=== PATIENT | male | born 1945 | race Caucasian/White ===

== ENCOUNTER → 2016-11-10 | Outpatient (CLI) | payer OTHER ==
[~2016-11-10] MED LIST: AMIT100TA PO; AMIT150T PO; AMIT50TA4 PO; ASPI81CH PO; CIPR500T89 PO; DONETAB6 PO; FLAG500T PO; HYDR12.55 PO; LORA10TA2 PO; MULTCAP PO; OMEP40CA2 PO; RANI300T PO; URSO1TAB6 PO; VITA200038 PO; VITACAP31 PO; VITMTA PO; [UNRECOGNIZED DRUG - CODE] PO
[2016-11-10 12:45] LABS: BASO % 0.7 % (0.0-1.0); EOS # 0.1 K/mm3 (0.0-0.50); EOS % 4.3 % (0.0-3.0); LARGE UNSTAINED CELL # 0.2 K/mm3 (0.0-0.4); LARGE UNSTAINED CELL % 4.5 % (0.0-4.0); LYMPH # 0.7 K/mm3 (1.5-4.5); LYMPH % 19.5 % (24.0-44.0); MEAN CORPUSCULAR HEMOGLOBIN 31.9 pg (27.0-33.0); MEAN CORPUSCULAR HGB CONC 34.7 g/dl (32.0-36.5); MEAN CORPUSCULAR VOLUME 91.8 fl (80.0-96.0); MONO # 0.3 K/mm3 (0.0-0.8); MONO % 9.3 % (0.0-5.0); NEUTROPHILS # 2.1 K/mm3 (1.8-7.7); NEUTROPHILS % 61.8 % (36.0-66.0); RED CELL DISTRIBUTION WIDTH 16.2 % (11.5-14.5); WHITE BLOOD COUNT 3.3 K/mm3 (4.0-10.0)
[2016-11-10 12:50] LABS: INR 1.1
[2016-11-10 12:59] LABS: PLATELET COUNT, AUTOMATED 69 k/mm3 (150-450)
[2016-11-10 14:11] LABS: ALBUMIN 3.3 GM/DL (3.2-5.2); ALBUMIN/GLOBULIN RATIO 0.83 (1.00-1.93); CALCIUM LEVEL 8.8 MG/DL (8.8-10.2); CREATININE FOR GFR 1.36 MG/DL (0.70-1.30); GLOMERULAR FILTRATION RATE 54.7 (>42); POTASSIUM SERUM 4.4 MEQ/L (3.5-5.1); TOTAL PROTEIN 7.3 GM/DL (6.4-8.2)
== END ==
LOC: M LAB 12:08
PROVIDERS: ATTEND Internal Medicine Gastroenterology
DX: C24.0 Malignant neoplasm of extrahepatic bile duct (principal); Z79.899 Other long term (current) drug therapy

== ENCOUNTER → 2016-11-12 | Outpatient (CLI) | payer OTHER ==
--- NOTE | 2016-11-12 08:53 | REP ---
Completed abdominal sonography and portal venous Doppler assessment: History: Evaluate liver circulation. Portal hypertension. Comparison study is a CT examination from July 21, 2016. Findings: The gallbladder is surgically absent. Scan quality is inhibited significantly by bowel gas and limited imaging windows particularly in the right upper quadrant. The liver is not well seen but appears inhomogeneous. There are calcifications and/or surgical clips in the right lobe. Pancreas is obscured by abdominal gas. Spleen is quite enlarged measuring 18.7 x 8.0 x 16.7 cm. It is homogeneous sonographically. There are 2.7 and 1.9 cm cysts in the right kidney. Right renal dimensions are 11.7 x 5.4 x 5.3 cm. Left kidney measures 11.1 x 3.4 x 4.4 cm. Renal cortical echogenicity pattern is normal. No renal mass lesion is seen. The abdominal aorta is not seen. Doppler flow assessment: No flow could be seen in the main portal vein. The main portal vein could not be resolved and measured. Question thrombosis, perhaps chronic. Abdominal bowel gas precludes visualization of midline vascular structures. Hepatic veins have dampened phasicity but are patent. This is consistent with cirrhosis. Splenic venous flow could not be traced. Impression: Extremely limited exam quality. Marked splenomegaly. Question portal venous occlusion. Blunted phasicity in the hepatic veins consistent with cirrhosis. No ascites is seen. Signed by Jersey Quiñones MD 11/12/2016 01:41 P
== END ==
LOC: M RAD 06:59
PROVIDERS: ATTEND Internal Medicine Gastroenterology
DX: K76.6 Portal hypertension (principal)

== ENCOUNTER → 2016-12-24 | Outpatient (CLI) | payer OTHER ==
[2016-12-24 11:55] LABS: MEAN CORPUSCULAR HEMOGLOBIN 30.3 pg (27.0-33.0); MEAN CORPUSCULAR HGB CONC 33.5 g/dl (32.0-36.5); MEAN CORPUSCULAR VOLUME 90.2 fl (80.0-96.0); RED CELL DISTRIBUTION WIDTH 15.2 % (11.5-14.5); WHITE BLOOD COUNT 3.7 K/mm3 (4.0-10.0)
[2016-12-24 12:32] LABS: ALBUMIN 3.3 GM/DL (3.2-5.2); ALBUMIN/GLOBULIN RATIO 0.87 (1.00-1.93); BILIRUBIN,TOTAL 0.7 MG/DL (0.2-1.0); CALCIUM LEVEL 8.6 MG/DL (8.8-10.2); CREATININE FOR GFR 1.53 MG/DL (0.70-1.30); GLOMERULAR FILTRATION RATE 47.7 (>42); POTASSIUM SERUM 4.2 MEQ/L (3.5-5.1); TOTAL PROTEIN 7.1 GM/DL (6.4-8.2)
== END ==
LOC: M LAB 10:59
PROVIDERS: ATTEND Family Medicine
DX: K72.90 Hepatic failure, unspecified without coma (principal)

== ENCOUNTER → 2016-12-29 | Outpatient (REF) | payer OTHER ==
[2017-01-04 10:17] LABS: AMITRIPTYLINE 404 ng/mL (Not Estab.); NORTRIPTYLINE 56 ng/mL (Not Estab.)
== END ==
LOC: M SFHCADAM 14:03
PROVIDERS: ATTEND Physician Assistant
DX: Z51.81 Encounter for therapeutic drug level monitoring (principal); Z79.899 Other long term (current) drug therapy
CPT/HCPCS: G0463; G0480

== ENCOUNTER 2017-01-23 13:11 | Inpatient (IN) | payer OTHER ==
[~2017-01-23] VITALS: Ht 182.9 cm; Wt 100.2 kg
[2017-01-23] VITALS (11 sets, daily range): BP systolic 136–182; BP diastolic 68–92
[2017-01-23] MEDS ORDERED: NS 1,000 ML IV ONE ×2 (13:30→14:30)
[2017-01-23] MEDS ORDERED: LACT10SO29 PO (13:43)
[2017-01-23] MEDS ORDERED: PANTOPRAZOLE 40MG INJ (PROTONIX) (C9113) IV ONE (13:45)
[2017-01-23 13:46] LABS: BASO % 0.2 % (0.0-1.0); EOS # 0.1 K/mm3 (0.0-0.50); EOS % 0.9 % (0.0-3.0); LARGE UNSTAINED CELL # 0.1 K/mm3 (0.0-0.4); LARGE UNSTAINED CELL % 1.4 % (0.0-4.0); LYMPH # 1.5 K/mm3 (1.5-4.5); LYMPH % 14.7 % (24.0-44.0); MEAN CORPUSCULAR HEMOGLOBIN 30.2 pg (27.0-33.0); MEAN CORPUSCULAR HGB CONC 31.8 g/dl (32.0-36.5); MEAN CORPUSCULAR VOLUME 94.8 fl (80.0-96.0); MONO # 0.4 K/mm3 (0.0-0.8); MONO % 4.5 % (0.0-5.0); NEUTROPHILS # 7.1 K/mm3 (1.8-7.7); NEUTROPHILS % 78.2 % (36.0-66.0); PLATELET COUNT, AUTOMATED 190 k/mm3 (150-450); RED CELL DISTRIBUTION WIDTH 15.9 % (11.5-14.5); WHITE BLOOD COUNT 9.1 K/mm3 (4.0-10.0)
[2017-01-23] MEDS ORDERED: OCTREOTIDE ACETATE 50 MCG/ML VIAL (J2354) IV STA (13:46)
[2017-01-23 13:56] LABS: INR 1.36
[2017-01-23 14:00] LABS: ALBUMIN 2.8 GM/DL (3.2-5.2); ALBUMIN/GLOBULIN RATIO 0.85 (1.00-1.93); BILIRUBIN,DIRECT 0.4 MG/DL (0.0-0.2); BILIRUBIN,TOTAL 1.2 MG/DL (0.2-1.0); CALCIUM LEVEL 8.4 MG/DL (8.8-10.2); CREATININE FOR GFR 1.61 MG/DL (0.70-1.30); POTASSIUM SERUM 4.6 MEQ/L (3.5-5.1); TOTAL PROTEIN 6.1 GM/DL (6.4-8.2)
[2017-01-23] MEDS: OCTREOTIDE ACETATE 1,200 MCG in NS 238.8 ML IV SCH ×3 (14:01→23:02)
[2017-01-23] MEDS ORDERED: ONDANSETRON 4MG/2ML VIAL (J2405) IV PRN ×3 (14:45→22:45)
--- NOTE | 2017-01-23 14:50 | HPE ---
DATE OF ADMISSION: 01/23/2017 John's history and physical was generated in [facility] and a copy of this has been placed on his chart in the emergency room.
[2017-01-23] MEDS: NS 1,000 ML IV SCH ×2 (15:08→18:25)
[2017-01-23] MEDS ORDERED: AMIT50TA PO (15:21)
[2017-01-23] MEDS ORDERED: OMEP40CA2 PO (15:24)
--- NOTE | 2017-01-23 15:26 | CR ---
DATE OF CONSULTATION: 01/23/2017 STATUS OF PATIENT: Inpatient. REQUESTING PHYSICIAN: Dr. Cuba. REASON FOR CONSULTATION: Acute upper gastrointestinal (GI) bleeding. HISTORY OF PRESENT ILLNESS: For full consultation, please review my office generated note that will be faxed and scanned to the hospital chart. Briefly, this is a patient well known to me. He is status post extensive surgical management of cholangiocarcinoma with extensive hepatic resection, hepaticojejunostomy back in [address] [place] [address] Morales. He has had recent complications of a biliary stent erosion into his duodenum causing bleeding. He had the stent replaced or repositioned in [place] with Dr. Pilo Nielsen. Also noted to have chronic portal vein thrombosis for which anticoagulation was considered, however not yet started. The patient is suspected to have, but not definitely known to have cirrhosis. He does have a baseline encephalopathy, which may be due to cirrhosis or perhaps shunting of portal flow related to his very extensive biliary surgery. This patient presents to the emergency room via ambulance today with vomiting blood and syncope or near syncope in the bathroom. He also had several black stools. On the ride in in the ambulance, he had two additional episodes of hematemesis/black reddish hematemesis. The patient presents now to the emergency room and is being stabilized with intravenous (IV) fluids, packed red blood cells (RBCs). He started on the octreotide drip and on Protonix. I am called to proceed with urgent esophagogastroduodenoscopy (EGD) once the patient is stabilized. IMPRESSION: 1. Acute hematemesis and melenic stools. 2. Hemodynamic instability with Hypotension Tachycardia. - Chronic portal vein thrombosis. - History of cholangiocarcinoma,dx 2012, status post Chemotherapy and extensive bilateral liver resection in 2013. RECOMMENDATIONS: Hemodynamic stabilization followed by urgent endoscopy PRBC, Octreotide 50/50, Protonix, IVF MTDD
[2017-01-23] MEDS ORDERED: fentaNYL 100 MCG/2 ML INJECTION (J3010) As Ordered ONE ×2 (15:46→20:37)
[2017-01-23] MEDS ORDERED: SUCCINYLCHOLINE 100 MG/5 ML SYRINGE (J0330) As Ordered ONE ×2 (15:48→21:41)
[2017-01-23] MEDS ORDERED: PROPOFOL 200 MG/20 ML VIAL As Ordered ONE ×2 (15:48→20:39)
[2017-01-23] MEDS ORDERED: LIDOCAINE 2% INJ 100 MG/5 ML SDV (FOR ANES.) As Ordered ONE ×2 (15:48→20:39)
[2017-01-23] MEDS ORDERED: ONDANSETRON 4MG/2ML VIAL (J2405) As Ordered ONE (15:49)
[2017-01-23] MEDS ORDERED: CALCIUM CHLORIDE 10% 1 GM/10 ML SYR As Ordered ONE ×2 (16:11→21:41)
[2017-01-23] MEDS ORDERED: PHENYLephrine HCL 500 MCG/5 ML (100MCG/ML) SYRINGE (J2370) As Ordered ONE ×3 (17:00→21:41)
[2017-01-23] MEDS ORDERED: ePHEDrine SULFATE 25 MG/5 ML(5MG/ML) SYRINGE As Ordered ONE (17:00)
--- NOTE | 2017-01-23 17:16 | ROOR ---
Patient Name: John Huang Procedure Date: 01/23/2017 2:14 PM Date of : 1945 Age: 71 Room: Main OR Gender: Male Note Status: Finalized Procedure: Upper GI endoscopy Indications: Hematemesis, Melena Providers: Smith RODRIGUEZ MD Referring MD: Gary Cuba MD, 2. Inpatient 2. Inpatient Requesting Provider: 2. Inpatient 2. Inpatient Medicines: Monitored Anesthesia Care Complications: No immediate complications. Procedure: Pre-Anesthesia Assessment: - The heart rate, respiratory rate, oxygen saturations, blood pressure, adequacy of pulmonary ventilation, and response to care were monitored throughout the procedure. The Endoscope was introduced through the mouth, and advanced to the third part of duodenum. The upper GI endoscopy was technically difficult and complex due to excessive bleeding, presence of food and poor endoscopic visualization. Successful completion of the procedure was aided by lavage. The patient tolerated the procedure well. Findings: Non-bleeding grade II varices were found in the lower third of the esophagus,. No stigmata of recent bleeding were evident and no red joelle signs were present. Hematin (altered blood/shslmb-afeebl-xqzi material) was found in the entire examined stomach. Clotted blood was found in the entire examined stomach. Food (residue) was found in the entire examined stomach. A previously placed metal stent was seen in the ampulla and at the anastomosis. A single mucosal nodule was found in the second portion of the duodenum. Impression: - Esophagus: Non-bleeding grade II esophageal varices- No definite stigmata of recent bleeding seen. - Stomach: Not well visualized. Food/black clot/coffee grounds in stomach prevent good exam despite extensive lavage. - Duodenum: Metal biliary stent in the duodenum. Granuloma on opposite wall of stent-I do not see any stigmata of recent bleeding here. (- Overall: Source for bleeding is not determined--I see no fresh blood or fresh clots--i.e. no active bleeding.) Recommendation: - Repeat upper endoscopy tomorrow (or sooner) because the preparation was poor. - IV protonix, IV Octreotide 50 micrograms per hour. - NGT is in place-- to suction and monitor for bleeding. Pt may have po ice chips with NGT. - Cont. IVF and Transfuse as needed--tentatively will repeat EGD tomorrow (after clots clear for better visualisation). Smith Rodriguez MD Smith RODRIGUEZ MD 01/23/2017 5:16:17 PM This report has been signed electronically. Number of Addenda: 0 Note Initiated On: 01/23/2017 2:14 PM Estimated Blood Loss: Estimated blood loss: none.
[2017-01-23 17:31] LABS: MEAN CORPUSCULAR HEMOGLOBIN 29.8 pg (27.0-33.0); MEAN CORPUSCULAR HGB CONC 33.1 g/dl (32.0-36.5); MEAN CORPUSCULAR VOLUME 90.1 fl (80.0-96.0); RED CELL DISTRIBUTION WIDTH 16.2 % (11.5-14.5); WHITE BLOOD COUNT 7.5 K/mm3 (4.0-10.0)
[2017-01-23] MEDS ORDERED: fentaNYL 100 MCG/2 ML INJECTION (J3010) IV PRN ×2 (17:45→22:45)
[2017-01-23] MEDS ORDERED: LR 1,000 ML IV SCH (17:45)
[2017-01-23 20:47] LABS: MEAN CORPUSCULAR HEMOGLOBIN 30.2 pg (27.0-33.0); MEAN CORPUSCULAR VOLUME 91.7 fl (80.0-96.0); RED CELL DISTRIBUTION WIDTH 16.7 % (11.5-14.5); WHITE BLOOD COUNT 5.9 K/mm3 (4.0-10.0)
--- NOTE | 2017-01-23 22:30 | ROOR ---
Patient Name: John Huang Procedure Date: 01/23/2017 9:09 PM Date of : 1945 Age: 71 Room: Main OR Gender: Male Note Status: Finalized Procedure: Upper GI endoscopy Indications: Acute post hemorrhagic anemia, Hematemesis Providers: Smith RODRIGUEZ MD Referring MD: 2. Inpatient 2. Inpatient, Gary Cuba MD Requesting Provider: 2. Inpatient 2. Inpatient Medicines: General Anesthesia Complications: No immediate complications. Procedure: Pre-Anesthesia Assessment: - The heart rate, respiratory rate, oxygen saturations, blood pressure, adequacy of pulmonary ventilation, and response to care were monitored throughout the procedure. The Endoscope was introduced through the mouth, and advanced to the second part of duodenum. The upper GI endoscopy was technically difficult and complex due to poor patient prep. Successful completion of the procedure was aided by lavage. The patient tolerated the procedure well. Findings: Grade II varices were found in the lower third of the esophagus. Clotted blood was found in the entire examined stomach. Food (residue) was found in the entire examined stomach. Nodular mucosa was found in the second portion of the duodenum. A previously placed metal stent was seen in the area of the papilla. Impression: - Grade II esophageal varices. - no active bleeding/ no stigmata of recent bleeding - Old black and maroon clotted blood in the entire stomach preventing good visualisation. - A few small petichiae and prominent gastric folds-possible gastric varices/portal gastropathy - no active bleeding. - Metal biliary stent in the duodenum. Nodular mucosa on opposite wall.-no active bleeding. - (overall this second look did not provide any better visualisation. I do not see any definite bleeding lesion, no active bleeding at this time. Blood appears to be old/black/dark maroon) Recommendation: - Continue present medications. - Return patient to ICU for ongoing care. - I will increase his octreotide to 100 mcg/hr due to the probability of gastric varices. - Will again plan on repeat EGD #3 tomorrow after gastric contents have hopefully passed for better visual. Smith Rodriguez MD Smith RODRIGUEZ MD 01/23/2017 10:29:29 PM This report has been signed electronically. Number of Addenda: 0 Note Initiated On: 01/23/2017 9:09 PM Estimated Blood Loss: Estimated blood loss: none.
[2017-01-23] MEDS ORDERED: NS 1,000 ML IV SCH (22:45)
[2017-01-23] MEDS ORDERED: OCTREOTIDE ACETATE 50 MCG/ML VIAL (J2354) IV ONE (22:45)
[2017-01-24] VITALS (22 sets, daily range): BP systolic 131–170; BP diastolic 62–104
[2017-01-24 02:39] LABS: MEAN CORPUSCULAR VOLUME 87.9 fl (80.0-96.0); RED CELL DISTRIBUTION WIDTH 16.8 % (11.5-14.5); WHITE BLOOD COUNT 10.2 K/mm3 (4.0-10.0)
[2017-01-24] MEDS: NS 1,000 ML IV SCH ×4 (04:13→15:45)
[2017-01-24] MEDS: OCTREOTIDE ACETATE 1,200 MCG in NS 238.8 ML IV SCH ×2 (04:29→14:52)
[2017-01-24] MEDS: PANTOPRAZOLE 40MG INJ (PROTONIX) (C9113) IV SCH (08:01)
[2017-01-24] MEDS: cefTRIAXone SOD 2 GM in D5W MINI-BAG PLUS 50 ML IV SCH (08:01)
[2017-01-24] MEDS: ACETAMINOPHEN 650 MG SUPP PR PRN ×2 (08:37→14:52)
--- NOTE | 2017-01-24 08:58 | REP ---
Clinical: Abnormal breath sounds on auscultation. Comparison: 07/19/2016. Findings: Examination is limited by portable technique, underpenetration, and poor inspiratory effort. Nasogastric tube courses below left hemidiaphragm. Right Sltibw-E-Szuy with tip in the SVC. Mediastinum and cardiac silhouette are stable. Left perihilar and left lower lobe atelectasis cannot be excluded. No obvious effusion or pneumothorax. Impression: Cannot exclude left lower lobe infiltrate/atelectasis. Signed by Rahul Sandoval MD 01/24/2017 08:50 A
--- NOTE | 2017-01-24 09:28 | ECGEPIP ---
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
[2017-01-24 09:32] LABS: ALBUMIN 2.7 GM/DL (3.2-5.2); ALBUMIN/GLOBULIN RATIO 0.87 (1.00-1.93); BILIRUBIN,TOTAL 3.6 MG/DL (0.2-1.0); CALCIUM LEVEL 8.1 MG/DL (8.8-10.2); CREATININE FOR GFR 1.31 MG/DL (0.70-1.30); GLOMERULAR FILTRATION RATE 57.1 (>42); POTASSIUM SERUM 4.6 MEQ/L (3.5-5.1); TOTAL PROTEIN 5.8 GM/DL (6.4-8.2)
[2017-01-24 10:10] LABS: MEAN CORPUSCULAR HEMOGLOBIN 29.5 pg (27.0-33.0); MEAN CORPUSCULAR HGB CONC 33.6 g/dl (32.0-36.5); MEAN CORPUSCULAR VOLUME 87.7 fl (80.0-96.0); RED CELL DISTRIBUTION WIDTH 16.7 % (11.5-14.5); WHITE BLOOD COUNT 9.3 K/mm3 (4.0-10.0)
--- NOTE | 2017-01-24 10:11 | REP ---
Clinical: Evaluate for paracentesis. Findings: Overview evaluation of the abdomen and pelvis demonstrates only minimal ascites in the right lower quadrant which is not amenable for paracentesis. Impression: minimal ascites below the threshold for paracentesis. Signed by Rahul Sandoval MD 01/24/2017 10:02 A
--- NOTE | 2017-01-24 14:56 | IPNPDOC ---
Subjective Date Seen The patient was seen on 01/24/17. Subjective Chief Complaint/HPI The patient is a 71-year-old male admitted with a reason for visit of Acute Gastrointestinal Hemorrhage. Events since last encounter Patient is acutely confused and is unable to answer questions. I reviewed operative notes - patient received EGD x2 yesterday which were unable to pinpoint source of bleeding, partly due to copious bloody emesis. Per patient' s nurse, he is to receive another EGD today. Patient's nurse states he had 1 bloody bowel movement just now. General: Reports: ROS Unobtainable Objective Physical Examination General Exam: Positive: Mild Distress, Negative: Alert, Cooperative Eye Exam: Positive: PERRLA Neck Exam: Positive: Supple Chest Exam: Positive: Rhonchi (coarse breath sounds throughout), Negative: Clear to auscultation, Normal air movement Heart Exam: Positive: Normal S1, Normal S2, Rate Normal, Regular Rhythm Abdomen Exam: Positive: BS Hyperactive, Soft (unable to determine tenderness) Extremity Exam: Negative: Edema Skin Exam: Positive: Nl turgor and temperature, Negative: Rash Assessment /Plan Problems (1) Acute blood loss anemia Status: Acute Problem Text: Due to acute GI bleed. He has received 4U pRBCs so far; will continue to check CBC Q6H and transfuse blood as needed. (2) Gastric varices Status: Acute Problem Text: Patient is to receive additional EGD today, possibly with gastric banding procedure. Continue octreotide and PPI. (3) Rectal bleeding Status: Acute Problem Text: Likely due to significant upper GI bleed. (4) Hepatic encephalopathy Status: Acute Problem Text: Patient has history of cirrhosis - ammonia elevated last night and down slightly today. Unable to give lactulose or rifampin due to NGT for ongoing GI bleed. Continue IV hydration. (5) Fever Status: Acute Problem Text: Patient has had ongoing fever overnight with Tmax of 102.1. Concern for transfusion-related fever vs. acute infection. - WBCs mildly elevated at 2 am but returned to normal at 8 am today. - Blood cultures and urine culture pending - Ceftriaxone started this morning for concern for SBP; abdominal U/S shows only minimal ascites, so this is less likely - CXR cannot rule-out LLL pneumonia vs. atelectasis; patient at risk for aspiration due to hematemesis prior to admission. Will add Zosyn. - Continue acetaminophen TX as needed for fever (6) Portal vein thrombosis Status: Acute Problem Text: Patient was prescribed Eliquis as an outpatient for this but had not started taking it prior to admission; continue to hold off on anticoagulation due to GI bleed. (7) History of cholangiocarcinoma Status: Acute Problem Text: History of stent placement in 2013 with liver resection and chemotherapy. Plan/VTE VTE Prophylaxis Ordered?: No VTE Exclusion Pharmacological: Active Bleeding Plan/Urinary Catheter Reason for insertion/continuin: Critical Pt monitoring VS, I&O, 24H, Fishbone Vital Signs/I&O Vital Signs Date Time Temp Pulse Resp B/P Pulse Ox O2 Delivery O2 Flow Rate FiO2 01/24/17 11:00 89 23 136/66 97 Nasal Cannula 2.0 01/24/17 10:29 101.1 I&O- Last 24 Hours up to 6 AM 01/24/17 06:00 Intake Total 5376 ml Output Total 1650 ml Balance 3726 ml Laboratory Data 24H LABS Laboratory Tests 2 01/23/17 18:41: Lactic Acid Followup at 4 Hours 2.1*H 01/23/17 20:11: Ammonia 338H 01/24/17 08:45: Ammonia 223H, Blood Urea Nitrogen 38H, Creatinine 1.31H, Sodium Level 148H, Potassium Level 4.6, Chloride Level 115H, Carbon Dioxide Level 22, Calcium Level 8.1L, Aspartate Amino Transf (AST/SGOT) 47H, Alanine Aminotransferase (ALT /SGPT) 49, Alkaline Phosphatase 411H, Total Bilirubin 3.6#H, Total Protein 5.8L , Albumin 2.7L, Albumin/Globulin Ratio 0.87L, Anion Gap 11, Glomerular Filtration Rate 57.1 CBC/BMP Laboratory Tests 01/23/17 17:14 Red Blood Count 3.61 L, Mean Corpuscular Volume 90.1, Mean Corpuscular Hemoglobin 29.8, Mean Corpuscular Hemoglobin Concent 33.1, Red Cell Distribution Width 16.2 H 01/23/17 20:11 Red Blood Count 3.40 L, Mean Corpuscular Volume 91.7, Mean Corpuscular Hemoglobin 30.2, Mean Corpuscular Hemoglobin Concent 33.0, Red Cell Distribution Width 16.7 H 01/24/17 02:19 Red Blood Count 3.28 L, Mean Corpuscular Volume 87.9, Mean Corpuscular Hemoglobin 29.0, Mean Corpuscular Hemoglobin Concent 33.0, Red Cell Distribution Width 16.8 H 01/24/17 08:45 Red Blood Count 3.68 L, Mean Corpuscular Volume 87.7, Mean Corpuscular Hemoglobin 29.5, Mean Corpuscular Hemoglobin Concent 33.6, Red Cell Distribution Width 16.7 H, Calcium Level 8.1 L, Aspartate Amino Transf (AST/SGOT ) 47 H, Alanine Aminotransferase (ALT/SGPT) 49, Alkaline Phosphatase 411 H, Total Bilirubin 3.6 #H, Total Protein 5.8 L, Albumin 2.7 L Microbiology Microbiology 01/24/17 Blood Culture, Received Pending 01/24/17 Urine Culture, Received Pending MANDEEP SANDOVAL MD Jan 24, 2017 14:46
[2017-01-24 15:38] LABS: MEAN CORPUSCULAR HEMOGLOBIN 30.6 pg (27.0-33.0); MEAN CORPUSCULAR HGB CONC 34.9 g/dl (32.0-36.5); MEAN CORPUSCULAR VOLUME 87.7 fl (80.0-96.0); RED CELL DISTRIBUTION WIDTH 16.8 % (11.5-14.5); WHITE BLOOD COUNT 11.1 K/mm3 (4.0-10.0)
[2017-01-24] MEDS: PIPERACILLIN/TAZOBACTAM SOD 3.375 GM in D5W MINI-BAG PLUS 50 ML IV SCH (16:07)
[2017-01-24] MEDS ORDERED: VASOPRESSIN INJ 20 UNITS/ML VIAL ONE (17:17)
[2017-01-24] MEDS ORDERED: VASOPRESSIN INJ 20 UNITS/ML VIAL As Ordered ONE (17:17)
--- NOTE | 2017-01-24 17:54 | ROOR ---
Patient Name: John Huang Procedure Date: 01/24/2017 3:18 PM Date of : 1945 Age: 71 Room: Main OR Gender: Male Note Status: Finalized Procedure: Upper GI endoscopy Indications: Acute post hemorrhagic anemia, Coffee-ground emesis, Hematemesis Providers: Smith RODRIGUEZ MD Referring MD: 2. Inpatient 2. Inpatient Requesting Provider: 2. Inpatient 2. Inpatient Medicines: General Anesthesia Complications: No immediate complications. Procedure: Pre-Anesthesia Assessment: - The heart rate, respiratory rate, oxygen saturations, blood pressure, adequacy of pulmonary ventilation, and response to care were monitored throughout the procedure. The Endoscope was introduced through the mouth, and advanced to the second part of duodenum. The upper GI endoscopy was accomplished without difficulty. The patient tolerated the procedure well. Findings: Non-bleeding grade II varices were found in the lower third of the esophagus,. No stigmata of recent bleeding were evident and no red joelle signs were present. The varices appeared larger than they were at prior exam. Varices with no bleeding were found in the cardia and in the gastric body. There were no stigmata of recent bleeding. Moderate portal hypertensive gastropathy was found in the gastric body and on the greater curvature of the stomach. A previously placed metal biliary stent was seen in the area of the papilla. A single erosion was found in the second portion of the duodenum. Hematin (altered blood/qlxqqa-dwwxrh-bhte material) was found in the gastric body. Impression: - Non-bleeding grade II esophageal varices. - Gastric varices, without bleeding. - Portal hypertensive gastropathy with scattered petichial/mucosal hemorrhages- these are fresh, but not actively bleeding today. - Metal biliary stent in the duodenum. Duodenal nodularity/erosion opposite duodenal wall.. - Black/Hematin (altered blood/qeqenk-clbdtf-tnnr material) in the gastric body. - no fresh blood - I suspect source of bleeding was related to petichial hemorrhages/portal hypertensive gastropathy. - The extensive esophageal and gastric varices are new since last years scope. There does not appear to be any bleeding here at this time. Recommendation: - I suspect progression of chronic portal vein thrombosis/new acute portal vein thrombosis, possible recurrence of tumor in portal system as cause for sudden increased portal pressure. I do not think he would tolerate MRI in his current state. I will check a repeat CT for confirmation. - Observe patient's clinical course. - Continue present medications. Smith Rodriguez MD Smith RODRIGUEZ MD 01/24/2017 5:54:05 PM This report has been signed electronically. Number of Addenda: 0 Note Initiated On: 01/24/2017 3:18 PM Estimated Blood Loss: Estimated blood loss: none.
[2017-01-24] MEDS ORDERED: LR 1,000 ML IV SCH (18:00)
[2017-01-24] MEDS ORDERED: fentaNYL 100 MCG/2 ML INJECTION (J3010) As Ordered ONE (18:19)
[2017-01-24 21:19] LABS: MEAN CORPUSCULAR HEMOGLOBIN 29.6 pg (27.0-33.0); MEAN CORPUSCULAR HGB CONC 33.7 g/dl (32.0-36.5); MEAN CORPUSCULAR VOLUME 87.8 fl (80.0-96.0); RED CELL DISTRIBUTION WIDTH 16.9 % (11.5-14.5); WHITE BLOOD COUNT 11.3 K/mm3 (4.0-10.0)
[2017-01-25] VITALS (9 sets, daily range): BP systolic 103–179; BP diastolic 54–99
[2017-01-25] MEDS: PIPERACILLIN/TAZOBACTAM SOD 3.375 GM in D5W MINI-BAG PLUS 50 ML IV SCH ×2 (00:14→08:39)
[2017-01-25] MEDS: NS 1,000 ML IV SCH (00:14)
[2017-01-25] MEDS: ACETAMINOPHEN 650 MG SUPP PR PRN (00:14)
[2017-01-25 02:42] LABS: MEAN CORPUSCULAR VOLUME 88.4 fl (80.0-96.0); RED CELL DISTRIBUTION WIDTH 16.9 % (11.5-14.5); WHITE BLOOD COUNT 9.9 K/mm3 (4.0-10.0)
[2017-01-25] MEDS: OCTREOTIDE ACETATE 1,200 MCG in NS 238.8 ML IV SCH ×2 (02:47→13:59)
[2017-01-25 03:07] LABS: ALBUMIN 2.6 GM/DL (3.2-5.2); ALBUMIN/GLOBULIN RATIO 0.96 (1.00-1.93); BILIRUBIN,TOTAL 2.8 MG/DL (0.2-1.0); CALCIUM LEVEL 7.5 MG/DL (8.8-10.2); CREATININE FOR GFR 1.36 MG/DL (0.70-1.30); GLOMERULAR FILTRATION RATE 54.7 (>42); POTASSIUM SERUM 3.7 MEQ/L (3.5-5.1); TOTAL PROTEIN 5.3 GM/DL (6.4-8.2)
[2017-01-25] MEDS ORDERED: NS 0.45% 1,000 ML IV SCH (07:45)
--- NOTE | 2017-01-25 08:04 | IPNPDOC ---
Subjective Date Seen The patient was seen on 01/25/17. Subjective Chief Complaint/HPI The patient is a 71-year-old male admitted with a reason for visit of Acute Gastrointestinal Hemorrhage. Events since last encounter Pt nonresponsive. General: Reports: ROS Unobtainable Objective Physical Examination General Exam: Positive: Mild Distress, Negative: Alert, Cooperative Eye Exam: Positive: PERRLA Neck Exam: Positive: Supple Chest Exam: Positive: Rhonchi (coarse breath sounds throughout), Negative: Clear to auscultation, Normal air movement Heart Exam: Positive: Normal S1, Normal S2, Rate Normal, Regular Rhythm Abdomen Exam: Positive: BS Hyperactive, Soft (unable to determine tenderness) Extremity Exam: Negative: Edema Skin Exam: Positive: Nl turgor and temperature, Negative: Rash Assessment /Plan Problems (1) Acute blood loss anemia Status: Acute Problem Text: Due to acute GI bleed. He has received 4U pRBCs so far; will continue to check CBC Q6H and transfuse blood as needed. (2) Gastric varices Status: Acute Problem Text: 01/25 - Dr Rodriguez following. EGD 01/24: - Non-bleeding grade II esophageal varices. - Gastric varices, without bleeding. - Portal hypertensive gastropathy with scattered petichial/mucosal hemorrhages- these are fresh, but not actively bleeding today. - Metal biliary stent in the duodenum. Duodenal nodularity/erosion opposite duodenal wall.. - Black/Hematin (altered blood/togoxk-iazccz-kyrc material) in the gastric body. - no fresh blood - I suspect source of bleeding was related to petichial hemorrhages/portal hypertensive gastropathy. - The extensive esophageal and gastric varices are new since last years scope. There does not appear to be any bleeding here at this time. - I suspect progression of chronic portal vein thrombosis/new acute portal vein thrombosis, possible recurrence of tumor in portal system as cause for sudden increased portal pressure. I do not think he would tolerate MRI in his current state. I will check a repeat CT for confirmation. - Observe patient's clinical course. - Continue present medications. Plan is Dr Rodriguez is working on possible transfer to [facility]. 01/24 - Patient is to receive additional EGD today, possibly with gastric banding procedure. Continue octreotide and PPI. (3) Rectal bleeding Status: Acute Problem Text: Likely due to significant upper GI bleed. (4) Hepatic encephalopathy Status: Acute Problem Text: 01/25 - Ammonia level trending down to 116 today. 01/24 - Patient has history of cirrhosis - ammonia elevated last night and down slightly today. Unable to give lactulose or rifampin due to NGT for ongoing GI bleed. Continue IV hydration. (5) Fever Status: Acute Problem Text: 01/25 - Currently afebrile. Tmax 101 during the night. On Zosyn and Ceftriaxone. Blood and urine cx. WBC 9.9. Patient has had ongoing fever overnight with Tmax of 102.1. Concern for transfusion-related fever vs. acute infection. - WBCs mildly elevated at 2 am but returned to normal at 8 am today. - Blood cultures and urine culture pending - Ceftriaxone started this morning for concern for SBP; abdominal U/S shows only minimal ascites, so this is less likely - CXR cannot rule-out LLL pneumonia vs. atelectasis; patient at risk for aspiration due to hematemesis prior to admission. Will add Zosyn. - Continue acetaminophen WI as needed for fever (6) Portal vein thrombosis Status: Acute Problem Text: Patient was prescribed Eliquis as an outpatient for this but had not started taking it prior to admission; continue to hold off on anticoagulation due to GI bleed. (7) History of cholangiocarcinoma Status: Acute Problem Text: History of stent placement in 2012 with liver resection and chemotherapy. Plan/VTE VTE Prophylaxis Ordered?: No VTE Exclusion Pharmacological: Active Bleeding Plan/Urinary Catheter Reason for insertion/continuin: Critical Pt monitoring VS, I&O, [facility]H, [facility] Vital Signs/I&O Vital Signs Date Time Temp Pulse Resp B/P Pulse Ox O2 Delivery O2 Flow Rate FiO2 01/25/17 05:00 84 22 155/72 96 Nasal Cannula 3.0 01/25/17 04:00 99.0 I&O- Last 24 Hours up to 6 AM 01/25/17 06:00 Intake Total 1565 ml Output Total 2580 ml Balance -1015 ml Laboratory Data 24H LABS Laboratory Tests 2 01/24/17 08:45: Blood Urea Nitrogen 38H, Creatinine 1.31H, Sodium Level 148H, Potassium Level 4.6, Chloride Level 115H, Carbon Dioxide Level 22, Calcium Level 8.1L, Aspartate Amino Transf (AST/SGOT) 47H, Alanine Aminotransferase (ALT/SGPT) 49, Alkaline Phosphatase 411H, Total Bilirubin 3.6#H, Total Protein 5.8L, Albumin 2.7L, Albumin/Globulin Ratio 0.87L, Ammonia 223H, Anion Gap 11, Glomerular Filtration Rate 57.1 01/25/17 02:27: Blood Urea Nitrogen 35H, Creatinine 1.36H, Sodium Level 151H, Potassium Level 3.7, Chloride Level 116H, Carbon Dioxide Level 24, Calcium Level 7.5L, Aspartate Amino Transf (AST/SGOT) 45H, Alanine Aminotransferase (ALT/SGPT) 44, Alkaline Phosphatase 331H, Total Bilirubin 2.8H, Total Protein 5.3L, Albumin 2.6L, Albumin/Globulin Ratio 0.96L, Ammonia 116H, Anion Gap 11, Glomerular Filtration Rate 54.7 CBC/BMP Laboratory Tests 01/24/17 08:45 Calcium Level 8.1 L, Aspartate Amino Transf (AST/SGOT) 47 H, Alanine Aminotransferase (ALT/SGPT) 49, Alkaline Phosphatase 411 H, Total Bilirubin 3.6 #H, Total Protein 5.8 L, Albumin 2.7 L, Red Blood Count 3.68 L, Mean Corpuscular Volume 87.7, Mean Corpuscular Hemoglobin 29.5, Mean Corpuscular Hemoglobin Concent 33.6, Red Cell Distribution Width 16.7 H 01/24/17 15:07 Red Blood Count 3.63 L, Mean Corpuscular Volume 87.7, Mean Corpuscular Hemoglobin 30.6, Mean Corpuscular Hemoglobin Concent 34.9, Red Cell Distribution Width 16.8 H 01/24/17 20:43 Red Blood Count 3.57 L, Mean Corpuscular Volume 87.8, Mean Corpuscular Hemoglobin 29.6, Mean Corpuscular Hemoglobin Concent 33.7, Red Cell Distribution Width 16.9 H 01/25/17 02:27 Calcium Level 7.5 L, Aspartate Amino Transf (AST/SGOT) 45 H, Alanine Aminotransferase (ALT/SGPT) 44, Alkaline Phosphatase 331 H, Total Bilirubin 2.8 H, Total Protein 5.3 L, Albumin 2.6 L, Red Blood Count 3.38 L, Mean Corpuscular Volume 88.4, Mean Corpuscular Hemoglobin 30.0, Mean Corpuscular Hemoglobin Concent 34.0, Red Cell Distribution Width 16.9 H Microbiology Microbiology 01/24/17 Blood Culture, Received Pending 01/24/17 Urine Culture, Received Pending Mo Foley Jan 25, 2017 08:03
[2017-01-25 08:35] LABS: MEAN CORPUSCULAR HEMOGLOBIN 30.5 pg (27.0-33.0); MEAN CORPUSCULAR HGB CONC 34.5 g/dl (32.0-36.5); MEAN CORPUSCULAR VOLUME 88.4 fl (80.0-96.0); RED CELL DISTRIBUTION WIDTH 16.9 % (11.5-14.5); WHITE BLOOD COUNT 13.3 K/mm3 (4.0-10.0)
[2017-01-25] MEDS: cefTRIAXone SOD 2 GM in D5W MINI-BAG PLUS 50 ML IV SCH (08:39)
[2017-01-25] MEDS: PANTOPRAZOLE 40MG INJ (PROTONIX) (C9113) IV SCH (09:03)
[2017-01-25] MEDS ORDERED: GASTROGRAFIN SOLUTION 30ML PO ONE (10:15)
[2017-01-25] MEDS ORDERED: GASTROGRAFIN SOLUTION 30ML (Q9963) PO ONE (10:45)
[2017-01-25] MEDS ORDERED: ISOVUE-370 76% 100ML VIAL (Q9967) As Ordered ONE (11:26)
[2017-01-25] MEDS ORDERED: MAG SULF 1GM/100ML (MAG RUN) 1 GM in APPROPRIATE DILUENT 1 EA IV ONE (11:45)
--- NOTE | 2017-01-25 11:59 | DSES ---
DATE OF ADMISSION: 01/24/2017 DATE OF TRANSFER/DISCHARGE: 01/25/2017 ADMITTING DIAGNOSES: 1. Acute upper GI bleeding. 2. Chronic portal vein thrombosis. 3. Acute portal vein thrombosis.-probable 4. Esophageal varices and gastric varices.- new since 2015 5. History of extensive resection for cholangiocarcinoma in 2012 presumed disease free at this time. HOSPITAL SUMMARY: Mr. Huang is a patient known to me with resection of a cholangiocarcinoma back in 2013 after chemoradiation was provided. The patient has been doing relatively well until recently when he was discovered to have chronic portal vein thrombosis. He was not anticoagulated for this. He presents to the hospital on 01/24 with acute upper GI bleed in the form of vomiting coffee grounds and bloody material. Upper endoscopy was performed revealing new esophageal and new gastric varices as well as portal gastropathy. The patient has been hemodynamically stabilized with high dose octreotide. At this time, it is felt that thrombectomy may be a consideration. However, this is not available at our institution. The patient is quite confused and somewhat combative at times but is otherwise hemodynamically stable. He received a total of 4 units of packed RBCs with a now stable hemoglobin. PHYSICAL EXAMINATION: Vitals: Temperature 100.4/101, pulse is 91, respiratory rate 20, blood pressure 151/71, pulse ox 97% on 3 liters nasal cannula. General: He is confused but answers questions. He is not cooperative at times. Head, eyes, ears, nose and throat: Grossly without abnormality. Neck is negative for lymphadenopathy. Chest is coarse breath sounds. No wheezing or crackles. Heart is regular rate and rhythm, S1, S2. No murmurs or gallops. Abdomen is protuberant but soft, nontender. Bowel sounds are present. Extremities: Negative for edema. Neurological: He is combative at times but answers questions. He does appear confused. Moves all extremities equally and bilaterally. CURRENT MEDICATIONS: - octreotide IV drip at 100 mcg an hour - Rocephin 2 grams IV every 24 - Zosyn 3.375 mg IV every 8 IMPRESSION: 1. Probable acute on chronic portal vein thrombosis in a non-cirrhotic patient with extensive hepatic surgery for cholangiocarcinoma in 2012. 2. Acute upper GI bleed. I suspect most likely related to portal gastropathy. 3. New-onset esophageal and gastric varices compared to previous endoscopies. RECOMMENDATIONS: 1. I have discussed this with Dr. Morales and Dr. Knight at [facility] who agree to admit this patient to their service for further management of probable acute portal vein thrombosis in this patient that is not a candidate for TIPS due to encephalopathy. BRITD
--- NOTE | 2017-01-25 12:39 | REP ---
Clinical: History of cholangiocarcinoma with portal vein thrombosis. Comparison: 07/21/2016. Technique: Axial contrast enhanced images from the lung bases to the pubic symphysis using oral and 100 ml Isovue 370 intravenous contrast material with coronal and sagittal re-formations. Findings: There is a small amount of ascites extending from the upper abdomen along the bilateral pericolic gutters into the pelvis. Postsurgical changes to the liver appreciated along with presumed biliary stent extending from the region of the sarina hepatis to the duodenum. No discrete liver lesion is identified. The splenic vein, superior mesenteric vein and confluence to form what appears to be an attenuated portal vein demonstrate satisfactory enhancement with continued enhancement of the left portal vein but no obvious right portal vein within the liver. These findings are similar to examination dated 07/21/2016 and suggest chronic right portal vein thrombosis. Mild splenomegaly is suggested without focal lesion. Pancreas, bilateral adrenal glands and kidneys are relatively normal/stable. A 2.3 cm right renal cyst is unchanged. Evaluation of the enteric system demonstrates significant mural thickening and submucosal edema involving the colon and predominantly the ascending colon which may reflect colitis or secondary changes related to malignancy and poor vascularization. The ventral hernia is again identified containing nonobstructed loops of bowel similar to prior examination. Fluid-filled small bowel is also identified and again may be related to underlying enteritis. Pelvis demonstrates a Hensley catheter in collapsed bladder with small amount of gas likely related to catheterization. Abdominal aorta demonstrates atherosclerotic changes without aneurysm or dissection. No free air. Scattered adenopathy within the retroperitoneum and mesentery measuring up to approximately 13 mm are nonspecific. Skeletal structures demonstrate degenerative changes without focal osseous abnormality. Lung bases demonstrate small pleural effusions with bibasilar atelectasis as well as cardiomegaly and evidence to suggest mild pulmonary vascular congestion. Impression: 1. Detailed findings as described above likely related to underlying malignancy including small amount of ascites and changes of the small and large bowel which may reflect a secondary enterocolitis. 2. Small pleural effusions with basilar atelectasis and suggestions for pulmonary vascular congestion. Signed by Rahul Sandoval MD 01/25/2017 12:38 P
[2017-01-25 13:56] LABS: MEAN CORPUSCULAR HEMOGLOBIN 30.2 pg (27.0-33.0); MEAN CORPUSCULAR HGB CONC 33.7 g/dl (32.0-36.5); MEAN CORPUSCULAR VOLUME 89.4 fl (80.0-96.0); RED CELL DISTRIBUTION WIDTH 16.8 % (11.5-14.5); WHITE BLOOD COUNT 15.4 K/mm3 (4.0-10.0)
== END 2017-01-25 14:02 | disposition short-term general hospital (02) | DRG 391 ==
LOC: EDBD 13:11 → M ED 14:28 → M ED INP 14:36 → M ICU 17:48
PROVIDERS: ADMIT Family Medicine; ATTEND Internal Medicine Gastroenterology
PROC: 0DJ08ZZ Inspection of Upper Intestinal Tract, Via Natural or Artificial Opening Endoscopic (ICD-10-PCS; 2017-01-23)
PROC: 30253N1 (ICD-10-PCS; 2017-01-23)
PROC: 0DJ08ZZ Inspection of Upper Intestinal Tract, Via Natural or Artificial Opening Endoscopic (ICD-10-PCS; principal; 2017-01-23 14:10)
PROC: 0DJ08ZZ Inspection of Upper Intestinal Tract, Via Natural or Artificial Opening Endoscopic (ICD-10-PCS; 2017-01-24)
DX: K31.89 Other diseases of stomach and duodenum (principal); I81 Portal vein thrombosis; D61.818 Other pancytopenia; K76.6 Portal hypertension; D62 Acute posthemorrhagic anemia; I85.10 Secondary esophageal varices without bleeding; K92.0 Hematemesis; K72.90 Hepatic failure, unspecified without coma; G20 Parkinson's disease; F03.90 Unspecified dementia, unspecified severity, without behavioral disturbance, psychotic disturbance, mood disturbance, and anxiety; I86.4 Gastric varices; D53.9 Nutritional anemia, unspecified; N18.9 Chronic kidney disease, unspecified; F32.9 Major depressive disorder, single episode, unspecified; I12.9 Hypertensive chronic kidney disease with stage 1 through stage 4 chronic kidney disease, or unspecified chronic kidney disease; R50.9 Fever, unspecified; E78.5 Hyperlipidemia, unspecified; R73.03 Prediabetes; M47.816 Spondylosis without myelopathy or radiculopathy, lumbar region; Z91.14 Patient's other noncompliance with medication regimen; Z79.01 Long term (current) use of anticoagulants; Z79.899 Other long term (current) drug therapy; Z85.09 Personal history of malignant neoplasm of other digestive organs; Z92.21 Personal history of antineoplastic chemotherapy; Z98.0 Intestinal bypass and anastomosis status

== ENCOUNTER → 2017-02-24 | Outpatient (REF) | payer OTHER ==
[~2017-02-24] MED LIST changes: +AMIT50TA PO; +LACT10SO29 PO
[2017-02-24 20:46] LABS: INR 1.14
[2017-02-24 20:51] LABS: MEAN CORPUSCULAR HEMOGLOBIN 31.9 pg (27.0-33.0); MEAN CORPUSCULAR HGB CONC 33.3 g/dl (32.0-36.5); MEAN CORPUSCULAR VOLUME 95.8 fl (80.0-96.0); WHITE BLOOD COUNT 4.9 K/mm3 (4.0-10.0)
[2017-02-24 20:54] LABS: ALBUMIN 2.9 GM/DL (3.2-5.2); ALBUMIN/GLOBULIN RATIO 0.69 (1.00-1.93); BILIRUBIN,TOTAL 0.7 MG/DL (0.2-1.0); CALCIUM LEVEL 8.8 MG/DL (8.8-10.2); CREATININE FOR GFR 1.4 MG/DL (0.70-1.30); GLOMERULAR FILTRATION RATE 52.9 (>42); POTASSIUM SERUM 4.9 MEQ/L (3.5-5.1); TOTAL PROTEIN 7.1 GM/DL (6.4-8.2)
== END ==
LOC: M SFHCADAM 14:27
PROVIDERS: ATTEND Family Medicine
DX: I81 Portal vein thrombosis (principal); I10 Essential (primary) hypertension; K74.60 Unspecified cirrhosis of liver

== ENCOUNTER 2017-03-08 20:43 | Inpatient (IN) | payer OTHER ==
[~2017-03-08] VITALS: Ht 182.9 cm; Wt 91.6 kg
[2017-03-08] MEDS ORDERED: SUCR1TA PO (21:03)
[2017-03-08] MEDS ORDERED: FURO20TA2 PO (21:03)
[2017-03-08] MEDS ORDERED: KLOR20PO12 GT (21:03)
[2017-03-08] MEDS ORDERED: NADO20TA PO (21:03)
[2017-03-08] MEDS ORDERED: FINA5TAB2 PO (21:03)
[2017-03-08] MEDS ORDERED: FLOM5CAP PO (21:03)
[2017-03-08] MEDS ORDERED: BACL10TA PO (21:03)
[2017-03-08] MEDS ORDERED: NS 1,000 ML IV ONE (21:15)
--- NOTE | 2017-03-08 21:50 | REPUSA ---
CT of the head Clinical history: altered mental status. Protocol: Multiple axial CT images obtained with 5 mm slice thickness were obtained through the head without administration of contrast. Findings: The ventricles and sulci are symmetric but prominent in size bilaterally. There are periven tricular areas of low attenuation throughout the deep white matter. There is no evidence of acute hem orrhage or infarct. There is no midline shift, mass effect, or extra-axial fluid collection. The osse ous structures are unremarkable. The visualized paranasal sinuses and mastoid air cells are clear. Impression: No acute hemorrhage or infarct. 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
[2017-03-08 21:54] LABS: BASO % 0.3 % (0.0-1.0); EOS # 0.1 K/mm3 (0.0-0.50); LARGE UNSTAINED CELL # 0.2 K/mm3 (0.0-0.4); LARGE UNSTAINED CELL % 2.4 % (0.0-4.0); LYMPH # 0.7 K/mm3 (1.5-4.5); LYMPH % 11.6 % (24.0-44.0); MEAN CORPUSCULAR HEMOGLOBIN 30.6 pg (27.0-33.0); MEAN CORPUSCULAR HGB CONC 31.9 g/dl (32.0-36.5); MEAN CORPUSCULAR VOLUME 95.7 fl (80.0-96.0); MONO # 0.5 K/mm3 (0.0-0.8); MONO % 7.4 % (0.0-5.0); NEUTROPHILS # 4.7 K/mm3 (1.8-7.7); NEUTROPHILS % 76.2 % (36.0-66.0); PLATELET COUNT, AUTOMATED 104 k/mm3 (150-450); RED CELL DISTRIBUTION WIDTH 16.6 % (11.5-14.5); WHITE BLOOD COUNT 6.2 K/mm3 (4.0-10.0)
[2017-03-08 22:22] LABS: ALBUMIN 2.9 GM/DL (3.2-5.2); ALBUMIN/GLOBULIN RATIO 0.66 (1.00-1.93); ALKALINE PHOSPHATASE 513 U/L (45-117); ALT/SGPT 57 U/L (12-78); ANION GAP 8 MEQ/L (8-16); AST/SGOT 65 U/L (15-37); BILIRUBIN,DIRECT 0.4 MG/DL (0.0-0.2); BILIRUBIN,TOTAL 1.1 MG/DL (0.2-1.0); BLOOD UREA NITROGEN 24 MG/DL (7-18); CALCIUM LEVEL 8.3 MG/DL (8.8-10.2); CARBON DIOXIDE LEVEL 27 MEQ/L (21-32); CHLORIDE LEVEL 104 MEQ/L (98-107); GLOMERULAR FILTRATION RATE 45.3 (>42); GLUCOSE, FASTING 126 MG/DL (83-110); SODIUM LEVEL 139 MEQ/L (136-145); TOTAL PROTEIN 7.3 GM/DL (6.4-8.2)
[2017-03-08] MEDS ORDERED: METR0.00 TOP (22:58)
[2017-03-08] MEDS ORDERED: PANT40TA2 PO (22:58)
[2017-03-08] MEDS ORDERED: POTA20TA4 PO (22:58)
[2017-03-09] MEDS ORDERED: ACETAMINOPHEN TAB 650MG DOSE (2X325MG) PO PRN (00:15)
[2017-03-09] MEDS ORDERED: ONDANSETRON 4MG/2ML VIAL (J2405) IV PRN (00:15)
[2017-03-09] MEDS ORDERED: BISACODYL 5 MG TAB PO PRN (00:15)
[2017-03-09 00:40] VITALS: BP 139/79
[2017-03-09 00:54] LABS: METHADONE URINE NEGATIVE (NEGATIVE)
[2017-03-09] MEDS: LACTULOSE 20 GM/30 ML SYRUP UD PO SCH ×3 (01:00→20:08)
[2017-03-09] MEDS: AMITRIPTYLINE 50 MG TAB PO SCH ×2 (01:00→20:09)
[2017-03-09] MEDS: POTASSIUM CHLORIDE 10 MEQ SR TABLET PO SCH ×3 (01:01→20:09)
[2017-03-09] MEDS: SUCRALFATE 1 GM TAB PO SCH ×5 (01:01→20:09)
[2017-03-09] MEDS: PANTOPRAZOLE 40MG TAB (PROTONIX) PO SCH ×3 (01:01→20:09)
--- NOTE | 2017-03-09 02:08 | REP ---
Clinical: Altered mental status. Comparison: 01/24/2017, 07/19/2016. Technique: PA and lateral. Findings: Double-lumen central catheter with tip in the SVC. Cardiac silhouette is normal. Lung hollins demonstrate diffuse chronic interstitial changes primarily involving the bilateral lung bases. No obvious focal consolidation, effusion, or pneumothorax. Skeletal structures demonstrate age-related changes. Impression: Chronic-appearing changes. No obvious acute cardiopulmonary process. Signed by Rahul Sandoval MD 03/09/2017 01:58 A
[2017-03-09] MEDS: cefTRIAXone SOD 1 GM in D5W MINI-BAG PLUS 50 ML IV SCH ×2 (03:34→16:40)
[2017-03-09 06:00] VITALS: BP 115/60
--- NOTE | 2017-03-09 06:23 | HPE ---
DATE OF ADMISSION: 03/08/2017 PRIMARY CARE PHYSICIAN: Dr. Cuba UROLOGIST: Dr. Solorzano in [place]. STAVE JOINTER: Dr. Rodriguez ONCOLOGIST: Dr. Hamilton in [place]. CHIEF COMPLAINT: One episode of hallucination and altered mental status. CODE STATUS: FULL CODE HISTORY OF PRESENT ILLNESS: Mr. Huang is a 71-year-old male with multiple past medical history who presented to emergency room (ER) due experiencing one episode of altered mental status and hallucination, which developed last night. Patient had portal vein thrombosis acute on chronic, was started on anticoagulation in December 2016, but had massive upper gastrointestinal (GI) bleeding before filling the prescription. Patient was transferred to [facility] for IR; however, thrombectomy was unsuccessful. Patient had the acute urinary retention and was discharged with the Hensley after the gross hematuria. Patient' s Hensley was removed on Tuesday of last week and patient was started on baclofen 10 mg twice a day as well as finasteride, and also they have increased the tamsulosin to 0.4 mg by mouth daily. Patient's expressed that they did not start the baclofen until Tuesday. However, after patient started it on Tuesday, patient felt more weak. According to the , they usually go to bed around 10-11 p.m, however for the past three days he went to be earlier. Also, patient 's noticed that his appetite has decreased. Patient denies fever, chills, night sweats. Patient also denies trauma to the head. According to the patient's , last night patient went to bed early and when the went upstairs to check on him, he was calling his his mother. Also, patient had another episode of mistaking bedroom with the bathroom last night. Patient's brought him to ER due to Dr. Cuba recommendation that if the patient become hallucinating it is possibility secondary to increased of ammonia level and he needs to come to hospital. HOME MEDICATION: - amitriptyline 150 mg by mouth nightly - amitriptyline 100 mg by mouth daily - baclofen 10 mg by mouth twice a day - vitamin D3 2000 units by mouth daily - donepezil 10 mg by mouth nightly - finasteride 5 mg by mouth daily - furosemide 20 mg by mouth daily - lactulose 15 mL by mouth three times a day - metronidazole one dose topical daily, apply to nose - multivitamin one tablet by mouth daily - nadolol 20 mg by mouth daily - pantoprazole sodium 40 mg by mouth twice a day - potassium chloride 20 mEq twice a day - Carafate 1 gram by mouth by mouth before food, nightly - Flomax 0.4 mg by mouth daily ALLERGIES: 1. IBUPROFEN causes hallucination. 2. STATIN causes pain. 3. HALDOL - tardive dyskinesia. 4. SINEMET - repeated fall/loose of tongue. PAST MEDICAL HISTORY: 1. Hyperlipidemia 2. Prediabetes. 3. Depression. 4. Remote history of hypertension (). 5. Cholangiocarcinoma diagnosed on January of 2013. Chemotherapy with cisplatin by [facility]. 6. Tardive dyskinesia possibly from Haldol in 2013. 7. 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 8. Lumbar spondylosis, MRI of spine 2014. 9. Erectile dysfunction (ED). 10. Gastrointestinal (GI) blood loss anemia. 11. Massive upper GI bleed December 2016, transferred to [facility]. 12. Cirrhosis. 13. Portal vein hypertension on ultrasound October 2016. 14. Varices portal gastropathy on EGD December 2016, on nadolol January 2017. 15. Anticoagulation initiated December 2016 for portal vein thrombosis. 16. Elevated ammonia level, started on lactulose. 17. Portal vein thrombosis acute on chronic, was started anticoagulation December 2016, but massive upper GI bleed before filling. 18. Acute urinary retention, discontinued Hensley after gross hematuria. PAST SURGICAL HISTORY: 1. Colonoscopy, normal with diverticulosis in July 2013, also 2014. 2. Right total hip replacement. 3. Obstructive jaundice secondary to cholangiocarcinoma, status post stent and percutaneous gallbladder drain, intraoperative hypotension and bradycardia, status post chemotherapy September 2015. 4. Radical bile duct excision with hepatojejunostomy. 5. EGD January 2017. FAMILY HISTORY: Father due to congestive heart failure. Mother , of lung cancer. Patient had one sister, she of cancer. Patient had another sister who is healthy. Patient's son who is healthy. SOCIAL HISTORY: Patient lives with his . 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 Patient has not traveled outside the [place]. Patient denies history of illicit drug use. Patient denies history of smoking or tobacco use. Patient has a history of alcohol usage. REVIEW OF SYSTEMS: GENERAL: Patient denies fever, chills, night sweats or weight changes. HEENT: Patient denies headache, lightheadedness or dizziness. Patient denies problem with chewing foods or drinking water. However, patient's appetite has decreased. NECK: Patient has also loss range of motion his neck. HEART: Patient denies palpitation, racing or skipping heartbeat, or chest pain. LUNG: Patient denies shortness of breath or coughing. ABDOMEN: Patient denies abdominal pain. However, patient has been experiencing nausea. Patient denies vomiting, hematochezia, hemoptysis, emesis or melena. Patient is on lactulose and the patient sometimes has multiple bowel movements per day. NEUROLOGIC: Patient denies history of transient ischemic attack (TIA), CVA, or seizure type activities. PHYSICAL EXAMINATION: VITAL SIGNS: Temperature 96.5, pulse 70, respiratory rate 18, blood pressure 120/59, pulse oximetry 100% on room air. GENERAL APPEARANCE: Patient was lying in bed, no acute distress. Patient was awake, alert and oriented to time, place and person. HEENT: Normocephalic, atraumatic. Pupils are equal and reactive to light. Oral mucosa is moist. Patient has tardive dyskinesia. HEART: Regular rate and rhythm. Normal S1, S2. LUNG: Clear breath sound bilaterally. Good air movement. ABDOMEN: Soft, nontender. Positive bowel sounds in all quadrants. Patient has incisional hernia in the left upper quadrant, which has been presented after the abdominal surgery. NEUROLOGICAL: Cranial nerves II-XII were intact. No focal deficiencies. EXTREMITY: Patient has normal range of motion both upper and lower extremities. Patient has mild pitting edema in both lower extremities. +2 pulses in both lower extremities. LABORATORY DATA: White blood cells 6.3, red blood cells 3.60, hemoglobin 11, hematocrit 34.4, MCV 95.7, MCH 30.6, MCHC 31.9, RDW 16.6, platelet count 104, neutrophil percentage 76.2, lymphocyte percentage 11.6, monocyte percentage 7.4, eosinophil percentage 2, basophil percentage 0.3, leukocyte percentage 2.4. Sodium 139, potassium 4, chloride 104, carbon dioxide 27, anion gap 8, BUN 24, creatinine 1.6, glomerular filtration rate 45.3, fasting glucose 126, lactic acid 2.5, calcium 8.3, total bilirubin 12.1, direct bilirubin 0.4, AST 65, ALT 57, alkaline phosphatase 513, ammonia 33, total creatinine kinase 57, CK-MB 1.4, CK-MB relative index 2.45, troponin I less than 0.02, total protein 7.3, albumin 2.9, TSH 3.870. IMAGING TECHNIQUES: CT of the head without contrast, which shows no acute hemorrhagic or infarct. Findings are consistent with age-related atrophy and chronic small vessel ischemic disease. Chest x-ray is negative. ASSESSMENT AND PLAN: 1. Altered mental status. This is possibly secondary to new medication (baclofen) versus hepatic encephalopathy vs infection (UTI). His ammonia level was mildly evaluated however it is close to normal rang. At this time, we have stopped baclofen. patient has elevated lactic acid which could be secondary to infection (UTI) however his qSOFA score does not indicated high risk for sepsis. Urine culture is pending. I have started him on ceftriaxone and will perform neuro check every 4 hours. 2. Acute on chronic renal failure. Patient's creatinine has increased from his baseline. This is possibly secondary to dehydration. Patient received 1 liter of normal saline at the ER. Patient at home is on Lasix. However, I have hold this medication. We will continue monitoring patient's renal function. 3. Elevated ammonia level. Today, patient's ammonia level is close to the normal range. We will continue patient on current dosage of lactulose (15 mL by mouth three times a day). 4. Gastroesophageal reflux disease (GERD). Patient is on Protonix 40 mg by mouth twice a day and Carafate. 5. Depression. Patient is on amitriptyline 150 mg by mouth nightly and 100 mg by mouth daily. 6. Portal vein thrombosis acute on chronic. Patient was started on anticoagulation in December 2016. However, patient had massive upper GI bleeding before starting the medication. At this time patient is stable. 7. Cholangiocarcinoma. this is a chronic issue. Patient is stable. 8. Lumbar spondylosis. MRI of the spine, which was done in 2014, indicated lumbar spondylosis. However, at this time, patient is stable. No opiate medications or pain medication that can cause hallucinations/alter mental status. 9. Acute urinary retention. Patient's Hensley has discontinued last Tuesday. At this time, we will continue patient on Flomax 0.4 mg by mouth daily. Also, patient is on finasteride 5 mg by mouth daily. 10. Deep venous thrombosis (DVT) prophylaxis. Due to the previous history of GI bleeding, at this time will place patient on thromboembolism deterrents (TEDs) and sequentials. 11. GI varices. We will continue patient on nadolol 20 mg by mouth daily. My preceptor for this patient encounter was Libia Morales MD. The preceptor was physically present in the building during the encounter and was fully available. As needed, all aspects of the patient interview, examination, medical decision making process, and medical care plan development were reviewed and approved by the preceptor. The preceptor is aware and concurs with the plan as stated in the body of this note and will attest to such by his/her co-signature. LISA
[2017-03-09 06:27] LABS: MEAN CORPUSCULAR HEMOGLOBIN 30.6 pg (27.0-33.0); MEAN CORPUSCULAR HGB CONC 32.5 g/dl (32.0-36.5); MEAN CORPUSCULAR VOLUME 94.3 fl (80.0-96.0); RED CELL DISTRIBUTION WIDTH 16.9 % (11.5-14.5)
[2017-03-09 06:44] LABS: ALBUMIN 2.6 GM/DL (3.2-5.2); ALBUMIN/GLOBULIN RATIO 0.6 (1.00-1.93); BILIRUBIN,TOTAL 0.7 MG/DL (0.2-1.0); CALCIUM LEVEL 8.3 MG/DL (8.8-10.2); CREATININE FOR GFR 1.36 MG/DL (0.70-1.30); GLOMERULAR FILTRATION RATE 54.7 (>42); POTASSIUM SERUM 4.1 MEQ/L (3.5-5.1); TOTAL PROTEIN 6.9 GM/DL (6.4-8.2)
[2017-03-09] MEDS: NADOLOL 20MG TABLET PO SCH (08:24)
[2017-03-09] MEDS: VITAMIN D 1,000 INTERNATIONAL UNITS TABLET PO SCH (08:24)
[2017-03-09] MEDS: FINASTERIDE 5 MG TAB PO SCH (08:25)
[2017-03-09] MEDS: MULTIVITAMINS/MINERALS THERAP 1 TAB PO SCH (08:25)
[2017-03-09] MEDS: TAMSULOSIN 0.4 MG CAP PO SCH (08:25)
[2017-03-09] MEDS ORDERED: AMITRIPTYLINE 50 MG TAB PO SCH (09:00)
[2017-03-09] MEDS ORDERED: FUROSEMIDE 20 MG TAB PO SCH (09:00)
--- NOTE | 2017-03-09 11:08 | IPNPDOC ---
Subjective Date Seen The patient was seen on 03/09/17. Subjective Chief Complaint/HPI The patient is a 71-year-old male admitted with a reason for visit of Encephalopathy. Events since last encounter Pt denies any new issues. Nursing reports still josé miguel AMS. Pt denies CP, SOB, Abd pain. Constitutional: Denies: Chills, Fever Pulmonary: Denies: Dyspnea Cardiovascular: Denies: Chest Pain Gastrointestinal: Denies: Abdominal Pain Neurological: Reports: Other Symptoms (altered mental status) Objective Physical Examination General Exam: Positive: Alert, No Acute Distress Neck Exam: Positive: Supple, Negative: JVD Chest Exam: Positive: Clear to auscultation Heart Exam: Positive: Rate Normal, Regular Rhythm Abdomen Exam: Positive: Normal bowel sounds, Soft, Other (abdominal dewey- incisional hernia), Negative: Tenderness Extremity Exam: Negative: Edema Neuro Exam: Positive: Sensation Intact, Other (Manager Database equal B/L), Negative: Normal Speech (dysarthric speech) Assessment /Plan Problems (1) Encephalopathy Status: Acute Problem Specific Plan: Monitor Clinically, Repeat Labs Problem Text: 03/09 - Etiology possibly secondary to amitriptyline or baclofen vs hepatic encephalopathy vs infection. Started on Ceftriaxone. Urine cx pending. Baclofen was d/c'ed at admission. Will decrease amitriptyline. On Lactulose - will adjust to 30 mg BID. (2) Acute on chronic renal failure Problem Specific Plan: Monitor Clinically, Repeat Labs Problem Text: 03/09 - Creat 1.36 (1.60 yesterday). Had received IVF. (3) Increased ammonia level Problem Specific Plan: Monitor Clinically, Repeat Labs Problem Text: 03/09 - On Lactulose - will adjust to 30 mg BID. (4) GERD (gastroesophageal reflux disease) Status: Chronic Problem Specific Plan: Monitor Clinically Problem Text: On Protonix 40 mg BID. (5) Depression Status: Chronic Problem Specific Plan: Monitor Clinically Problem Text: Will decrease amitriptyline due to the altered mental status. (6) Cholangiocarcinoma Problem Specific Plan: Monitor Clinically Problem Text: Pt follows with oncology. (7) Portal vein thrombosis Problem Specific Plan: Monitor Clinically, Repeat Labs Problem Text: Pt reportedly had GI bleeding and was unable to take anticoagulation. Apparently thrombectomy for portal vein thrombosis at [facility] was unsuccessful. (8) Urinary retention Problem Specific Plan: Monitor Clinically Problem Text: Pt had a pacheco until last week for acute urinary retention. On Proscar and Flomax. Plan/VTE VTE Prophylaxis Ordered?: Yes (SCDs and TEDs ordered) VS, I&O, 24H, Fishbone Vital Signs/I&O Vital Signs Date Time Temp Pulse Resp B/P (MAP) Pulse Ox O2 Delivery O2 Flow Rate FiO2 03/09/17 08:24 68 115/60 03/09/17 06:00 99.2 18 98 Room Air I&O- Last 24 Hours up to 6 AM 03/09/17 06:00 Intake Total 1290 ml Output Total 600 ml Balance 690 ml Laboratory Data 24H LABS Laboratory Tests 2 03/08/17 21:26: White Blood Count 6.2, Red Blood Count 3.60L, Hemoglobin 11.0L, Hematocrit 34.4L , Mean Corpuscular Volume 95.7, Mean Corpuscular Hemoglobin 30.6, Mean Corpuscular Hemoglobin Concent 31.9L, Red Cell Distribution Width 16.6H, Platelet Count 104L, Neutrophils (%) (Auto) 76.2H, Lymphocytes (%) (Auto) 11.6L , Monocytes (%) (Auto) 7.4H, Eosinophils (%) (Auto) 2.0, Basophils (%) (Auto) 0.3, Neutrophils # (Auto) 4.7, Lymphocytes # (Auto) 0.7L, Monocytes # (Auto) 0.5 , Eosinophils # (Auto) 0.1, Basophils # (Auto) 0.0, Large Unclassified Cells % 2.4, Large Unclassified Cells # 0.2, Anion Gap 8, Glomerular Filtration Rate 45.3, Lactic Acid Level 2.5*H, Calcium Level 8.3L, Aspartate Amino Transf (AST/ SGOT) 65H, Alanine Aminotransferase (ALT/SGPT) 57, Alkaline Phosphatase 513H, Total Bilirubin 1.1H, Direct Bilirubin 0.4H, Ammonia 33H, Total Creatine Kinase 57, Creatine Kinase MB 1.4, Creatine Kinase MB Relative Index 2.45, Troponin I < 0.02, Total Protein 7.3, Albumin 2.9L, Albumin/Globulin Ratio 0.66L, Thyroid Stimulating Hormone (TSH) 3.870H, Salicylates Level < 1.7L, Acetaminophen Level < 2.0L, Ethyl Alcohol Level < 0.003 03/09/17 00:11: Urine Appearance CLEAR, Urine Color YELLOW, Urine pH 6.0, Urine Specific [place] 1.005, Urine Protein NEGATIVE, Urine Glucose (UA) NEGATIVE, Urine Ketones NEGATIVE, Urine Urobilinogen 0.2, Urine Bilirubin NEGATIVE, Urine Leukocyte Esterase 1+H, Urine Blood NEGATIVE, Urine Nitrite POSITIVE, Urine WBC (Auto) 7H, Urine RBC (Auto) 6H, Urine Hyaline Casts (Auto) 0, Urine Bacteria ( Auto) 1+H, Urine Squamous Epithelial Cells 0, Urine Sperm (Auto) , Urine Amphetamines Screen NEGATIVE, Urine Benzodiazepines Screen NEGATIVE, Urine Opiates Screen NEGATIVE, Urine Methadone Screen NEGATIVE, Urine Barbiturates Screen NEGATIVE, Urine Phencyclidine Screen NEGATIVE, Urine Cocaine Metabolite Screen NEGATIVE, Urine Cannabinoids Screen NEGATIVE 03/09/17 02:02: Lactic Acid Level 1.4 03/09/17 06:12: Anion Gap 6L, Glomerular Filtration Rate 54.7, Calcium Level 8.3L, Aspartate Amino Transf (AST/SGOT) 55H, Alanine Aminotransferase (ALT/SGPT) 49, Alkaline Phosphatase 424H, Total Bilirubin 0.7, Total Protein 6.9, Albumin 2.6L, Albumin/ Globulin Ratio 0.60L, Blood Urea Nitrogen 21H, Creatinine 1.36H, Sodium Level 140, Potassium Level 4.1, Chloride Level 107, Carbon Dioxide Level 27 CBC/BMP Laboratory Tests 03/08/17 21:26 Red Blood Count 3.60 L, Mean Corpuscular Volume 95.7, Mean Corpuscular Hemoglobin 30.6, Mean Corpuscular Hemoglobin Concent 31.9 L, Red Cell Distribution Width 16.6 H, Neutrophils (%) (Auto) 76.2 H, Lymphocytes (%) (Auto ) 11.6 L, Monocytes (%) (Auto) 7.4 H, Eosinophils (%) (Auto) 2.0, Basophils (%) (Auto) 0.3, Neutrophils # (Auto) 4.7, Lymphocytes # (Auto) 0.7 L, Monocytes # ( Auto) 0.5, Eosinophils # (Auto) 0.1, Basophils # (Auto) 0.0 03/09/17 06:12 Red Blood Count 3.21 L, Mean Corpuscular Volume 94.3, Mean Corpuscular Hemoglobin 30.6, Mean Corpuscular Hemoglobin Concent 32.5, Red Cell Distribution Width 16.9 H, Calcium Level 8.3 L, Aspartate Amino Transf (AST/SGOT ) 55 H, Alanine Aminotransferase (ALT/SGPT) 49, Alkaline Phosphatase 424 H, Total Bilirubin 0.7, Total Protein 6.9, Albumin 2.6 L Microbiology Microbiology 03/09/17 Urine Culture, Received Pending Mo Foley March 09, 2017 11:08
[2017-03-09 14:00] VITALS: BP 121/60
--- NOTE | 2017-03-09 20:11 | ECGEPIP ---
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
[2017-03-09 21:57] VITALS: BP 120/60
[2017-03-10] MEDS: cefTRIAXone SOD 1 GM in D5W MINI-BAG PLUS 50 ML IV SCH ×2 (04:15→15:54)
[2017-03-10 05:35] VITALS: BP 125/61
[2017-03-10] MEDS: SUCRALFATE 1 GM TAB PO SCH ×4 (06:38→20:30)
[2017-03-10 07:00] LABS: MEAN CORPUSCULAR HEMOGLOBIN 30.3 pg (27.0-33.0); MEAN CORPUSCULAR HGB CONC 32.7 g/dl (32.0-36.5); MEAN CORPUSCULAR VOLUME 92.7 fl (80.0-96.0); WHITE BLOOD COUNT 3.6 K/mm3 (4.0-10.0)
[2017-03-10 07:16] LABS: ALBUMIN 2.6 GM/DL (3.2-5.2); ALBUMIN/GLOBULIN RATIO 0.59 (1.00-1.93); BILIRUBIN,TOTAL 0.7 MG/DL (0.2-1.0); CALCIUM LEVEL 8.1 MG/DL (8.8-10.2); CREATININE FOR GFR 1.3 MG/DL (0.70-1.30); GLOMERULAR FILTRATION RATE 57.6 (>42); POTASSIUM SERUM 3.9 MEQ/L (3.5-5.1)
[2017-03-10] MEDS: LACTULOSE 20 GM/30 ML SYRUP UD PO SCH ×2 (08:49→20:29)
[2017-03-10] MEDS: PANTOPRAZOLE 40MG TAB (PROTONIX) PO SCH ×2 (08:51→20:30)
[2017-03-10] MEDS: MULTIVITAMINS/MINERALS THERAP 1 TAB PO SCH (08:51)
[2017-03-10] MEDS: FINASTERIDE 5 MG TAB PO SCH (08:52)
[2017-03-10] MEDS: POTASSIUM CHLORIDE 10 MEQ SR TABLET PO SCH ×2 (08:52→20:29)
[2017-03-10] MEDS: VITAMIN D 1,000 INTERNATIONAL UNITS TABLET PO SCH (08:52)
[2017-03-10] MEDS: TAMSULOSIN 0.4 MG CAP PO SCH (08:52)
[2017-03-10] MEDS: NADOLOL 20MG TABLET PO SCH (08:52)
--- NOTE | 2017-03-10 09:17 | IPNPDOC ---
Subjective Date Seen The patient was seen on 03/10/17. Subjective Chief Complaint/HPI The patient is a 71-year-old male admitted with a reason for visit of Encephalopathy. Events since last encounter Pt denies any new issues. Denies CP, SOB, Abd pain. Constitutional: Denies: Chills, Fever Pulmonary: Denies: Dyspnea Cardiovascular: Denies: Chest Pain Gastrointestinal: Denies: Nausea, Vomiting, Abdominal Pain Objective Physical Examination General Exam: Positive: Alert, No Acute Distress Neck Exam: Positive: Supple, Negative: JVD Chest Exam: Positive: Clear to auscultation Heart Exam: Positive: Rate Normal, Regular Rhythm Abdomen Exam: Positive: Normal bowel sounds, Soft, Other (abdominal dewey- incisional hernia), Negative: Tenderness Extremity Exam: Negative: Edema Neuro Exam: Positive: Sensation Intact, Other (Sock And Stocking Ironer equal B/L), Negative: Normal Speech (dysarthric speech) Assessment /Plan Problems (1) Encephalopathy Status: Acute Problem Specific Plan: Monitor Clinically, Repeat Labs Problem Text: 03/10 - Etiology possibly secondary to amitriptyline or baclofen vs hepatic encephalopathy vs infection. On Ceftriaxone. Urine cx pending. Baclofen was d/c'ed at admission. Pt's amitriptyline was decreased and amitriptyline. Lactulose was adjusted to 30 mg BID. 03/09 - Etiology possibly secondary to amitriptyline or baclofen vs hepatic encephalopathy vs infection. Started on Ceftriaxone. Urine cx pending. Baclofen was d/c'ed at admission. Will decrease amitriptyline. On Lactulose - will adjust to 30 mg BID. (2) Acute on chronic renal failure Problem Specific Plan: Monitor Clinically, Repeat Labs Problem Text: 03/10 - Creat 1.30 03/09 - Creat 1.36 (1.60 yesterday). Had received IVF. (3) Increased ammonia level Problem Specific Plan: Monitor Clinically, Repeat Labs Problem Text: 03/10 - Lactulose 30 mg BID. 03/09 - On Lactulose - will adjust to 30 mg BID. (4) GERD (gastroesophageal reflux disease) Status: Chronic Problem Specific Plan: Monitor Clinically Problem Text: On Protonix 40 mg BID. (5) Depression Status: Chronic Problem Specific Plan: Monitor Clinically Problem Text: 03/10 - Amitriptyline was d/c'ed due to AMS. Level pending. 03/09 - Will decrease amitriptyline due to the altered mental status. (6) Cholangiocarcinoma Problem Specific Plan: Monitor Clinically Problem Text: Pt follows with oncology. (7) Portal vein thrombosis Problem Specific Plan: Monitor Clinically, Repeat Labs Problem Text: Pt reportedly had GI bleeding and was unable to take anticoagulation. Apparently thrombectomy for portal vein thrombosis at [facility] was unsuccessful. (8) Urinary retention Problem Specific Plan: Monitor Clinically Problem Text: Pt had a pacheco until last week for acute urinary retention. On Proscar and Flomax. Plan/VTE VTE Prophylaxis Ordered?: Yes (SCDs and TEDs ordered) VS, I&O, 24H, Fishbone Vital Signs/I&O Vital Signs Date Time Temp Pulse Resp B/P (MAP) Pulse Ox O2 Delivery O2 Flow Rate FiO2 03/10/17 08:52 71 125/61 03/10/17 05:35 98.8 18 97 Room Air I&O- Last 24 Hours up to 6 AM 03/10/17 06:00 Intake Total 2020 ml Output Total 1050 ml Balance 970 ml Laboratory Data 24H LABS Laboratory Tests 2 03/09/17 10:40: 03/10/17 06:20: Anion Gap 7L, Glomerular Filtration Rate 57.6, Blood Urea Nitrogen 19H, Creatinine 1.30, Sodium Level 140, Potassium Level 3.9, Chloride Level 107, Carbon Dioxide Level 26, Calcium Level 8.1L, Aspartate Amino Transf (AST/SGOT) 43H, Alanine Aminotransferase (ALT/SGPT) 43, Alkaline Phosphatase 427H, Total Bilirubin 0.7, Total Protein 7.0, Albumin 2.6L, Magnesium Level 2.0, Albumin/ Globulin Ratio 0.59L CBC/BMP Laboratory Tests 03/10/17 06:20 Red Blood Count 3.10 L, Mean Corpuscular Volume 92.7, Mean Corpuscular Hemoglobin 30.3, Mean Corpuscular Hemoglobin Concent 32.7, Red Cell Distribution Width 17.0 H, Calcium Level 8.1 L, Aspartate Amino Transf (AST/SGOT ) 43 H, Alanine Aminotransferase (ALT/SGPT) 43, Alkaline Phosphatase 427 H, Total Bilirubin 0.7, Total Protein 7.0, Albumin 2.6 L Microbiology Microbiology 03/09/17 Urine Culture, Received Pending Attending Note Attending Note Patient hopefully will be clearer tomorrow after the amitriptyline dose reduction. Mo Foley March 10, 2017 09:17 Ray Lund MD March 10, 2017 15:54
[2017-03-10 14:00] VITALS: BP 122/64
[2017-03-10] MEDS: AMITRIPTYLINE 50 MG TAB PO SCH (20:30)
[2017-03-10 22:00] VITALS: BP 114/71
[2017-03-11] MEDS: cefTRIAXone SOD 1 GM in D5W MINI-BAG PLUS 50 ML IV SCH ×2 (03:22→15:57)
[2017-03-11 06:00] VITALS: BP 113/62
[2017-03-11 06:33] LABS: MEAN CORPUSCULAR HGB CONC 33.5 g/dl (32.0-36.5); MEAN CORPUSCULAR VOLUME 92.5 fl (80.0-96.0); RED CELL DISTRIBUTION WIDTH 16.8 % (11.5-14.5)
[2017-03-11] MEDS: SUCRALFATE 1 GM TAB PO SCH ×4 (06:43→20:13)
[2017-03-11 06:50] LABS: ALBUMIN 2.4 GM/DL (3.2-5.2); ALBUMIN/GLOBULIN RATIO 0.59 (1.00-1.93); ALKALINE PHOSPHATASE 421 U/L (45-117); ALT/SGPT 38 U/L (12-78); ANION GAP 7 MEQ/L (8-16); AST/SGOT 41 U/L (15-37); BILIRUBIN,TOTAL 0.4 MG/DL (0.2-1.0); BLOOD UREA NITROGEN 21 MG/DL (7-18); CALCIUM LEVEL 7.9 MG/DL (8.8-10.2); CARBON DIOXIDE LEVEL 26 MEQ/L (21-32); CHLORIDE LEVEL 105 MEQ/L (98-107); CREATININE FOR GFR 1.21 MG/DL (0.70-1.30); GLOMERULAR FILTRATION RATE > 60.0 (>42); GLUCOSE, FASTING 90 MG/DL (83-110); SODIUM LEVEL 138 MEQ/L (136-145); TOTAL PROTEIN 6.5 GM/DL (6.4-8.2)
[2017-03-11] MEDS: POTASSIUM CHLORIDE 10 MEQ SR TABLET PO SCH ×2 (08:41→20:13)
[2017-03-11] MEDS: VITAMIN D 1,000 INTERNATIONAL UNITS TABLET PO SCH (08:41)
[2017-03-11] MEDS: LACTULOSE 20 GM/30 ML SYRUP UD PO SCH ×2 (08:41→20:13)
[2017-03-11 08:42] VITALS: BP 113/62
[2017-03-11] MEDS: TAMSULOSIN 0.4 MG CAP PO SCH (08:42)
[2017-03-11] MEDS: NADOLOL 20MG TABLET PO SCH (08:42)
[2017-03-11] MEDS: MULTIVITAMINS/MINERALS THERAP 1 TAB PO SCH (08:42)
[2017-03-11] MEDS: PANTOPRAZOLE 40MG TAB (PROTONIX) PO SCH ×2 (08:42→20:13)
[2017-03-11] MEDS: FINASTERIDE 5 MG TAB PO SCH (08:42)
--- NOTE | 2017-03-11 10:28 | IPNPDOC ---
Subjective Date Seen The patient was seen on 03/11/17. Subjective Chief Complaint/HPI The patient is a 71-year-old male admitted with a reason for visit of Encephalopathy. Events since last encounter Noted confusion this am. Noting drowsiness and poor arousal. Has not eaten breakfast, refusing PT. No stools noted since admission Constitutional: Denies: Chills, Fever, Night Sweats ENT: Denies: Head Aches, Ear Pain, Dysphagia Skin: Denies: Rash, Lesions, Breakdown Pulmonary: Denies: Dyspnea, Cough Gastrointestinal: Reports: Constipation, Denies: Nausea, Vomiting, Abdominal Pain, Diarrhea Genitourinary: Denies: Dysuria, Frequency, Incontinence, Retention Musculoskeletal: Denies: Neck Pain, Back Pain, Joint Pain, Muscle Pain, Spasms Objective Physical Examination General Exam: Positive: Alert, No Acute Distress Neck Exam: Positive: Supple, Negative: JVD Chest Exam: Positive: Clear to auscultation Heart Exam: Positive: Rate Normal, Regular Rhythm Abdomen Exam: Positive: Normal bowel sounds, Soft, Other (abdominal dewey- incisional hernia), Negative: Tenderness Extremity Exam: Negative: Edema Neuro Exam: Positive: Normal Speech (dysarthric speech), Sensation Intact, Other (Staffing Administrator equal B/L, drowsy, lethargic) Assessment /Plan Problems (1) Encephalopathy Status: Acute Problem Specific Plan: Monitor Clinically, Repeat Labs Problem Text: 03/11/2017: increase Lactulose until able to have 2-3 stools per day despite normal ammonia level. 03/10 - Etiology possibly secondary to amitriptyline or baclofen vs hepatic encephalopathy vs infection. On Ceftriaxone. Urine cx pending. Baclofen was d/c'ed at admission. Pt's amitriptyline was decreased and amitriptyline. Lactulose was adjusted to 30 mg BID. 03/09 - Etiology possibly secondary to amitriptyline or baclofen vs hepatic encephalopathy vs infection. Started on Ceftriaxone. Urine cx pending. Baclofen was d/c'ed at admission. Will decrease amitriptyline. On Lactulose - will adjust to 30 mg BID. (2) Acute on chronic renal failure Problem Specific Plan: Monitor Clinically, Repeat Labs Problem Text: 03/11/2017: Cr. 1.2 trending down 03/10 - Creat 1.30 03/09 - Creat 1.36 (1.60 yesterday). Had received IVF. (3) Increased ammonia level Problem Specific Plan: Monitor Clinically, Repeat Labs Problem Text: 12/12/2016: monitor stools and mentation to determine encephalopathy. Ammonia level is not definitive. 03/10 - Lactulose 30 mg BID. 03/09 - On Lactulose - will adjust to 30 mg BID. (4) GERD (gastroesophageal reflux disease) Status: Chronic Problem Specific Plan: Monitor Clinically Problem Text: On Protonix 40 mg BID. (5) Depression Status: Chronic Problem Specific Plan: Monitor Clinically Problem Text: 03/10 - Amitriptyline was d/c'ed due to AMS. Level pending. 03/09 - Will decrease amitriptyline due to the altered mental status. (6) Cholangiocarcinoma Problem Specific Plan: Monitor Clinically Problem Text: Pt follows with oncology. (7) Portal vein thrombosis Problem Specific Plan: Monitor Clinically, Repeat Labs Problem Text: Pt reportedly had GI bleeding and was unable to take anticoagulation. Apparently thrombectomy for portal vein thrombosis at [facility] was unsuccessful. (8) Urinary retention Problem Specific Plan: Monitor Clinically Problem Text: Pt had a pacheco until last week for acute urinary retention. On Proscar and Flomax. Plan/VTE VTE Prophylaxis Ordered?: Yes (SCDs and TEDs ordered) VS, I&O, 24H, Fishbone Vital Signs/I&O Vital Signs Date Time Temp Pulse Resp B/P (MAP) Pulse Ox O2 Delivery O2 Flow Rate FiO2 03/11/17 08:42 75 113/62 03/11/17 06:00 98.0 18 97 Room Air I&O- Last 24 Hours up to 6 AM 03/11/17 05:59 Intake Total 2500 ml Output Total 725 ml Balance 1775 ml Laboratory Data 24H LABS Laboratory Tests 2 03/11/17 06:12: Anion Gap 7L, Glomerular Filtration Rate > 60.0, Blood Urea Nitrogen 21H, Creatinine 1.21, Sodium Level 138, Potassium Level 4.0, Chloride Level 105, Carbon Dioxide Level 26, Calcium Level 7.9L, Aspartate Amino Transf (AST/SGOT) 41H, Alanine Aminotransferase (ALT/SGPT) 38, Alkaline Phosphatase 421H, Total Bilirubin 0.4, Total Protein 6.5, Albumin 2.4L, Magnesium Level 2.0, Albumin/ Globulin Ratio 0.59L CBC/BMP Laboratory Tests 03/11/17 06:12 Red Blood Count 2.96 L, Mean Corpuscular Volume 92.5, Mean Corpuscular Hemoglobin 31.0, Mean Corpuscular Hemoglobin Concent 33.5, Red Cell Distribution Width 16.8 H, Calcium Level 7.9 L, Aspartate Amino Transf (AST/SGOT ) 41 H, Alanine Aminotransferase (ALT/SGPT) 38, Alkaline Phosphatase 421 H, Total Bilirubin 0.4, Total Protein 6.5, Albumin 2.4 L Microbiology Microbiology 03/09/17 Urine Culture - Final, Complete Enterobacter Cloacae Complex Robina Stack [employer]LLER [employer] ASSEMBLER March 11, 2017 10:28
[2017-03-11] MEDS ORDERED: LACTULOSE 20 GM/30 ML SYRUP UD PO ONE (12:00)
[2017-03-11 14:00] VITALS: BP 111/54
[2017-03-11] MEDS: AMITRIPTYLINE 50 MG TAB PO SCH (20:14)
[2017-03-11 20:40] VITALS: BP 114/63
[2017-03-11] MEDS ORDERED: CEFT250T8 PO (20:41)
[2017-03-11] MEDS ORDERED: LACT20EL PO (20:41)
[2017-03-15 00:06] LABS: AMITRIPTYLINE 532 ng/mL (Not Estab.); NORTRIPTYLINE 84 ng/mL (Not Estab.)
--- NOTE | 2017-03-21 18:30 | DSES ---
DATE OF ADMISSION: 03/11/2017 DATE OF DISCHARGE: 03/11/2017 REASON FOR ADMISSION: The patient was admitted after presenting to emergency department with complaint of hallucinations and altered mental status. The patient has a complex medical history that includes recent upper gastrointestinal (GI) bleed, urinary retention, history of depression, chronic liver disease, cholangiocarcinoma 2013 treated with chemotherapy cisplatin, tardive dyskinesia associated with use of haloperidol, parkinsonian syndrome versus Lewy body dementia and liver cirrhosis. ALLERGIES: Reportedly allergic to HALOPERIDOL, STATIN class drugs due to myalgias, SINEMET and IBUPROFEN. PAST SURGERIES: Includes colonoscopy, obstructive jaundice secondary cholangiocarcinoma stented and treated with chemotherapy and subsequent radical bile duct excision with hepatojejunostomy. The patient was admitted due to changes in his performance and active hallucinations. CT findings did not show new tumor or a stroke. Ammonia level was slightly elevated and lactulose was continued. After admission, considering his amitriptyline dose, consideration was held that his hallucination and mental status anomalies could be a product of his anticholinergic side effects experienced from amitriptyline at a dose of 250 mg. Amitriptyline dose was decreased to 150 mg daily. His mental status did seem to improve gradually so that by the day of discharge he was more alert, conversant. He successfully managed to have a bowel movement. His laboratory data had improved with resolution of lacticacidemia. Hemoglobin was 9.2 which seemed essentially stable, he was 11 on admission, dropped to 9.8 on the following day. Hemoccult was negative. Creatinine improved to 1.21 at the time of discharge with a BUN of 21, normal potassium at 4.0. Toxicology did show an elevated nortriptyline and amitriptyline total at 616, reference range for therapeutic level being 80-200. Urine did grow Enterobacter cloacae which had a significant quantity greater than 10 to the 5th organisms/mL, sensitive to everything except cefazolin. He was sent home on cefuroxime and modification of his lactulose dose to 30 mL twice a day from his previous 15 three times a day. Other medications were continued to include vitamin D at 2000 units daily, donepezil 10 mg at bedtime, finasteride 5 mg daily, furosemide 20 mg daily, topical metronidazole cream, multivitamin daily, nadolol 20 mg daily, pantoprazole 40 twice a day, potassium chloride 20 mEq twice a day, sucralfate 1 gram at bedtime, tamsulosin 0.4 mg daily. Baclofen was discontinued and amitriptyline dose decreased to a total of 150 mg at bedtime. Although the Enterobacter was resistant to cefazolin it was sensitive to ceftazidime, cefepime, therefore it was believed that the cefuroxime would likely be active against the organism. Instructed to engage in no operation of motor vehicles. Medication dosage as noted. Followup with his primary care doctor within a week. 2 grams sodium diet. No alcohol. DISCHARGE DIAGNOSES: Delirium believed to be associated with anticholinergic side effect of tricyclic antidepressant, likely toxic antidepressant amitriptyline levels, chronic liver disease, history of cholangiocarcinoma, cirrhosis and depression.
== END 2017-03-11 21:19 | disposition home or self-care (01) | DRG 91 ==
LOC: M ED 22:20 → M ED INP 22:49 → M MSPAV 03-09 00:37 → OBSVTOIN 03-11 11:40
PROVIDERS: ADMIT Hospitalist; ATTEND Family Medicine
DX: G92 Toxic encephalopathy (principal); I81 Portal vein thrombosis; K76.6 Portal hypertension; E87.2 Acidosis; N17.9 Acute kidney failure, unspecified; C22.1 Intrahepatic bile duct carcinoma; I85.10 Secondary esophageal varices without bleeding; E72.20 Disorder of urea cycle metabolism, unspecified; E78.5 Hyperlipidemia, unspecified; R73.03 Prediabetes; F32.9 Major depressive disorder, single episode, unspecified; F02.80 Dementia in other diseases classified elsewhere, unspecified severity, without behavioral disturbance, psychotic disturbance, mood disturbance, and anxiety; M43.16 Spondylolisthesis, lumbar region; G24.01 Drug induced subacute dyskinesia; G31.83 Neurocognitive disorder with Lewy bodies; T42.8X5A Adverse effect of antiparkinsonism drugs and other central muscle-tone depressants, initial encounter; N52.9 Male erectile dysfunction, unspecified; R33.9 Retention of urine, unspecified; T43.015A Adverse effect of tricyclic antidepressants, initial encounter; Z96.641 Presence of right artificial hip joint; K74.60 Unspecified cirrhosis of liver; K21.9 Gastro-esophageal reflux disease without esophagitis; N18.9 Chronic kidney disease, unspecified; K31.89 Other diseases of stomach and duodenum; Z88.6 Allergy status to analgesic agent; Z88.8 Allergy status to other drugs, medicaments and biological substances; Z79.899 Other long term (current) drug therapy

== ENCOUNTER → 2017-03-17 | Outpatient (REF) | payer OTHER ==
[~2017-03-17] MED LIST changes: +BACL10TA PO; +CEFT250T8 PO; +FINA5TAB2 PO; +FLOM5CAP PO; +FURO20TA2 PO; +KLOR20PO12 GT; +LACT20EL PO; +METR0.00 TOP; +NADO20TA PO; +PANT40TA2 PO; +POTA20TA4 PO; +SUCR1TA PO
[2017-03-17 19:38] LABS: MEAN CORPUSCULAR HEMOGLOBIN 29.8 pg (27.0-33.0); MEAN CORPUSCULAR HGB CONC 31.7 g/dl (32.0-36.5); MEAN CORPUSCULAR VOLUME 93.8 fl (80.0-96.0); RED CELL DISTRIBUTION WIDTH 16.5 % (11.5-14.5)
[2017-03-17 19:42] LABS: ALBUMIN 2.8 GM/DL (3.2-5.2); ALBUMIN/GLOBULIN RATIO 0.7 (1.00-1.93); BILIRUBIN,TOTAL 0.5 MG/DL (0.2-1.0); CALCIUM LEVEL 8.7 MG/DL (8.8-10.2); CREATININE FOR GFR 1.32 MG/DL (0.70-1.30); GLOMERULAR FILTRATION RATE 56.6 (>42); TOTAL PROTEIN 6.8 GM/DL (6.4-8.2)
== END ==
LOC: M SFHCADAM 15:20
PROVIDERS: ATTEND Family Medicine
DX: N18.9 Chronic kidney disease, unspecified (principal); D50.0 Iron deficiency anemia secondary to blood loss (chronic); K72.90 Hepatic failure, unspecified without coma

== ENCOUNTER → 2017-04-04 | Outpatient (CLI) | payer OTHER ==
[~2017-04-04] VITALS: Ht 182.9 cm; Wt 96.2 kg
[~2017-04-04] MED LIST changes: +LIDOCAINE 2% INJ 100 MG/5 ML SDV (FOR ANES.) As Ordered ONE; +NS 1,000 ML IV ONE; +PROPOFOL 500 MG/50 ML VIAL As Ordered ONE
--- NOTE | 2017-04-04 08:01 | ROOR ---
Patient Name: John Huang Procedure Date: 04/04/2017 7:36 AM Date of : 1945 Age: 71 Room: [facility] Gender: Male Note Status: Finalized Procedure: Upper GI endoscopy Indications: Esophageal varices, For therapy of esophageal varices Providers: Smith RODRIGUEZ MD Referring MD: Gary Cuba MD Requesting Provider: Medicines: Monitored Anesthesia Care Complications: No immediate complications. Procedure: Pre-Anesthesia Assessment: - The heart rate, respiratory rate, oxygen saturations, blood pressure, adequacy of pulmonary ventilation, and response to care were monitored throughout the procedure. The Endoscope was introduced through the mouth, and advanced to the second part of duodenum. The upper GI endoscopy was accomplished without difficulty. The patient tolerated the procedure well. Findings: Grade II varices were found in the lower third of the esophagus. Six bands were successfully placed with complete eradication, resulting in deflation of varices. There was no bleeding during, and at the end, of the procedure. Varices with no bleeding were found in the cardia. They were small in largest diameter. Nodular mucosa was found in the area of the papilla. Biopsies were taken with a cold forceps for histology. A previously placed metal stent was seen in the area of the papilla. Impression: - Grade II esophageal varices. Completely eradicated. Banded. - Small gastric varices, without bleeding. - Mild portal gastropathy. - Metal stent in the duodenum with surrounding nodular mucosa and nodular mucosa opposing duodenal wall. Biopsied. Recommendation: - Repeat upper endoscopy in 1 month for retreatment. - Await pathology results. - Full liquid diet for 1 day, then advance as tolerated to soft diet. - Use Viscous Lidocaine at 2% 5 mL PO q 4 hrs for 1 day. - (the script was sent to your pharmacy on file) Smith Rodriguez MD Smith RODRIGUEZ MD 04/04/2017 8:01:44 AM This report has been signed electronically. Number of Addenda: 0 Note Initiated On: 04/04/2017 7:36 AM Estimated Blood Loss: Estimated blood loss: none.
[2017-04-04 10:00] VITALS: BP 139/80
== END | disposition home or self-care (01) ==
LOC: M OPP 06:57
PROVIDERS: ATTEND Internal Medicine Gastroenterology
DX: I85.10 Secondary esophageal varices without bleeding (principal); I86.4 Gastric varices; K31.9 Disease of stomach and duodenum, unspecified; I10 Essential (primary) hypertension; F33.9 Major depressive disorder, recurrent, unspecified; R06.83 Snoring; Z85.09 Personal history of malignant neoplasm of other digestive organs; Z96.89 Presence of other specified functional implants; Z86.718 Personal history of other venous thrombosis and embolism; Z79.899 Other long term (current) drug therapy; Z88.8 Allergy status to other drugs, medicaments and biological substances; Z88.1 Allergy status to other antibiotic agents

== ENCOUNTER → 2017-04-05 | Outpatient (REF) | payer OTHER ==
[~2017-04-05] MED LIST changes: -LIDOCAINE 2% INJ 100 MG/5 ML SDV (FOR ANES.) As Ordered ONE; -NS 1,000 ML IV ONE; -PROPOFOL 500 MG/50 ML VIAL As Ordered ONE
[2017-04-05 20:02] LABS: INR 1.15
[2017-04-05 20:05] LABS: ALBUMIN/GLOBULIN RATIO 0.73 (1.00-1.93); BILIRUBIN,TOTAL 0.9 MG/DL (0.2-1.0); CALCIUM LEVEL 9.3 MG/DL (8.8-10.2); CREATININE FOR GFR 1.4 MG/DL (0.70-1.30); GLOMERULAR FILTRATION RATE 52.9 (>42); POTASSIUM SERUM 4.4 MEQ/L (3.5-5.1); TOTAL PROTEIN 7.1 GM/DL (6.4-8.2)
[2017-04-05 20:08] LABS: MEAN CORPUSCULAR HEMOGLOBIN 30.2 pg (27.0-33.0); MEAN CORPUSCULAR HGB CONC 32.9 g/dl (32.0-36.5); MEAN CORPUSCULAR VOLUME 91.9 fl (80.0-96.0); RED CELL DISTRIBUTION WIDTH 16.8 % (11.5-14.5)
== END ==
LOC: M SFHCADAM 16:31
PROVIDERS: ATTEND Family Medicine
DX: K74.60 Unspecified cirrhosis of liver (principal); D50.0 Iron deficiency anemia secondary to blood loss (chronic)
CPT/HCPCS: 80053; 85027; 85610; G0463

== ENCOUNTER 2017-05-08 13:01 | Observation (INO) | payer OTHER ==
[~2017-05-08] VITALS: Ht 182.9 cm; Wt 93.7 kg
[~2017-05-08 13:01] MED LIST changes: -BACL10TA PO; +BACL1TAB8 PO; +LACT10SO3 PO; -LACT20EL PO
[2017-05-08] MEDS ORDERED: RANI300C PO (13:22)
[2017-05-08] MEDS ORDERED: OMEP40CA2 PO (13:22)
--- NOTE | 2017-05-08 14:17 | REP ---
Clinical: Altered mental status. Comparison: 03/08/2017. 01/30/2016. Findings: Age-related atrophy and microvascular ischemic changes are appreciated. The ventricles and sulci are symmetric. Aldridge-white differentiation is maintained. There is no evidence for acute intracranial hemorrhage, mass/mass effect, pathology or infarction. No extra-axial fluid collection. Calvarium is intact. Paranasal sinuses and mastoid air cells are clear. Impression: Age related atrophy and microvascular ischemic changes. No acute intracranial hemorrhage, infarction, or mass/mass effect. Signed by Rahul Sandoval MD 05/08/2017 02:09 P
[2017-05-08 14:23] LABS: BASO % 0.1 % (0.0-1.0); EOS # 0.1 K/mm3 (0.0-0.50); LARGE UNSTAINED CELL # 0.1 K/mm3 (0.0-0.4); LARGE UNSTAINED CELL % 0.8 % (0.0-4.0); LYMPH # 0.3 K/mm3 (1.5-4.5); LYMPH % 2.9 % (24.0-44.0); MEAN CORPUSCULAR HEMOGLOBIN 30.7 pg (27.0-33.0); MEAN CORPUSCULAR VOLUME 90.2 fl (80.0-96.0); MONO # 0.6 K/mm3 (0.0-0.8); NEUTROPHILS % 87.2 % (36.0-66.0); RED CELL DISTRIBUTION WIDTH 16.9 % (11.5-14.5); WHITE BLOOD COUNT 6.8 K/mm3 (4.0-10.0)
[2017-05-08 14:46] LABS: ALBUMIN 2.9 GM/DL (3.2-5.2); ALBUMIN/GLOBULIN RATIO 0.62 (1.00-1.93); ALKALINE PHOSPHATASE 641 U/L (45-117); ALT/SGPT 62 U/L (12-78); ANION GAP 8 MEQ/L (8-16); AST/SGOT 87 U/L (15-37); BILIRUBIN,DIRECT 0.8 MG/DL (0.0-0.2); BILIRUBIN,TOTAL 1.9 MG/DL (0.2-1.0); BLOOD UREA NITROGEN 20 MG/DL (7-18); CARBON DIOXIDE LEVEL 26 MEQ/L (21-32); CHLORIDE LEVEL 106 MEQ/L (98-107); CREATININE FOR GFR 1.73 MG/DL (0.70-1.30); GLOMERULAR FILTRATION RATE 41.3 (>42); GLUCOSE, FASTING 110 MG/DL (83-110); POTASSIUM SERUM 4.1 MEQ/L (3.5-5.1); SODIUM LEVEL 140 MEQ/L (136-145); TOTAL PROTEIN 7.6 GM/DL (6.4-8.2)
[2017-05-08 14:47] LABS: PLATELET COUNT, AUTOMATED 81 k/mm3 (150-450)
[2017-05-08] MEDS ORDERED: AMIT50TA PO (15:44)
[2017-05-08] MEDS ORDERED: LACTULOSE 20 GM/30 ML SYRUP UD PO ONE (15:45)
[2017-05-08] MEDS ORDERED: NS 500 ML IV ONE ×3 (15:45→20:30)
--- NOTE | 2017-05-08 16:29 | REP ---
Clinical: Shortness of breath . Comparison: 03/08/2017 . Findings: The mediastinum and cardiac silhouette are stable and within normal limits for portable technique. The lung hollins are clear without acute consolidation, effusion, or pneumothorax. Skeletal structures are intact. Impression: No acute cardiopulmonary process appreciated. Signed by Rahul Sandoval MD 05/08/2017 04:20 P
[2017-05-08 17:53] VITALS: BP 105/53
--- NOTE | 2017-05-08 18:08 | ECGEPIP ---
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
[2017-05-08] MEDS: SUCRALFATE 1 GM TAB PO SCH ×2 (18:53→20:43)
[2017-05-08 19:53] VITALS: BP 99/58
[2017-05-08] MEDS: cefTRIAXone SOD 1 GM in D5W MINI-BAG PLUS 50 ML IV SCH (20:41)
[2017-05-08] MEDS: LACTULOSE 20 GM/30 ML SYRUP UD PO SCH (20:41)
[2017-05-08] MEDS: AMITRIPTYLINE 50 MG TAB PO SCH (20:42)
[2017-05-08] MEDS: DONEPEZIL 5 MG TAB PO SCH (20:43)
[2017-05-08] MEDS: POTASSIUM CHLORIDE 10 MEQ SR TABLET PO SCH (20:43)
[2017-05-08] MEDS: FAMOTIDINE 20 MG TAB PO SCH (20:43)
[2017-05-08] MEDS: PANTOPRAZOLE 40MG TAB (PROTONIX) PO SCH (20:43)
--- NOTE | 2017-05-08 23:55 | HPE ---
DATE OF ADMISSION: 05/08/2017 CHIEF COMPLAINT: Change in mental status. HISTORY: The patient and were attending a of someone they know and while sitting in the pew his noticed that he seemed to be inattentive, dusky, cyanotic to bluish and this was followed by a gross shaking episode. There was no loss of bowel or bladder control. There was no subsequent diaphoresis or diaphoresis. Afterwards, he seemed to be less attentive, mildly confused, but at this time is fully oriented. He arrived in the emergency room (ER) for evaluation. First vital signs noted at 1302. Blood pressures have been reasonably normal with a low pressure of 98/55 noted and most recent 112/55, oxygen saturation 100% on room air and pulse is 78. He has a 99.8 temperature on admission. Denies fevers, chills, cough, dysuria, abdominal pain. The patient is status post banding of multiple esophageal varices carried out by Dr. Rodriguez on 04/04 for treatment of portal hypertension. 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 He had cholecystectomy for the tumor and radical bile duct excision and hepatojejunostomy with a Natacha-en-Y loop of jejunum on two different procedures February of 2014. Past medical history is negative for seizure disorder. He has a history of tardive dyskinesia presumably from antipsychotic drug Haldol. He has a history of depression, currently on a fairly large dose of amitriptyline 150 mg daily and he takes donepezil 10 mg daily. FAMILY HISTORY: Remarkable for father dying of congestive heart failure (CHF) and history of stroke as well. Mother had lung cancer. SOCIAL HISTORY: Patient has never been a smoker. He is , retired, I have no information about his former occupation. REVIEW OF SYSTEMS: He has had no recent headaches or change in vision. He has had no cough. No dyspnea. No chest pain. believes he had one episode of black stool some days ago after the portal hypertension variceal banding procedure. He is occasionally incontinent of stool and urine. No recent falls. EXAMINATION: Vital signs: As previously noted. He is alert, pleasant, dyskinetic motion movements of his face and neck are noted, grimacing, one might say consistent with tardive dyskinesia. He can protrude his tongue the midline and right and left on command. Facies otherwise symmetrical. Speech is clear, easily understood. No neck mass. No thyroid enlargement or nodules. Lungs: Equal expansion. No rhonchi. No wheezes, no rales are noted. Heart: Regular rhythm. I do not hear a murmur. There are no carotid bruits noted. Pulses full and equal. Abdomen: Protuberant. No guarding or tenderness. There is a central periumbilical hernia, nontender. He has no tenderness in the left upper quadrant. No tenderness in the right upper quadrant. No rebound or pelvic shake tenderness. Extremities: Show no edema. No significant deformity. Neurologic examination: He moves all extremities well on command. No evidence of reflex abnormalities. He is alert and cooperative and wants to go home. His chief complaint is he is thirsty. LABORATORY DATA: Hemoglobin 11, white count 6800, platelet count 81,000. BUN 20, creatinine 1.73 which is somewhat higher than his previous baselines. Bilirubin of 1.9, direct 0.8. Alkaline phosphatase 641. Alkaline phosphatase is a little higher than his usual range which is in the mid 400s. The bilirubin as mentioned also is higher than usual. He was 0.9 at his most recent visit, but has been as high as 3.6. Lactic acid was slightly elevated at 3.2. Of course he does have hepatic dysfunction which can be an independent source of lactic acidosis. Ammonia level was 56 and previous in February was 33 and December 223 and 338. TSH was checked today and this was normal at 3.310, albumin 2.9, somewhat low, but similar to previous two measurements. Protime was not measured today, but in March was slightly elevated at 14.8. Bedside glucose was 121. IMAGING STUDIES: Brain CT was done, which showed no intracranial hemorrhage, no mass effect. Chest x-ray was done, which shows no infiltrate, normal heart size with portable technique. EKG shows incomplete bundle branch block that appears to be an incomplete right bundle pattern, unchanged from previous record. IMPRESSION: Mr. Huang has experienced an episode of altered awareness associated with apparent cyanosis as observed by his spouse followed by a period of shaking, which could be consistent with a period of hypotension, vasodepressor syncope or any even seizure activity. It is also possibly that he have an acute bleed from one of his variceal lesions and experienced transient hypotension on this basis. At this point, there is no active evidence for bleeding. PLAN: The patient be admitted and monitored. We will check his hemoglobin overnight. He is being hydrated cautiously because his creatinine is a little higher than baseline by the emergency room (ER) staff. His mental status at this point seems to be nearly normal. He is aware of his surroundings and that he is in a hospital and is interacting appropriately at this time. We will not be able to discount seizure disorder with an overnight observation so an option of electroencephalogram (EEG) after discharge will remain a consideration. His ammonia level is a little high, but not higher than it has been historically indicating reasonable compliance with his lactulose. Will continue this agent along with his usual medications for the most part. At this point, acute sepsis does not appear to be operative with this individual despite the elevated lactic acid and again the chronic liver dysfunction may be contributory to the lactic acidosis. At this point, the patient will be admitted to monitored bed so that rhythm disturbance can be detected if present.
[2017-05-08 23:59] VITALS: BP 99/58
[2017-05-09] MEDS ORDERED: SLF 3 ML SYR IV PRN (01:45)
[2017-05-09 04:51] VITALS: BP 108/55
[2017-05-09] MEDS: SLF 3 ML SYR IV SCH ×3 (05:15→20:12)
[2017-05-09 07:54] VITALS: BP 116/67
[2017-05-09] MEDS: SUCRALFATE 1 GM TAB PO SCH ×4 (08:16→20:11)
[2017-05-09] MEDS: PANTOPRAZOLE 40MG TAB (PROTONIX) PO SCH ×2 (08:16→20:11)
[2017-05-09] MEDS: VITAMIN D 1,000 INTERNATIONAL UNITS TABLET PO SCH (08:16)
[2017-05-09] MEDS: LACTULOSE 20 GM/30 ML SYRUP UD PO SCH ×2 (08:16→20:11)
[2017-05-09] MEDS: FINASTERIDE 5 MG TAB PO SCH (08:17)
[2017-05-09] MEDS: TAMSULOSIN 0.4 MG CAP PO SCH (08:17)
[2017-05-09] MEDS: POTASSIUM CHLORIDE 10 MEQ SR TABLET PO SCH ×2 (08:17→20:11)
[2017-05-09] MEDS: NADOLOL 20MG TABLET PO SCH (08:17)
[2017-05-09 08:42] LABS: MEAN CORPUSCULAR HEMOGLOBIN 30.9 pg (27.0-33.0); MEAN CORPUSCULAR HGB CONC 34.1 g/dl (32.0-36.5); MEAN CORPUSCULAR VOLUME 90.8 fl (80.0-96.0); RED CELL DISTRIBUTION WIDTH 16.6 % (11.5-14.5); WHITE BLOOD COUNT 5.4 K/mm3 (4.0-10.0)
--- NOTE | 2017-05-09 09:05 | IPNPDOC ---
Subjective Date Seen The patient was seen on 05/09/17. Subjective Chief Complaint/HPI The patient is a 72-year-old male admitted with a reason for visit of Altered Mental State,Depression,Encephalopathy. Events since last encounter Pt this morning is feeling his usual self. He has no new concerns. Slept well last night and has eaten well this morning. General: Denies: Fatigue Constitutional: Reports: Fever (overnight), Denies: Chills ENT: Denies: Head Aches Pulmonary: Denies: Dyspnea, Cough Cardiovascular: Denies: Chest Pain, Palpitations Gastrointestinal: Denies: Nausea, Vomiting, Diarrhea Neurological: Denies: Weakness Psych: Reports: Mood Normal Objective Physical Examination General Exam: Positive: Alert, No Acute Distress ENT Exam: Positive: Mucous membr. moist/pink Neck Exam: Positive: Supple Chest Exam: Positive: Clear to auscultation, Normal air movement Heart Exam: Positive: Rate Normal, Normal S1, Normal S2 Abdomen Exam: Positive: Normal bowel sounds, Soft, Negative: Tenderness Extremity Exam: Negative: Edema Psych Exam: Positive: Mental status NL, Mood NL Assessment /Plan Problems (1) Altered mental state Status: Acute Response to Treatment: Improving Discussed With: Patient Problem Specific Plan: Monitor Clinically, Repeat Labs Problem Text: Pt brought to ER with acute, rapidly resolving episode with a change in MS, in the ER his symptoms had resolved. He is feeling back to baseline at this time. CT brain done in ER with acute changes, will obtain EEG , telemetry also currently benign. He has developed a fever since admission and had a slightly abn UA, and therefore has been started on Rocephin. Urine culture/ Blood culture are pending. If his MS remains improved, and he is fever free anticipate d/c home tomorrow. (2) Acute kidney failure Status: Acute Response to Treatment: Stable Problem Specific Plan: Monitor Clinically, Repeat Labs Problem Text: his baseline SCr appears to be about 1.3-1.5, 1.7 on admission, f /u labs are pending this morning. Patient reports that he is eating and drinking well. (3) Fever Status: Acute Problem Text: as above. (4) Non-alcoholic cirrhosis Status: Chronic Response to Treatment: Stable Problem Specific Plan: Monitor Clinically Problem Text: Recent banding for Varices with Dr Rodriguez. Baseline Hgb appears to be 9-10, monitor. He has been continued on his HD meds, his ammonia on admission was 56, cont lactulose. (5) Depression Status: Chronic Response to Treatment: Stable Problem Specific Plan: Monitor Clinically Plan/VTE VTE Prophylaxis Ordered?: Yes Plan Family Medicine Attending Note: I saw and examined Mr. Huang this morning; he denied any complaints this morning. I agree with Ramo Gamez's note above. Hgb trended down from admission, but appears to be consistent with his baseline and is likely dilutional as he received 3 L of fluid last night due to hypotension. Cr is improved and is closer to baseline today. Continue rocephin for UTI and monitor for fevers. (KES) VS, I&O, 24H, Fishbone Vital Signs/I&O Vital Signs Date Time Temp Pulse Resp B/P (MAP) Pulse Ox O2 Delivery O2 Flow Rate FiO2 05/09/17 08:17 55 116/67 05/09/17 07:54 99.1 19 99 Room Air I&O- Last 24 Hours up to 6 AM 05/09/17 06:00 Intake Total 3410 ml Output Total 825 ml Balance 2585 ml Laboratory Data 24H LABS Laboratory Tests 2 05/08/17 14:14: White Blood Count 6.8, Red Blood Count 3.58L, Hemoglobin 11.0L, Hematocrit 32.3L , Mean Corpuscular Volume 90.2, Mean Corpuscular Hemoglobin 30.7, Mean Corpuscular Hemoglobin Concent 34.0, Red Cell Distribution Width 16.9H, Platelet Count 81L, Neutrophils (%) (Auto) 87.2H, Lymphocytes (%) (Auto) 2.9L, Monocytes (%) (Auto) 8.0H, Eosinophils (%) (Auto) 1.0, Basophils (%) (Auto) 0.1 , Neutrophils # (Auto) 6.0, Lymphocytes # (Auto) 0.3L, Monocytes # (Auto) 0.6, Eosinophils # (Auto) 0.1, Basophils # (Auto) 0.0, Large Unclassified Cells % 0.8 , Large Unclassified Cells # 0.1, Anion Gap 8, Glomerular Filtration Rate 41.3L , Lactic Acid Level 3.2*H, Calcium Level 9.0, Aspartate Amino Transf (AST/SGOT) 87H, Alanine Aminotransferase (ALT/SGPT) 62, Alkaline Phosphatase 641H, Total Bilirubin 1.9H, Direct Bilirubin 0.8H, Ammonia 56H, Total Creatine Kinase 66, Creatine Kinase MB 1.4, Creatine Kinase MB Relative Index 2.12, Troponin I < 0.02, Total Protein 7.6, Albumin 2.9L, Albumin/Globulin Ratio 0.62L, Thyroid Stimulating Hormone (TSH) 3.310 05/08/17 14:21: Bedside Glucose (Misc Panel) 121H 05/08/17 18:32: Lactic Acid Followup at 4 Hours 2.4*H 05/08/17 19:32: Urine Appearance HAZY, Urine Color YELLOW, Urine pH 5.0, Urine Specific [place] 1.012, Urine Protein NEGATIVE, Urine Glucose (UA) NEGATIVE, Urine Ketones NEGATIVE, Urine Urobilinogen 2.0H, Urine Bilirubin NEGATIVE, Urine Leukocyte Esterase NEGATIVE, Urine Blood 1+H, Urine Nitrite NEGATIVE, Urine WBC (Auto) 11H , Urine RBC (Auto) 1, Urine Hyaline Casts (Auto) 1, Urine Bacteria (Auto) 3+H, Urine Squamous Epithelial Cells 0, Urine Mucus (Auto) SMALL, Urine Sperm (Auto) 05/09/17 00:34: Total Creatine Kinase 64, Creatine Kinase MB 1.1, Creatine Kinase MB Relative Index 1.71, Troponin I < 0.02 05/09/17 08:32: CBC/BMP Laboratory Tests 05/08/17 14:14 Red Blood Count 3.58 L, Mean Corpuscular Volume 90.2, Mean Corpuscular Hemoglobin 30.7, Mean Corpuscular Hemoglobin Concent 34.0, Red Cell Distribution Width 16.9 H, Neutrophils (%) (Auto) 87.2 H, Lymphocytes (%) (Auto ) 2.9 L, Monocytes (%) (Auto) 8.0 H, Eosinophils (%) (Auto) 1.0, Basophils (%) ( Auto) 0.1, Neutrophils # (Auto) 6.0, Lymphocytes # (Auto) 0.3 L, Monocytes # ( Auto) 0.6, Eosinophils # (Auto) 0.1, Basophils # (Auto) 0.0 Microbiology Microbiology 05/08/17 Blood Culture, Received Pending 05/08/17 Blood Culture, Received Pending 05/08/17 Urine Culture, Received Pending RAMO GAMEZ PA-C May 09, 2017 09:05 MANDEEP SANDOVAL MD May 09, 2017 10:54
[2017-05-09 09:17] LABS: ALBUMIN 2.7 GM/DL (3.2-5.2); ALKALINE PHOSPHATASE 544 U/L (45-117); ALT/SGPT 70 U/L (12-78); AST/SGOT 86 U/L (15-37); BILIRUBIN,TOTAL 1.9 MG/DL (0.2-1.0); CALCIUM LEVEL 8.3 MG/DL (8.8-10.2); CARBON DIOXIDE LEVEL 24 MEQ/L (21-32); CHLORIDE LEVEL 107 MEQ/L (98-107); CREATININE FOR GFR 1.45 MG/DL (0.70-1.30); GLUCOSE, FASTING 147 MG/DL (83-110); POTASSIUM SERUM 4.1 MEQ/L (3.5-5.1)
[2017-05-09 09:51] LABS: BLOOD UREA NITROGEN 20 MG/DL (7-18)
[2017-05-09 12:00] VITALS: BP 118/67
[2017-05-09 15:42] LABS: MEAN CORPUSCULAR HEMOGLOBIN 30.9 pg (27.0-33.0); MEAN CORPUSCULAR HGB CONC 33.5 g/dl (32.0-36.5); MEAN CORPUSCULAR VOLUME 92.3 fl (80.0-96.0); RED CELL DISTRIBUTION WIDTH 17.1 % (11.5-14.5); WHITE BLOOD COUNT 4.9 K/mm3 (4.0-10.0)
[2017-05-09 16:00] VITALS: BP 118/59
[2017-05-09 20:00] VITALS: BP 108/57
[2017-05-09] MEDS: DONEPEZIL 5 MG TAB PO SCH (20:11)
[2017-05-09] MEDS: AMITRIPTYLINE 50 MG TAB PO SCH (20:11)
[2017-05-09] MEDS: FAMOTIDINE 20 MG TAB PO SCH (20:11)
[2017-05-09] MEDS: cefTRIAXone SOD 1 GM in D5W MINI-BAG PLUS 50 ML IV SCH (20:12)
[2017-05-09 21:17] LABS: ANION GAP 9 MEQ/L (8-16); SODIUM LEVEL 140 MEQ/L (136-145)
[2017-05-09 21:18] LABS: ALBUMIN/GLOBULIN RATIO 0.66 (1.00-1.93); TOTAL PROTEIN 6.8 GM/DL (6.4-8.2)
[2017-05-10] VITALS: BP 124/67
[2017-05-10 04:00] VITALS: BP 142/75
[2017-05-10 05:51] LABS: ANION GAP 7 MEQ/L (8-16); BLOOD UREA NITROGEN 21 MG/DL (7-18); CALCIUM LEVEL 8.4 MG/DL (8.8-10.2); CARBON DIOXIDE LEVEL 25 MEQ/L (21-32); CHLORIDE LEVEL 108 MEQ/L (98-107); CREATININE FOR GFR 1.24 MG/DL (0.70-1.30); GLOMERULAR FILTRATION RATE > 60.0 (>42); GLUCOSE, FASTING 89 MG/DL (83-110); POTASSIUM SERUM 4.1 MEQ/L (3.5-5.1); SODIUM LEVEL 140 MEQ/L (136-145)
[2017-05-10] MEDS: SLF 3 ML SYR IV SCH (05:52)
[2017-05-10 06:08] LABS: MEAN CORPUSCULAR HEMOGLOBIN 30.4 pg (27.0-33.0); MEAN CORPUSCULAR HGB CONC 33.2 g/dl (32.0-36.5); MEAN CORPUSCULAR VOLUME 91.8 fl (80.0-96.0); RED CELL DISTRIBUTION WIDTH 17.1 % (11.5-14.5); WHITE BLOOD COUNT 3.8 K/mm3 (4.0-10.0)
[2017-05-10 08:00] VITALS: BP 140/74
[2017-05-10] MEDS: LACTULOSE 20 GM/30 ML SYRUP UD PO SCH (08:09)
[2017-05-10] MEDS: FINASTERIDE 5 MG TAB PO SCH (08:10)
[2017-05-10] MEDS: VITAMIN D 1,000 INTERNATIONAL UNITS TABLET PO SCH (08:10)
[2017-05-10] MEDS: PANTOPRAZOLE 40MG TAB (PROTONIX) PO SCH (08:10)
[2017-05-10] MEDS: TAMSULOSIN 0.4 MG CAP PO SCH (08:10)
[2017-05-10] MEDS: SUCRALFATE 1 GM TAB PO SCH (08:10)
[2017-05-10] MEDS: POTASSIUM CHLORIDE 10 MEQ SR TABLET PO SCH (08:10)
[2017-05-10 08:11] VITALS: BP 142/75
[2017-05-10] MEDS: NADOLOL 20MG TABLET PO SCH (08:11)
[2017-05-10] MEDS ORDERED: CEPH500T PO (08:37)
[2017-05-10 12:00] VITALS: BP 112/65
--- NOTE | 2017-05-10 20:24 | DSES ---
DATE OF ADMISSION: 05/08/2017 DATE OF DISCHARGE: 05/10/2017 PRIMARY CARE PROVIDER: Dr. Gary Cuba ATTENDING TODAY: Dr. Alejandra Rico HISTORY: This is a 72-year-old male patient who was attending a with his for someone that they knew. He became inattentive, dusky, cyanotic, bluish, followed by a gross shaking episode. He had no loss of bowel or bladder control. No subsequent diaphoresis. After, he seemed to be less attentive, mildly confused. Upon presentation to the emergency room, he was fully oriented. His blood pressure was low on presentation, although he denied any other symptoms. On 04/04/2017, he then underwent a banding for multiple esophageal varices. He was evaluated in the emergency room, felt admission was appropriate. He underwent gentle hydration, was admitted to telemetry for cardiac monitoring. He had no recurrence of his symptoms. He did develop a fever soon after his arrival with a maximum temperature (T max) of 101. He was, therefore, started on Rocephin as his urinalysis was suspicious for infection. Urine culture grew Enterobacter cloacae complex, which blood cultures were negative. He has been afebrile for more than 24 hours. He is clinically feeling better. His telemetry has been benign. He has no concerns. He is moving around the room without difficulty. He is eager to return home. DISCHARGE DIAGNOSES: Include: Urinary tract infection with altered mental status. Acute kidney injury with a creatinine of 1.7 on admission. Nonalcoholic cirrhosis. Depression. DISCHARGE PLAN: Followup with Dr. Cuba in 5-7 days. Activity should be as tolerated. Diet should be no added salt.
[2017-07-18] MEDS ORDERED: LACT10SO3 PO (15:24)
[2017-09-01] MEDS ORDERED: LIDO2SO SSP (09:26)
[2017-09-01] MEDS ORDERED: LASI20TA PO (09:26)
[2017-09-01] MEDS ORDERED: POTA20TA PO (09:26)
== END 2017-05-10 12:15 | disposition home or self-care (01) ==
LOC: M ED 13:01 → M ED INP 16:39 → M PCU 17:41
PROVIDERS: ADMIT Family Medicine; ATTEND Family Medicine
DX: N39.0 Urinary tract infection, site not specified (principal); R50.9 Fever, unspecified; R41.82 Altered mental status, unspecified; N17.9 Acute kidney failure, unspecified; K74.69 Other cirrhosis of liver; F32.9 Major depressive disorder, single episode, unspecified
CPT/HCPCS: 36415; 70450; 71010; 80048; 80053; 80076; 81001; 82140; 82550; 82553; 83605; 84443; 84484; 85025; 85027; 87040; 87088; 87186; 93005; 93041; 94760; 96360; 96361; 96365; 96366; 99285; G0378; J0696

== ENCOUNTER → 2017-05-17 | Outpatient (REF) | payer OTHER ==
[~2017-05-17] MED LIST changes: +CEPH500T PO; +LASI20TA PO; +LIDO2SO SSP; +POTA20TA PO; +RANI300C PO
== END ==
LOC: M SFHCADAM 14:16
PROVIDERS: ATTEND Family Medicine
DX: N39.0 Urinary tract infection, site not specified (principal); I81 Portal vein thrombosis; I85.00 Esophageal varices without bleeding; Z79.899 Other long term (current) drug therapy
CPT/HCPCS: 87088; 87186; G0463

== ENCOUNTER → 2017-05-26 | Outpatient (CLI) | payer OTHER ==
[~2017-05-26] VITALS: Ht 182.9 cm; Wt 97.1 kg
[~2017-05-26] MED LIST changes: +LIDOCAINE 2% INJ 100 MG/5 ML SDV (FOR ANES.) As Ordered ONE; +NS 1,000 ML IV ONE; +PROPOFOL 500 MG/50 ML VIAL As Ordered ONE
--- NOTE | 2017-05-26 09:27 | ROOR ---
Patient Name: John Huang Procedure Date: 05/26/2017 8:53 AM Date of : 1945 Age: 72 Room: [facility] Gender: Male Note Status: Finalized Procedure: Upper GI endoscopy Indications: Follow-up of esophageal varices, For therapy of esophageal varices Providers: Smith RODRIGUEZ MD Referring MD: Gary Cuba MD Requesting Provider: Medicines: Monitored Anesthesia Care Complications: No immediate complications. Procedure: Pre-Anesthesia Assessment: - The heart rate, respiratory rate, oxygen saturations, blood pressure, adequacy of pulmonary ventilation, and response to care were monitored throughout the procedure. The Endoscope was introduced through the mouth, and advanced to the body of the stomach. The upper GI endoscopy was performed with difficulty due to presence of food. The patient tolerated the procedure well. Findings: Grade II varices were found in the lower third of the esophagus. Four bands were successfully placed with complete eradication, resulting in deflation of varices. - One end vessel/vascular nipple in a scar from previous banding procedure. This bled with touch of scope. Banding of this vessel failed, due to band slipping of the scar tissue, therefore endoclip was placed successful. Bleeding had stopped at the end of the procedure. No gross lesions were noted in the cardia. A large amount of food (residue) was found in the entire examined stomach.-procedure aborted. Impression: - Grade II esophageal varices. Completely eradicated. Banded. - A single raised red end vessel in center of a scar from previous banding procedure in the distal third of the esophagus. This bled with touch of scope. Endoclip placed and was successful. - No gross lesions in the stomach. - A large amount of food (residue) in the stomach. - No specimens collected. Recommendation: - Observe patient's clinical course. - Repeat upper endoscopy in 1 month for retreatment. - Continue a Non-selective Beta Mercedes, titrate to heart rate. Smith Rodriguez MD Smith RODRIGUEZ MD 05/26/2017 9:27:19 AM This report has been signed electronically. Number of Addenda: 0 Note Initiated On: 05/26/2017 8:53 AM Estimated Blood Loss: Estimated blood loss: none.
[2017-05-26 09:40] VITALS: BP 135/69
== END | disposition home or self-care (01) ==
LOC: M OPP 07:36
PROVIDERS: ATTEND Internal Medicine Gastroenterology
DX: I85.00 Esophageal varices without bleeding (principal); I10 Essential (primary) hypertension; K75.1 Phlebitis of portal vein; N40.0 Benign prostatic hyperplasia without lower urinary tract symptoms; G93.40 Encephalopathy, unspecified; F41.9 Anxiety disorder, unspecified; Z79.899 Other long term (current) drug therapy; Z88.1 Allergy status to other antibiotic agents; Z88.8 Allergy status to other drugs, medicaments and biological substances; Z96.9 Presence of functional implant, unspecified

== ENCOUNTER → 2017-06-04 | Outpatient (REF) | payer MEDICARE, OTHER ==
[~2017-06-04] MED LIST changes: -LIDOCAINE 2% INJ 100 MG/5 ML SDV (FOR ANES.) As Ordered ONE; -NS 1,000 ML IV ONE; -PROPOFOL 500 MG/50 ML VIAL As Ordered ONE
== END ==
LOC: M LAB REF 12:00
PROVIDERS: ATTEND Family Medicine
DX: K52.1 Toxic gastroenteritis and colitis (principal)

== ENCOUNTER → 2017-06-30 | Outpatient (REF) | payer MEDICARE ==
[2017-06-30 19:15] LABS: ALBUMIN/GLOBULIN RATIO 0.75 (1.00-1.93); BILIRUBIN,TOTAL 0.8 MG/DL (0.2-1.0); CALCIUM LEVEL 7.8 MG/DL (8.8-10.2); CREATININE FOR GFR 1.59 MG/DL (0.70-1.30); GLOMERULAR FILTRATION RATE 45.5 (>42); POTASSIUM SERUM 4.9 MEQ/L (3.5-5.1)
[2017-06-30 21:04] LABS: MEAN CORPUSCULAR HEMOGLOBIN 30.8 pg (27.0-33.0); MEAN CORPUSCULAR HGB CONC 33.3 g/dl (32.0-36.5); MEAN CORPUSCULAR VOLUME 92.6 fl (80.0-96.0); RED CELL DISTRIBUTION WIDTH 16.4 % (11.5-14.5); WHITE BLOOD COUNT 3.7 K/mm3 (4.0-10.0)
== END ==
LOC: M SFHCADAM 15:57
PROVIDERS: ATTEND Physician Assistant
DX: R41.82 Altered mental status, unspecified (principal); K74.60 Unspecified cirrhosis of liver; R29.6 Repeated falls

== ENCOUNTER → 2017-06-30 | Outpatient (CLI) | payer MEDICARE | LOC: M LAB 18:43 | PROVIDERS: ATTEND Physician Assistant | DX: R41.82 Altered mental status, unspecified (principal) ==

== ENCOUNTER → 2017-07-06 | Outpatient (REF) | payer MEDICARE ==
[2017-07-06 20:11] LABS: CALCIUM LEVEL 8.5 MG/DL (8.8-10.2); CREATININE FOR GFR 1.31 MG/DL (0.70-1.30); GLOMERULAR FILTRATION RATE 56.9 (>42); POTASSIUM SERUM 4.4 MEQ/L (3.5-5.1)
[2017-07-06 20:16] LABS: MEAN CORPUSCULAR HEMOGLOBIN 31.5 pg (27.0-33.0); MEAN CORPUSCULAR HGB CONC 34.5 g/dl (32.0-36.5); MEAN CORPUSCULAR VOLUME 91.5 fl (80.0-96.0); RED CELL DISTRIBUTION WIDTH 16.1 % (11.5-14.5); WHITE BLOOD COUNT 2.8 K/mm3 (4.0-10.0)
== END ==
LOC: M SFHCADAM 16:33
PROVIDERS: ATTEND Physician Assistant
DX: K76.6 Portal hypertension (principal); K72.90 Hepatic failure, unspecified without coma; K74.60 Unspecified cirrhosis of liver; I10 Essential (primary) hypertension

== ENCOUNTER 2017-07-22 07:04 | Outpatient (CLI) | payer MEDICARE ==
[~2017-07-22] VITALS: Ht 182.9 cm; Wt 97.5 kg
[~2017-07-22 07:04] MED LIST changes: -LASI20TA PO; -LIDO2SO SSP; -POTA20TA PO
[2017-07-22] MEDS ORDERED: NS 1,000 ML IV ONE (07:30)
[2017-07-22] MEDS ORDERED: LIDOCAINE 2% INJ 100 MG/5 ML SDV (FOR ANES.) As Ordered ONE (08:11)
[2017-07-22] MEDS ORDERED: PROPOFOL 200 MG/20 ML VIAL As Ordered ONE (08:11)
--- NOTE | 2017-07-22 08:35 | ROOR ---
Patient Name: John Huang Procedure Date: 07/22/2017 8:12 AM Date of : 1945 Age: 72 Room: [facility] Gender: Male Note Status: Finalized Procedure: Upper GI endoscopy Indications: Portal hypertension with suspected esophageal varices, For therapy of esophageal varices Providers: Smith RODRIGUEZ MD Referring MD: Gary Cuba MD Requesting Provider: Medicines: Monitored Anesthesia Care Complications: No immediate complications. Procedure: Pre-Anesthesia Assessment: - The heart rate, respiratory rate, oxygen saturations, blood pressure, adequacy of pulmonary ventilation, and response to care were monitored throughout the procedure. The Endoscope was introduced through the mouth, and advanced to the second part of duodenum. The upper GI endoscopy was accomplished without difficulty. The patient tolerated the procedure well. Findings: Grade II varices were found in the lower third of the esophagus. Four bands were successfully placed with complete eradication, resulting in deflation of varices. There was no bleeding during, and at the end, of the procedure. The entire examined stomach was normal. A previously placed metal stent was seen at the anastomosis. Nodular mucosa was found at the anastomosis. Biopsies were taken with a cold forceps for histology. Impression: - Grade II esophageal varices. Completely eradicated. Banded. - Normal stomach. - Metal stent in the duodenum. Nodular mucosa/granulation tissue at the anastomosis near stent and opposite wall. Biopsied. Recommendation: - Repeat upper endoscopy in 1 month for retreatment. Smith Rodriguez MD Smith RODRIGUEZ MD 07/22/2017 8:34:55 AM This report has been signed electronically. Number of Addenda: 0 Note Initiated On: 07/22/2017 8:12 AM Estimated Blood Loss: Estimated blood loss: none.
[2017-07-22 08:59] VITALS: BP 147/80
[2017-09-01] MEDS ORDERED: LIDO2SO SSP (09:26)
[2017-09-01] MEDS ORDERED: LASI20TA PO (09:26)
[2017-09-01] MEDS ORDERED: POTA20TA PO (09:26)
== END 2017-07-22 08:59 | disposition home or self-care (01) ==
LOC: M OPP 07:04
PROVIDERS: ATTEND Internal Medicine Gastroenterology
DX: K76.6 Portal hypertension (principal); I85.10 Secondary esophageal varices without bleeding; K31.89 Other diseases of stomach and duodenum; Z97.8 Presence of other specified devices; Z98.0 Intestinal bypass and anastomosis status; C22.1 Intrahepatic bile duct carcinoma; Z92.21 Personal history of antineoplastic chemotherapy; G31.84 Mild cognitive impairment of uncertain or unknown etiology; I10 Essential (primary) hypertension; D64.9 Anemia, unspecified; F41.9 Anxiety disorder, unspecified; F32.9 Major depressive disorder, single episode, unspecified; R06.83 Snoring; N40.1 Benign prostatic hyperplasia with lower urinary tract symptoms; Z96.651 Presence of right artificial knee joint; Z88.8 Allergy status to other drugs, medicaments and biological substances; Z79.899 Other long term (current) drug therapy; Z80.1 Family history of malignant neoplasm of trachea, bronchus and lung; Z80.3 Family history of malignant neoplasm of breast; Z80.41 Family history of malignant neoplasm of ovary

== ENCOUNTER → 2017-08-24 | Outpatient (REF) | payer MEDICARE ==
[~2017-08-24] MED LIST changes: +LASI20TA PO; +LIDO2SO SSP; +POTA20TA PO
[2017-08-24 19:48] LABS: MEAN CORPUSCULAR HEMOGLOBIN 30.9 pg (27.0-33.0); MEAN CORPUSCULAR HGB CONC 32.9 g/dl (32.0-36.5); MEAN CORPUSCULAR VOLUME 93.9 fl (80.0-96.0); WHITE BLOOD COUNT 3.3 10^3/uL (4.0-10.0)
[2017-08-24 20:11] LABS: PLATELET COUNT, AUTOMATED 62 10^3/uL (150-450)
[2017-08-24 20:15] LABS: ALBUMIN/GLOBULIN RATIO 0.77 (1.00-1.93); ALKALINE PHOSPHATASE 428 U/L (45-117); ALT/SGPT 46 U/L (12-78); ANION GAP 7 MEQ/L (8-16); AST/SGOT 50 U/L (15-37); BILIRUBIN,TOTAL 0.8 MG/DL (0.2-1.0); BLOOD UREA NITROGEN 17 MG/DL (7-18); CALCIUM LEVEL 8.4 MG/DL (8.8-10.2); CARBON DIOXIDE LEVEL 28 MEQ/L (21-32); CHLORIDE LEVEL 106 MEQ/L (98-107); CREATININE FOR GFR 1.24 MG/DL (0.70-1.30); GLOMERULAR FILTRATION RATE > 60.0 (>42); GLUCOSE, FASTING 103 MG/DL (83-110); POTASSIUM SERUM 4.3 MEQ/L (3.5-5.1); SODIUM LEVEL 141 MEQ/L (136-145); TOTAL PROTEIN 6.9 GM/DL (6.4-8.2)
== END ==
LOC: M SFHCADAM 16:36
PROVIDERS: ATTEND Physician Assistant
DX: R10.11 Right upper quadrant pain (principal); D50.0 Iron deficiency anemia secondary to blood loss (chronic); C22.1 Intrahepatic bile duct carcinoma; N18.9 Chronic kidney disease, unspecified; N52.01 Erectile dysfunction due to arterial insufficiency; Z23 Encounter for immunization

== ENCOUNTER 2017-09-07 14:47 | Inpatient (IN) | payer MEDICARE ==
[~2017-09-07] VITALS: Ht 182.9 cm; Wt 97.3 kg
[2017-09-07] MEDS ORDERED: LIDOCAINE W/EPINEPHRINE 1% 20ML VIAL SC ONE (15:30)
[2017-09-07 15:32] LABS: MEAN CORPUSCULAR HEMOGLOBIN 31.3 pg (27.0-33.0); MEAN CORPUSCULAR HGB CONC 34.4 g/dl (32.0-36.5); RED CELL DISTRIBUTION WIDTH 15.9 % (11.5-14.5); WHITE BLOOD COUNT 4.6 10^3/uL (4.0-10.0)
[2017-09-07 15:43] LABS: INR 1.17
[2017-09-07 15:51] LABS: ANION GAP 8 MEQ/L (8-16); BLOOD UREA NITROGEN 18 MG/DL (7-18); CALCIUM LEVEL 8.7 MG/DL (8.8-10.2); CARBON DIOXIDE LEVEL 25 MEQ/L (21-32); CHLORIDE LEVEL 108 MEQ/L (98-107); CREATININE FOR GFR 1.12 MG/DL (0.70-1.30); GLOMERULAR FILTRATION RATE > 60.0 (>42); GLUCOSE, FASTING 100 MG/DL (83-110); POTASSIUM SERUM 4.3 MEQ/L (3.5-5.1); SODIUM LEVEL 141 MEQ/L (136-145)
[2017-09-07 15:55] LABS: PLATELET COUNT, AUTOMATED 65 10^3/uL (150-450)
[2017-09-07 15:57] LABS: IMMATURE PLATELET FRACTION % 1.7 % (0.0-10.9)
[2017-09-07] MEDS ORDERED: RANI300T PO (17:11)
[2017-09-07] MEDS ORDERED: AMIT50TA PO (17:11)
[2017-09-07 22:30] VITALS: BP 132/69
[2017-09-08] VITALS (11 sets, daily range): BP systolic 99–150; BP diastolic 55–77
[2017-09-08] MEDS: AMITRIPTYLINE 50 MG TAB PO SCH ×3 (00:43→20:06)
[2017-09-08] MEDS: LACTULOSE 20 GM/30 ML SYRUP UD PO SCH ×5 (00:44→20:05)
[2017-09-08] MEDS: FAMOTIDINE 20 MG TAB PO SCH ×2 (00:44→20:05)
[2017-09-08] MEDS: DONEPEZIL 5 MG TAB PO SCH ×2 (00:44→20:05)
[2017-09-08] MEDS: SUCRALFATE 1 GM TAB PO SCH ×5 (00:46→20:05)
[2017-09-08] MEDS: PANTOPRAZOLE 40MG TAB (PROTONIX) PO SCH ×3 (00:46→20:05)
[2017-09-08 05:32] LABS: MEAN CORPUSCULAR HEMOGLOBIN 30.9 pg (27.0-33.0); MEAN CORPUSCULAR HGB CONC 34.3 g/dl (32.0-36.5); RED CELL DISTRIBUTION WIDTH 15.9 % (11.5-14.5); WHITE BLOOD COUNT 4.1 10^3/uL (4.0-10.0)
[2017-09-08 05:48] LABS: PLATELET COUNT, AUTOMATED 64 10^3/uL (150-450)
[2017-09-08 05:53] LABS: INR 1.21
[2017-09-08 06:02] LABS: ANION GAP 9 MEQ/L (8-16); BLOOD UREA NITROGEN 16 MG/DL (7-18); CALCIUM LEVEL 8.3 MG/DL (8.8-10.2); CARBON DIOXIDE LEVEL 24 MEQ/L (21-32); CHLORIDE LEVEL 105 MEQ/L (98-107); CREATININE FOR GFR 1.04 MG/DL (0.70-1.30); GLOMERULAR FILTRATION RATE > 60.0 (>42); GLUCOSE, FASTING 123 MG/DL (83-110); SODIUM LEVEL 138 MEQ/L (136-145)
--- NOTE | 2017-09-08 06:43 | REP ---
CT HEAD WITHOUT CONTRAST: HISTORY: Fall. COMPARISON: 05/08/2017. A 9 mm hemorrhagic contusion is present in the left frontal lobe at the vertex. There is a small amount of subarachnoid hemorrhage scattered over the cerebral hemispheres. Areas of decreased attenuation are present in the periventricular white matter. This represents small vessel ischemic disease. There is no intraparenchymal mass or midline shift. The ventricular system and cortical sulci are dilated consistent with minimal volume loss. There is no extracerebral collection. There is no fracture. The visualized sinuses are clear. Soft tissue swelling is present over the left frontal and parietal bones at the vertex. IMPRESSION: 1. Small 9 mm left frontal lobe hemorrhagic contusion. 2. There is a small amount of subarachnoid hemorrhage scattered over the vertebral hemispheres. 3. Small vessel ischemic disease. 4. Minimal volume loss. Signed by Martinez Taveras MD 09/08/2017 08:47 A
--- NOTE | 2017-09-08 06:54 | REP ---
CT CERVICAL SPINE WITHOUT CONTRAST: HISTORY: Fall. There is no acute fracture or subluxation. Disc bulges with associated osteophyte formation are present at the C2-3 through C7-T1 levels. There is minimal narrowing of the spinal canal. Uncinate process and/or facet hypertrophy are present at the C2-3 through C7-T1 levels. These findings produce minimal to severe narrowing of the neural foramina. The C2-3 through C7-T1 intervertebral discs are decreased in height consistent with disc degeneration. There is loss of the normal lordotic curve. IMPRESSION: 1. There is no acute fracture or subluxation. 2. There is cervical spondylosis at the C2-3 through C7-T1 levels. Signed by Martinez Taveras MD 09/08/2017 08:47 A
--- NOTE | 2017-09-08 07:00 | REPUSA ---
CLINICAL HISTORY: Head trauma. TECHNIQUE: Multiple axial brain CT scan sections were obtained from base to vertex without contrast a dministration. COMMENTS: 1.9x1.3 cm left frontal subcortical acute hemorrhagic contusion. Similar adjacent smaller foci of hemorrhagic contusions are identified with the largest measuring 1.1 cm. Diffuse acute traumatic subarachnoid hemorrhage. Left parietal subgaleal soft tissue hematoma. There is no evidence of skull fracture. The study shows normal configuration of sella turcica. There is no mass effect or midline shift. No hydrocephalus is present. No abnormal calcifications are noted. The sinuses and mastoid air cells are patent. IMPRESSION: 1.9x1.3 cm left frontal subcortical acute hemorrhagic contusion. Similar adjacent smaller foci of hemorrhagic contusions are identified with the largest measuring 1.1 cm. Diffuse acute traumatic subarachnoid hemorrhage. Left parietal subgaleal soft tissue hematoma. Thank you for your kind referral of this patient.
--- NOTE | 2017-09-08 07:40 | ECGEPIP ---
Stationary ECG Study [facility] - ED Test Date: 2017-09-07 Pat Name: YENNIFER DIAL Department: Room: - Gender: M [employer]: RAYSA : 1945 Requested By: RAHUL BARDALES Order Number: [id number] Reading MD: Jaspal Simmons Measurements Intervals [place] Rate: 68 P: 40 [place]: 195 QRS: -24 QRSD: 113 T: 41 QT: 437 QTc: 466 Interpretive Statements SINUS RHYTHM BORDERLINE LEFT AXIS DEVIATION MODERATE INTRAVENTRICULAR CONDUCTION DELAY BASELINE ARTIFACT AFFECTS INTERPRETATION SIMILAR TO 05/08/17 Electronically Signed On 09-08-2017 7:40:40 EST by Jaspal Simmons
[2017-09-08] MEDS: levETIRAcetam 250MG TABLET (KEPPRA) PO SCH (08:44)
[2017-09-08] MEDS: NADOLOL 20MG TABLET PO SCH (08:44)
[2017-09-08] MEDS: FINASTERIDE 5 MG TAB PO SCH (08:44)
[2017-09-08] MEDS: TAMSULOSIN 0.4 MG CAP PO SCH (08:45)
--- NOTE | 2017-09-08 20:34 | CR ---
DATE OF CONSULTATION: 09/07/2017 CONSULTATION REPORT FOR: Dr. Collins This is a patient of Dr. Cuba. CHIEF COMPLAINT: "I fell on the concrete step." SUMMARY OF HIS PRESENTATION: This is a 72-year-old who has been very unsteady on his feet, in fact fell off a chair last week. Today, he was walking up concrete steps behind his house, fell down approximately four steps, landed on the patio on the back of his head with some bleeding. Apparently, his says he always loses his balance since he developed tardive dyskinesia. 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 He is seen intermittently by Dr. Rodriguez. He is due for an upper endoscopy in the near future to reassess for varicosities that will need clipping. He was doing well prior to this fall and this morning, he went out with his and they actually went to a luncheon. He has had no medication changes recently. PAST MEDICAL HISTORY: Notable for: 1. Hyperlipidemia. 2. Glucose intolerance. 3. Depression. 4. Remote history of hypertension. 5. Cholangiocarcinoma, status post chemotherapy. 6. Tardive dyskinesia. 7. Parkinson's versus Lewy body dementia. 8. Gastrointestinal (GI) blood loss anemia. 9. Portal vein thrombosis. 10. Portal gastropathy. 11. Diverticulosis. ALLERGIES: STATINS, CARBIDOPA/LEVODOPA, IBUPROFEN, BACLOFEN, HALDOL, LEVAQUIN. PAST SURGICAL HISTORY: Notable for: 1. Colonoscopy. 2. Right total knee. 3. Percutaneous gallbladder drain. 4. Radical bile duct excision with hepatojejunostomy. 5. Natacha-en-Y loop of jejunum. 6. Endoscopy. 7. Esophageal varices. 8. Esophagogastroduodenoscopy (EGD). FAMILY HISTORY: Notable for a father who of congestive heart failure (CHF), stroke, diagnosed with heart disease, and a mother who of lung cancer with metastases to the liver. SOCIAL HISTORY: Nonsmoker. He does not drink any alcohol. He lives on [facility]. REVIEW OF SYSTEMS: Notable for no chest pain. No shortness of breath. He has had some right upper quadrant abdominal pain for some time. No pain in his hip, knees, ankles. He is able to move his legs without difficulty. PHYSICAL EXAMINATION: Temperature is 97.7, pulse is 71, respiratory rate 18, blood pressure 144/66, pulse oximetry 100% on room air. He is awake, appropriately interactive, answering questions appropriately, somewhat fixated on having a private room. Sinuses are nontender. Pupils are equally round and reactive. Mucous membranes are moist. Neck is supple. Breathing is symmetrical. I:E ratio is 1:3. No wheezes, rales, or rhonchi. Heart is distant sounding, normal S1, S2. Radial pulses 2+, capillary refill is less than two seconds. Abdomen is soft, doughy, nontender. There is no costovertebral angle (CVA) tenderness. There is no sacral edema. There is no hip tenderness or knee tenderness. No ankle tenderness. No shoulder tenderness. He is moving all four extremities. He does have an abrasion on his left great toe which is oozing some sanguinous material as a result of stubbing his toe apparently a few days ago. LABORATORY DATA: White cell count 4.6, hemoglobin 10.1, platelets 65 which is in his normal range since 07/06/2017. BUN is 18, creatinine 1.12, INR is 1.17. Official reads of the head CT and cervical spine CT are pending. There is no other imaging completed. EKG shows a sinus rhythm, left axis deviation, moderate intraventricular conduction delay. Head CT shows a left-sided frontal 9 mm hemorrhagic contusion, small subarachnoid hemorrhage. ASSESSMENT: This is a 72-year-old with frontal contusion and subarachnoid hemorrhage status post traumatic fall. PLAN: 1. Neurosurgical. I have discussed this case in person with Dr. Collins. The plan is to watch the patient overnight. The patient is known to have a low platelet level, which he is not currently on any medicines that cause platelet dysfunction. We will defer to Dr. Collins's management of thrombocytopenia in the setting of subarachnoid hemorrhage. 2. The patient has nonalcoholic cirrhosis. We will continue his lactulose. He has had difficulty with metabolic encephalopathy and hepatic encephalopathy in the past as well as with history of gastrointestinal (GI) bleed and acute blood loss. 3. The patient has a history of glucose intolerance. 4. The patient has a history of hyperlipidemia. 5. The patient has a history of cholangiocarcinoma. 6. Deep vein thrombosis (DVT) prophylaxis should be mechanical. The patient has been signed out to Dr. Rico.
[2017-09-09 02:00] VITALS: BP 149/75
[2017-09-09 06:00] VITALS: BP 134/74
--- NOTE | 2017-09-09 06:23 | IPNPDOC ---
Text Note Date of Service The patient was seen on 09/08/17. NOTE Subjective: This is a 72 y/o M who was brought to the ED yesterday after falling down his steps and with traumatic injury to his head. No reports of seizure or LOC. Pt admitted under neurosurgery for closed TBI. Today, patient is alert and oriented to person, year, place and situation. He does not have any CP, or SOB. Pt does have a headache today, no fevers. He feels weak on the R side. Has a urinary cath in place. Objective: VS: please see below. Neuro: decreased strength on in the RUE 4/5 and RLE 0/5 in the legs; 2/5 in the R feet. Decreased sensation in the R feet. CV: RRR Resp: Clear b/l, no wheezes Assessment/Plan: This is a 72 y/o M with closed TBI, thrombocytopenia, and hemiparesis. Pt admitted to the ICU. 1. Closed TBI with acute SAH and subgaleal hematoma. Repeat CT this morning was stable. Neurosurgery transferred pt to unit. Patient was started on Keppra for 7 days. 2. Thrombocytopenia. Transfused with 1u of platelets. 3. Hemiparesis. R sided weakness. PT/OT will evaluated today. 4. Nonalcoholic cirrhosis. Continue lactulose 5. History of Parkinson's disease/dementia. Continue Aricept. 6. History of depression. Continue Elavil. VS,Fishbone, I+O VS, Fishbone, I+O Laboratory Tests 09/07/17 15:12 Red Blood Count 3.23 L, Mean Corpuscular Volume 91.0, Mean Corpuscular Hemoglobin 31.3, Mean Corpuscular Hemoglobin Concent 34.4, Red Cell Distribution Width 15.9 H, Calcium Level 8.7 L 09/08/17 05:00 Red Blood Count 3.11 L, Mean Corpuscular Volume 90.0, Mean Corpuscular Hemoglobin 30.9, Mean Corpuscular Hemoglobin Concent 34.3, Red Cell Distribution Width 15.9 H, Calcium Level 8.3 L Vital Signs Date Time Temp Pulse Resp B/P (MAP) Pulse Ox O2 Delivery O2 Flow Rate FiO2 09/08/17 06:00 65 18 103/70 (81) 96 Room Air 09/08/17 04:00 99.4 GME ATTESTATION GME ATTESTATION My preceptor for this patient encounter was physically present in the building during the encounter and was fully available. As needed, all aspects of the patient interview, examination, medical decision making process, and medical care plan development were reviewed and approved by the preceptor. Preceptor is aware and concurs with the plan as stated in the body of this note and will attest to such by his/her cosignature. BRAYDEN JOHNSON DO Sep 08, 2017 08:36
[2017-09-09 07:10] LABS: MEAN CORPUSCULAR HEMOGLOBIN 30.8 pg (27.0-33.0); MEAN CORPUSCULAR HGB CONC 33.7 g/dl (32.0-36.5); MEAN CORPUSCULAR VOLUME 91.3 fl (80.0-96.0); RED CELL DISTRIBUTION WIDTH 15.8 % (11.5-14.5); WHITE BLOOD COUNT 3.7 10^3/uL (4.0-10.0)
[2017-09-09 07:13] LABS: IMMATURE PLATELET FRACTION % 1.4 % (0.0-10.9); PLATELET COUNT, AUTOMATED 62 10^3/uL (150-450)
[2017-09-09 07:18] LABS: INR 1.26
[2017-09-09 07:31] LABS: ANION GAP 9 MEQ/L (8-16); BLOOD UREA NITROGEN 18 MG/DL (7-18); CALCIUM LEVEL 8.2 MG/DL (8.8-10.2); CARBON DIOXIDE LEVEL 25 MEQ/L (21-32); CHLORIDE LEVEL 108 MEQ/L (98-107); CREATININE FOR GFR 1.11 MG/DL (0.70-1.30); GLOMERULAR FILTRATION RATE > 60.0 (>42); GLUCOSE, FASTING 88 MG/DL (83-110); POTASSIUM SERUM 3.9 MEQ/L (3.5-5.1); SODIUM LEVEL 142 MEQ/L (136-145)
[2017-09-09] MEDS: levETIRAcetam 250MG TABLET (KEPPRA) PO SCH (09:09)
[2017-09-09] MEDS: LACTULOSE 20 GM/30 ML SYRUP UD PO SCH ×4 (09:09→20:17)
[2017-09-09] MEDS: PANTOPRAZOLE 40MG TAB (PROTONIX) PO SCH ×2 (09:09→20:17)
[2017-09-09] MEDS: NADOLOL 20MG TABLET PO SCH (09:10)
[2017-09-09] MEDS: SUCRALFATE 1 GM TAB PO SCH ×4 (09:10→20:17)
[2017-09-09] MEDS: FINASTERIDE 5 MG TAB PO SCH (09:10)
[2017-09-09] MEDS: AMITRIPTYLINE 50 MG TAB PO SCH ×2 (09:10→20:17)
[2017-09-09] MEDS: TAMSULOSIN 0.4 MG CAP PO SCH (09:10)
[2017-09-09 10:00] VITALS: BP 128/67
[2017-09-09 14:00] VITALS: BP 136/68
[2017-09-09 19:49] VITALS: BP 135/67
[2017-09-09] MEDS: FAMOTIDINE 20 MG TAB PO SCH (20:17)
[2017-09-09] MEDS: DONEPEZIL 5 MG TAB PO SCH (20:17)
--- NOTE | 2017-09-09 21:47 | IPNPDOC ---
Text Note Date of Service The patient was seen on 09/09/17. NOTE Subjective: This is a 72 y/o M who was brought to the ED yesterday after falling down his steps and with traumatic injury to his head. No reports of seizure or LOC. Pt admitted under neurosurgery for closed TBI. Repeat CT of head was stable, patient was transferred to medical unit. Neurosurgery had signed off. Patient was seen and evaluated by OT and PT yesterday. Patient was not safe to be discharged home. They plan on continuing to strengthen him before discharge. Today, patient is alert and oriented to person, year, place and situation. He does not have any CP, or SOB. Pt does have a headache today, no fevers. He feels weak on the R side. Has a urinary cath in place. Objective: VS: please see below. General: Alert and oriented. In no acute distress. HEENT: Left-sided scalp laceration intact. EOMI. PERRL. Mucous membranes are moist. Cardiovascular: Regular rate and rhythm. No murmurs appreciated. Respiratory: Clear to auscultation bilaterally, no wheezes. Abdomen: Soft, nontender, nondistended. Active bowel sounds throughout. Skin: Warm, dry. Neuro: decreased strength on in the RUE 3/5 and RLE 2/5 in the legs; Decreased sensation in the R feet. Psych: Normal mood. Alert and oriented. Assessment/Plan: This is a 72 y/o M with closed TBI, thrombocytopenia and hemiparesis. 1. Closed TBI with acute SAH and subgaleal hematoma. Repeat CT was stable. Neurosurgery transferred pt to unit and signed off. Patient was started on Keppra for 7 days. 2. Thrombocytopenia. Transfused with 1u of platelets. Continues to trend low. 3. Hemiparesis. R sided weakness. PT/OT. PT recommends that he is safe for discharge to rehab facility. 4. Nonalcoholic cirrhosis. Continue lactulose. 5. History of Parkinson's disease/dementia. Continue Aricept. 6. History of depression. Continue Elavil. VS,Fishbone, I+O VS, Fishbone, I+O Laboratory Tests 09/09/17 06:43 Red Blood Count 2.86 L, Mean Corpuscular Volume 91.3, Mean Corpuscular Hemoglobin 30.8, Mean Corpuscular Hemoglobin Concent 33.7, Red Cell Distribution Width 15.8 H, Calcium Level 8.2 L Vital Signs Date Time Temp Pulse Resp B/P (MAP) Pulse Ox O2 Delivery O2 Flow Rate FiO2 09/09/17 10:00 98.7 69 16 128/67 (87) 98 Room Air I&O- Last 24 Hours up to 6 AM 09/10/17 06:00 Intake Total 180 ml Output Total 100 ml Balance 80 ml GME ATTESTATION GME ATTESTATION My preceptor for this patient encounter was physically present in the building during the encounter and was fully available. As needed, all aspects of the patient interview, examination, medical decision making process, and medical care plan development were reviewed and approved by the preceptor. Preceptor is aware and concurs with the plan as stated in the body of this note and will attest to such by his/her cosignature. BRAYDEN JOHNSON DO Sep 09, 2017 11:57
[2017-09-10 02:00] VITALS: BP 125/58
[2017-09-10 05:00] VITALS: BP 140/67
[2017-09-10 06:53] LABS: MEAN CORPUSCULAR HEMOGLOBIN 30.9 pg (27.0-33.0); MEAN CORPUSCULAR HGB CONC 34.1 g/dl (32.0-36.5); MEAN CORPUSCULAR VOLUME 90.6 fl (80.0-96.0); RED CELL DISTRIBUTION WIDTH 15.8 % (11.5-14.5); WHITE BLOOD COUNT 3.5 10^3/uL (4.0-10.0)
[2017-09-10 06:55] LABS: PLATELET COUNT, AUTOMATED 63 10^3/uL (150-450)
[2017-09-10 06:58] LABS: ANION GAP 7 MEQ/L (8-16); BLOOD UREA NITROGEN 18 MG/DL (7-18); CALCIUM LEVEL 8.6 MG/DL (8.8-10.2); CARBON DIOXIDE LEVEL 27 MEQ/L (21-32); CHLORIDE LEVEL 106 MEQ/L (98-107); CREATININE FOR GFR 1.22 MG/DL (0.70-1.30); GLOMERULAR FILTRATION RATE > 60.0 (>42); GLUCOSE, FASTING 89 MG/DL (83-110); SODIUM LEVEL 140 MEQ/L (136-145)
[2017-09-10 07:03] LABS: INR 1.16
[2017-09-10] MEDS: LACTULOSE 20 GM/30 ML SYRUP UD PO SCH ×4 (09:45→20:26)
[2017-09-10] MEDS: levETIRAcetam 250MG TABLET (KEPPRA) PO SCH (09:48)
[2017-09-10] MEDS: TAMSULOSIN 0.4 MG CAP PO SCH (09:48)
[2017-09-10] MEDS: NADOLOL 20MG TABLET PO SCH (09:48)
[2017-09-10] MEDS: AMITRIPTYLINE 50 MG TAB PO SCH ×2 (09:49→20:27)
[2017-09-10] MEDS: SUCRALFATE 1 GM TAB PO SCH ×4 (09:49→20:27)
[2017-09-10] MEDS: FINASTERIDE 5 MG TAB PO SCH (09:49)
[2017-09-10] MEDS: PANTOPRAZOLE 40MG TAB (PROTONIX) PO SCH ×2 (09:49→20:27)
[2017-09-10 10:00] VITALS: BP 127/75
[2017-09-10 14:00] VITALS: BP 143/73
--- NOTE | 2017-09-10 16:37 | IPNPDOC ---
Subjective Date Seen The patient was seen on 09/10/17. Subjective Chief Complaint/HPI The patient is a 72-year-old male admitted with a reason for visit of Close Tramatic Brain Injury. Constitutional: Denies: Chills Eyes: Denies: Pain Skin: Denies: Rash Pulmonary: Denies: Dyspnea Cardiovascular: Denies: Chest Pain, Palpitations Gastrointestinal: Denies: Nausea Genitourinary: Denies: Dysuria Objective Physical Examination General Exam: Positive: Alert Eye Exam: Positive: PERRLA ENT Exam: Positive: Atraumatic Chest Exam: Positive: Clear to auscultation Heart Exam: Positive: Rate Normal Abdomen Exam: Positive: Normal bowel sounds Extremity Exam: Negative: Edema Assessment /Plan Problems (1) SAH (subarachnoid hemorrhage) Status: Acute Response to Treatment: Stable Problem Text: Stable, non-surgical, per Dr. Vicente (NS) Continue leve 1000 BID for sx px 09/08/17 CT head: 1.9x1.3 cm left frontal subcortical acute hemorrhagic contusion. Similar adjacent smaller foci of hemorrhagic contusions are identified with the largest measuring 1.1 cm. Diffuse acute traumatic subarachnoid hemorrhage. Left parietal subgaleal soft tissue hematoma. (2) Ataxia Status: Chronic Problem Text: 09/09 PT eval only safe to dc to rehab (3) Anemia Status: Chronic Problem Text: 2 GI blood loss/ACD baseline hgb 9s 07/201717 grade 2 esophageal varices banded by Michael (4) Closed TBI (traumatic brain injury) Status: Acute Response to Treatment: Improving Problem Text: recurrent falls-concern for autonomic dysfx 2 dementia-Flomax 0.4 qhs held (5) Hepatic encephalopathy Status: Chronic Problem Text: on HD lactulose 30 QID caution on chronic ami 50/150 (6) Urinary retention Status: Chronic Problem Text: pacheco in place (7) GERD (gastroesophageal reflux disease) Status: Chronic (8) Tardive dyskinesia Status: Chronic Response to Treatment: Stable (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 Status: Chronic Response to Treatment: Stable (10) Thrombocytopenia Status: Chronic Response to Treatment: Stable Problem Text: 2 ESLD at baseline ~60K no active bleeding Plan/VTE VTE Prophylaxis Ordered?: Yes VS, I&O, 24H, Fishbone Vital Signs/I&O Vital Signs Date Time Temp Pulse Resp B/P (MAP) Pulse Ox O2 Delivery O2 Flow Rate FiO2 09/10/17 14:00 99.3 60 18 143/73 (96) 98 Room Air I&O- Last 24 Hours up to 6 AM 09/11/17 06:00 Intake Total 1080 ml Balance 1080 ml Laboratory Data 24H LABS Laboratory Tests 2 09/10/17 06:34: Nucleated Red Blood Cells % (auto) 0.0, Prothrombin Time 15.1H, Prothromb Time International Ratio 1.16, Anion Gap 7L, Glomerular Filtration Rate > 60.0, Blood Urea Nitrogen 18, Creatinine 1.22, Sodium Level 140, Potassium Level 4.0, Chloride Level 106, Carbon Dioxide Level 27, Calcium Level 8.6L CBC/BMP Laboratory Tests 09/10/17 06:34 Red Blood Count 2.88 L, Mean Corpuscular Volume 90.6, Mean Corpuscular Hemoglobin 30.9, Mean Corpuscular Hemoglobin Concent 34.1, Red Cell Distribution Width 15.8 H, Calcium Level 8.6 L Deon Baer M.D. Sep 10, 2017 16:37
[2017-09-10] MEDS: DONEPEZIL 5 MG TAB PO SCH (20:27)
[2017-09-10] MEDS: FAMOTIDINE 20 MG TAB PO SCH (20:27)
[2017-09-10 22:00] VITALS: BP 117/66
[2017-09-11 06:00] VITALS: BP 123/66
[2017-09-11 06:11] LABS: MEAN CORPUSCULAR HEMOGLOBIN 30.2 pg (27.0-33.0); MEAN CORPUSCULAR HGB CONC 33.3 g/dl (32.0-36.5); MEAN CORPUSCULAR VOLUME 90.7 fl (80.0-96.0); RED CELL DISTRIBUTION WIDTH 15.8 % (11.5-14.5); WHITE BLOOD COUNT 3.6 10^3/uL (4.0-10.0)
[2017-09-11 06:13] LABS: PLATELET COUNT, AUTOMATED 67 10^3/uL (150-450)
[2017-09-11 06:14] LABS: IMMATURE PLATELET FRACTION % 1.5 % (0.0-10.9)
[2017-09-11 06:20] LABS: INR 1.13
[2017-09-11 06:23] LABS: ANION GAP 4 MEQ/L (8-16); BLOOD UREA NITROGEN 17 MG/DL (7-18); CALCIUM LEVEL 8.3 MG/DL (8.8-10.2); CARBON DIOXIDE LEVEL 28 MEQ/L (21-32); CHLORIDE LEVEL 105 MEQ/L (98-107); CREATININE FOR GFR 1.12 MG/DL (0.70-1.30); GLOMERULAR FILTRATION RATE > 60.0 (>42); GLUCOSE, FASTING 103 MG/DL (83-110); POTASSIUM SERUM 3.8 MEQ/L (3.5-5.1); SODIUM LEVEL 137 MEQ/L (136-145)
[2017-09-11] MEDS: levETIRAcetam 250MG TABLET (KEPPRA) PO SCH (10:05)
[2017-09-11] MEDS: PANTOPRAZOLE 40MG TAB (PROTONIX) PO SCH ×2 (10:05→21:57)
[2017-09-11] MEDS: TAMSULOSIN 0.4 MG CAP PO SCH (10:05)
[2017-09-11] MEDS: FINASTERIDE 5 MG TAB PO SCH (10:05)
[2017-09-11] MEDS: SUCRALFATE 1 GM TAB PO SCH ×4 (10:05→21:57)
[2017-09-11] MEDS: LACTULOSE 20 GM/30 ML SYRUP UD PO SCH ×4 (10:05→21:57)
[2017-09-11] MEDS: NADOLOL 20MG TABLET PO SCH (10:05)
[2017-09-11] MEDS: ACETAMINOPHEN TAB 650MG DOSE (2X325MG) PO PRN (10:06)
[2017-09-11] MEDS: AMITRIPTYLINE 50 MG TAB PO SCH ×2 (10:07→21:58)
--- NOTE | 2017-09-11 15:55 | IPNPDOC ---
Subjective Date Seen The patient was seen on 09/11/17. Subjective Chief Complaint/HPI The patient is a 72-year-old male admitted with a reason for visit of Close Tramatic Brain Injury. Constitutional: Denies: Chills Eyes: Denies: Pain Pulmonary: Denies: Dyspnea Cardiovascular: Denies: Chest Pain Gastrointestinal: Denies: Nausea, Vomiting Genitourinary: Denies: Dysuria Objective Physical Examination General Exam: Positive: Alert Eye Exam: Positive: PERRLA ENT Exam: Positive: Atraumatic Chest Exam: Positive: Clear to auscultation Heart Exam: Positive: Rate Normal Abdomen Exam: Positive: Normal bowel sounds Extremity Exam: Negative: Edema Assessment /Plan Problems (1) SAH (subarachnoid hemorrhage) Status: Acute Response to Treatment: Stable Problem Text: Stable, non-surgical, per Dr. Vicente 09/08 note (NS) Continue leve 1000 BID for seizure x at least 7D per NS 09/[address] head, if stable, plan tx to PMR vs SNF 09/08/17 CT head: 1.9x1.3 cm left frontal subcortical acute hemorrhagic contusion. Similar adjacent smaller foci of hemorrhagic contusions are identified with the largest measuring 1.1 cm. Diffuse acute traumatic subarachnoid hemorrhage. Left parietal subgaleal soft tissue hematoma. (2) Ataxia Status: Chronic Problem Text: 09/09 PT eval only safe to dc to rehab (3) Anemia Status: Chronic Problem Text: 2 GI blood loss/ACD 09/11 stable at 9.1 baseline hgb 9s 07/201717 grade 2 esophageal varices banded by Reindl (4) Closed TBI (traumatic brain injury) Status: Acute Response to Treatment: Improving Problem Text: recurrent falls-concern for autonomic dysfx 2 dementia-Flomax 0.4 qhs held (5) Hepatic encephalopathy Status: Chronic Problem Text: on HD lactulose 30 QID caution on chronic ami 50/150 (6) Urinary retention Status: Chronic Problem Text: pacheco in place (7) GERD (gastroesophageal reflux disease) Status: Chronic (8) Tardive dyskinesia Status: Chronic Response to Treatment: Stable (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 Status: Chronic Response to Treatment: Stable (10) Thrombocytopenia Status: Chronic Response to Treatment: Stable Problem Text: 2 ESLD at baseline ~60K no active bleeding Plan/VTE VTE Prophylaxis Ordered?: Yes VS, I&O, 24H, Shayy Vital Signs/I&O Vital Signs Date Time Temp Pulse Resp B/P (MAP) Pulse Ox O2 Delivery O2 Flow Rate FiO2 09/11/17 10:05 70 123/66 09/11/17 06:00 99.0 16 96 Room Air I&O- Last 24 Hours up to 6 AM 09/12/17 06:00 Intake Total 600 ml Output Total 875 ml Balance -275 ml Laboratory Data 24H LABS Laboratory Tests 2 09/11/17 05:59: Nucleated Red Blood Cells % (auto) 0.0, Immature Platelet Fraction 1.5, Prothrombin Time 14.7H, Prothromb Time International Ratio 1.13, Anion Gap 4L, Glomerular Filtration Rate > 60.0, Blood Urea Nitrogen 17, Creatinine 1.12, Sodium Level 137, Potassium Level 3.8, Chloride Level 105, Carbon Dioxide Level 28, Calcium Level 8.3L CBC/BMP Laboratory Tests 09/11/17 05:59 Red Blood Count 3.01 L, Mean Corpuscular Volume 90.7, Mean Corpuscular Hemoglobin 30.2, Mean Corpuscular Hemoglobin Concent 33.3, Red Cell Distribution Width 15.8 H, Calcium Level 8.3 L Deon Baer M.D. Sep 11, 2017 15:55
--- NOTE | 2017-09-11 16:50 | REP ---
CT Head without contrast HISTORY: Hemorrhagic contusion COMPARISON: 09/08/2017 Three hemorrhagic contusions are present in the left frontal and parietal lobes. The largest measures 1.5 cm. A small amount of surrounding edema is present. These are unchanged compared to the previous study. Two new punctate hemorrhagic contusions are present in the left parietal lobe. Areas of decreased attenuation are present in the periventricular white matter. This represents small-vessel ischemic disease. There is no acute infarct, mass or midline shift. The ventricular system and cortical sulci are dilated consistent with minimal volume loss. There is no extra cerebral collection. A small amount of subarachnoid hemorrhage is present that is decreased compared to the previous study. There is no fracture. The visualized sinuses are clear. IMPRESSION: 1. There has been no change in the size of the three small hemorrhagic contusions present in the left frontal and parietal lobes. There are to new punctate hemorrhagic contusions in the left parietal lobe. 2. There is a small amount of subarachnoid hemorrhage that is decreased compared to the previous study. 3. Small vessel ischemic disease. 4. Minimal volume loss. Signed by Martinez Taveras MD 09/11/2017 04:41 P
[2017-09-11 18:00] VITALS: BP 138/67
[2017-09-11] MEDS: DONEPEZIL 5 MG TAB PO SCH (21:57)
[2017-09-11] MEDS: FAMOTIDINE 20 MG TAB PO SCH (21:57)
[2017-09-11 22:00] VITALS: BP 132/68
[2017-09-12 04:00] VITALS: BP 139/68
[2017-09-12 07:35] LABS: MEAN CORPUSCULAR HEMOGLOBIN 31.3 pg (27.0-33.0); MEAN CORPUSCULAR HGB CONC 34.5 g/dl (32.0-36.5); MEAN CORPUSCULAR VOLUME 90.6 fl (80.0-96.0); RED CELL DISTRIBUTION WIDTH 15.9 % (11.5-14.5); WHITE BLOOD COUNT 3.8 10^3/uL (4.0-10.0)
[2017-09-12 07:37] LABS: PLATELET COUNT, AUTOMATED 65 10^3/uL (150-450)
[2017-09-12 07:38] LABS: IMMATURE PLATELET FRACTION % 1.5 % (0.0-10.9); PLATELET F 65
[2017-09-12 08:00] VITALS: BP 169/82
[2017-09-12 08:00] LABS: ANION GAP 9 MEQ/L (8-16); BLOOD UREA NITROGEN 16 MG/DL (7-18); CALCIUM LEVEL 8.4 MG/DL (8.8-10.2); CARBON DIOXIDE LEVEL 26 MEQ/L (21-32); CHLORIDE LEVEL 105 MEQ/L (98-107); GLOMERULAR FILTRATION RATE > 60.0 (>42); GLUCOSE, FASTING 93 MG/DL (83-110); POTASSIUM SERUM 4.1 MEQ/L (3.5-5.1); SODIUM LEVEL 140 MEQ/L (136-145)
[2017-09-12] MEDS: LACTULOSE 20 GM/30 ML SYRUP UD PO SCH ×4 (08:31→20:25)
[2017-09-12] MEDS: PANTOPRAZOLE 40MG TAB (PROTONIX) PO SCH ×2 (08:31→20:25)
[2017-09-12] MEDS: levETIRAcetam 250MG TABLET (KEPPRA) PO SCH (08:31)
[2017-09-12] MEDS: NADOLOL 20MG TABLET PO SCH (08:32)
[2017-09-12] MEDS: SUCRALFATE 1 GM TAB PO SCH ×4 (08:33→20:25)
[2017-09-12] MEDS: AMITRIPTYLINE 50 MG TAB PO SCH ×2 (08:33→20:24)
[2017-09-12] MEDS: FINASTERIDE 5 MG TAB PO SCH (08:33)
[2017-09-12] MEDS: TAMSULOSIN 0.4 MG CAP PO SCH (08:33)
[2017-09-12 09:02] LABS: INR 1.16
--- NOTE | 2017-09-12 09:16 | IPNPDOC ---
Subjective Date Seen The patient was seen on 09/12/17. Subjective Chief Complaint/HPI The patient is a 72-year-old male admitted with a reason for visit of Close Tramatic Brain Injury. Events since last encounter Pt asleep this morning. He tells me he has no pain and slept well last night. Nursing without new concerns. Constitutional: Denies: Fever ENT: Denies: Head Aches Pulmonary: Denies: Dyspnea, Cough Cardiovascular: Denies: Chest Pain, Palpitations Gastrointestinal: Denies: Nausea, Vomiting, Diarrhea Objective Physical Examination General Exam: Positive: Alert, No Acute Distress ENT Exam: Positive: Atraumatic Chest Exam: Positive: Clear to auscultation, Normal air movement Heart Exam: Positive: Rate Normal, Normal S1, Normal S2, Murmurs Abdomen Exam: Positive: Normal bowel sounds, Soft, Negative: Tenderness Extremity Exam: Negative: Edema Psych Exam: Negative: Mental status NL Assessment /Plan Problems (1) SAH (subarachnoid hemorrhage) Status: Acute Response to Treatment: Stable Problem Text: 09/12 CT Stable 09/11, plan for SNF vs PMR. Continue leve 1000 BID for seizure x at least 7D per NS 09/[address] head, if stable, plan tx to PMR vs SNF 09/08/17 CT head: 1.9x1.3 cm left frontal subcortical acute hemorrhagic contusion. Similar adjacent smaller foci of hemorrhagic contusions are identified with the largest measuring 1.1 cm. Diffuse acute traumatic subarachnoid hemorrhage. Left parietal subgaleal soft tissue hematoma. (2) Ataxia Status: Chronic Problem Text: 09/09 PT eval only safe to dc to rehab (3) Anemia Status: Chronic Problem Text: 2 GI blood loss/ACD 09/11 stable at 9.1 baseline hgb 9s 07/201717 grade 2 esophageal varices banded by Reindl (4) Closed TBI (traumatic brain injury) Status: Acute Response to Treatment: Improving Problem Text: recurrent falls-concern for autonomic dysfx 2 dementia-Flomax 0.4 qhs held (5) Hepatic encephalopathy Status: Chronic Problem Text: on HD lactulose 30 QID caution on chronic ami 50/150 (6) Urinary retention Status: Chronic Problem Text: pacheco in place (7) GERD (gastroesophageal reflux disease) Status: Chronic (8) Tardive dyskinesia Status: Chronic Response to Treatment: Stable (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 Status: Chronic Response to Treatment: Stable (10) Thrombocytopenia Status: Chronic Response to Treatment: Stable Problem Text: 2 ESLD at baseline ~60K no active bleeding (11) Portal vein thrombosis Status: Chronic Response to Treatment: Stable Problem Text: with resultant portal gastropathy and varices Plan/VTE VTE Prophylaxis Ordered?: Yes VS, I&O, 24H, Fishbone Vital Signs/I&O Vital Signs Date Time Temp Pulse Resp B/P (MAP) Pulse Ox O2 Delivery O2 Flow Rate FiO2 09/12/17 08:32 66 169/82 09/12/17 08:00 99.0 16 100 Room Air I&O- Last 24 Hours up to 6 AM 09/13/17 06:00 Intake Total 0 ml Output Total 275 ml Balance -275 ml Laboratory Data 24H LABS Laboratory Tests 2 09/12/17 06:57: Prothrombin Time 15.0H, Prothromb Time International Ratio 1.16, Anion Gap 9, Glomerular Filtration Rate > 60.0, Blood Urea Nitrogen 16, Creatinine 1.10, Sodium Level 140, Potassium Level 4.1, Chloride Level 105, Carbon Dioxide Level 26, Calcium Level 8.4L 09/12/17 06:58: Nucleated Red Blood Cells % (auto) 0.0, Immature Platelet Fraction 1.5 CBC/BMP Laboratory Tests 09/12/17 06:57 Calcium Level 8.4 L 09/12/17 06:58 Red Blood Count 2.88 L, Mean Corpuscular Volume 90.6, Mean Corpuscular Hemoglobin 31.3, Mean Corpuscular Hemoglobin Concent 34.5, Red Cell Distribution Width 15.9 H RAMO GAMEZ PA-C Sep 12, 2017 09:16
[2017-09-12] MEDS: DONEPEZIL 5 MG TAB PO SCH (20:24)
[2017-09-12] MEDS: FAMOTIDINE 20 MG TAB PO SCH (20:25)
[2017-09-12 22:00] VITALS: BP 136/67
[2017-09-13] MEDS: ACETAMINOPHEN TAB 650MG DOSE (2X325MG) PO PRN ×2 (00:03→20:06)
[2017-09-13 06:00] VITALS: BP 142/82
[2017-09-13 06:45] LABS: MEAN CORPUSCULAR HEMOGLOBIN 30.8 pg (27.0-33.0); MEAN CORPUSCULAR HGB CONC 33.7 g/dl (32.0-36.5); MEAN CORPUSCULAR VOLUME 91.3 fl (80.0-96.0); RED CELL DISTRIBUTION WIDTH 16.2 % (11.5-14.5); WHITE BLOOD COUNT 3.6 10^3/uL (4.0-10.0)
[2017-09-13 06:51] LABS: PLATELET COUNT, AUTOMATED 69 10^3/uL (150-450)
[2017-09-13 07:02] LABS: INR 1.22
[2017-09-13 07:26] LABS: ANION GAP 8 MEQ/L (8-16); BLOOD UREA NITROGEN 18 MG/DL (7-18); CALCIUM LEVEL 8.7 MG/DL (8.8-10.2); CARBON DIOXIDE LEVEL 27 MEQ/L (21-32); CHLORIDE LEVEL 105 MEQ/L (98-107); CREATININE FOR GFR 1.12 MG/DL (0.70-1.30); GLOMERULAR FILTRATION RATE > 60.0 (>42); GLUCOSE, FASTING 99 MG/DL (83-110); POTASSIUM SERUM 4.1 MEQ/L (3.5-5.1); SODIUM LEVEL 140 MEQ/L (136-145)
[2017-09-13] MEDS: levETIRAcetam 250MG TABLET (KEPPRA) PO SCH (07:53)
[2017-09-13] MEDS: LACTULOSE 20 GM/30 ML SYRUP UD PO SCH ×4 (07:53→20:06)
[2017-09-13] MEDS: SUCRALFATE 1 GM TAB PO SCH ×4 (07:53→20:07)
[2017-09-13] MEDS: TAMSULOSIN 0.4 MG CAP PO SCH (07:54)
[2017-09-13] MEDS: PANTOPRAZOLE 40MG TAB (PROTONIX) PO SCH ×2 (07:54→20:07)
[2017-09-13] MEDS: AMITRIPTYLINE 50 MG TAB PO SCH ×2 (07:54→20:07)
[2017-09-13] MEDS: NADOLOL 20MG TABLET PO SCH (07:54)
[2017-09-13] MEDS: FINASTERIDE 5 MG TAB PO SCH (07:54)
[2017-09-13 14:00] VITALS: BP 142/76
[2017-09-13 20:00] VITALS: BP 131/77
[2017-09-13] MEDS: DONEPEZIL 5 MG TAB PO SCH (20:07)
[2017-09-13] MEDS: FAMOTIDINE 20 MG TAB PO SCH (20:07)
[2017-09-14 02:00] VITALS: BP 146/64
[2017-09-14 06:00] VITALS: BP 134/76
[2017-09-14 07:08] LABS: MEAN CORPUSCULAR HGB CONC 33.9 g/dl (32.0-36.5); MEAN CORPUSCULAR VOLUME 91.5 fl (80.0-96.0); RED CELL DISTRIBUTION WIDTH 16.1 % (11.5-14.5); WHITE BLOOD COUNT 3.4 10^3/uL (4.0-10.0)
[2017-09-14 07:10] LABS: PLATELET COUNT, AUTOMATED 67 10^3/uL (150-450)
[2017-09-14 07:12] LABS: IMMATURE PLATELET FRACTION % 1.1 % (0.0-10.9)
[2017-09-14 07:16] LABS: INR 1.16
[2017-09-14 07:30] LABS: ANION GAP 5 MEQ/L (8-16); BLOOD UREA NITROGEN 17 MG/DL (7-18); CALCIUM LEVEL 8.7 MG/DL (8.8-10.2); CARBON DIOXIDE LEVEL 28 MEQ/L (21-32); CHLORIDE LEVEL 105 MEQ/L (98-107); CREATININE FOR GFR 1.11 MG/DL (0.70-1.30); GLOMERULAR FILTRATION RATE > 60.0 (>42); GLUCOSE, FASTING 109 MG/DL (83-110); SODIUM LEVEL 138 MEQ/L (136-145)
[2017-09-14] MEDS: SUCRALFATE 1 GM TAB PO SCH ×4 (08:20→20:34)
[2017-09-14] MEDS: FINASTERIDE 5 MG TAB PO SCH (08:20)
[2017-09-14] MEDS: AMITRIPTYLINE 50 MG TAB PO SCH ×2 (08:20→20:33)
[2017-09-14] MEDS: levETIRAcetam 250MG TABLET (KEPPRA) PO SCH (08:20)
[2017-09-14] MEDS: LACTULOSE 20 GM/30 ML SYRUP UD PO SCH ×4 (08:20→20:32)
[2017-09-14] MEDS: NADOLOL 20MG TABLET PO SCH (08:20)
[2017-09-14] MEDS: PANTOPRAZOLE 40MG TAB (PROTONIX) PO SCH ×2 (08:20→20:33)
[2017-09-14] MEDS: TAMSULOSIN 0.4 MG CAP PO SCH (08:21)
[2017-09-14] MEDS: FAMOTIDINE 20 MG TAB PO SCH (20:32)
[2017-09-14] MEDS: DONEPEZIL 5 MG TAB PO SCH (20:32)
[2017-09-15 06:00] VITALS: BP 142/68
[2017-09-15] MEDS: PANTOPRAZOLE 40MG TAB (PROTONIX) PO SCH ×2 (08:38→22:52)
[2017-09-15] MEDS: LACTULOSE 20 GM/30 ML SYRUP UD PO SCH ×4 (08:38→22:51)
[2017-09-15] MEDS: TAMSULOSIN 0.4 MG CAP PO SCH (08:38)
[2017-09-15] MEDS: SUCRALFATE 1 GM TAB PO SCH ×4 (08:39→22:52)
[2017-09-15] MEDS: NADOLOL 20MG TABLET PO SCH (08:39)
[2017-09-15] MEDS: AMITRIPTYLINE 50 MG TAB PO SCH ×2 (08:39→22:52)
[2017-09-15] MEDS: FINASTERIDE 5 MG TAB PO SCH (08:39)
[2017-09-15 14:36] LABS: AMITRIPTYLINE 274 ng/mL (Not Estab.); NORTRIPTYLINE 77 ng/mL (Not Estab.)
[2017-09-15] MEDS: FAMOTIDINE 20 MG TAB PO SCH (22:52)
[2017-09-15] MEDS: DONEPEZIL 5 MG TAB PO SCH (22:52)
[2017-09-16 06:00] VITALS: BP 123/66
[2017-09-16] MEDS: LACTULOSE 20 GM/30 ML SYRUP UD PO SCH ×4 (08:41→20:02)
[2017-09-16] MEDS: TAMSULOSIN 0.4 MG CAP PO SCH (08:41)
[2017-09-16] MEDS: FINASTERIDE 5 MG TAB PO SCH (08:42)
[2017-09-16] MEDS: SUCRALFATE 1 GM TAB PO SCH ×4 (08:42→20:02)
[2017-09-16] MEDS: NADOLOL 20MG TABLET PO SCH (08:42)
[2017-09-16] MEDS: AMITRIPTYLINE 50 MG TAB PO SCH ×2 (08:42→20:02)
[2017-09-16] MEDS: PANTOPRAZOLE 40MG TAB (PROTONIX) PO SCH ×2 (08:42→20:02)
[2017-09-16] MEDS: FAMOTIDINE 20 MG TAB PO SCH (20:02)
[2017-09-16] MEDS: DONEPEZIL 5 MG TAB PO SCH (20:02)
[2017-09-16 22:00] VITALS: BP 134/78
[2017-09-17 06:00] VITALS: BP 129/73
[2017-09-17] MEDS: PANTOPRAZOLE 40MG TAB (PROTONIX) PO SCH ×2 (09:58→20:20)
[2017-09-17] MEDS: TAMSULOSIN 0.4 MG CAP PO SCH (09:58)
[2017-09-17] MEDS: AMITRIPTYLINE 50 MG TAB PO SCH ×2 (09:58→20:18)
[2017-09-17] MEDS: NADOLOL 20MG TABLET PO SCH (09:58)
[2017-09-17] MEDS: SUCRALFATE 1 GM TAB PO SCH ×4 (09:59→20:19)
[2017-09-17] MEDS: FINASTERIDE 5 MG TAB PO SCH (09:59)
[2017-09-17] MEDS: LACTULOSE 20 GM/30 ML SYRUP UD PO SCH ×4 (09:59→20:17)
[2017-09-17 14:00] VITALS: BP 119/65
[2017-09-17] MEDS: FAMOTIDINE 20 MG TAB PO SCH (20:18)
[2017-09-17] MEDS: DONEPEZIL 5 MG TAB PO SCH (20:19)
[2017-09-18 06:00] VITALS: BP 118/68
[2017-09-18] MEDS: LACTULOSE 20 GM/30 ML SYRUP UD PO SCH ×4 (08:27→21:53)
[2017-09-18] MEDS: PANTOPRAZOLE 40MG TAB (PROTONIX) PO SCH ×2 (08:27→21:55)
[2017-09-18] MEDS: TAMSULOSIN 0.4 MG CAP PO SCH (08:27)
[2017-09-18] MEDS: FINASTERIDE 5 MG TAB PO SCH (08:28)
[2017-09-18] MEDS: SUCRALFATE 1 GM TAB PO SCH ×4 (08:28→21:54)
[2017-09-18] MEDS: NADOLOL 20MG TABLET PO SCH (08:28)
[2017-09-18] MEDS: AMITRIPTYLINE 50 MG TAB PO SCH ×2 (08:29→21:54)
[2017-09-18] MEDS: FAMOTIDINE 20 MG TAB PO SCH (21:53)
[2017-09-18] MEDS: DONEPEZIL 5 MG TAB PO SCH (21:55)
[2017-09-19 06:00] VITALS: BP 123/71
[2017-09-19] MEDS ORDERED: ONDANSETRON 4 MG TAB (S0181) PO PRN (08:00)
[2017-09-19] MEDS: LACTULOSE 20 GM/30 ML SYRUP UD PO SCH ×4 (08:18→20:55)
[2017-09-19] MEDS: TAMSULOSIN 0.4 MG CAP PO SCH (08:19)
[2017-09-19] MEDS: NADOLOL 20MG TABLET PO SCH (08:19)
[2017-09-19] MEDS: SUCRALFATE 1 GM TAB PO SCH ×4 (08:19→20:55)
[2017-09-19] MEDS: AMITRIPTYLINE 50 MG TAB PO SCH ×2 (08:19→20:55)
[2017-09-19] MEDS: PANTOPRAZOLE 40MG TAB (PROTONIX) PO SCH ×2 (08:19→20:55)
[2017-09-19] MEDS: FINASTERIDE 5 MG TAB PO SCH (08:19)
[2017-09-19] MEDS: ACETAMINOPHEN TAB 650MG DOSE (2X325MG) PO PRN ×2 (08:20→20:56)
--- NOTE | 2017-09-19 17:16 | IPNPDOC ---
Subjective Date Seen The patient was seen on 09/19/17. Subjective Chief Complaint/HPI The patient is a 72-year-old male admitted with a reason for visit of Close Tramatic Brain Injury. Events since last encounter Patient does not have any acute concerns today. Constitutional: Denies: Chills, Fever Pulmonary: Denies: Dyspnea Cardiovascular: Denies: Chest Pain Gastrointestinal: Denies: Abdominal Pain Objective Physical Examination General Exam: Positive: Alert, No Acute Distress Chest Exam: Positive: Clear to auscultation, Normal air movement, Negative: Rales, Rhonchi, Wheezing Heart Exam: Positive: Rate Normal, Regular Rhythm, Normal S1, Normal S2, Murmurs Abdomen Exam: Positive: Normal bowel sounds, Soft, Negative: Tenderness, Hepatospenomegaly, Mass Extremity Exam: Negative: Edema Assessment /Plan Problems (1) SAH (subarachnoid hemorrhage) Status: Acute Response to Treatment: Stable Problem Text: 09/19: As per PFS patient is being discussed with [facility] for placement. 09/12 CT Stable 09/11, plan for SNF vs PMR. Continue leve 1000 BID for seizure x at least 7D per NS 09/[address] head, if stable, plan tx to PMR vs SNF 09/08/17 CT head: 1.9x1.3 cm left frontal subcortical acute hemorrhagic contusion. Similar adjacent smaller foci of hemorrhagic contusions are identified with the largest measuring 1.1 cm. Diffuse acute traumatic subarachnoid hemorrhage. Left parietal subgaleal soft tissue hematoma. (2) Ataxia Status: Chronic Problem Text: 09/09 PT eval only safe to dc to rehab (3) Anemia Status: Chronic Problem Text: 2 GI blood loss/ACD 09/11 stable at 9.1 baseline hgb 9s 07/201717 grade 2 esophageal varices banded by Reindl (4) Closed TBI (traumatic brain injury) Status: Acute Response to Treatment: Improving Problem Text: recurrent falls-concern for autonomic dysfx 2 dementia-Flomax 0.4 qhs held (5) Hepatic encephalopathy Status: Chronic Problem Text: on HD lactulose 30 QID caution on chronic amitriptyline 50 milligrams every morning /150 milligrams every afternoon (6) Urinary retention Status: Chronic Problem Text: pacheco in place (7) GERD (gastroesophageal reflux disease) Status: Chronic (8) Tardive dyskinesia Status: Chronic Response to Treatment: Stable (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 Status: Chronic Response to Treatment: Stable (10) Thrombocytopenia Status: Chronic Response to Treatment: Stable Problem Text: 2 ESLD at baseline ~60K no active bleeding (11) Portal vein thrombosis Status: Chronic Response to Treatment: Stable Problem Text: with resultant portal gastropathy and varices Plan/VTE VTE Prophylaxis Ordered?: Yes Disposition Patient can be discharged once facility has been found for rehabilitation VS, I&O, 24H, Fishbone Vital Signs/I&O Vital Signs Date Time Temp Pulse Resp B/P (MAP) Pulse Ox O2 Delivery O2 Flow Rate FiO2 09/19/17 08:19 67 123/71 09/19/17 08:00 Room Air 09/19/17 06:00 98.5 18 94 I&O- Last 24 Hours up to 6 AM 09/20/17 06:00 Intake Total 960 ml Output Total 600 ml Balance 360 ml GME ATTESTATION GME ATTESTATION My faculty preceptor for this patient encounter was physically present during the encounter and was fully available. All aspects of the patient interview, examination, medical decision making process, and medical care plan development were reviewed and approved by the faculty preceptor. The faculty preceptor is aware and concurs with the plan as stated in the body of this note and will attest to such by his/her cosignature. ATTENDING NOTE Family Medicine Attending Note: I saw and examined Mr. Huang early this morning. I discussed his care with Dr. Joshi and I agree with his note as documented above. (KES) PATEL JOSHI DO Sep 19, 2017 17:15 MANDEEP SANDOVAL MD Sep 19, 2017 18:51
[2017-09-19] MEDS: DONEPEZIL 5 MG TAB PO SCH (20:56)
[2017-09-19] MEDS: FAMOTIDINE 20 MG TAB PO SCH (20:56)
[2017-09-20 06:00] VITALS: BP 142/73
[2017-09-20] MEDS: FINASTERIDE 5 MG TAB PO SCH (08:19)
[2017-09-20] MEDS: AMITRIPTYLINE 50 MG TAB PO SCH ×2 (08:19→21:52)
[2017-09-20] MEDS: TAMSULOSIN 0.4 MG CAP PO SCH (08:19)
[2017-09-20] MEDS: PANTOPRAZOLE 40MG TAB (PROTONIX) PO SCH ×2 (08:19→21:52)
[2017-09-20] MEDS: SUCRALFATE 1 GM TAB PO SCH ×4 (08:19→21:52)
[2017-09-20] MEDS: LACTULOSE 20 GM/30 ML SYRUP UD PO SCH ×4 (08:19→21:52)
[2017-09-20] MEDS: NADOLOL 20MG TABLET PO SCH (08:20)
[2017-09-20] MEDS: FAMOTIDINE 20 MG TAB PO SCH (21:52)
[2017-09-20] MEDS: DONEPEZIL 5 MG TAB PO SCH (21:52)
[2017-09-20] MEDS: ACETAMINOPHEN TAB 650MG DOSE (2X325MG) PO PRN (21:53)
[2017-09-21 06:00] VITALS: BP 158/80
[2017-09-21 06:49] LABS: MEAN CORPUSCULAR HEMOGLOBIN 30.8 pg (27.0-33.0); MEAN CORPUSCULAR HGB CONC 33.7 g/dl (32.0-36.5); MEAN CORPUSCULAR VOLUME 91.3 fl (80.0-96.0); WHITE BLOOD COUNT 3.4 10^3/uL (4.0-10.0)
[2017-09-21 06:53] LABS: PLATELET COUNT, AUTOMATED 56 10^3/uL (150-450)
[2017-09-21 06:54] LABS: IMMATURE PLATELET FRACTION % 3.5 % (0.0-10.9)
[2017-09-21 07:13] LABS: ALBUMIN 2.5 GM/DL (3.2-5.2); ALKALINE PHOSPHATASE 423 U/L (45-117); ALT/SGPT 61 U/L (12-78); ANION GAP 9 MEQ/L (8-16); AST/SGOT 73 U/L (7-37); BILIRUBIN,TOTAL 0.6 MG/DL (0.2-1.0); BLOOD UREA NITROGEN 22 MG/DL (7-18); CALCIUM LEVEL 8.5 MG/DL (8.8-10.2); CARBON DIOXIDE LEVEL 21 MEQ/L (21-32); CHLORIDE LEVEL 109 MEQ/L (98-107); CREATININE FOR GFR 1.08 MG/DL (0.70-1.30); GLOMERULAR FILTRATION RATE > 60.0 (>42); GLUCOSE, FASTING 80 MG/DL (83-110); POTASSIUM SERUM 3.8 MEQ/L (3.5-5.1); SODIUM LEVEL 139 MEQ/L (136-145); TOTAL PROTEIN 6.7 GM/DL (6.4-8.2)
[2017-09-21] MEDS: LACTULOSE 20 GM/30 ML SYRUP UD PO SCH ×2 (09:07→12:26)
[2017-09-21] MEDS: SUCRALFATE 1 GM TAB PO SCH ×2 (09:07→12:26)
[2017-09-21 09:08] VITALS: BP 158/80
[2017-09-21] MEDS: TAMSULOSIN 0.4 MG CAP PO SCH (09:08)
[2017-09-21] MEDS: ACETAMINOPHEN TAB 650MG DOSE (2X325MG) PO PRN (09:08)
[2017-09-21] MEDS: PANTOPRAZOLE 40MG TAB (PROTONIX) PO SCH (09:08)
[2017-09-21] MEDS: NADOLOL 20MG TABLET PO SCH (09:08)
[2017-09-21] MEDS: FINASTERIDE 5 MG TAB PO SCH (09:08)
[2017-09-21] MEDS: AMITRIPTYLINE 50 MG TAB PO SCH (09:08)
[2017-09-21] MEDS ORDERED: LACT10SO29 PO (09:57)
--- NOTE | 2017-09-21 15:00 | IPN ---
DATE: 09/20/2017 I had a phone call from [facility] , Kaitlin. She had questions concerning his pending transfer. Apparently he has a bed at [facility]. She notes his mental status has deteriorated. I do not think he has had a recent ammonia level. She says he is having hard, infrequent stool. He is on lactulose to try to promote 2-3 loose bowel movements a day. Has treatment for his hepatic encephalopathy. She also notes that Dr. Rodriguez was supposed to be doing an outpatient esophagogastroduodenoscopy (EGD) to monitor his varices and had been scheduled for last week prior to the patient being admitted for his traumatic head injury. At this late date, I do not think we can arrange for this to be done before he is transferred to [facility], but that will need to be followed up after discharge. At [facility] during his last hospitalization there, they noticed he had some thick sludge in his biliary stent, so I am checking a med profile and complete blood count (CBC) to make sure his liver functions are stable and there is no leukocytosis. This will all have to be reviewed prior to his transfer tomorrow. Brittany Stack NP, is rounding, and I will make her aware.
--- NOTE | 2017-09-21 19:42 | DSES ---
DATE OF ADMISSION: 09/08/2017 DATE OF DISCHARGE: 09/21/2017 PRIMARY CARE PROVIDER: Gary Cuba MD ATTENDING PHYSICIAN: Lily Guzman MD HISTORY OF PRESENT ILLNESS: This is a 72-year-old gentleman who has a previous history of being unsteady on his feet who fell walking up concrete steps behind his home. Fell down four steps and landed on the patio on the back of his head with some bleeding. 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 Worked up in the emergency room did prove subarachnoid hemorrhage, posttraumatic fall. The patient was monitored for [address] Collins, repeat CT proved negative for worsening subarachnoid hemorrhage on 09/08/2017. CT was again repeated on 09/11/2017 with unchanged size of three small hemorrhagic contusions in the left frontal and parietal lobes. No new punctate hemorrhage or contusions in the left parietal lobe noted. A small amount of subarachnoid hemorrhage that is decreased compared to the previous study. HOSPITAL COURSE: The patient was subsequently transitioned to fpc status for rehabilitation. The patient has been deemed unsafe to go home. He has had some intermittent confusion during his hospitalization. However, appears to be easily reoriented. The patient does have a history of nonalcoholic cirrhosis of the liver. Most recent LFTs show an AST of 73, alkaline phosphatase of 423 which appear unchanged compared to priors. His ammonia is elevated today at 95. The patient has not been having routine bowel movements. He is documenting one to two bowel movements per day which per his is less in frequency. PHYSICAL EXAMINATION: Vital signs are stable. He is afebrile. CARDIOVASCULAR: Heart rate and rhythm are regular. PULMONARY: Lungs are clear. ABDOMEN: Soft, nontender with a palpable midline abdominal hernia, which is reducible and nontender. EXTREMITIES: Bilateral lower extremities are without edema. NEUROLOGICAL: The patient is alert to self. Alert to place. Disoriented to time and disoriented to his discharge disposition. DISCHARGE DIAGNOSES: 1. Subarachnoid hemorrhage secondary to mechanical fall. 2. Nonalcoholic cirrhosis with prior history of metabolic encephalopathy and balance loss. SECONDARY DIAGNOSES: Include: 1. Hyperlipidemia. 2. Cholangiocarcinoma. 3. Glucose intolerance. 4. Depression. 5. Hypertension. 6. Tardive dyskinesia. 7. Portal vein thrombosis. 8. Portal gastropathy. 9. Diverticulosis. PLAN: The patient will be discharged to [facility]. He will need followup on his ammonia levels and LFTs. MEDICATIONS: - lactulose 45 mL by mouth twice a day followed by 30 mL by mouth twice a day, so he will take lactulose 45 mL with breakfast and at bedtime. He will take 30 mL with lunch and dinner. - amitriptyline 50 mg tablet 3 by mouth at bedtime - amitriptyline 50 mg tablet by mouth every morning - vitamin D3 2000 IU by mouth daily - donepezil 10 mg by mouth at bedtime - finasteride 5 mg daily - metronidazole cream 1 dose topically daily - multivitamin 1 daily - Nadolol 20 mg daily - omeprazole 40 mg daily - pantoprazole sodium 40 mg twice a day - ranitidine 300 mg by mouth at bedtime - Carafate 1 gram by mouth before meals and at bedtime - tamsulosin hydrochloride 3.4 mg by mouth daily PLAN: The patient will followup with primary care provider pending potential discharge from [facility]. Diet is as tolerated. Activity as per physical therapy recommendation. The patient is discharged in stable and satisfactory condition with no further questions at time of discharge.
== END 2017-09-21 13:20 | DRG 85 ==
LOC: M ED 14:47 → M ED INP 17:05 → M ICU 22:48 → OBSVTOIN 09-08 11:05 → M MS5PR 09-08 12:43
PROVIDERS: ADMIT Neurological Surgery; ATTEND Family Medicine
PROC: 30253R1 (ICD-10-PCS; principal; 2017-09-08)
DX: S06.6X0A Traumatic subarachnoid hemorrhage without loss of consciousness, initial encounter (principal); I81 Portal vein thrombosis; G81.91 Hemiplegia, unspecified affecting right dominant side; F02.81 Dementia in other diseases classified elsewhere, unspecified severity, with behavioral disturbance; I85.10 Secondary esophageal varices without bleeding; W10.8XXA Fall (on) (from) other stairs and steps, initial encounter; Y92.018 Other place in single-family (private) house as the place of occurrence of the external cause; S00.93XA Contusion of unspecified part of head, initial encounter; Y99.8 Other external cause status; E78.5 Hyperlipidemia, unspecified; K74.60 Unspecified cirrhosis of liver; E74.39 Other disorders of intestinal carbohydrate absorption; F32.9 Major depressive disorder, single episode, unspecified; G24.01 Drug induced subacute dyskinesia; K21.9 Gastro-esophageal reflux disease without esophagitis; D50.0 Iron deficiency anemia secondary to blood loss (chronic); K72.90 Hepatic failure, unspecified without coma; R33.9 Retention of urine, unspecified; K31.89 Other diseases of stomach and duodenum; R27.0 Ataxia, unspecified; G31.83 Neurocognitive disorder with Lewy bodies; D69.6 Thrombocytopenia, unspecified; K57.90 Diverticulosis of intestine, part unspecified, without perforation or abscess without bleeding; Z88.1 Allergy status to other antibiotic agents; Z88.8 Allergy status to other drugs, medicaments and biological substances; Z88.6 Allergy status to analgesic agent; Z96.651 Presence of right artificial knee joint; Z85.05 Personal history of malignant neoplasm of liver; Z92.21 Personal history of antineoplastic chemotherapy

== ENCOUNTER → 2017-09-26 | Outpatient (REF) ==
[~2017-09-26] MED LIST changes: +TUBE5INJ ID; +TYLE325T5 PO
[2017-09-26 10:56] LABS: ALBUMIN 2.8 GM/DL (3.2-5.2); ALKALINE PHOSPHATASE 465 U/L (45-117); ALT/SGPT 63 U/L (12-78); ANION GAP 9 MEQ/L (8-16); AST/SGOT 61 U/L (7-37); BILIRUBIN,TOTAL 1.2 MG/DL (0.2-1.0); BLOOD UREA NITROGEN 19 MG/DL (7-18); CALCIUM LEVEL 8.7 MG/DL (8.8-10.2); CARBON DIOXIDE LEVEL 26 MEQ/L (21-32); CHLORIDE LEVEL 106 MEQ/L (98-107); CREATININE FOR GFR 1.15 MG/DL (0.70-1.30); GLOMERULAR FILTRATION RATE > 60.0 (>42); GLUCOSE, FASTING 178 MG/DL (83-110); SODIUM LEVEL 141 MEQ/L (136-145); TOTAL PROTEIN 6.8 GM/DL (6.4-8.2)
== END ==
PROVIDERS: ATTEND Family Medicine
DX: R41.82 Altered mental status, unspecified (principal); K72.90 Hepatic failure, unspecified without coma

== ENCOUNTER 2017-10-03 03:20 | Inpatient (IN) | payer MEDICARE ==
[~2017-10-03] VITALS: Ht 182.9 cm; Wt 100.9 kg
[2017-10-03] VITALS (29 sets, daily range): BP systolic 80–124; BP diastolic 50–72
[~2017-10-03 03:20] MED LIST changes: -TUBE5INJ ID; -TYLE325T5 PO
[2017-10-03] MEDS ORDERED: NS 1,000 ML IV ONE ×2 (04:00)
[2017-10-03] MEDS ORDERED: IMIPENEM/CILASTATIN 500 MG in D5W MINI-BAG PLUS 100 ML IV ONE (04:00)
[2017-10-03] MEDS ORDERED: ACETAMINOPHEN 650 MG SUPP PR ONE (04:00)
[2017-10-03] MEDS ORDERED: VANCOMYCIN HCL 1,000 MG, VIAL MATE ADAPTER 1 EACH in D5W 250 ML IV ONE (04:00)
[2017-10-03 04:24] LABS: BASO % 0.1 % (0.0-1.0); IMMATURE GRANULOCYTE % 0.5 % (0-0); LYMPH # 0.4 10^3/uL (1.5-4.5); LYMPH % 5.2 % (24.0-44.0); MEAN CORPUSCULAR HEMOGLOBIN 30.2 pg (27.0-33.0); MEAN CORPUSCULAR VOLUME 88.6 fl (80.0-96.0); MONO # 0.7 10^3/uL (0.0-0.8); MONO % 8.6 % (0.0-5.0); NEUTROPHILS # 6.4 10^3/uL (1.8-7.7); NEUTROPHILS % 85.6 % (36.0-66.0); RED CELL DISTRIBUTION WIDTH 15.3 % (11.5-14.5); WHITE BLOOD COUNT 7.5 10^3/uL (4.0-10.0)
[2017-10-03 04:33] LABS: INR 1.31
[2017-10-03] MEDS ORDERED: LACT10SO29 PO (04:35)
[2017-10-03] MEDS ORDERED: TYLE325T5 PO (04:35)
[2017-10-03] MEDS ORDERED: TUBE5INJ ID (04:36)
[2017-10-03 04:44] LABS: ALBUMIN 2.5 GM/DL (3.2-5.2); ALBUMIN/GLOBULIN RATIO 0.6 (1.00-1.93); BILIRUBIN,DIRECT 1.6 MG/DL (0.0-0.2); BILIRUBIN,TOTAL 2.7 MG/DL (0.2-1.0); CREATININE FOR GFR 1.52 MG/DL (0.70-1.30); POTASSIUM SERUM 3.6 MEQ/L (3.5-5.1); TOTAL PROTEIN 6.7 GM/DL (6.4-8.2)
[2017-10-03 04:47] LABS: PLATELET COUNT, AUTOMATED 77 10^3/uL (150-450)
[2017-10-03 04:48] LABS: IMMATURE PLATELET FRACTION % 1.8 % (0.0-10.9)
[2017-10-03] MEDS ORDERED: DEXTROSE 50% 50 ML SYRINGE IV STA (04:51)
--- NOTE | 2017-10-03 05:10 | REPUSA ---
CLINICAL HISTORY: Headache. TECHNIQUE: Multiple axial CT images were obtained through the brain without IV contrast material. COMMENTS: Comparison to prior exam on 09/09/2017. Complete resolution of left frontal acute intraparenchymal hematoma. Complete resolution of intraparenchymal hemorrhagic foci in the left frontal lobe. Complete resolution of subarachnoid hemorrhage. There is normal configuration of sella turcica. There are no intra or extra-axial collections. There is no mass effect or midline shift. There is no evidence of hematoma formation. No hydrocephalus is p resent. The ventricles are symmetrical. No abnormal calcifications are present. There is diffuse age-appropriate cerebellar and cerebral atrophy with proportionally dilated ventricl es and cortical sulci. There are bilateral periventricular and subcortical white matter hypolucencies compatible with mild c hronic microvascular disease. Otherwise, no significant focal abnormalities are seen either in the posterior fossa or supratentoria l compartment. IMPRESSION: 1. Age-appropriate cerebellar and cerebral atrophy. 2. Mild chronic microvascular disease. 3. No evidence of acute intracranial pathology. Complete resolution of left frontal intraparenchymal hematomas and subarachnoid hemorrhage. Thank you for your kind referral of this patient.
[2017-10-03] MEDS ORDERED: NOREPINEPHRINE BITARTRATE 8 MG in D5W 492 ML IV SCH ×2 (05:30→18:00)
[2017-10-03] MEDS ORDERED: ISOVUE-370 76% 100ML VIAL (Q9967) As Ordered ONE (06:04)
--- NOTE | 2017-10-03 06:23 | HPEPDOC ---
[facility] Medical History & Physical Date of Admission Oct 03, 2017 History and Physical PRIMARY CARE PROVIDER: Dr. Cuba ATTENDING: Dr. Alejandra Rico CHIEF COMPLAINT: AMS HISTORY OF PRESENT ILLNESS: This is a 72-year-old male past medical history of nonalcoholic cirrhosis, portal vein thrombosis, portal gastropathy, esophageal varices with banding, history of cholangitis carcinoma status post chemotherapy, massive GI bleed in December 2016, chronic thrombocytopenia who presents with altered mental status and vomiting. states that he was in his normal state of health until yesterday, during which he is intermittently confused. notes that the abdomen was increasingly distended over the past few days, and he has been progressively more confused. denies any complaints of nausea and vomiting prior to last night. states that she received a call from [employer] stating that the patient vomited and was increasingly confused. In the ED, patient was noted to be febrile with a MAXIMUM TEMPERATURE of 102, severely hypotensive, and lethargic. Patient was also noted to have a positive FOBT, and had dried blood around his lips. He has no gross bleeding at this time. He was started on levophed in the ED, as he progressed to septic shock. Patient was started on broad-spectrum antibiotics in the ED. I had an extensive discussion with the concerning his current status, and poor prognosis. She stated that the patient would have wanted to be full code. Patient was recently admitted for intracranial hemorrhage however his repeat CT of the head and notes complete resolution today. PAST MEDICAL HISTORY: As per HPI PAST SURGICAL HISTORY: History of bile duct excision and hepaticojejunostomy, Natacha-en-Y Loop of jejunum, esophageal varices banding, right total knee, percutaneous gallbladder drain SOCIAL HISTORY: Nonsmoker, no alcohol, from [employer]. FAMILY HISTORY: Father of congestive heart failure, stroke. Mother of lung cancer with metastasis to the liver ALLERGIES: Please see below. REVIEW OF SYSTEMS: Unable to obtain HOME MEDICATIONS: Please see below. PHYSICAL EXAMINATION: Vitals: (see below) General: Lethargic, arousable to verbal stimuli. HEENT: Moist mucous membranes. Dried blood around the lips. Airway patent Neck: No JVD or lymphadenopathy Cardiac: RRR, No murmurs Pulm: Coarse crackles bilaterally right greater than left. No wheezing. Bilateral rhonchi Abd: NT. Distended. + BS Ext: Trace to 1+ pitting edema bilateral lower extremities. No cyanosis LABORATORY DATA: See below. IMAGING: CT head 10/03/17 IMPRESSION: 1. Age-appropriate cerebellar and cerebral atrophy. 2. Mild chronic microvascular disease. 3. No evidence of acute intracranial pathology. Complete resolution of left frontal intraparenchymal hematomas and subarachnoid hemorrhage. CXR/CT Abd/pelvis pending. MICROBIOLOGY: Please see below. ASSESSMENT/PLAN: 1. Septic shock- likely urinary source, however concern for ascending cholangitis as well given history and transaminitis. Patient was started on broad-spectrum antibiotics. Blood culture sent. Status post 2L normal saline however patient became increasingly hypoxic. Started on Levophed in the ED. Lactic acid 2.7. We will admit to the ICU. 2. Hematemesis- patient with known esophageal varices and portal vein thrombosis /cirrhosis. Patient's hemoglobin is stable, however the patient was significantly hypotensive - we'll transfuse 1 unit PRBC. Protonix/octreotide drip. Dr. Rodriguez called and will be seeing patient. 3. Transaminitis- question whether this is likely secondary to septic shock versus a presentation of ascending cholangitis- patient will be sent down for CT of the abdomen and pelvis which is pending. 4. TESS - likely 2/2 septic shock. s/p ivf. on levophed now. Avoid nephrotoxins. Strict I/O. 4. History of colon gel carcinoma status post chemotherapy 5. History of massive GI bleed in December 2016 6. History of portal vein thrombosis 7. History of nonalcoholic cirrhosis 8. Chronic Thrombocytopenia- platelets ct stable . cont to monitor. Patient is in critical condition. He is high risk for cardiac arrest, and intubation. is aware at bedside, and would like the patient to be full code. Prognosis is guarded. Update: at 7:00am, I have called the radiologist who is currently reading the CT abdomen pelvis with notable fat stranding and thickening around the portal hepatis, and given his febrile state, septic shock and transaminitis discernibly is concern for ascending cholangitis. Have spoken to Dr. Rodriguez who will be on consult; he notes that the patient is unstable to go to the OR. Recommends observation to see if the patient is able to be weaned off of the Levophed. If he is stable later today, he will taken to the OR. If he fails to progress, he will need interventional radiology consultation for a PTC. I have also updated Dr. Rico. Patient has been signed out to Dr. Alejandra Rico, we will be following the patient starting 10/03/17 at 7 AM. Vital Signs Vital Signs Date Time Temp Pulse Resp B/P (MAP) Pulse Ox O2 Delivery O2 Flow Rate FiO2 10/03/17 05:19 78 26 74/41 (52) 97 Nasal Cannula 4.0 10/03/17 03:52 102.6 93 Laboratory Data Labs 24H Laboratory Tests 2 10/03/17 04:03: Immature Granulocyte % (Auto) 0.5H, White Blood Count 7.5, Red Blood Count 3.25L , Hemoglobin 9.8L, Hematocrit 28.8L, Mean Corpuscular Volume 88.6, Mean Corpuscular Hemoglobin 30.2, Mean Corpuscular Hemoglobin Concent 34.0, Red Cell Distribution Width 15.3H, Platelet Count 77L, Neutrophils (%) (Auto) 85.6H, Lymphocytes (%) (Auto) 5.2L, Monocytes (%) (Auto) 8.6H, Eosinophils (%) (Auto) 0.0, Basophils (%) (Auto) 0.1, Neutrophils # (Auto) 6.4, Lymphocytes # (Auto) 0.4L, Monocytes # (Auto) 0.7, Eosinophils # (Auto) 0.0, Basophils # (Auto) 0.0, Immature Granulocyte # (Auto) 0.0, Nucleated Red Blood Cells % (auto) 0.0, Immature Platelet Fraction 1.8, Prothrombin Time 16.6H, Prothromb Time International Ratio 1.31, Activated Partial Thromboplast Time 35.6, Anion Gap 10 , Glomerular Filtration Rate 48.0, Lactic Acid Level 2.7*H, Calcium Level 8.0L, Aspartate Amino Transf (AST/SGOT) 184H, Alanine Aminotransferase (ALT/SGPT) 136H , Alkaline Phosphatase 748H, Total Bilirubin 2.7H, Direct Bilirubin 1.6H, Ammonia 90H, Total Protein 6.7, Albumin 2.5L, Albumin/Globulin Ratio 0.60L 10/03/17 05:24: Urine Appearance CLOUDYH, Urine Color ERIK, Urine pH 5.0, Urine Specific Brantley 1.017, Urine Protein 1+H, Urine Glucose (UA) NEGATIVE, Urine Ketones NEGATIVE, Urine Urobilinogen 4.0H, Urine Bilirubin NEGATIVE, Urine Leukocyte Esterase 3+H, Urine Blood 2+H, Urine Nitrite NEGATIVE, Urine WBC (Auto) TNTCH, Urine RBC (Auto) 16H, Urine Hyaline Casts (Auto) 0, Urine Bacteria (Auto) NEGATIVE, Urine Squamous Epithelial Cells 0, Urine Transitional Epithelial Cells 1, Urine Amorphous Sediment SMALLH, Urine Mucus (Auto) SMALL, Urine Sperm (Auto) CBC/BMP Laboratory Tests 10/03/17 04:03 Red Blood Count 3.25 L, Mean Corpuscular Volume 88.6, Mean Corpuscular Hemoglobin 30.2, Mean Corpuscular Hemoglobin Concent 34.0, Red Cell Distribution Width 15.3 H, Neutrophils (%) (Auto) 85.6 H, Lymphocytes (%) (Auto ) 5.2 L, Monocytes (%) (Auto) 8.6 H, Eosinophils (%) (Auto) 0.0, Basophils (%) ( Auto) 0.1, Neutrophils # (Auto) 6.4, Lymphocytes # (Auto) 0.4 L, Monocytes # ( Auto) 0.7, Eosinophils # (Auto) 0.0, Basophils # (Auto) 0.0 Microbiology Microbiology 10/03/17 Blood Culture, Received Pending 10/03/17 Urine Culture, Received Pending Home Medications Scheduled (Tubersol) 5 Unit/0.1 Ml Inj, 5 UNIT ID DAILY FOR 12 DAYS TO END AFTER DOSE ON 10/03/17 Amitriptyline HCl (Amitriptyline HCl) 50 Mg Tab, 150 MG PO QHS Amitriptyline HCl (Amitriptyline HCl) 50 Mg Tab, 50 MG PO QAM Cholecalciferol (Vitamin D-3) 2,000 Unit Tab, 2,000 UNIT PO DAILY Donepezil Hcl (Donepezil HCl) 10 Mg Tab, 10 MG PO QHS Finasteride (Finasteride) 5 Mg Tab, 5 MG PO QHS Lactulose (Lactulose) 10 Gm/15 Ml Mikki, 60 ML PO BID at 0800 & 2200 Lactulose (Lactulose) 10 Gm/15 Ml Mikki, 30 ML PO BID at 1200 & 1700 Multivitamins *[facility] STOCKED* (Thera M Plus *[facility] STOCKED*) 1 Tab Tab, 1 TAB PO DAILY Nadolol (Nadolol) 20 Mg Tab, 20 MG PO DAILY Omeprazole (Omeprazole) 40 Mg Cap, 40 MG PO BID Pantoprazole Sodium (Pantoprazole Sodium) 40 Mg Tab, 40 MG PO BID Ranitidine HCl (Ranitidine HCl) 300 Mg Tab, 1 TAB PO QHS Sucralfate (Carafate) 1 Gm Tab, 1 GM PO ACHS Tamsulosin Hydrochloride (Flomax) 0.4 Mg Cap, 0.4 MG PO QPM Scheduled PRN Acetaminophen (Tylenol) 325 Mg Tab, 325 MG PO Q6H PRN for PAIN / FEVER Allergies Coded Allergies: Ibuprofen (Verified Allergy, Unknown, 07/18/17) Levofloxacin (Verified Allergy, Unknown, 09/07/17) Haloperidol (Unverified Adverse Reaction, Severe, BRAIN DAMAGE, 07/18/17) Baclofen (Verified Adverse Reaction, Intermediate, confusion, 07/18/17) Statins (Verified Adverse Reaction, Intermediate, MYALAGIAS, 07/18/17) Carbidopa w/Levodopa (Unverified Adverse Reaction, Unknown, COLLAPSES, ) MICHAEL HERNANDEZ MD Oct 03, 2017 06:23
[2017-10-03] MEDS ORDERED: ONDANSETRON 4MG/2ML VIAL (J2405) IV PRN (06:45)
--- NOTE | 2017-10-03 07:05 | PHACANCOPD ---
PHARMACY VANCOMYCIN DOSING Pt Demographics Demographics Patient Age:72 , Weight:99.500 , Gender: male Adjusted Body Weight Date: 10/03/17, Adjusted Body Weight: [86.36] Kg Vancomycin Vancomycin indication: SEPTIC SHOCK (15-20) Vancomycin Target Ranges: 15-20 mcg/ml Vancomycin Load Y/N: No Load Dose Date Time Vancomycin Load Dose: Date: Time: Vancomycin Dose Date: 10/03/17. Current Vancomycin Dose: [1 GM@04,THEN Q12@10] Intermittent Dosing?: No Labs Labs Laboratory Tests 10/03/17 04:03 Red Blood Count 3.25 L, Mean Corpuscular Volume 88.6, Mean Corpuscular Hemoglobin 30.2, Mean Corpuscular Hemoglobin Concent 34.0, Red Cell Distribution Width 15.3 H, Neutrophils (%) (Auto) 85.6 H, Lymphocytes (%) (Auto ) 5.2 L, Monocytes (%) (Auto) 8.6 H, Eosinophils (%) (Auto) 0.0, Basophils (%) ( Auto) 0.1, Neutrophils # (Auto) 6.4, Lymphocytes # (Auto) 0.4 L, Monocytes # ( Auto) 0.7, Eosinophils # (Auto) 0.0, Basophils # (Auto) 0.0 Micro Microbiology 10/03/17 Blood Culture, Received Pending 10/03/17 Urine Culture, Received Pending Creatinine Clearance Date:10/03/17. Creatinine Clearance: [52.1]CALCULATED. Pending Labs VANCO TROUGH DUE 10/04@ Assessment and Plan Maintaining Current Dose?: Yes Reason for dose change: No Dose Change Pharmacist Note Pharmacist Note Date: 10/03/17. Pharmacist note:SEPTIC SHOCK (15-20) vANCOMYCIN 1 GM IN ED @04, THEN Q12H@10.CRCL=52.1-CALCULATED fIRST TROUGH DUE 10/04@-WILL CONTINUE TO FOLLOW [facility] Oct 03, 2017 07:05
--- NOTE | 2017-10-03 07:20 | REPUSA ---
CLINICAL HISTORY: Abdominal pain. TECHNIQUE: Multiple axial and coronal CT images were obtained through the abdomen and pelvis after ad ministration of intravenous contrast material. COMMENTS: Bilateral basilar pulmonary consolidations. Mildly dilated intrahepatic biliary tree. Mildly dilated extrahepatic biliary tree. Pneumobilia is noted. Prior cholecystectomy. Hepaticojejunostomy is noted. Fat stranding is noted at the level of the sarina hepatis. Moderate amount of fecal residue is noted in the large bowels. Fluid filled small bowel suggestive of ileus. Supraumbilical anterior abdominal wall hernia containing nonincarcerated large bowels. Urinary catheter balloon is noted in the bladder. Fluid-filled distended stomach. Probably gastroparesis. Unremarkable CBD stent containing secretions. The spleen is normal. The pancreas is of normal contour and attenuation characteristics. There is no evidence of adrenal mass. Both kidneys demonstrate prompt and equal nephrograms. 2.5 cm right renal cyst. The kidneys are normal in size, shape and configuration. There is no evidence of renal or ureteral mass. No renal or ureteral calculi are identified. There is no hydroureter or hydronephrosis. No evidence for appendicitis. There is no bowel wall thickening. No evidence for small or large bowel obstruction. There is no evidence of abdominal ascites or lymphadenopathy. There is no evidence of intrinsic or extrinsic bladder mass. There is no pelvic ascites or lymphadeno erasmo. Images of the lung bases show no evidence of pleural or parenchymal mass. There are no pleural effusi ons. The bony structures are free of lytic or blastic lesions. IMPRESSION: Bilateral basilar pulmonary consolidations. Mildly dilated intrahepatic biliary tree. Mildly dilated extrahepatic biliary tree. Pneumobilia is noted. Prior cholecystectomy. Hepaticojejunostomy is noted. Fat stranding is noted at the level of the sarina hepatis. Please evaluate to exclude ascending cholan gitis. No drainable fluid collection. No abscess formation. Moderate amount of fecal residue is noted in the large bowels. Constipation. Fluid filled small bowel suggestive of ileus. Supraumbilical anterior abdominal wall hernia containing nonincarcerated large bowels. Urinary catheter balloon is noted in the bladder. Fluid-filled distended stomach. Probably gastroparesis. Unremarkable CBD stent containing secretions. Thank you for your kind referral of this patient. Findings were discussed with Dr. Pink at 7:14 am.
[2017-10-03] MEDS: PANTOPRAZOLE SODIUM 40 MG in D5W 50 ML IV SCH ×3 (07:54→16:11)
--- NOTE | 2017-10-03 08:05 | REP ---
Chest, single AP view, 04:05 a.m., 10/03/2017: Comparison 05/08/2017. There is an incomplete inspiratory effort. Lung hollins are under aerated. There are no focal infiltrates or effusions. Cardiac size is normal. There is a right IJ central venous catheter with the tip in the superior vena cava in satisfactory location, unchanged. Impression: No acute cardiopulmonary findings. Incomplete inspiratory effort. Central venous catheter. Signed by Johan Lucero MD 10/03/2017 07:57 A
[2017-10-03] MEDS: OCTREOTIDE ACETATE 1,200 MCG in NS 238.8 ML IV SCH ×2 (08:48→17:48)
[2017-10-03] MEDS: PIPERACILLIN/TAZOBACTAM SOD 2.25 GM in APPROPRIATE DILUENT 1 EA IV SCH ×2 (08:49→16:15)
[2017-10-03] MEDS ORDERED: CHLORHEXIDINE ORAL RINSE 0.12%/15ML 120ML BOTTLE MT SCH (09:00)
[2017-10-03 09:14] LABS: MEAN CORPUSCULAR HEMOGLOBIN 30.2 pg (27.0-33.0); MEAN CORPUSCULAR HGB CONC 33.3 g/dl (32.0-36.5); MEAN CORPUSCULAR VOLUME 90.7 fl (80.0-96.0); RED CELL DISTRIBUTION WIDTH 15.8 % (11.5-14.5); WHITE BLOOD COUNT 15.2 10^3/uL (4.0-10.0)
[2017-10-03 09:20] LABS: ADD MANUAL DIFFER YES; BLASTS POS FLAG; DIFF SLIDE NUMBER 109; LEFT SHIFT POS FLAG; PLATELET COUNT, AUTOMATED 77 10^3/uL (150-450); POSITIVE MORPH POS FLAG
[2017-10-03 09:33] LABS: ALBUMIN 2.3 GM/DL (3.2-5.2); ALBUMIN/GLOBULIN RATIO 0.58 (1.00-1.93); BILIRUBIN,TOTAL 2.6 MG/DL (0.2-1.0); CALCIUM LEVEL 7.9 MG/DL (8.8-10.2); CREATININE FOR GFR 1.74 MG/DL (0.70-1.30); POTASSIUM SERUM 3.9 MEQ/L (3.5-5.1); TOTAL PROTEIN 6.3 GM/DL (6.4-8.2)
[2017-10-03 09:48] LABS: BANDS 24 % (< 11); BASOPHILS 1 % (0-4)
[2017-10-03 09:50] LABS: ANISOCYTOSIS 2+; POIKILOCYTOSIS 1+
[2017-10-03] MEDS ORDERED: ETOMIDATE INJ 20MG/10ML VIAL As Ordered ONE ×2 (09:59→10:05)
[2017-10-03] MEDS ORDERED: VANCOMYCIN HCL 1,000 MG, VIAL MATE ADAPTER 1 EACH in D5W 250 ML IV SCH (10:00)
[2017-10-03] MEDS ORDERED: ROCURONIUM BROMIDE 50 MG/5 ML VIAL As Ordered ONE ×2 (10:00→12:23)
[2017-10-03] MEDS ORDERED: MIDAZOLAM INJ 2 MG/2 ML VIAL (J2250) As Ordered ONE ×3 (10:17→12:23)
[2017-10-03] MEDS ORDERED: ETOMIDATE INJ 20MG/10ML VIAL IV STA (10:24)
[2017-10-03] MEDS ORDERED: ROCURONIUM BROMIDE 50 MG/5 ML VIAL IV SCH (10:30)
[2017-10-03] MEDS: MIDAZOLAM INJ 2 MG/2 ML VIAL (J2250) IV PRN ×5 (10:30→19:20)
--- NOTE | 2017-10-03 10:53 | IPNPDOC ---
Subjective Date Seen The patient was seen on 10/03/17. Subjective Chief Complaint/HPI The patient is a 72-year-old male admitted with a reason for visit of Septic Shock. Events since last encounter Patient admitted this morning from emergency department. Currently with norepinephrine running at 10 mcg General: Reports: ROS Unobtainable Objective Physical Examination General Exam: Negative: Alert Chest Exam: Positive: Clear to auscultation, Normal air movement, Negative: Rales, Rhonchi, Wheezing Heart Exam: Positive: Rate Normal, Regular Rhythm, Normal S1, Normal S2, Negative: Gallops, Murmurs, Rubs Abdomen Exam: Positive: BS Hypoactive, Soft, Other (distention), Negative: Hepatospenomegaly, Mass Assessment /Plan Problems (1) Septic shock Permanent Comment: Likely secondary to ascending cholangitis Last Edited By: Patel Joshi DO on Oct 03, 2017 10:42 Problem Text: 10/03: Patient with blood pressure this morning of 94/53 (67), requiring norepinephrine at 10 mcg for pressure support, intensive care has been consulted. After consult intensive care requested to be attending on patient, attending changed to Dr. Shore. (2) Ascending cholangitis Problem Text: 10/03: Patient will continue Zosyn, vancomycin. Gastroenterology ( Dr. Rodriguez) has been consulted and will see patient today (3) Hematemesis Problem Text: 10/03: Continue octreotide, Protonix drip (4) Transaminitis Problem Text: 10/03: Likely secondary to ascending cholangitis (5) Acute kidney injury Problem Text: 10/03: Creatinine has risen further to 1.74, continue to monitor (6) History of GI bleed Problem Text: 10/03: Continue octreotide, Protonix drip (7) Non-alcoholic cirrhosis Problem Text: 10/03: See ascending cholangitis Plan/VTE VTE Prophylaxis Ordered?: Yes VS, I&O, 24H, Fishbone Vital Signs/I&O Vital Signs Date Time Temp Pulse Resp B/P (MAP) Pulse Ox O2 Delivery O2 Flow Rate FiO2 10/03/17 07:21 75 24 94/53 (67) 97 Nasal Cannula 4.0 10/03/17 06:35 100.7 10/03/17 03:52 93 I&O- Last 24 Hours up to 6 AM 10/04/17 06:00 Intake Total 2350 ml Balance 2350 ml Laboratory Data 24H LABS Laboratory Tests 2 10/03/17 04:03: Immature Granulocyte % (Auto) 0.5H, White Blood Count 7.5, Red Blood Count 3.25L , Hemoglobin 9.8L, Hematocrit 28.8L, Mean Corpuscular Volume 88.6, Mean Corpuscular Hemoglobin 30.2, Mean Corpuscular Hemoglobin Concent 34.0, Red Cell Distribution Width 15.3H, Platelet Count 77L, Neutrophils (%) (Auto) 85.6H, Lymphocytes (%) (Auto) 5.2L, Monocytes (%) (Auto) 8.6H, Eosinophils (%) (Auto) 0.0, Basophils (%) (Auto) 0.1, Neutrophils # (Auto) 6.4, Lymphocytes # (Auto) 0.4L, Monocytes # (Auto) 0.7, Eosinophils # (Auto) 0.0, Basophils # (Auto) 0.0, Immature Granulocyte # (Auto) 0.0, Nucleated Red Blood Cells % (auto) 0.0, Immature Platelet Fraction 1.8, Prothrombin Time 16.6H, Prothromb Time International Ratio 1.31, Activated Partial Thromboplast Time 35.6, Anion Gap 10 , Glomerular Filtration Rate 48.0, Lactic Acid Level 2.7*H, Calcium Level 8.0L, Aspartate Amino Transf (AST/SGOT) 184H, Alanine Aminotransferase (ALT/SGPT) 136H , Alkaline Phosphatase 748H, Total Bilirubin 2.7H, Direct Bilirubin 1.6H, Ammonia 90H, Total Protein 6.7, Albumin 2.5L, Albumin/Globulin Ratio 0.60L 10/03/17 05:24: Urine Appearance CLOUDYH, Urine Color ERIK, Urine pH 5.0, Urine Specific [place] 1.017, Urine Protein 1+H, Urine Glucose (UA) NEGATIVE, Urine Ketones NEGATIVE, Urine Urobilinogen 4.0H, Urine Bilirubin NEGATIVE, Urine Leukocyte Esterase 3+H, Urine Blood 2+H, Urine Nitrite NEGATIVE, Urine WBC (Auto) TNTCH, Urine RBC (Auto) 16H, Urine Hyaline Casts (Auto) 0, Urine Bacteria (Auto) NEGATIVE, Urine Squamous Epithelial Cells 0, Urine Transitional Epithelial Cells 1, Urine Amorphous Sediment SMALLH, Urine Mucus (Auto) SMALL, Urine Sperm (Auto) 10/03/17 08:54: Nucleated Red Blood Cells % (auto) 0.0, Anion Gap 12, Glomerular Filtration Rate 41.0L, Calcium Level 7.9L, Aspartate Amino Transf (AST/SGOT) 165H, Alanine Aminotransferase (ALT/SGPT) 123H, Alkaline Phosphatase 665H, Total Bilirubin 2.6H, Total Protein 6.3L, Albumin 2.3L, Albumin/Globulin Ratio 0.58L, Neutrophils 64, Band Neutrophils 24H, Lymphocytes (Manual) 4L, Monocytes (Manual ) 2, Basophils (Manual) 1, Metamyelocytes 3H, Myelocytes 2H, Platelet Estimate DECREASED, Poikilocytosis 1+, Anisocytosis 2+, Lactic Acid Followup at 4 Hours 3.9*H, Blood Urea Nitrogen 28H, Creatinine 1.74H, Sodium Level 141, Potassium Level 3.9, Chloride Level 108H, Carbon Dioxide Level 21 CBC/BMP Laboratory Tests 10/03/17 04:03 Red Blood Count 3.25 L, Mean Corpuscular Volume 88.6, Mean Corpuscular Hemoglobin 30.2, Mean Corpuscular Hemoglobin Concent 34.0, Red Cell Distribution Width 15.3 H, Neutrophils (%) (Auto) 85.6 H, Lymphocytes (%) (Auto ) 5.2 L, Monocytes (%) (Auto) 8.6 H, Eosinophils (%) (Auto) 0.0, Basophils (%) ( Auto) 0.1, Neutrophils # (Auto) 6.4, Lymphocytes # (Auto) 0.4 L, Monocytes # ( Auto) 0.7, Eosinophils # (Auto) 0.0, Basophils # (Auto) 0.0 10/03/17 08:54 Red Blood Count 3.11 L, Mean Corpuscular Volume 90.7, Mean Corpuscular Hemoglobin 30.2, Mean Corpuscular Hemoglobin Concent 33.3, Red Cell Distribution Width 15.8 H, Calcium Level 7.9 L, Aspartate Amino Transf (AST/SGOT ) 165 H, Alanine Aminotransferase (ALT/SGPT) 123 H, Alkaline Phosphatase 665 H, Total Bilirubin 2.6 H, Total Protein 6.3 L, Albumin 2.3 L Microbiology Microbiology 10/03/17 Blood Culture, Received Pending 10/03/17 Urine Culture, Received Pending GME ATTESTATION GME ATTESTATION My faculty preceptor for this patient encounter was physically present during the encounter and was fully available. All aspects of the patient interview, examination, medical decision making process, and medical care plan development were reviewed and approved by the faculty preceptor. The faculty preceptor is aware and concurs with the plan as stated in the body of this note and will attest to such by his/her cosignature. PATEL JOSHI DO Oct 03, 2017 10:53
[2017-10-03] MEDS ORDERED: D5W/0.45% SODIUM CHLORIDE 1,000 ML IV SCH (11:30)
--- NOTE | 2017-10-03 11:56 | REP ---
AP PORTABLE CHEST 10/03/2017 11:32 AM: Comparison: 10/03/2017, and 05/08/2017. Clinical history: Intubation. Indwelling right jugular port catheter again seen. Tip in the SVC near the right atrium. There is now a left jugular central catheter extending down to the level of the aortic arch but not crossing the midline. Lungs are quite hypoinflated. They are only marginally better inflated than on the previous study. Calcified tortuous aorta. Airway midline. There is an endotracheal tube to the thoracic inlet and its tip is about 4 cm from the lexx. Atelectatic perihilar changes and some basilar infrahilar atelectasis noted. Superimposed infiltrates could not be excluded in those regions. I do not see brandon edema. No gross effusion but small effusions could certainly be obscured in the posterior lower lung zones on the hypoinflated semi-erect chest. No evidence of a left pneumothorax. Impression: 1. Interval placement of a endotracheal tube with the tip at least 4 cm from the lexx with a new left jugular central catheter line extending down to the level of the aortic arch. It has not crossed the midline. 2. No pneumothorax or gross effusion but small effusion could certainly be obscured. There is infrahilar basilar atelectasis or infiltrate left greater than right. Heart size mildly prominent with a tortuous calcified aorta, venous hypertension. No brandon edema. Signed by Jacek Pierson MD 10/04/2017 07:18 P
[2017-10-03 12:03] LABS: ABG BASE EXCESS -7.3 (-2.0-2.0); ABG HCO3 16.8 MEQ/L (22.0-26.0); ABG PARTIAL PRESSURE CO2 29.3 mmHg (35.0-45.0); ABG PARTIAL PRESSURE O2 98.2 mmHg (75.0-100.0); ABG STANDARD HCO3 18.5 MEQ/L (22.0-26.0); ABG TOTAL CO2 17.7 MEQ/L (23.0-31.0); ABG pH (ARTERIAL) 7.376 UNITS (7.350-7.450)
--- NOTE | 2017-10-03 12:10 | RO ---
DATE OF PROCEDURE: 10/03/2017 PREOPERATIVE PROCEDURE: Respiratory failure. POSTOPERATIVE PROCEDURE: Respiratory failure. PROCEDURE PERFORMED: Endotracheal intubation. Surgeon: Dr. Cirilo Shore. REFRIGERATION SERVICE INSPECTOR: KOFI Chandler ANESTHESIA: 38 mg of etomidate and 50 mg of rocuronium DESCRIPTION OF PROCEDURE: After informed time-out was performed identifying correct site, correct procedure, the patient was placed in the sniffing position. Preoxygenated with 100% FiO2, the patient had been saturating well. However, had altered level of consciousness to the point where his Karla Coma Score (GCS) was 8, unable to protect his airway, barely moaning with deep painful stimuli. He was having encephalopathy, and unable to protect his airway. After adequate preoxygenation, IV fluids were hung due to hypotension and the patient already on 10 mcg per minute of Levophed. Rapid sequence intubation was then initiated with etomidate followed directly by rocuronium. After adequate sedation with paralysis, the GlideScope #4 blade was placed into the oropharynx. There was thick yellow mucus secretions at the level of the vocal cords. These were suctioned. There was a grade 2 view. KOFI Chandler assisted with the placement of the endotracheal tube into the larynx. Direct visualization of the 8.0 endotracheal tube through the vocal cords into the larynx was maintained as the stylus was removed and placement was confirmed with end-tidal CO2 monitoring, auscultation and chest x-ray. There were no observed complications. The patient was placed on mechanical ventilation.
[2017-10-03] MEDS: IPRATROPIUM 0.5MG/ALBUTEROL 2.5MG INH SOL UD 3ML (DUONEB)(J7620) NEB SCH ×2 (12:13→15:20)
[2017-10-03] MEDS ORDERED: ONDANSETRON 4MG/2ML VIAL (J2405) As Ordered ONE (12:23)
[2017-10-03] MEDS ORDERED: PROPOFOL 200 MG/20 ML VIAL As Ordered ONE (12:23)
[2017-10-03] MEDS ORDERED: LIDOCAINE 2% INJ 100 MG/5 ML SYRINGE As Ordered ONE (12:23)
[2017-10-03] MEDS ORDERED: fentaNYL 100 MCG/2 ML INJECTION (J3010) As Ordered ONE (12:24)
--- NOTE | 2017-10-03 12:30 | RO ---
DATE OF PROCEDURE: 10/03/2017 PROCEDURES: Left internal jugular venous catheter placement. DIAGNOSIS: Hypotension. POSTPROCEDURE DIAGNOSIS: Hypotension. SURGEON: Cirilo Shore DO SUBSTATION OPERATOR CONVERSION: KOFI May Informed consent was obtained verbally from his , who gave consent to perform all lifesaving measures, including intubation, cardiopulmonary resuscitation (CPR). She understands the risks and benefits of central line placement. She states she is a nurse and understands the potential complications of intensive care unit (ICU) care and wishes to have all procedures done in order to save his life. ANESTHESIA: 1% lidocaine. The patient already sedated on mechanical ventilation. DESCRIPTION OF PROCEDURE: After time-out was performed with two patient identifiers identifying correct site and correct procedure, the patient was placed in the supine position and prepped with chlorhexidine and full barrier precautions. The left IJ was then identified under ultrasound. 1% lidocaine was introduced subcutaneously over the IJ. Estimated central venous pressure was 10 based on ultrasound viewing and the fact that the vein was distended, did not collapsed with inspiration, and was barely compressible. The Raulerson syringe was then passed by Cheo Foley into the IJ with return of venous blood flow. Wire was fed through the needle, and the needle was removed. The triple-lumen catheter was then placed via modified Seldinger technique. Wire was removed, and the catheter was sutured in place at 15 cm. All three ports returned venous blood flow and flushed easily. Postprocedure chest x-ray showed anatomic variation without pneumothorax. Therefore, central venous pressure was obtained to ensure venous presence. The central venous pressure was measured at 10-11 at bedside. No observed complications. [facility]
[2017-10-03] MEDS ORDERED: ISOVUE-300 61% 50ML VIAL (Q9967) As Ordered ONE (12:32)
--- NOTE | 2017-10-03 13:03 | CCN ---
DATE OF SERVICE: 10/03/2017 CRITICAL CARE TIME: Was 1 hour 15 minutes, excluding all procedures. We were called urgently to evaluate Mr. John Huang for hypotension by Dr. Joshi, who is a resident on the family medicine team. We were called to evaluate the patient for hypotension. He was admitted with septic shock and was started on pressors for hypotension. The patient was nonresponsive and nonverbal. Therefore, a majority of a history was obtained from the patient's history and physical (H and P), as well as his who was at bedside. The patient came into the emergency room with altered mental status, as well as hematemesis and vomiting. 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 The patient does have chronic thrombocytopenia. According to his , he was in his normal state of health until yesterday when he became confused and started vomiting. He was then brought to [facility], where he was admitted with septic shock. He was found be hypotensive and was started on pressors. Critical care team was called in to evaluate the patient. The patient has septic shock and the CT of the abdomen and pelvis was concerning for ascending cholangitis. The other differential diagnoses for the septic shock in addition to ascending cholangitis, could also include, pneumonia and urinary tract infection (UTI). He was started on vancomycin and Zosyn. He did have a fever at admission of 102.6 and most recent temperature is 100.7. His white count was within normal limits at 7.5. Lactic acid was initially 2.7, but when rechecked it was 3.9 four hours later. Urine was cloudy with at 2+ blood in 3+ leukocyte esterase. Urine culture and blood culture are currently pending. The patient does have a history of chronic thrombocytopenia. His platelets were 77. He was placed on supplemental oxygen and his O2 saturation on 4 liters by nasal cannula was 97%. The patient's liver function tests (LFTs) were elevated with AST of 184, ALT of 136, alkaline phosphatase of 748, ammonia level was 90. He is normally on lactulose as an outpatient. He is nothing by mouth currently and therefore not getting any lactulose currently. His total bilirubin was 2.7 and direct bilirubin was 1.6. In the emergency room (ER), he did have positive occult blood. IMAGING STUDIES: Included CT of the abdomen and pelvis did question possible ascending cholangitis. Also noted was a supraumbilical anterior abdominal wall hernia The patient did have some bilateral basilar pulmonary consolidation. Prior cholecystectomy noted. Hepaticojejunostomy noted. Chest x-ray was reviewed and showed no acute cardiopulmonary findings. Head CT showed a complete resolution of left frontal intraparenchymal hematoma and subarachnoid hemorrhage. No evidence of intracranial pathology, age-appropriate cerebellar and cerebral atrophy. It is noted the patient did have a fall about 2 weeks ago and had an intracranial hemorrhage. As noted, current head CT shows that intraparenchymal hematoma and subarachnoid hemorrhage had resolved. VITAL SIGNS: Temperature 100.7, pulse 75, respiratory rate 24, blood pressure is 94/53, pulse oximetry 97% on 4 liters by nasal cannula. General: The patient is nonverbal, nonresponsive. Gurgling upper airway secretions. HEENT: Mucous membranes are somewhat dry. Head is normocephalic, atraumatic. Eyes: pinpoint pupils. Responsive to light. Neck: Trachea is midline. No jugular venous distention (JVD). Chest: Fairly clear with few scattered rhonchi. No accessory muscle use, No wheeze. Heart: Regular rate and rhythm. No obvious murmurs. PMI is non-displaced. Abdomen: Positive bowel sounds, soft, slightly distended. No tenderness to palpation. Ventral hernia. EXT: Bilateral lower extremities with no edema. Right knee scar well healed without effusion or increased warmth. Skin: No mottling, no cyanosis. Neuro: Babinski upgoing first hallux but no fanning of other toes. no myoclonus. Hyporeflexia of dtr's at patella bilaterally. LABORATORY DATA: WBC 7.5, hemoglobin 9.8, hematocrit 28.8, platelet 77. It is noted that as this note was being dictated, new laboratories became available and showed WBC of 15.2, hemoglobin 9.4, hematocrit 28.2, platelets 77. Sodium 142, potassium 3.6, chloride 108, carbon dioxide 24, BUN 25, creatinine 1.52, glucose 75, lactic acid 2.7, calcium 8.0, total bilirubin 2.7, direct bilirubin 1.6, AST 184, ALT 136, alkaline phosphatase 748, ammonia 90, total protein 6.7, albumin 2.5. It is noted that as this note was being dictated, a new chemistry profile became available with sodium 141, potassium 3.9, chloride 108, carbon dioxide 21, BUN 28, creatinine 1.74, glucose 96, lactic acid 3.9, calcium 7.9, total bilirubin 2.6, AST 165, ALT 123, alkaline phosphatase 665, total protein 6.3, albumin 2.3. PT 60.6, INR 1.31, PTT is 35.6. Urine color is maggy and cloudy-appearing. Protein was 1+, blood is 2+, urobilinogen is 4.0, leukocyte esterases is 3+, WBCs are too numerous to count, RBCs of 16. ASSESSMENT AND PLAN: 1. Septic shock, likely secondary to the ascending cholangitis. Differential diagnoses also includes pneumonia and UTI. Blood and urine cultures are currently pending. There is no significant peritoneal fluid noted, so spontaneous bacterial peritonitis (SBP) is unlikely. The plan is check a sputum culture. Central line is placed. Dr. Rodriguez is consulted, as there is concern for an ascending cholangitis. Dr. Shore spoke to Dr. Rodriguez. Dr. Rodriguez plans on evaluating the patient and at the same time placing an orogastric (OG) tube. The patient will continue with vancomycin and Zosyn. The patient is placed on D5 half-normal saline at 50 mL an hour. 2. The patient is currently on pressors for hypotension. 3. Acute respiratory failure. The patient it is unable to protect his airway, and therefore he will be intubated. Conitnued on mechanical ventilation. 4. A history of varices. The patient is on octreotide. Dr. Rodriguez has been consulted and Dr. Shore spoke to him. He plans on placing an OG tube. 5. Relative hypoglycemia. The patient is placed on D5 half-normal saline. Will monitor. 6. Hypotension. This is secondary to #1. The patient is on pressors. 7. Lactic acidosis. This is secondary to #1. We will monitor. The patient is on vancomycin and Zosyn. Cultures are ordered and pending. Total critical care time was 1 hour and 15 minutes, excluding all procedures. [facility]
--- NOTE | 2017-10-03 15:13 | ROOR ---
Patient Name: John Hunag Procedure Date: 10/03/2017 12:54 PM Date of : 1945 Age: 72 Room: Main OR Gender: Male Note Status: Finalized Procedure: ERCP Indications: Suspected ascending cholangitis Providers: Smith RODRIGUEZ MD Referring MD: Gary Cuba MD Requesting Provider: Medicines: Propofol per Anesthesia Complications: No immediate complications. Procedure: Pre-Anesthesia Assessment: - The heart rate, respiratory rate, oxygen saturations, blood pressure, adequacy of pulmonary ventilation, and response to care were monitored throughout the procedure. The Duodenoscope was introduced through the mouth, and advanced to the duodenum and used to inject contrast into the bile duct. The ERCP was performed with difficulty due to presence of food. The patient tolerated the procedure well. Findings: A biliary stent was visible on the claim processing specialist film. The esophagus was successfully intubated under direct vision without detailed examination of the pharynx, larynx, and associated structures, and upper GI tract. The upper GI tract was grossly normal. One metal stent originating in the biliary tree was emerging from the major papilla. A straight Roadrunner wire was passed into the biliary tree. The short-nosed traction sphincterotome was passed over the guidewire and the bile duct was then deeply cannulated. Contrast was injected. I personally interpreted the bile duct images. Ductal flow of contrast was adequate. Image quality was adequate. Contrast extended to the main bile duct only. The in the biliary system contained filling defect(s) thought to be sludge. The biliary tree was swept with a 10 mm balloon. Some debris was swept from the duct, but the proximal end of the stent was completely occluded. Wire will not pass and I am not able to push contrast above stent with occlusion cholangiogram. This was biopsied with a cytology brush for cytology. Impression: - There is complete occlusion of proximal end of biliary stent. Cytology brushing performed. I am unable to pass wire or contrast beyond occlusion. Drainage/stenting of the biliary tree failed. Recommendation: - Refer to an interventional radiologist at the next available appointment. - Transfer patient to another hospital as we do not have PTC available at our institution. Smith Rodriguez MD Smith RODRIGUEZ MD 10/03/2017 3:12:13 PM This report has been signed electronically. Number of Addenda: 0 Note Initiated On: 10/03/2017 12:54 PM Estimated Blood Loss: Estimated blood loss: none.
--- NOTE | 2017-10-03 15:22 | REP ---
ERCP in OR: 10/03/2017. Technique: A series of fluoroscopic images from C-arm fluoroscopy provided to Dr. Rodriguez of the gastroenterology division during ERCP done in the OR. Comparison: ERCP 02/22/2013, CT abdomen and pelvis earlier today. Clinical history: Septic shock. Biliary stent. Cholangitis. Known cholangiocarcinoma. Findings: The 56 images show the endoscope with catheter and wire probe, the wire never gets beyond the biliary stent. There is contrast in the stent but only partially filling it with a significant filling defect in the sent suggesting tumor. Contrast extending back into the duodenum from the injections into the stent. Impression: Biliary obstruction just at the proximal end of the biliary stent with the stent nearly filled with presumed tumor in this patient with known cholangiocarcinoma. Fluoroscopy time: 6 minutes 18 seconds. Signed by Jacek Pierson MD 10/04/2017 08:13 P
--- NOTE | 2017-10-03 17:05 | DSES ---
DATE OF ADMISSION: 10/03/2017 DATE OF DISCHARGE: 10/03/2017 John Rowan is a 72-year-old male who presented with ascending cholangitis this morning. He was taken for an endoscopic retrograde cholangiopancreatography (ERCP) with findings of a blockage at the end of the stent. There was some sludge within the stent that was removed. However, Dr. Rodriguez was unable to alleviate the obstruction. Therefore, he recommended transfer for percutaneous transhepatic cholangiography (PTC). Prior to the ERCP, the patient was managed with the first IV fluids. I was then consulted. The patient was transferred to my service. He had a Karla Coma Scale (GCS) of 8, was not responsive to painful stimuli. Therefore, I felt it best to intubate for airway protection. Oxygen saturations have remained above 90% the entire stay. Currently, the patient is on volume control with a tidal volume of 460, respiratory rate of 18, fraction of inspired oxygen (FiO2) of 0.40, and positive end-expiratory pressure (PEEP) of 5 with a saturation of 96%. The patient was hypotensive requiring vasopressor therapy. Central venous pressure (CVP) is 10. He has a right [id number], a left internal jugular (IJ) that was placed mostly for CVP monitoring. He initially had minimal amounts of hematemesis when he first arrived to the hospital. He was placed on octreotide and Protonix drip. During his ERCP, there were no findings of any significant acute hemorrhage. The patient had no further signs or symptoms of bleeding since his initial arrival. Because of his hypotension, his previously prescribed nadolol had been held. The patient was on vancomycin and Zosyn for treatment of infection. DISCHARGE LABORATORY WORK: Shows a lactate of 3.9, sodium is 141, potassium 3.9 , chloride of 109, bicarbonate of 21, anion gap of 12 with a BUN of 28, creatinine 1.74, total bilirubin is elevated at 2.6, AST of 165, ALT of 123, and an alkaline phosphatase of 665. Albumin is 2.3. His INR is 1.31. White blood cell count is up to 15.2, hemoglobin of 9.4, platelet count of 77. He does have chronic thrombocytopenia. He does have a significant bandemia of 24% with a neutrophilia that has been seen. Arterial blood gas showed after intubation showed a pH of 7.38, pCO2 of 29, and a pAO2 of 98. Chest x-ray shows some anatomic variation of his IJ. IJ placement confirmed with central venous pressure monitoring on the left. Head CT was performed as the patient recently had intracranial hematoma, intraparenchymal and subarachnoid hemorrhage had shown complete resolution. There is only age-appropriate cerebrocerebellar atrophy with mild chronic microvascular disease and no acute intracranial pathology. This was performed on 10/03/2017 at 3:55. Abdominal CT performed showed a bibasilar pulmonary consolidation, mild dilated intrahepatic biliary tree, mildly dilated extrahepatic biliary tree, pneumobilia , prior cholecystectomy, hepatojejunostomy. There was fat stranding near the sarina hepatis. There is a non-incarcerated abdominal wall hernia and suspected gastroparesis. The impression of the fluoroscopy showed biliary obstruction at the proximal end of the stent with the stent nearly filled with presumed tumor and the patient with a history of cholangiocarcinoma. DISCHARGE DIAGNOSES: 1. Septic shock from ascending cholangitis and concern for biliary obstruction with endoscopic retrograde cholangiopancreatography (ERCP) showing obstruction at the end of the stent. The patient is to be transferred for percutaneous transhepatic cholangiography (PTC) as this is not available at our hospital currently. This is done so on an urgent basis. 2. Respiratory failure, secondary to inability protect his airway. 3. Hypotension, secondary to septic shock with lactic acidosis. The patient currently has fairly good urine despite sepsis. 4. Prior history of intraparenchymal hemorrhage, resolution on most recent CT. 5. Residual hemiparesis. 6. Anxiety disorder with adverse reaction to Haldol. 7. History of portal hypertension and varices. 8. Transaminitis. 9. History of nonalcoholic steatohepatitis. 10. Chronic thrombocytopenia. ADVANCED DIRECTIVES: The patient's is a nurse and she wants everything done for the patient. She understands the critical illness. She wants all critical care measures in order to save his life. The patient will be transferred to Dr. Leigh at [facility]. Conversation took place moments ago. LISA
== END 2017-10-03 18:10 | disposition short-term general hospital (02) | DRG 919 ==
LOC: M ED 03:20 → EDBD 03:20 → M ED INP 06:32 → M ICU 07:27
PROVIDERS: ADMIT Internal Medicine; ATTEND Internal Medicine Pulmonary Disease
PROC: 02HV33Z Insertion of Infusion Device into Superior Vena Cava, Percutaneous Approach (ICD-10-PCS; 2017-10-03)
PROC: 0F798ZZ Dilation of Common Bile Duct, Via Natural or Artificial Opening Endoscopic (ICD-10-PCS; 2017-10-03)
PROC: 0FB98ZX Excision of Common Bile Duct, Via Natural or Artificial Opening Endoscopic, Diagnostic (ICD-10-PCS; 2017-10-03)
PROC: 0BH17EZ Insertion of Endotracheal Airway into Trachea, Via Natural or Artificial Opening (ICD-10-PCS; principal; 2017-10-03 08:06)
DX: T85.590A Other mechanical complication of bile duct prosthesis, initial encounter (principal); R65.21 Severe sepsis with septic shock; J96.00 Acute respiratory failure, unspecified whether with hypoxia or hypercapnia; A41.9 Sepsis, unspecified organism; I85.10 Secondary esophageal varices without bleeding; N17.9 Acute kidney failure, unspecified; K83.0 Cholangitis; E87.2 Acidosis; I69.159 Hemiplegia and hemiparesis following nontraumatic intracerebral hemorrhage affecting unspecified side; F41.9 Anxiety disorder, unspecified; E16.2 Hypoglycemia, unspecified; K74.60 Unspecified cirrhosis of liver; K31.9 Disease of stomach and duodenum, unspecified; D69.6 Thrombocytopenia, unspecified; Z79.899 Other long term (current) drug therapy; Z88.8 Allergy status to other drugs, medicaments and biological substances; Z88.1 Allergy status to other antibiotic agents; Y83.1 Surgical operation with implant of artificial internal device as the cause of abnormal reaction of the patient, or of later complication, without mention of misadventure at the time of the procedure; Y92.122 Bedroom in nursing home as the place of occurrence of the external cause

== ENCOUNTER 2017-10-10 13:28 | Inpatient (IN) | payer MEDICARE ==
[~2017-10-10] VITALS: Ht 182.9 cm; Wt 103.3 kg
[~2017-10-10 13:28] MED LIST changes: +LACT10SO29 NG; +TUBE5INJ ID; +TYLE325T5 PO
[2017-10-10 18:10] VITALS: BP 130/68
--- NOTE | 2017-10-10 19:39 | HPE ---
DATE OF ADMISSION: 10/10/2017 PRIMARY CARE PHYSICIAN: Dr. Gary Cuba The patient was transferred from [facility]. HISTORY: I accepted John Huang in transfer from [facility], had sign out and discussion with appropriate time to answer all questions from Dr. Glasgow. He had been transferred down for presumed biliary obstruction. He has a history that he had symptoms of acute cholangitis, had endoscopic retrograde cholangiopancreatography (ERCP) in [place], showed obstruction of previous placed biliary stent and was transferred for consideration of percutaneous drainage as we did not have interventional radiology capacity. Upon arrival at [facility], interventional radiology recommended a HIDA scan. This was performed and showed no evidence of obstruction; therefore, percutaneous drainage was not indicated, and it was felt he could be transferred back here. During the hospitalization, he had developed a rash on his chest on ceftriaxone, which he was taking for Escherichia (E) coli bacteremia. He was placed on Zosyn. It was recommended he have this for 10-14 days. He was having swallowing difficulties. Nasogastric (NG) tube was placed. Speech therapy evaluated him today, did not feel he could start an oral (p.o.) diet, recommended retrying speech therapy evaluation in a few days. While at [facility], they checked a CA19-9; it had decreased from the July value of 92 down to 84, also noted cytology brushings were negative from his ERCP. Therefore, it was unlikely his cholangiocarcinoma had progressed. PAST MEDICAL HISTORY: Shows cholangiocarcinoma of the biliary tract, history of stroke, esophageal varices with bleeding, hepatic encephalopathy, cirrhosis with thrombocytopenia, history of depression, chronic anemia, history of BPH with urinary obstruction requiring a Hensley catheter. MEDICATIONS: Current medicines are: - amitriptyline 100 mg in the morning and 150 mg in the evening - Aricept 10 mg at bedtime - Lactulose 20 grams (30 mL) three times a day by G-tube. - finasteride 5 mg daily - multivitamin - nadolol 20 mg daily - omeprazole 40 mg daily - ranitidine 300 mg at bedtime - sucralfate 1 gram every 6 hours - Flomax 0.4 mg daily - vitamin D 2000 units daily - Zosyn 3.37 mg every 8 hours ALLERGIES: BACLOFEN, SINEMET, HALDOL, IBUPROFEN, LEVAQUIN, STATINS and now CEFTRIAXONE. PHYSICAL EXAMINATION: The patient just arrived on 4 pav[address]. No vital signs are done yet. He is lying in bed. He is alert. He answers questions. He has an NG tube, left IJ, vascular access and a Hensley catheter in place. Speech is dysarthric, probably from the NG tube in addition to his baseline tardive dyskinesia problems. HEENT: Otherwise unremarkable. NECK: Supple. LUNGS: Clear. HEART: Regular without murmur. ABDOMEN: Soft, nontender. Slightly distended. No masses. No peripheral edema. He has some asterixis present. IMPRESSION: 1. Cholangitis with recent E. coli bacteremia. Continue his Zosyn for a total of 14 days, which should be completed on 10/23/2017. 2. Enterococcal urinary tract infection (UTI). This was diagnosed 10/03/2017. The Zosyn should provide sufficient coverage for this as well. 3. Hepatic encephalopathy. Continue lactulose. Check ammonia level. Currently providing lactulose per NG tube. Hopefully we can get that out, and he can start taking things orally soon. 4. Urinary obstruction. Consider a trial of voiding. Continue Proscar and Flomax. 5. History of esophageal varices with bleeding. Continue nadolol for variceal prophylaxis. Continue omeprazole and ranitidine. 6. Dementia. He is on Aricept 10 mg nightly and also has hepatic encephalopathy complicating the picture. 7. History of depression. Continue his amitriptyline, current dose. He is at risk of anticholinergic symptoms from the high dose amitriptyline and could consider reducing that. The patient's assessment included review of 163 pages of hospital records from [facility].
[2017-10-10 20:00] VITALS: BP 139/67
[2017-10-10] MEDS: raNITIdine SYRUP 150 MG/10 ML UDC GT SCH (21:00)
[2017-10-10] MEDS ORDERED: PROT40IN4 IV (21:00)
[2017-10-10] MEDS ORDERED: LOVE1INJ SC (21:02)
[2017-10-10] MEDS ORDERED: ZOSY3INJ2 IV (21:06)
[2017-10-10] MEDS ORDERED: SERO50TA PO (21:06)
[2017-10-10] MEDS: LACTULOSE 20 GM/30 ML SYRUP UD NG SCH (22:00)
[2017-10-10] MEDS: FINASTERIDE 5 MG TAB NG SCH (22:43)
[2017-10-10] MEDS: DONEPEZIL 5 MG TAB NG SCH (22:44)
[2017-10-10] MEDS: AMITRIPTYLINE 50 MG TAB NG SCH (22:44)
[2017-10-10] MEDS: TAMSULOSIN 0.4 MG CAP PO SCH (22:44)
[2017-10-10] MEDS: PIPERACILLIN/TAZOBACTAM SOD 3.375 GM in APPROPRIATE DILUENT 1 EA IV SCH (22:44)
[2017-10-11] MEDS: SUCRALFATE SUSP 1GM/10ML UD NG SCH ×6 (00:09→23:18)
[2017-10-11 02:00] VITALS: BP 138/64
[2017-10-11] MEDS: ACETAMINOPHEN TAB 650MG DOSE (2X325MG) NG PRN (03:36)
[2017-10-11] MEDS: LACTULOSE 20 GM/30 ML SYRUP UD NG SCH ×3 (05:16→21:39)
[2017-10-11] MEDS: PIPERACILLIN/TAZOBACTAM SOD 3.375 GM in APPROPRIATE DILUENT 1 EA IV SCH ×3 (05:16→21:39)
[2017-10-11 05:37] LABS: BASO % 0.3 % (0.0-1.0); EOS # 0.2 10^3/uL (0.0-0.50); EOS % 3.9 % (0.0-3.0); IMMATURE GRANULOCYTE % 2.7 % (0-0); LYMPH # 0.7 10^3/uL (1.5-4.5); MEAN CORPUSCULAR HEMOGLOBIN 30.3 pg (27.0-33.0); MEAN CORPUSCULAR HGB CONC 32.9 g/dl (32.0-36.5); MEAN CORPUSCULAR VOLUME 92.1 fl (80.0-96.0); MONO % 17.2 % (0.0-5.0); NEUTROPHILS # 3.8 10^3/uL (1.8-7.7); NEUTROPHILS % 64.9 % (36.0-66.0); RED CELL DISTRIBUTION WIDTH 16.2 % (11.5-14.5); WHITE BLOOD COUNT 5.9 10^3/uL (4.0-10.0)
[2017-10-11 05:39] LABS: PLATELET COUNT, AUTOMATED 37 10^3/uL (150-450)
[2017-10-11 05:41] LABS: IMMATURE PLATELET FRACTION % 3.7 % (0.0-10.9)
[2017-10-11 05:47] LABS: INR 1.18
[2017-10-11 05:59] LABS: ALBUMIN/GLOBULIN RATIO 0.44 (1.00-1.93); ALKALINE PHOSPHATASE 454 U/L (45-117); ALT/SGPT 42 U/L (12-78); ANION GAP 8 MEQ/L (8-16); AST/SGOT 56 U/L (7-37); BILIRUBIN,TOTAL 1.5 MG/DL (0.2-1.0); BLOOD UREA NITROGEN 16 MG/DL (7-18); CALCIUM LEVEL 7.9 MG/DL (8.8-10.2); CARBON DIOXIDE LEVEL 26 MEQ/L (21-32); CHLORIDE LEVEL 107 MEQ/L (98-107); CREATININE FOR GFR 1.08 MG/DL (0.70-1.30); GLOMERULAR FILTRATION RATE > 60.0 (>42); GLUCOSE, FASTING 130 MG/DL (83-110); SODIUM LEVEL 141 MEQ/L (136-145); TOTAL PROTEIN 6.5 GM/DL (6.4-8.2)
[2017-10-11 06:00] VITALS: BP 127/59
[2017-10-11] MEDS ORDERED: ENOXAPARIN 40 MG/0.4 ML SYRINGE (J1650) SC SCH (09:00)
--- NOTE | 2017-10-11 09:40 | IPNPDOC ---
Subjective Date Seen The patient was seen on 10/11/17. Subjective Chief Complaint/HPI The patient is a 72-year-old male admitted with a reason for visit of Biliary Obstruction & Acute Delerium. Events since last encounter Pt this morning without new concerns. He was transferred back here yesterday from [facility]. General: Denies: Fatigue ENT: Denies: Head Aches Pulmonary: Denies: Dyspnea, Cough Cardiovascular: Denies: Chest Pain, Palpitations Gastrointestinal: Denies: Nausea, Vomiting, Abdominal Pain, Diarrhea Neurological: Reports: Weakness Psych: Reports: Mood Normal Objective Physical Examination General Exam: Positive: Alert, No Acute Distress ENT Exam: Positive: Mucous membr. moist/pink Chest Exam: Positive: Clear to auscultation, Diminished, Negative: Normal air movement Heart Exam: Positive: Rate Normal, Normal S1, Normal S2 Abdomen Exam: Positive: Normal bowel sounds, Soft, Other (moderately distended) , Negative: Tenderness Extremity Exam: Positive: Edema (trace BLE) Psych Exam: Positive: Mental status NL Assessment /Plan Problems (1) Ascending cholangitis Status: Acute Response to Treatment: Stable, Improving Discussed With: Patient Problem Specific Plan: Monitor Clinically, Repeat Labs Problem Text: Pt was seen at [facility] for possible stent placement, noted to not be obstructed therefore no stent was placed. He is on Zosyn for E. coli bacteremia, completion date 10/23. (2) Swallowing difficulty Problem Text: ST note reviewed. Pt should stay NPO. G tube needed. Doubt he can have a PEG due to multiple abd surgeries. Will consult surgery. D/w Kaitlin/ agrees (3) E coli bacteremia Status: Acute Problem Text: See above. (4) Urinary obstruction Status: Acute Response to Treatment: Stable Problem Specific Plan: Monitor Clinically Problem Text: Cont with Proscar, flomax, can consider trial voiding. (5) Enterococcus UTI Status: Acute Response to Treatment: Stable Problem Specific Plan: Monitor Clinically Problem Text: Zosyn will cover. (6) Acute blood loss anemia Status: Acute Response to Treatment: Uncontrolled Discussed With: Patient Problem Specific Plan: Monitor Clinically, Repeat Labs Problem Text: Transfuse 2 units of pRBCs today. monitor Hgb. (7) History of cholangiocarcinoma Status: Chronic Response to Treatment: Stable Problem Specific Plan: Monitor Clinically Plan/VTE VTE Prophylaxis Ordered?: Yes VS, I&O, 24H, Fishbone Vital Signs/I&O Vital Signs Date Time Temp Pulse Resp B/P (MAP) Pulse Ox O2 Delivery O2 Flow Rate FiO2 10/11/17 06:00 99.3 64 18 127/59 (81) 93 Room Air Laboratory Data 24H LABS Laboratory Tests 2 10/11/17 05:14: Prothrombin Time 15.2H, Prothromb Time International Ratio 1.18, Anion Gap 8, Glomerular Filtration Rate > 60.0, Blood Urea Nitrogen 16, Creatinine 1.08, Sodium Level 141, Potassium Level 4.0, Chloride Level 107, Carbon Dioxide Level 26, Calcium Level 7.9L, Aspartate Amino Transf (AST/SGOT) 56H, Alanine Aminotransferase (ALT/SGPT) 42, Alkaline Phosphatase 454H, Total Bilirubin 1.5H , Total Protein 6.5, Albumin 2.0L, Albumin/Globulin Ratio 0.44L 10/11/17 05:15: Immature Granulocyte % (Auto) 2.7H, White Blood Count 5.9, Red Blood Count 2.54L , Hemoglobin 7.7L, Hematocrit 23.4L, Mean Corpuscular Volume 92.1, Mean Corpuscular Hemoglobin 30.3, Mean Corpuscular Hemoglobin Concent 32.9, Red Cell Distribution Width 16.2H, Platelet Count 37L, Neutrophils (%) (Auto) 64.9, Lymphocytes (%) (Auto) 11.0L, Monocytes (%) (Auto) 17.2H, Eosinophils (%) (Auto ) 3.9H, Basophils (%) (Auto) 0.3, Neutrophils # (Auto) 3.8, Lymphocytes # (Auto ) 0.7L, Monocytes # (Auto) 1.0H, Eosinophils # (Auto) 0.2, Basophils # (Auto) 0.0, Immature Granulocyte # (Auto) 0.2H, Nucleated Red Blood Cells % (auto) 0.0 , Immature Platelet Fraction 3.7, Ammonia 65H 10/11/17 05:46: Bedside Glucose (Misc Panel) 154H CBC/BMP Laboratory Tests 10/11/17 05:14 Calcium Level 7.9 L, Aspartate Amino Transf (AST/SGOT) 56 H, Alanine Aminotransferase (ALT/SGPT) 42, Alkaline Phosphatase 454 H, Total Bilirubin 1.5 H, Total Protein 6.5, Albumin 2.0 L 10/11/17 05:15 Red Blood Count 2.54 L, Mean Corpuscular Volume 92.1, Mean Corpuscular Hemoglobin 30.3, Mean Corpuscular Hemoglobin Concent 32.9, Red Cell Distribution Width 16.2 H, Neutrophils (%) (Auto) 64.9, Lymphocytes (%) (Auto) 11.0 L, Monocytes (%) (Auto) 17.2 H, Eosinophils (%) (Auto) 3.9 H, Basophils (% ) (Auto) 0.3, Neutrophils # (Auto) 3.8, Lymphocytes # (Auto) 0.7 L, Monocytes # (Auto) 1.0 H, Eosinophils # (Auto) 0.2, Basophils # (Auto) 0.0 RAMO GAMEZ PA-C Oct 11, 2017 09:40 Gary Cuba MD Oct 11, 2017 14:52
[2017-10-11 10:00] VITALS: BP 132/62
[2017-10-11] MEDS: VITAMIN D 1,000 INTERNATIONAL UNITS TABLET NG SCH (10:52)
[2017-10-11] MEDS: raNITIdine SYRUP 150 MG/10 ML UDC GT SCH ×2 (10:52→21:39)
[2017-10-11] MEDS: AMITRIPTYLINE 50 MG TAB NG SCH ×2 (10:52→20:33)
[2017-10-11] MEDS: PANTOPRAZOLE 40MG INJ (PROTONIX) (C9113) IV SCH (10:52)
[2017-10-11] MEDS: NADOLOL 20MG TABLET NG SCH (10:53)
[2017-10-11 18:00] VITALS: BP 135/71
[2017-10-11] MEDS: DONEPEZIL 5 MG TAB NG SCH (20:33)
[2017-10-11] MEDS: FINASTERIDE 5 MG TAB NG SCH (20:33)
[2017-10-11] MEDS: TAMSULOSIN 0.4 MG CAP PO SCH (20:33)
[2017-10-11 22:00] VITALS: BP 144/69
--- NOTE | 2017-10-11 23:30 | REPUSA ---
Clinical history: Congestion. Comparison: None. Findings: The mediastinum and cardiac silhouette are within normal limits. The right-sided chest port is in place. There is moderate diffuse pulmonary vascular congestion. No pleural effusion or pneumot horax is seen. The osseous structures and soft tissues are unremarkable. Impression: Moderate congestive heart failure.
[2017-10-12 02:00] VITALS: BP 135/65
--- NOTE | 2017-10-12 03:40 | REPUSA ---
CLINICAL HISTORY: Enteric feeding tube placement. COMMENTS: Comparison to prior exam performed on 10/11/2017. The cardiac silhouette is enlarged. There is evidence for pulmonary venous congestion compatible with CHF. Unchanged small left-sided pleural effusion. Unchanged passive atelectatic airspace disease in the left lower lobe. The tip of the enteric feeding tube is just below the gastroesophageal junction. It needs to be advanced 3 cm. Bony structures appear normal. IMPRESSION: 1. Enlarged cardiac silhouette. 2. Pulmonary venous congestion compatible with CHF. Unchanged. 3. The tip of the enteric feeding tube is just below the gastroesophageal junction. It needs to be ad vanced 3 cm. Thank you for your kind referral of this patient.
[2017-10-12] MEDS: SODIUM CHLORIDE 0.9% INJ 10 ML SYR IV PRN ×2 (05:31→21:40)
[2017-10-12] MEDS: SUCRALFATE SUSP 1GM/10ML UD NG SCH ×3 (05:32→18:27)
[2017-10-12] MEDS: PIPERACILLIN/TAZOBACTAM SOD 3.375 GM in APPROPRIATE DILUENT 1 EA IV SCH ×3 (05:32→21:40)
[2017-10-12] MEDS: LACTULOSE 20 GM/30 ML SYRUP UD NG SCH ×3 (05:32→21:39)
[2017-10-12 05:53] LABS: BASO # 0.1 10^3/uL (0.0-0.2); EOS # 0.2 10^3/uL (0.0-0.50); EOS % 4.6 % (0.0-3.0); IMMATURE GRANULOCYTE % 1.9 % (0-0); LYMPH # 0.6 10^3/uL (1.5-4.5); LYMPH % 11.7 % (24.0-44.0); MEAN CORPUSCULAR HGB CONC 33.6 g/dl (32.0-36.5); MEAN CORPUSCULAR VOLUME 89.4 fl (80.0-96.0); MONO # 0.8 10^3/uL (0.0-0.8); MONO % 15.3 % (0.0-5.0); NEUTROPHILS # 3.4 10^3/uL (1.8-7.7); NEUTROPHILS % 65.5 % (36.0-66.0); RED CELL DISTRIBUTION WIDTH 15.9 % (11.5-14.5); WHITE BLOOD COUNT 5.2 10^3/uL (4.0-10.0)
[2017-10-12 05:54] LABS: PLATELET COUNT, AUTOMATED 34 10^3/uL (150-450)
[2017-10-12 06:00] VITALS: BP 141/69
[2017-10-12 06:14] LABS: ALBUMIN 2.1 GM/DL (3.2-5.2); ALBUMIN/GLOBULIN RATIO 0.42 (1.00-1.93); ALKALINE PHOSPHATASE 445 U/L (45-117); ALT/SGPT 41 U/L (12-78); ANION GAP 7 MEQ/L (8-16); AST/SGOT 60 U/L (7-37); BILIRUBIN,TOTAL 1.9 MG/DL (0.2-1.0); BLOOD UREA NITROGEN 14 MG/DL (7-18); CALCIUM LEVEL 8.3 MG/DL (8.8-10.2); CARBON DIOXIDE LEVEL 25 MEQ/L (21-32); CHLORIDE LEVEL 106 MEQ/L (98-107); CREATININE FOR GFR 1.03 MG/DL (0.70-1.30); GLOMERULAR FILTRATION RATE > 60.0 (>42); GLUCOSE, FASTING 125 MG/DL (83-110); POTASSIUM SERUM 3.8 MEQ/L (3.5-5.1); SODIUM LEVEL 138 MEQ/L (136-145); TOTAL PROTEIN 7.1 GM/DL (6.4-8.2)
--- NOTE | 2017-10-12 08:34 | IPNPDOC ---
Subjective Date Seen The patient was seen on 10/12/17. Subjective Chief Complaint/HPI The patient is a 72-year-old male admitted with a reason for visit of Biliary Obstruction & Acute Delerium. Events since last encounter Patient with increased confusion. Attempting to get OOB. Disoriented to place and time. General: Reports: ROS Unobtainable Objective Physical Examination General Exam: Positive: Alert, No Acute Distress ENT Exam: Positive: Mucous membr. moist/pink Chest Exam: Positive: Clear to auscultation, Diminished, Negative: Normal air movement Heart Exam: Positive: Rate Normal, Normal S1, Normal S2 Abdomen Exam: Positive: Normal bowel sounds, Soft, Other (moderately distended) , Negative: Tenderness Extremity Exam: Positive: Edema (trace BLE) Psych Exam: Positive: Mental status NL Assessment /Plan Problems (1) Ascending cholangitis Status: Acute Response to Treatment: Stable, Improving Discussed With: Patient Problem Specific Plan: Monitor Clinically, Repeat Labs Problem Text: 10/12/17: afebrile. T. Bili 1.9. ammonia level stable at 63. Pt was seen at [facility] for possible stent placement, noted to not be obstructed therefore no stent was placed. He is on Zosyn for E. coli bacteremia, completion date 10/23. (2) Swallowing difficulty Problem Text: ST note reviewed. Pt should stay NPO. G tube needed. Doubt he can have a PEG due to multiple abd surgeries. Will consult surgery. D/w Kaitlin/ agrees (3) E coli bacteremia Status: Acute Problem Text: See above. (4) Urinary obstruction Status: Acute Response to Treatment: Stable Problem Specific Plan: Monitor Clinically Problem Text: Cont with Proscar, flomax, can consider trial voiding. (5) Enterococcus UTI Status: Acute Response to Treatment: Stable Problem Specific Plan: Monitor Clinically Problem Text: Zosyn will cover. (6) Acute blood loss anemia Status: Acute Response to Treatment: Uncontrolled Discussed With: Patient Problem Specific Plan: Monitor Clinically, Repeat Labs Problem Text: Transfuse 2 units of pRBCs today. monitor Hgb. (7) History of cholangiocarcinoma Status: Chronic Response to Treatment: Stable Problem Specific Plan: Monitor Clinically Plan/VTE VTE Prophylaxis Ordered?: Yes VS, I&O, 24H, Fishbone Vital Signs/I&O Vital Signs Date Time Temp Pulse Resp B/P (MAP) Pulse Ox O2 Delivery O2 Flow Rate FiO2 12/13/17 06:00 99.1 64 18 141/69 (93) 95 Room Air I&O- Last 24 Hours up to 6 AM 10/13/17 06:00 Intake Total 0 ml Output Total 0 ml Balance 0 ml Laboratory Data 24H LABS Laboratory Tests 2 10/12/17 05:40: Immature Granulocyte % (Auto) 1.9H, White Blood Count 5.2, Red Blood Count 3.10L , Hemoglobin 9.3L, Hematocrit 27.7L, Mean Corpuscular Volume 89.4, Mean Corpuscular Hemoglobin 30.0, Mean Corpuscular Hemoglobin Concent 33.6, Red Cell Distribution Width 15.9H, Platelet Count 34L, Neutrophils (%) (Auto) 65.5, Lymphocytes (%) (Auto) 11.7L, Monocytes (%) (Auto) 15.3H, Eosinophils (%) (Auto ) 4.6H, Basophils (%) (Auto) 1.0, Neutrophils # (Auto) 3.4, Lymphocytes # (Auto ) 0.6L, Monocytes # (Auto) 0.8, Eosinophils # (Auto) 0.2, Basophils # (Auto) 0.1 , Immature Granulocyte # (Auto) 0.1H, Nucleated Red Blood Cells % (auto) 0.0, Immature Platelet Fraction 3.0, Anion Gap 7L, Glomerular Filtration Rate > 60.0 , Blood Urea Nitrogen 14, Creatinine 1.03, Sodium Level 138, Potassium Level 3.8 , Chloride Level 106, Carbon Dioxide Level 25, Calcium Level 8.3L, Aspartate Amino Transf (AST/SGOT) 60H, Alanine Aminotransferase (ALT/SGPT) 41, Alkaline Phosphatase 445H, Total Bilirubin 1.9H, Total Protein 7.1, Albumin 2.1L, Ammonia 63H, Albumin/Globulin Ratio 0.42L CBC/BMP Laboratory Tests 10/12/17 05:40 Red Blood Count 3.10 L, Mean Corpuscular Volume 89.4, Mean Corpuscular Hemoglobin 30.0, Mean Corpuscular Hemoglobin Concent 33.6, Red Cell Distribution Width 15.9 H, Neutrophils (%) (Auto) 65.5, Lymphocytes (%) (Auto) 11.7 L, Monocytes (%) (Auto) 15.3 H, Eosinophils (%) (Auto) 4.6 H, Basophils (% ) (Auto) 1.0, Neutrophils # (Auto) 3.4, Lymphocytes # (Auto) 0.6 L, Monocytes # (Auto) 0.8, Eosinophils # (Auto) 0.2, Basophils # (Auto) 0.1, Calcium Level 8.3 L, Aspartate Amino Transf (AST/SGOT) 60 H, Alanine Aminotransferase (ALT/SGPT) 41, Alkaline Phosphatase 445 H, Total Bilirubin 1.9 H, Total Protein 7.1, Albumin 2.1 L Robina Stack [facility] Oct 12, 2017 08:34
[2017-10-12] MEDS: AMITRIPTYLINE 50 MG TAB NG SCH ×2 (09:51→21:40)
[2017-10-12] MEDS: VITAMIN D 1,000 INTERNATIONAL UNITS TABLET NG SCH (09:51)
[2017-10-12] MEDS: PANTOPRAZOLE 40MG INJ (PROTONIX) (C9113) IV SCH (09:51)
[2017-10-12] MEDS: raNITIdine SYRUP 150 MG/10 ML UDC GT SCH ×2 (09:51→21:39)
[2017-10-12] MEDS: SODIUM CHLORIDE 0.9% INJ 10 ML SYR IV SCH (09:52)
[2017-10-12] MEDS: NADOLOL 20MG TABLET NG SCH (09:52)
[2017-10-12 10:00] VITALS: BP 132/70
[2017-10-12 14:00] VITALS: BP 131/69
[2017-10-12 18:00] VITALS: BP 126/60
[2017-10-12] MEDS: DONEPEZIL 5 MG TAB NG SCH (21:39)
[2017-10-12] MEDS: TAMSULOSIN 0.4 MG CAP PO SCH (21:39)
[2017-10-12] MEDS: FINASTERIDE 5 MG TAB NG SCH (21:39)
[2017-10-12] MEDS: ACETAMINOPHEN TAB 650MG DOSE (2X325MG) NG PRN (21:41)
[2017-10-12 22:00] VITALS: BP 140/63
[2017-10-13] MEDS: SUCRALFATE SUSP 1GM/10ML UD NG SCH ×5 (01:07→23:23)
[2017-10-13] MEDS: PIPERACILLIN/TAZOBACTAM SOD 3.375 GM in APPROPRIATE DILUENT 1 EA IV SCH ×3 (05:15→22:03)
[2017-10-13] MEDS: SODIUM CHLORIDE 0.9% INJ 10 ML SYR IV PRN (05:16)
[2017-10-13] MEDS: LACTULOSE 20 GM/30 ML SYRUP UD NG SCH ×3 (05:16→22:02)
[2017-10-13 06:00] VITALS: BP 132/72
[2017-10-13 06:44] LABS: BASO % 0.5 % (0.0-1.0); EOS # 0.2 10^3/uL (0.0-0.50); EOS % 4.1 % (0.0-3.0); IMMATURE GRANULOCYTE % 1.5 % (0-0); LYMPH # 0.6 10^3/uL (1.5-4.5); LYMPH % 14.6 % (24.0-44.0); MEAN CORPUSCULAR HEMOGLOBIN 29.8 pg (27.0-33.0); MEAN CORPUSCULAR HGB CONC 33.2 g/dl (32.0-36.5); MEAN CORPUSCULAR VOLUME 89.6 fl (80.0-96.0); MONO # 0.8 10^3/uL (0.0-0.8); MONO % 19.3 % (0.0-5.0); NEUTROPHILS # 2.5 10^3/uL (1.8-7.7); RED CELL DISTRIBUTION WIDTH 15.9 % (11.5-14.5); WHITE BLOOD COUNT 4.1 10^3/uL (4.0-10.0)
[2017-10-13 06:55] LABS: PLATELET COUNT, AUTOMATED 36 10^3/uL (150-450)
[2017-10-13 06:56] LABS: ADD MANUAL DIFFER NO; DIFF SLIDE NUMBER 35
[2017-10-13] MEDS: raNITIdine SYRUP 150 MG/10 ML UDC GT SCH ×2 (09:00→22:02)
[2017-10-13] MEDS: NADOLOL 20MG TABLET NG SCH (09:00)
[2017-10-13] MEDS: VITAMIN D 1,000 INTERNATIONAL UNITS TABLET NG SCH (09:00)
[2017-10-13] MEDS: AMITRIPTYLINE 50 MG TAB NG SCH ×2 (09:00→22:02)
[2017-10-13] MEDS: SODIUM CHLORIDE 0.9% INJ 10 ML SYR IV SCH (09:00)
[2017-10-13 10:00] VITALS: BP 142/79
[2017-10-13] MEDS: PANTOPRAZOLE 40MG INJ (PROTONIX) (C9113) IV SCH (10:57)
--- NOTE | 2017-10-13 12:46 | IPN ---
DATE: 10/13/2017 Trev looks dramatically better this morning. He is sitting up. He is fully alert. He denies any abdominal pain or shortness of breath. He pulled his NG tube out overnight. Attempts to restart this led to epistaxis in the face of his thrombocytopenia. We abandoned those efforts. The case was discussed with Dr. Hirsch today. He has been consulted for possible G tube placement. He is wondering with the NG tube out it might be an appropriate time to test swallowing function. He failed a swallowing evaluation at [facility] but he had his NG tube in place at the time. PHYSICAL EXAMINATION: 142/79, pulse 74, respiratory rate 20, respiratory rate 20, 98% oxygen saturation. Alert and conversant in no distress. Recognizes me upon entering the room. HEENT: Unremarkable. LUNGS; Clear. HEART: Regular rhythm. ABDOMEN: Soft, nontender, nondistended. LABORATORIES: CBC is stable with a hemoglobin of 8.9. Chem profile is still pending. It is now 12:10 in the afternoon and it is not back yet. Ammonia level is 4.6. IMPRESSION: 1. Ascending cholangitis. He is on Zosyn, completion date 10/23. 2. Swallowing difficulty. Speech therapy is in the room at this time and doing a swallowing evaluation. If he passes this he will not use the G tube. PEG tube is not feasible due to multiple abdominal surgeries. 3. E. coli bacteremia. Continue on Zosyn with an end stage of 10/23. 4. Urinary obstruction. A trial of voiding to be considered. 5. Enterococcal urinary tract infection on Zosyn, which should cover this. 6. Anemia. Yesterday's note indicates the patient was transfused on 10/12, transfusion actually took place on 10/11. Hemoglobin is stable.
[2017-10-13 14:00] VITALS: BP 131/73
[2017-10-13 16:00] LABS: ALBUMIN 2.2 GM/DL (3.2-5.2); ALBUMIN/GLOBULIN RATIO 0.48 (1.00-1.93); ALKALINE PHOSPHATASE 456 U/L (45-117); ALT/SGPT 44 U/L (12-78); ANION GAP 9 MEQ/L (8-16); AST/SGOT 66 U/L (7-37); BILIRUBIN,TOTAL 1.9 MG/DL (0.2-1.0); BLOOD UREA NITROGEN 16 MG/DL (7-18); CARBON DIOXIDE LEVEL 24 MEQ/L (21-32); CHLORIDE LEVEL 108 MEQ/L (98-107); CREATININE FOR GFR 0.97 MG/DL (0.70-1.30); GLOMERULAR FILTRATION RATE > 60.0 (>42); GLUCOSE, FASTING 78 MG/DL (83-110); POTASSIUM SERUM 4.1 MEQ/L (3.5-5.1); SODIUM LEVEL 141 MEQ/L (136-145); TOTAL PROTEIN 6.8 GM/DL (6.4-8.2)
[2017-10-13 18:00] VITALS: BP 138/72
[2017-10-13 22:00] VITALS: BP 133/60
[2017-10-13] MEDS: DONEPEZIL 5 MG TAB NG SCH (22:03)
[2017-10-13] MEDS: FINASTERIDE 5 MG TAB NG SCH (22:03)
[2017-10-13] MEDS: TAMSULOSIN 0.4 MG CAP PO SCH (22:03)
[2017-10-14 02:00] VITALS: BP 136/68
[2017-10-14] MEDS: SUCRALFATE SUSP 1GM/10ML UD NG SCH ×4 (05:11→23:19)
[2017-10-14] MEDS: LACTULOSE 20 GM/30 ML SYRUP UD NG SCH ×3 (05:11→21:44)
[2017-10-14] MEDS: PIPERACILLIN/TAZOBACTAM SOD 3.375 GM in APPROPRIATE DILUENT 1 EA IV SCH ×2 (05:12→14:09)
[2017-10-14] MEDS: SODIUM CHLORIDE 0.9% INJ 10 ML SYR IV PRN (05:12)
[2017-10-14 05:48] LABS: ALBUMIN 2.2 GM/DL (3.2-5.2); ALBUMIN/GLOBULIN RATIO 0.49 (1.00-1.93); ALKALINE PHOSPHATASE 479 U/L (45-117); ALT/SGPT 50 U/L (12-78); ANION GAP 8 MEQ/L (8-16); AST/SGOT 84 U/L (7-37); BILIRUBIN,TOTAL 2.4 MG/DL (0.2-1.0); BLOOD UREA NITROGEN 17 MG/DL (7-18); CARBON DIOXIDE LEVEL 25 MEQ/L (21-32); CHLORIDE LEVEL 107 MEQ/L (98-107); CREATININE FOR GFR 1.07 MG/DL (0.70-1.30); GLOMERULAR FILTRATION RATE > 60.0 (>42); GLUCOSE, FASTING 77 MG/DL (83-110); POTASSIUM SERUM 3.9 MEQ/L (3.5-5.1); SODIUM LEVEL 140 MEQ/L (136-145); TOTAL PROTEIN 6.7 GM/DL (6.4-8.2)
[2017-10-14 06:00] VITALS: BP 145/72
[2017-10-14 06:18] LABS: EOS # 0.2 10^3/uL (0.0-0.50); EOS % 4.9 % (0.0-3.0); LYMPH # 0.6 10^3/uL (1.5-4.5); LYMPH % 14.8 % (24.0-44.0); MEAN CORPUSCULAR HEMOGLOBIN 29.5 pg (27.0-33.0); MEAN CORPUSCULAR HGB CONC 32.8 g/dl (32.0-36.5); MEAN CORPUSCULAR VOLUME 89.9 fl (80.0-96.0); MONO # 0.8 10^3/uL (0.0-0.8); MONO % 20.2 % (0.0-5.0); NEUTROPHILS # 2.4 10^3/uL (1.8-7.7); NEUTROPHILS % 58.1 % (36.0-66.0); RED CELL DISTRIBUTION WIDTH 15.9 % (11.5-14.5); WHITE BLOOD COUNT 4.1 10^3/uL (4.0-10.0)
[2017-10-14 06:21] LABS: PLATELET COUNT, AUTOMATED 40 10^3/uL (150-450)
[2017-10-14 06:24] LABS: IMMATURE PLATELET FRACTION % 2.7 % (0.0-10.9)
[2017-10-14 10:00] VITALS: BP 142/80
--- NOTE | 2017-10-14 10:44 | IPN ---
DATE: 10/14/2017 Radha was seen on 4 pavilion He is actually pretty sleep today. It was more difficult to arouse him. He passed his swallowing evaluation yesterday, so he is now on a pureed diet, and per nursing staff, he is tolerating this. Recommendations were for pureed diet with nectar thick liquid and aspiration precautions. His bilirubin is rising some. He has had biliary obstruction. He was actually transferred from our institution down to [facility] earlier in his hospitalization for interventional radiology to address biliary obstruction with a percutaneous drainage tube. However, they did a HIDA scan and the biliary stent, which was presumably occluded, had become patent. PHYSICAL EXAMINATION: Afebrile, 145/72, pulse 72, respiratory rate 18, 98% oxygen saturation. He is lying in bed. He does not look jaundice. Lungs: Clear. HEART: Regular rate and rhythm. ABDOMEN: Soft, nondistended. No masses. No peripheral edema. LABORATORIES: CBC is stable. Hemoglobin was 8.8. Bilirubin is up 2.4. It was 1.9 yesterday. It was 1.5 on admission. His alkaline phosphatase is relatively stable. Ammonia is down to 42. Review of records show he is having about three soft loose stool per day. IMPRESSION: 1. Cholangitis/Escherichia (E) coli bacteremia. He is currently on Zosyn. I put a consult in for Dr. Naylor. The patient has potential to go to rehabilitation. I wonder if there is an antibiotic choice that might be easier to administer than the every 8 hour Zosyn. The case was discussed with her. Appreciate her prompt interest in the case 2. Swallowing difficulty. He is on a pureed diet with nectar thickened liquids. Fortunately, we were able to avoid a gastrostomy (G) tube. 3. Biliary obstruction. I am concerned about the rising bilirubin. We will repeat this tomorrow. If it is up higher, I would recommend a CT scan to see if he has evidence of any ductal dilatation. I am not sure what GI coverage is like for this weekend. 4. Urinary obstruction. At some point, we need to discontinue his Hensley and give him a trial of voiding. I would not attempt that until Tuesday. over the weekend. 5. Anemia. He was transfused 10/11/2017. Hemoglobin is stable. 6. Enterococcal urinary tract infection (UTI). Continue with Zosyn. 7. History of cholangiocarcinoma of the biliary tract status post resection with no evidence of recurrence on biopsy.
[2017-10-14] MEDS: SODIUM CHLORIDE 0.9% INJ 10 ML SYR IV SCH (11:09)
[2017-10-14] MEDS: AMITRIPTYLINE 50 MG TAB NG SCH ×2 (11:09→21:45)
[2017-10-14] MEDS: raNITIdine SYRUP 150 MG/10 ML UDC GT SCH ×2 (11:09→21:44)
[2017-10-14] MEDS: VITAMIN D 1,000 INTERNATIONAL UNITS TABLET NG SCH (11:09)
[2017-10-14] MEDS: PANTOPRAZOLE 40MG INJ (PROTONIX) (C9113) IV SCH (11:09)
[2017-10-14] MEDS: NADOLOL 20MG TABLET NG SCH (11:13)
[2017-10-14 14:00] VITALS: BP 124/72
--- NOTE | 2017-10-14 17:59 | CR ---
DATE OF CONSULTATION: 10/13/2017 REASON FOR CONSULTATION: Feeding tube placement. HISTORY OF PRESENT ILLNESS: The patient is a 72-year-old male patient of Dr. Cuba, currently being treated for cholangitis, hepatic encephalopathy, and dementia. He was recently sent to [facility] for possible percutaneous drainage with interventional radiology; however, he had a hepatobiliary iminodiacetic acid (HIDA) there, which showed no evidence of any bowel obstruction and he was improving, so he was transferred back here on the October 10. He had an nasogastric (NG) tube in place due to his altered mental status and confusion; however, last evening he pulled the NG tube out on his own and it has not been replaced. This morning the patient appears to be awake and alert. He is very hungry and claims that can eat on his own. He is waiting for his to arrive so that she can take him home. He is slightly confused. Does not answer all questions appropriately; however, he is fairly with it and is aware of his name and date of at the least. He denies any nausea or vomiting. No fevers or chills. No abdominal pain. Claims that he can get up and go to the bathroom if he wants to, but the nurses say that they are unaware of his physical ability, and o they are keeping him in bed until he has been examined by physical therapy. I had a discussion with Dr. Cuba, who does not feel that he should need a percutaneous endoscopic gastrostomy (PEG) tube, so plan is to repeat a swallow evaluation today and go from there. PAST MEDICAL HISTORY: 1. Cholangiocarcinoma. 2. History of stroke. 3. Esophageal varices. 4. Hepatic encephalopathy. 5. Cirrhosis. 6. Thrombocytopenia. 7. Depression. 8. Chronic anemia. 9. Benign prostatic hypertrophy (BPH). PAST SURGICAL HISTORY: 1. Bile duct excision with hepaticojejunostomy. 2. Natacha-en-Y esophageal variceal banding. 3. Right total knee replacement. 5. Percutaneous gallbladder drainage. SOCIAL HISTORY: Nonsmoker. Denies drug, alcohol, tobacco usage. FAMILY HISTORY: Noncontributory. ALLERGIES: BACLOFEN, CARBIDOPA, HALOPERIDOL, IBUPROFEN, LEVAQUIN, STATINS. HOME MEDICATIONS: Please see medication reconciliation. REVIEW OF SYSTEMS: Pertinent positives and negatives stated in the history of present illness (HPI). PHYSICAL EXAMINATION: GENERAL: Patient alert and oriented times three in no acute distress. VITAL SIGNS: Temperature 97.7, pulse 74, respirations 20, blood pressure 142/79, pulse oximetry 98% room air. HEENT: Pupils equally round and reactive to light accommodation. HEART: S1, S2, regular rate and rhythm. LUNGS: Clear to auscultation bilaterally. ABDOMEN: Soft, nontender, nondistended. Multiple abdominal incisions. EXTREMITIES: No clubbing, cyanosis, or edema. LABORATORY DATA: White count 4.1, hemoglobin 8.9, platelets 36, potassium 4.1, creatinine 0.97. ASSESSMENT AND PLAN: The patient 72-year-old male with history of cholangiocarcinoma, dementia, hepatic encephalopathy, cirrhosis, and recent dysphagia due to altered mental status, and thrombocytopenia. Recommendation at this time is to continue with swallow evaluation by speech to see if he is able to tolerate oral diet on his own, even if it is a modified diet. If he passes his evaluation, then he will be able to continue with that diet; however, if he does not pass, then we will attempt a percutaneous endoscopic gastrostomy (PEG) tube placement. If unsuccessful, then he may need a laparoscopic gastrostomy (G) tube placement. That will all depend on how much scar tissue he has from his previous surgeries. I have discussed case with Dr. Cuba. If it comes to the point where he does need a surgical procedure, I will discuss the procedure and findings with his , who is the durable power of erisa attorney (DPOA); however, at this point I will hold off until the swallowing evaluation is done to see if there is anything else for me to do.
[2017-10-14 18:00] VITALS: BP 132/72
[2017-10-14] MEDS: FINASTERIDE 5 MG TAB NG SCH (21:44)
[2017-10-14] MEDS: TAMSULOSIN 0.4 MG CAP PO SCH (21:44)
[2017-10-14] MEDS: AUGMENTIN 875 MG TAB PO SCH (21:44)
[2017-10-14] MEDS: DONEPEZIL 5 MG TAB NG SCH (21:44)
[2017-10-14 22:00] VITALS: BP 132/75
[2017-10-15 02:00] VITALS: BP 128/58
[2017-10-15] MEDS: SUCRALFATE SUSP 1GM/10ML UD NG SCH ×5 (05:17→23:37)
[2017-10-15] MEDS: LACTULOSE 20 GM/30 ML SYRUP UD NG SCH ×3 (05:17→21:39)
[2017-10-15] MEDS: SODIUM CHLORIDE 0.9% INJ 10 ML SYR IV PRN (05:18)
[2017-10-15 05:28] LABS: BASO % 0.9 % (0.0-1.0); EOS # 0.1 10^3/uL (0.0-0.50); EOS % 3.3 % (0.0-3.0); IMMATURE GRANULOCYTE % 1.2 % (0-0); LYMPH # 0.7 10^3/uL (1.5-4.5); LYMPH % 15.6 % (24.0-44.0); MEAN CORPUSCULAR HEMOGLOBIN 29.9 pg (27.0-33.0); MEAN CORPUSCULAR HGB CONC 32.8 g/dl (32.0-36.5); MEAN CORPUSCULAR VOLUME 91.1 fl (80.0-96.0); MONO % 24.1 % (0.0-5.0); NEUTROPHILS # 2.3 10^3/uL (1.8-7.7); NEUTROPHILS % 54.9 % (36.0-66.0); WHITE BLOOD COUNT 4.2 10^3/uL (4.0-10.0)
[2017-10-15 05:35] LABS: PLATELET COUNT, AUTOMATED 49 10^3/uL (150-450)
[2017-10-15 06:00] VITALS: BP 130/64
[2017-10-15 06:03] LABS: ALBUMIN 2.2 GM/DL (3.2-5.2); ALBUMIN/GLOBULIN RATIO 0.49 (1.00-1.93); ALKALINE PHOSPHATASE 488 U/L (45-117); ALT/SGPT 62 U/L (12-78); ANION GAP 8 MEQ/L (8-16); AST/SGOT 102 U/L (7-37); BILIRUBIN,TOTAL 1.9 MG/DL (0.2-1.0); BLOOD UREA NITROGEN 15 MG/DL (7-18); CALCIUM LEVEL 8.3 MG/DL (8.8-10.2); CARBON DIOXIDE LEVEL 26 MEQ/L (21-32); CHLORIDE LEVEL 106 MEQ/L (98-107); CREATININE FOR GFR 0.96 MG/DL (0.70-1.30); GLOMERULAR FILTRATION RATE > 60.0 (>42); GLUCOSE, FASTING 82 MG/DL (83-110); POTASSIUM SERUM 3.9 MEQ/L (3.5-5.1); SODIUM LEVEL 140 MEQ/L (136-145); TOTAL PROTEIN 6.7 GM/DL (6.4-8.2)
[2017-10-15] MEDS: raNITIdine SYRUP 150 MG/10 ML UDC GT SCH ×2 (08:51→21:39)
[2017-10-15] MEDS: SODIUM CHLORIDE 0.9% INJ 10 ML SYR IV SCH (08:51)
[2017-10-15] MEDS: VITAMIN D 1,000 INTERNATIONAL UNITS TABLET NG SCH (08:52)
[2017-10-15] MEDS: AUGMENTIN 875 MG TAB PO SCH ×2 (08:52→21:39)
[2017-10-15] MEDS: NADOLOL 20MG TABLET NG SCH (08:52)
[2017-10-15] MEDS: AMITRIPTYLINE 50 MG TAB NG SCH ×2 (08:52→21:40)
[2017-10-15] MEDS: PANTOPRAZOLE 40MG TAB (PROTONIX) PO SCH (08:52)
[2017-10-15 10:00] VITALS: BP 132/81
[2017-10-15 14:00] VITALS: BP 132/82
--- NOTE | 2017-10-15 15:19 | CR ---
DATE OF CONSULTATION: 10/14/2017 INFECTIOUS DISEASE CONSULTATION Asked to consult by Dr. Cuba for evaluation of intravenous (IV) antibiotics in a patient with acute cholangitis. HISTORY OF PRESENT ILLNESS: Mr. Huang is a 72-year-old gentleman with a history of hepatic cirrhosis and cholangiocarcinoma of the biliary tract in remission. The patient was seen in the emergency room on 10/03/2017 at [facility] with a fever of 102.6, 24% bandemia, a white count of 15.2 and was diagnosed with acute cholangitis. Blood cultures were positive for Escherichia coli (E-coli), which was pansensitive. The patient was intubated, in septic shock and started on pressors. He had an emergency endoscopic retrograde cholangiopancreatography (ERCP) done by Dr. Rodriguez who felt that his stent was blocked, and therefore, the patient was transferred to [facility] for interventional radiology to decompress his biliary stent. Upon arrival to interventional radiology at [facility], a HIDA scan was ordered which did not show any evidence of obstruction and therefore, they did not feel a percutaneous transhepatic cholangiogram (PTC) was required. He was seen by gastroenterology who recommended intravenous (IV) antibiotics. The patient was initially treated with IV Zosyn, that further was de-escalated to ceftriaxone but the patient developed a rash and therefore the patient was continued day #10 of IV Zosyn. He had a nasogastric (NG) tube in place that was removed 2 days ago. The patient was transferred back to [facility] for continued treatment. He is being considered to be transferred back to the group home for continued rehabilitation. His CA19-9 was repeated due to concern of recurrent cholangiocarcinoma but that had decreased compared to the one done in July from 92 to 84. Cytology from an ERCP on 10/03/2017 was negative for malignancy. The patient today denies any nausea, vomiting or diarrhea. According to nurses, he is eating well. He has passed a swallowing evaluation. He has had no fever or chills or abdominal pain. He states that he is going home and that he has been waiting to be discharged for the past 3 days and that was not fair for him. He also reported that he had a stroke with right-sided hemiparesis which has markedly improved. PAST MEDICAL HISTORY: Cholangiocarcinoma of the biliary tract. Hemorrhagic stroke. Esophageal varices. Hepatic encephalopathy. Severe thrombocytopenia from cirrhosis. History of depression. Anemia of chronic disease. Benign prostatic hypertrophy with urinary obstruction. MEDICATIONS: - heparin flushes - amitriptyline 100 mg by mouth daily - nadolol 20 mg by mouth daily - Protonix 40 mg IV daily - vitamin D 20,000 units daily - Tylenol as needed - lactulose 30 mL by mouth every 8 hours - Zosyn 3.375 grams IV every 8 hours - amitriptyline 150 mg by mouth nightly. - Aricept 10 mg by mouth nightly - ranitidine 150 mg by mouth twice a day - tamsulosin 0.4 mg by mouth daily - Proscar 5 mg by mouth daily ALLERGIES: BACLOFEN, LEVODOPA, CARBIDOPA, HALDOL, IBUPROFEN, LEVOFLOXACIN and STATINS. PAST SURGICAL HISTORY: ERCP, cholecystectomy January of 2013, abdominal surgery, joint replacement right side, right knee 12 years ago February of 2014, hepaticojejunostomy, radical bile duct exploration, portal lymphadenectomy, Natacha-en-Y anastomosis - surgeon was Dr. Morales. Endoscopy with esophageal and gastric varices band ligation, December of 2016 FAMILY HISTORY: Mother had lung and liver cancer. Father had congestive heart failure and a sister has breast cancer and ovarian cancer. SOCIAL HISTORY: He is . He lives with his but currently is undergoing rehabilitation at the [facility]. He has stopped driving; his drives. PHYSICAL EXAMINATION: On physical exam, he is a pleasant elderly gentleman who states he is 45 years old, in no acute distress. The patient has an Lonxeu-x-Ryoe in the right upper chest which is nontender. Heart: Normal S1, S2. No murmurs, rubs or gallops. Lungs are clear. No wheezes, rales or rhonchi. Diminished at the bases. Abdomen: Soft, nontender, no hepatosplenomegaly with a midline healed scar and a right lower quadrant scar, also well healed. He has a large umbilical hernia which is reducible. Extremities: Trace ankle edema bilaterally. Back: No costovertebral angle (CVA) or lumbosacral tenderness. Small abrasion on the left thigh that is healing well underneath the dressing. Oropharynx is dry. No lesions. No thrush. Neck is supple. No jugular venous distention (JVD), no bruits. IMPRESSION: This is a 72-year-old gentleman who was admitted with septic shock from acute cholangitis with E-coli bacteremia on 10/03/2017, transferred to [facility] for further management of a possible biliary stent obstruction; that did not need any further intervention. The patient is transferred back to [facility] on 10/10/2017 for further care. He has been on IV Zosyn for the past 10 days; the patient has tolerated oral medications and done well. He still has some metabolic encephalopathy, probably related to liver cirrhosis, but otherwise is doing well. His maximum temperature (T max) is 100 over the past 48 hours. White count is normal. The patient is tolerating by mouth. He is back to his baseline except for the mental status changes. From an infectious disease standpoint, he could be switched to an oral antibiotic. I do not see any indication to continue IV antibiotics for 14 days. The patient has received already 10 days to date. Acute cholangitis needs to be treated for 7-10 days. On review of cultures, 12/04/2016, E-coli blood culture was sensitive to ampicillin. Urine culture had Enterococcus faecalis. Hensley catheter 10/03/2017; two more sets of blood cultures done at 7 hours later were negative after one dose of antibiotics and sputum culture had E-coli. Imaging Studies: Chest x-ray done on 10/12/2017: Enlarged cardiac silhouette with pulmonary venous congestion compatible with CHF. Enteric tube feed is just below the GE junction. CT of the abdomen done on 10/03/2017 showed mildly dilated intrahepatic and extrahepatic biliary tree, pulmonary consolidation, pneumobilia, prior cholecystectomy, hepaticojejunostomy and fat stranding noted at the level of the sarina hepatis. Cannot rule out acute ascending cholangitis. PLAN: The patient has received 10 days of IV antibiotics for E-coli septic shock from acute cholangitis. He is clinically stable with a normal white count, low grade fever. Liver profile is back to baseline. I do not see any need for continued IV antibiotic. The patient probably could be trialed on oral Augmentin which would cover his E-coli and see how he does over the weekend. He should need another 5 days of oral antibiotic; that would finish a 14-day course. Hopefully the patient could be discharged to [facility] without IV antibiotics if he does well over the weekend. LABORATORY DATA: White count is 4.1, hemoglobin 8.8, hematocrit 26.8, platelets 40. The patient fluctuates between 60 and 90. Sodium 140, potassium 3.9, chloride 107, bicarbonate 25, BUN 17, creatinine 1, glucose 77, calcium 8, bilirubin 2.4, bilirubin was 0.8 in July, AST 84, ALT 50, alkaline phosphatase 479, ammonia 42, CRP 4.95, total protein 6.7, albumin 2.2. MTDD
[2017-10-15 18:00] VITALS: BP 142/78
[2017-10-15] MEDS: TAMSULOSIN 0.4 MG CAP PO SCH (21:40)
[2017-10-15] MEDS: FINASTERIDE 5 MG TAB NG SCH (21:40)
[2017-10-15] MEDS: DONEPEZIL 5 MG TAB NG SCH (21:40)
[2017-10-15 22:00] VITALS: BP 126/61
[2017-10-16 02:00] VITALS: BP 129/58
[2017-10-16] MEDS: SUCRALFATE SUSP 1GM/10ML UD NG SCH ×3 (05:35→18:27)
[2017-10-16] MEDS: LACTULOSE 20 GM/30 ML SYRUP UD NG SCH ×3 (05:35→21:41)
[2017-10-16] MEDS: SODIUM CHLORIDE 0.9% INJ 10 ML SYR IV PRN (05:37)
[2017-10-16 05:43] LABS: BASO # 0.1 10^3/uL (0.0-0.2); BASO % 1.3 % (0.0-1.0); EOS # 0.1 10^3/uL (0.0-0.50); EOS % 2.4 % (0.0-3.0); IMMATURE GRANULOCYTE % 0.8 % (0-0); LYMPH # 0.7 10^3/uL (1.5-4.5); MEAN CORPUSCULAR HEMOGLOBIN 29.7 pg (27.0-33.0); MEAN CORPUSCULAR HGB CONC 33.1 g/dl (32.0-36.5); MEAN CORPUSCULAR VOLUME 89.7 fl (80.0-96.0); MONO # 0.9 10^3/uL (0.0-0.8); MONO % 22.8 % (0.0-5.0); NEUTROPHILS % 54.7 % (36.0-66.0); RED CELL DISTRIBUTION WIDTH 16.2 % (11.5-14.5); WHITE BLOOD COUNT 3.7 10^3/uL (4.0-10.0)
[2017-10-16 05:48] LABS: PLATELET COUNT, AUTOMATED 65 10^3/uL (150-450)
[2017-10-16 05:49] LABS: IMMATURE PLATELET FRACTION % 1.7 % (0.0-10.9)
[2017-10-16 06:00] VITALS: BP 140/62
[2017-10-16 06:45] LABS: ALBUMIN 2.3 GM/DL (3.2-5.2); ALBUMIN/GLOBULIN RATIO 0.46 (1.00-1.93); ALKALINE PHOSPHATASE 637 U/L (45-117); ALT/SGPT 72 U/L (12-78); ANION GAP 9 MEQ/L (8-16); AST/SGOT 115 U/L (7-37); BILIRUBIN,TOTAL 1.4 MG/DL (0.2-1.0); BLOOD UREA NITROGEN 12 MG/DL (7-18); CARBON DIOXIDE LEVEL 24 MEQ/L (21-32); CHLORIDE LEVEL 106 MEQ/L (98-107); CREATININE FOR GFR 1.02 MG/DL (0.70-1.30); GLOMERULAR FILTRATION RATE > 60.0 (>42); GLUCOSE, FASTING 81 MG/DL (83-110); SODIUM LEVEL 139 MEQ/L (136-145); TOTAL PROTEIN 7.3 GM/DL (6.4-8.2)
[2017-10-16] MEDS: raNITIdine SYRUP 150 MG/10 ML UDC GT SCH ×2 (08:33→21:00)
[2017-10-16] MEDS: VITAMIN D 1,000 INTERNATIONAL UNITS TABLET NG SCH (08:34)
[2017-10-16] MEDS: NADOLOL 20MG TABLET NG SCH (08:34)
[2017-10-16] MEDS: AUGMENTIN 875 MG TAB PO SCH ×2 (08:34→21:00)
[2017-10-16] MEDS: AMITRIPTYLINE 50 MG TAB NG SCH ×2 (08:34→21:00)
[2017-10-16] MEDS: PANTOPRAZOLE 40MG TAB (PROTONIX) PO SCH (08:34)
[2017-10-16] MEDS: SODIUM CHLORIDE 0.9% INJ 10 ML SYR IV SCH (08:35)
[2017-10-16 10:00] VITALS: BP 138/70
--- NOTE | 2017-10-16 10:45 | IPN ---
DATE: 10/15/2017 I knew this patient from his admission to [facility] on September 21, 2017 after having been admitted there after hospitalization at [facility]. He had a head injury that he was recovering from at that time but he did have a background of Parkinsonism, resection of a cholangiocarcinoma and chronic liver disease as well as dementia. I am told that he became ill and was sent to [facility] and apparently this was primarily for interventional reasons. When he got to [facility], however, he was not found to have any sort of biliary obstruction and was returned here. Since his return here, however, he did have some positive blood cultures that became evident and has been on antibiotic. He seems reasonably comfortable. I am not seeing any reports of any nausea or vomiting or abdominal pain. Surgery and infectious disease have been consulting on him and snuff box finisher is quite aware of his situation. He remains on pantoprazole, Augmentin, amitriptyline, Corgard, vitamin D, as needed Tylenol, sucralfate, lactulose, donepezil, Zantac, Flomax and Proscar. On examination he does not appear to have a current weight on his chart. Temperature 98.8, pulse 65 and regular, blood pressure 130/64, O2 saturation 94% on room air. He is awake and somewhat bland in his personality not oriented to time or replaced. He is not jaundiced. His lungs are clears. His heart has regular rhythm without any murmur, click or gallop. Abdomen is soft and nontender. He does have some ventral hernias present. There is no edema. Labs today showed that his chemistry profile shows alkaline phosphatase of 488, ALT 62, AST of 102, bilirubin of 1.9, which is improved from 2.4 yesterday. Albumin is low at 2.2. His white count is 4200. ASSESSMENT: Cholangitis with E-coli bacteremia. He is currently on oral antibiotics. History of swallowing difficulties. He is able to manage with a pureed diet. Biliary obstruction. Actually this appears to be improved. His alkaline phosphatase is chronically abnormal. If his bilirubin goes up or his liver functions continued to go up CT would be reasonable to do. Urinary obstruction. He still has a Hensley catheter in. Chronic anemia-Hemoglobin low but stable. Parkinsonism. Dementia. Chronic liver disease. PLAN: The patient will continue on his current medication regimen. I have not made any changes. Assuming that he remains stable discharge back to [facility] for rehabilitation care would be appropriate after the weekend. LISA
[2017-10-16 14:00] VITALS: BP 119/62
--- NOTE | 2017-10-16 15:36 | IPNPDOC ---
Subjective Date Seen The patient was seen on 10/16/17. Subjective Chief Complaint/HPI The patient is a 72-year-old male admitted with a reason for visit of Biliary Obstruction & Acute Delerium. Events since last encounter Patient states he is feeling alright. Has been eating well so far. He has some confusion on exam but is orientated to date, place and person. Is eating well and states no nausea or vomiting. Is looking forward to leaving the hospital. Denies any abdominal pain. Constitutional: Denies: Chills, Fever Eyes: Denies: Vision change ENT: Denies: Head Aches Skin: Denies: Rash, Lesions Cardiovascular: Denies: Chest Pain Gastrointestinal: Denies: Nausea, Vomiting, Abdominal Pain Objective Physical Examination General Exam: Positive: Alert, No Acute Distress Eye Exam: Positive: PERRLA ENT Exam: Positive: Mucous membr. moist/pink Chest Exam: Positive: Clear to auscultation Heart Exam: Positive: Rate Normal, Normal S1, Normal S2 Abdomen Exam: Positive: Normal bowel sounds, Soft, Other (Large ventral wall hernia noted, nonpainful. ), Negative: Tenderness Extremity Exam: Positive: Edema (trace BLE) Psych Exam: Positive: Mental status NL Assessment /Plan Problems (1) Ascending cholangitis Status: Acute Response to Treatment: Stable, Improving Discussed With: Patient Problem Specific Plan: Monitor Clinically, Repeat Labs Problem Text: Liver enzymes and bilirubin repeated today. Total bilirubin decreased. No symptoms, abdominal pain, fever. WBC decreased. Per Infectious Disease Specialist Dr. Naylor, IV antibiotics were stopped and switched to oral amoxicillin/clavulanate. Continue PO antibiotics pending patient's clinical status. Appreciate her assistance in management of this patient. (2) Swallowing difficulty Problem Text: Tolerating diet at this time. Speech recommended special diet. Continue at this time. (3) E coli bacteremia Status: Acute Problem Text: Continue antibiotics. (4) Acute blood loss anemia Status: Acute Response to Treatment: Uncontrolled Discussed With: Patient Problem Specific Plan: Monitor Clinically, Repeat Labs Problem Text: Transfuse 2 units of pRBCs today. monitor Hgb. (5) History of cholangiocarcinoma Status: Chronic Response to Treatment: Stable Problem Specific Plan: Monitor Clinically (6) Urinary obstruction Status: Acute Response to Treatment: Stable Problem Specific Plan: Monitor Clinically Problem Text: Continue catheter. Plan/VTE VTE Prophylaxis Ordered?: Yes VS, I&O, 24H, Fishbone Vital Signs/I&O Vital Signs Date Time Temp Pulse Resp B/P (MAP) Pulse Ox O2 Delivery O2 Flow Rate FiO2 10/16/17 14:00 97.5 55 20 119/62 (81) 100 Room Air I&O- Last 24 Hours up to 6 AM 10/17/17 06:00 Intake Total 260 ml Output Total 0 ml Balance 260 ml Laboratory Data 24H LABS Laboratory Tests 2 10/16/17 05:31: Immature Granulocyte % (Auto) 0.8H, White Blood Count 3.7L, Red Blood Count 2.90L, Hemoglobin 8.6L, Hematocrit 26.0L, Mean Corpuscular Volume 89.7, Mean Corpuscular Hemoglobin 29.7, Mean Corpuscular Hemoglobin Concent 33.1, Red Cell Distribution Width 16.2H, Platelet Count 65L, Neutrophils (%) (Auto) 54.7, Lymphocytes (%) (Auto) 18.0L, Monocytes (%) (Auto) 22.8H, Eosinophils (%) (Auto ) 2.4, Basophils (%) (Auto) 1.3H, Neutrophils # (Auto) 2.0, Lymphocytes # (Auto ) 0.7L, Monocytes # (Auto) 0.9H, Eosinophils # (Auto) 0.1, Basophils # (Auto) 0.1, Immature Granulocyte # (Auto) 0.0, Nucleated Red Blood Cells % (auto) 0.0, Immature Platelet Fraction 1.7, Anion Gap 9, Glomerular Filtration Rate > 60.0, Blood Urea Nitrogen 12, Creatinine 1.02, Sodium Level 139, Potassium Level 4.0, Chloride Level 106, Carbon Dioxide Level 24, Calcium Level 8.0L, Aspartate Amino Transf (AST/SGOT) 115H, Alanine Aminotransferase (ALT/SGPT) 72, Alkaline Phosphatase 637H, Total Bilirubin 1.4H, Total Protein 7.3, Albumin 2.3L, Ammonia 47H, Albumin/Globulin Ratio 0.46L CBC/BMP Laboratory Tests 10/16/17 05:31 Red Blood Count 2.90 L, Mean Corpuscular Volume 89.7, Mean Corpuscular Hemoglobin 29.7, Mean Corpuscular Hemoglobin Concent 33.1, Red Cell Distribution Width 16.2 H, Neutrophils (%) (Auto) 54.7, Lymphocytes (%) (Auto) 18.0 L, Monocytes (%) (Auto) 22.8 H, Eosinophils (%) (Auto) 2.4, Basophils (%) ( Auto) 1.3 H, Neutrophils # (Auto) 2.0, Lymphocytes # (Auto) 0.7 L, Monocytes # ( Auto) 0.9 H, Eosinophils # (Auto) 0.1, Basophils # (Auto) 0.1, Calcium Level 8.0 L, Aspartate Amino Transf (AST/SGOT) 115 H, Alanine Aminotransferase (ALT/ SGPT) 72, Alkaline Phosphatase 637 H, Total Bilirubin 1.4 H, Total Protein 7.3, Albumin 2.3 L GME ATTESTATION GME ATTESTATION My faculty preceptor for this patient encounter was physically present during the encounter and was fully available. All aspects of the patient interview, examination, medical decision making process, and medical care plan development were reviewed and approved by the faculty preceptor. The faculty preceptor is aware and concurs with the plan as stated in the body of this note and will attest to such by his/her cosignature. ROBERTO CARLOS PITTMAN DO Oct 16, 2017 15:36
[2017-10-16 18:00] VITALS: BP 134/64
[2017-10-16] MEDS: TAMSULOSIN 0.4 MG CAP PO SCH (21:00)
[2017-10-16] MEDS: DONEPEZIL 5 MG TAB NG SCH (21:00)
[2017-10-16] MEDS: FINASTERIDE 5 MG TAB NG SCH (21:00)
[2017-10-17 02:00] VITALS: BP 126/65
[2017-10-17] MEDS: SODIUM CHLORIDE 0.9% INJ 10 ML SYR IV PRN (05:10)
[2017-10-17] MEDS: SUCRALFATE SUSP 1GM/10ML UD NG SCH ×4 (05:10→17:43)
[2017-10-17] MEDS: LACTULOSE 20 GM/30 ML SYRUP UD NG SCH ×3 (05:10→21:25)
[2017-10-17 05:20] LABS: BASO % 0.6 % (0.0-1.0); EOS # 0.1 10^3/uL (0.0-0.50); EOS % 2.3 % (0.0-3.0); IMMATURE GRANULOCYTE % 0.9 % (0-0); LYMPH # 0.7 10^3/uL (1.5-4.5); LYMPH % 19.1 % (24.0-44.0); MEAN CORPUSCULAR HEMOGLOBIN 30.4 pg (27.0-33.0); MEAN CORPUSCULAR HGB CONC 32.9 g/dl (32.0-36.5); MEAN CORPUSCULAR VOLUME 92.1 fl (80.0-96.0); MONO # 0.8 10^3/uL (0.0-0.8); NEUTROPHILS # 1.9 10^3/uL (1.8-7.7); NEUTROPHILS % 55.1 % (36.0-66.0); RED CELL DISTRIBUTION WIDTH 16.8 % (11.5-14.5); WHITE BLOOD COUNT 3.5 10^3/uL (4.0-10.0)
[2017-10-17 05:21] LABS: PLATELET COUNT, AUTOMATED 95 10^3/uL (150-450)
[2017-10-17 05:28] LABS: ALBUMIN 2.2 GM/DL (3.2-5.2); ALBUMIN/GLOBULIN RATIO 0.45 (1.00-1.93); ALKALINE PHOSPHATASE 699 U/L (45-117); ALT/SGPT 79 U/L (12-78); ANION GAP 9 MEQ/L (8-16); AST/SGOT 129 U/L (7-37); BLOOD UREA NITROGEN 13 MG/DL (7-18); CALCIUM LEVEL 7.8 MG/DL (8.8-10.2); CARBON DIOXIDE LEVEL 25 MEQ/L (21-32); CHLORIDE LEVEL 107 MEQ/L (98-107); CREATININE FOR GFR 1.14 MG/DL (0.70-1.30); GLOMERULAR FILTRATION RATE > 60.0 (>42); GLUCOSE, FASTING 114 MG/DL (83-110); SODIUM LEVEL 141 MEQ/L (136-145); TOTAL PROTEIN 7.1 GM/DL (6.4-8.2)
[2017-10-17 06:00] VITALS: BP 135/64
[2017-10-17] MEDS: AUGMENTIN 875 MG TAB PO SCH ×2 (09:09→20:40)
[2017-10-17] MEDS: raNITIdine SYRUP 150 MG/10 ML UDC GT SCH ×2 (09:09→20:40)
[2017-10-17] MEDS: NADOLOL 20MG TABLET NG SCH (09:10)
[2017-10-17] MEDS: AMITRIPTYLINE 50 MG TAB NG SCH ×2 (09:10→20:40)
[2017-10-17] MEDS: VITAMIN D 1,000 INTERNATIONAL UNITS TABLET NG SCH (09:10)
[2017-10-17] MEDS: PANTOPRAZOLE 40MG TAB (PROTONIX) PO SCH (09:10)
[2017-10-17] MEDS: SODIUM CHLORIDE 0.9% INJ 10 ML SYR IV SCH (09:11)
[2017-10-17 10:00] VITALS: BP 140/76
--- NOTE | 2017-10-17 10:27 | IPNPDOC ---
Subjective Date Seen The patient was seen on 10/17/17. Subjective Chief Complaint/HPI The patient is a 72-year-old male admitted with a reason for visit of Biliary Obstruction & Acute Delerium. Events since last encounter mildly increased confusion today. Refused lactulose last evening. Denies c/o. Pulmonary: Denies: Dyspnea, Cough Cardiovascular: Denies: Chest Pain, Palpitations, Orthopnea, Paroxysmal Noc. Dyspnea, Lt Headedness Gastrointestinal: Denies: Nausea, Vomiting, Abdominal Pain, Diarrhea, Constipation Genitourinary: Denies: Dysuria, Frequency, Incontinence, Retention Objective Physical Examination General Exam: Positive: Alert, No Acute Distress Eye Exam: Positive: PERRLA ENT Exam: Positive: Mucous membr. moist/pink Chest Exam: Positive: Clear to auscultation Heart Exam: Positive: Rate Normal, Normal S1, Normal S2 Abdomen Exam: Positive: Normal bowel sounds, Soft, Other (Large ventral wall hernia noted, nonpainful. ), Negative: Tenderness Extremity Exam: Positive: Edema (trace BLE) Psych Exam: Positive: Mental status NL Assessment /Plan Problems (1) Ascending cholangitis Status: Acute Response to Treatment: Stable, Improving Discussed With: Patient Problem Specific Plan: Monitor Clinically, Repeat Labs Problem Text: 10/17/17: aminases mildly elevated. climbing ALT, alk phos, over last 3 days. will monitor. repeat labs in am. potential for DC back to rehab bed if levels remain stable. if continues to increase review with GI before discharge. Liver enzymes and bilirubin repeated today. Total bilirubin decreased. No symptoms, abdominal pain, fever. WBC decreased. Per Infectious Disease Specialist Dr. Naylor, IV antibiotics were stopped and switched to oral amoxicillin/clavulanate. Continue PO antibiotics pending patient's clinical status. Appreciate her assistance in management of this patient. (2) Swallowing difficulty Problem Text: Tolerating diet at this time. Speech recommended special diet. Continue at this time. (3) E coli bacteremia Status: Acute Problem Text: Continue antibiotics. (4) Acute blood loss anemia Status: Acute Response to Treatment: Uncontrolled Discussed With: Patient Problem Specific Plan: Monitor Clinically, Repeat Labs Problem Text: Transfuse 2 units of PRBCs on 10/11/17: Monitor Hgb. (5) History of cholangiocarcinoma Status: Chronic Response to Treatment: Stable Problem Specific Plan: Monitor Clinically (6) Urinary obstruction Status: Acute Response to Treatment: Stable Problem Specific Plan: Monitor Clinically Problem Text: Continue catheter. Plan/VTE VTE Prophylaxis Ordered?: Yes VS[facility]O Vital Signs Date Time Temp Pulse Resp B/P (MAP) Pulse Ox O2 Delivery O2 Flow Rate FiO2 10/17/17 09:56 Room Air 10/17/17 09:10 68 135/64 10/17/17 06:00 98.4 17 94 Laboratory Data 24H LABS Laboratory Tests 2 10/17/17 04:54: Immature Granulocyte % (Auto) 0.9H, White Blood Count 3.5L, Red Blood Count 2.80L, Hemoglobin 8.5L, Hematocrit 25.8L, Mean Corpuscular Volume 92.1, Mean Corpuscular Hemoglobin 30.4, Mean Corpuscular Hemoglobin Concent 32.9, Red Cell Distribution Width 16.8H, Platelet Count 95L, Neutrophils (%) (Auto) 55.1, Lymphocytes (%) (Auto) 19.1L, Monocytes (%) (Auto) 22.0H, Eosinophils (%) (Auto ) 2.3, Basophils (%) (Auto) 0.6, Neutrophils # (Auto) 1.9, Lymphocytes # (Auto) 0.7L, Monocytes # (Auto) 0.8, Eosinophils # (Auto) 0.1, Basophils # (Auto) 0.0, Immature Granulocyte # (Auto) 0.0, Nucleated Red Blood Cells % (auto) 0.0, Anion Gap 9, Glomerular Filtration Rate > 60.0, Blood Urea Nitrogen 13, Creatinine 1.14, Sodium Level 141, Potassium Level 4.0, Chloride Level 107, Carbon Dioxide Level 25, Calcium Level 7.8L, Aspartate Amino Transf (AST/SGOT) 129H, Alanine Aminotransferase (ALT/SGPT) 79H, Alkaline Phosphatase 699H, Total Bilirubin 1.0, Total Protein 7.1, Albumin 2.2L, Ammonia 72H, Albumin/Globulin Ratio 0.45L CBC/BMP Laboratory Tests 10/17/17 04:54 Red Blood Count 2.80 L, Mean Corpuscular Volume 92.1, Mean Corpuscular Hemoglobin 30.4, Mean Corpuscular Hemoglobin Concent 32.9, Red Cell Distribution Width 16.8 H, Neutrophils (%) (Auto) 55.1, Lymphocytes (%) (Auto) 19.1 L, Monocytes (%) (Auto) 22.0 H, Eosinophils (%) (Auto) 2.3, Basophils (%) ( Auto) 0.6, Neutrophils # (Auto) 1.9, Lymphocytes # (Auto) 0.7 L, Monocytes # ( Auto) 0.8, Eosinophils # (Auto) 0.1, Basophils # (Auto) 0.0, Calcium Level 7.8 L , Aspartate Amino Transf (AST/SGOT) 129 H, Alanine Aminotransferase (ALT/SGPT) 79 H, Alkaline Phosphatase 699 H, Total Bilirubin 1.0, Total Protein 7.1, Albumin 2.2 L Robina Stack Oct 17, 2017 10:27 Ray Lund MD Oct 17, 2017 12:17
[2017-10-17 14:00] VITALS: BP 122/72
[2017-10-17 16:12] LABS: GAMMA GLUTAMYLTRANSPEPTIDASE 492 U/L (15-85)
[2017-10-17 18:00] VITALS: BP 141/76
--- NOTE | 2017-10-17 18:00 | IPN ---
DATE: 10/17/2017 John is doing fairly well. He is a little confused today but otherwise doing fairly well. He has no nausea, vomiting, or diarrhea. He had some mild abdominal pain, which he relates to his multiple hernias. He is eating well. He is anxious to go home. He has been afebrile. Temperature is 98.3, pulse 68, respirations 19, blood pressure 122/72, oxygen saturation 98% on room air. LUNGS: Crackles at the right base. Diminished air entry at the left base. ABDOMEN is soft, nontender. No hepatosplenomegaly. Multiple abdominal hernias. Multiple healed surgical scars. EXTREMITIES: Trace edema. LABORATORY DATA White count is 3.5, hemoglobin 8.5, hematocrit 25.8, platelets 95, which is improving. Sodium 141, potassium 4, chloride 107, bicarbonate 25, BUN 13, creatinine 1.1, glucose 114, calcium 7.8. Total bilirubin 1, GGTP 492, AST 129, ALT 79, alkaline phosphatase 699, ammonia 72. CRP 4.26. IMPRESSION: 1. Acute cholangitis with Escherichia (E) coli septic shock, doing much better. Currently on Augmentin. Patient is currently day #14 of antibiotics. He missed one dose yesterday. 2. History of cholangiocarcinoma with cirrhosis. The patient has elevated GGTP increasing AST and ALT and alkaline phosphatase. May consider repeating a liver ultrasound. Stent is patent. PLAN: If liver function tests (LFTs) remain elevated tomorrow, please repeat liver ultrasound, as he definitely has evidence of some obstructive picture with elevated GGTP and alkaline phosphatase.
[2017-10-17] MEDS: TAMSULOSIN 0.4 MG CAP PO SCH (20:40)
[2017-10-17] MEDS: FINASTERIDE 5 MG TAB NG SCH (20:40)
[2017-10-17] MEDS: DONEPEZIL 5 MG TAB NG SCH (20:40)
[2017-10-17 22:00] VITALS: BP 128/68
[2017-10-18] MEDS: SUCRALFATE SUSP 1GM/10ML UD NG SCH ×2 (00:35→05:57)
[2017-10-18 02:00] VITALS: BP 124/65
[2017-10-18] MEDS: LACTULOSE 20 GM/30 ML SYRUP UD NG SCH (05:57)
[2017-10-18 06:00] VITALS: BP 128/61
[2017-10-18 06:05] LABS: MEAN CORPUSCULAR HEMOGLOBIN 29.9 pg (27.0-33.0); MEAN CORPUSCULAR HGB CONC 32.4 g/dl (32.0-36.5); MEAN CORPUSCULAR VOLUME 92.3 fl (80.0-96.0); RED CELL DISTRIBUTION WIDTH 17.2 % (11.5-14.5); WHITE BLOOD COUNT 2.6 10^3/uL (4.0-10.0)
[2017-10-18 06:06] LABS: ADD MANUAL DIFFER YES; BLASTS POS FLAG; DIFF SLIDE NUMBER 82; PLATELET COUNT, AUTOMATED 92 10^3/uL (150-450); POSITIVE MORPH POS FLAG
[2017-10-18 06:07] LABS: IMMATURE PLATELET FRACTION % 1.3 % (0.0-10.9)
[2017-10-18 06:32] LABS: BANDS 1 % (< 11); BASOPHILS 2 % (0-4); EOSINOPHILS 5 % (0-5)
[2017-10-18 06:34] LABS: ANISOCYTOSIS 1+
[2017-10-18 06:35] LABS: HYPOCHROMASIA 1+
[2017-10-18 06:43] LABS: ALBUMIN 2.4 GM/DL (3.2-5.2); ALBUMIN/GLOBULIN RATIO 0.46 (1.00-1.93); ALKALINE PHOSPHATASE 656 U/L (45-117); ALT/SGPT 76 U/L (12-78); ANION GAP 5 MEQ/L (8-16); AST/SGOT 126 U/L (7-37); BILIRUBIN,TOTAL 1.6 MG/DL (0.2-1.0); BLOOD UREA NITROGEN 12 MG/DL (7-18); CALCIUM LEVEL 8.2 MG/DL (8.8-10.2); CARBON DIOXIDE LEVEL 28 MEQ/L (21-32); CHLORIDE LEVEL 107 MEQ/L (98-107); GLOMERULAR FILTRATION RATE > 60.0 (>42); GLUCOSE, FASTING 69 MG/DL (83-110); POTASSIUM SERUM 3.7 MEQ/L (3.5-5.1); SODIUM LEVEL 140 MEQ/L (136-145); TOTAL PROTEIN 7.6 GM/DL (6.4-8.2)
[2017-10-18] MEDS: raNITIdine SYRUP 150 MG/10 ML UDC GT SCH (09:19)
[2017-10-18] MEDS: PANTOPRAZOLE 40MG TAB (PROTONIX) PO SCH (09:20)
[2017-10-18] MEDS: AMITRIPTYLINE 50 MG TAB NG SCH (09:20)
[2017-10-18] MEDS: AUGMENTIN 875 MG TAB PO SCH (09:20)
[2017-10-18] MEDS: SODIUM CHLORIDE 0.9% INJ 10 ML SYR IV SCH (09:20)
[2017-10-18] MEDS: VITAMIN D 1,000 INTERNATIONAL UNITS TABLET NG SCH (09:20)
[2017-10-18 09:24] VITALS: BP 121/67
[2017-10-18] MEDS: NADOLOL 20MG TABLET NG SCH (09:24)
[2017-10-18 10:00] VITALS: BP 121/62
[2017-10-18] MEDS ORDERED: AMOX875T2 PO (10:34)
[2017-10-18] MEDS ORDERED: LACT10SO3 PO (10:57)
--- NOTE | 2017-10-19 08:06 | DSES ---
DATE OF ADMISSION: 10/10/2017 DATE OF DISCHARGE: 10/18/2017 PRIMARY CARE PROVIDER: Dr. Gary Cuba. ATTENDING PHYSICIAN: Dr. Ray Lund. HISTORY OF PRESENT ILLNESS: This is a 72-year-old gentleman who was accepted on transfer from [facility] after patient had subsequently been transferred from this facility for concerns of an ascending cholangitis with obstruction. The patient had a failed in endoscopic retrograde cholangiopancreatography (ERCP) in our facility, was subsequently transferred down to [facility] at that point. HIDA scan was completed and showed no evidence of obstruction, and a patent biliary stent. The patient was subsequently transferred back to [facility]. HOSPITAL COURSE: The patient was placed on Zosyn for cholangitis with recent Escherichia (E.) coli bacteremia. Infectious disease was consulted and recommend the patient transition to Augmentin. That was started on 10/14 for a total of five days to finish his 14-day course. The patient is also status post general surgery consultation for concerns for need of feeding tube as the patient was having difficulty with swallowing; however, prior to surgical intervention, a repeat swallow evaluation was completed, and the patient has been able to tolerate a mechanical soft diet. The patient has remained afebrile throughout his hospitalization. He has participated in physical therapy who recommends returning to [facility] for physical therapy and rehabilitation. The patient's liver function tests (LFTs) have waxed and waned throughout his hospitalization, yet patient has not shown signs of significant obstruction. The patient's mentation has remained with some mild dementia and confusion; otherwise, the patient is cooperative, is alert to self and place. On physical examination today, LFTs show a total bilirubin of 1.6, AST 126, ALT 76, alkaline phosphatase 656. Electrolytes are stable. Most recent hemoglobin and hematocrit 8.2 and 25.3. PHYSICAL EXAMINATION: NECK: Supple without lymphadenopathy. CARDIOVASCULAR: Heart rate and rhythm are regular. PULMONARY: Lungs are clear. ABDOMEN: Is soft, with midline ventral hernia which is reducible and nontender. Positive bowel sounds times all four quadrants. He has no abdominal tender. EXTREMITIES: Bilateral lower extremities without any edema. NEUROLOGIC: The patient is alert to self and place. Mildly disoriented to time and discharge needs. He continues to request to go home. ASSESSMENT/DISCHARGE DIAGNOSES: 1. Cholangitis with Escherichia (E.) coli bacteremia. 2. Escherichia (E.) coli urinary tract infection. 3. Hepatic encephalopathy. 4. Urinary obstruction. SECONDARY DIAGNOSES: 1. Esophageal varices. 2. Dementia. 3. Depression. PLAN: The patient will be discharged to [facility]. Diet is a mechanical soft. Activity is as tolerated and per physical therapy recommendation. Followup with primary care provider (PCP) on discharge from [place]. The patient will need a repeat complete blood count (CBC) and comprehensive metabolic panel (CMP) in three days on 10/21/2017. MEDICATIONS: - Augmentin 875 one tablet by mouth twice a day for another three days - acetaminophen 325 mg by mouth every six hours as needed for pain or fever - amitriptyline 150 mg by mouth at bedtime - amitriptyline 50 mg by mouth every morning - vitamin D3 2000 international units by mouth daily - donepezil 10 mg by mouth at bedtime - finasteride 5 mg by mouth at bedtime - lactulose 30 mL by mouth three times a day - multivitamin one tablet daily - nadolol 20 mg one daily - omeprazole 40 mg one daily - quetiapine 50 mg by mouth twice a day - ranitidine 300 mg by mouth at bedtime - Carafate 1 gram by mouth before food and at bedtime - Flomax 0.4 mg by mouth every evening The patient is discharged in stable and satisfactory condition at time of discharge.
== END 2017-10-18 12:30 | DRG 445 ==
LOC: M MSPAV 18:02
PROVIDERS: ADMIT Family Medicine; ATTEND Family Medicine
PROC: 30233N1 Transfusion of Nonautologous Red Blood Cells into Peripheral Vein, Percutaneous Approach (ICD-10-PCS; principal; 2017-10-11)
DX: K83.0 Cholangitis (principal); N39.0 Urinary tract infection, site not specified; D62 Acute posthemorrhagic anemia; B96.20 Unspecified Escherichia coli [E. coli] as the cause of diseases classified elsewhere; B95.2 Enterococcus as the cause of diseases classified elsewhere; K72.90 Hepatic failure, unspecified without coma; F03.90 Unspecified dementia, unspecified severity, without behavioral disturbance, psychotic disturbance, mood disturbance, and anxiety; Z79.899 Other long term (current) drug therapy; Z88.1 Allergy status to other antibiotic agents; Z88.8 Allergy status to other drugs, medicaments and biological substances; Z88.6 Allergy status to analgesic agent; Z86.73 Personal history of transient ischemic attack (TIA), and cerebral infarction without residual deficits; Z96.651 Presence of right artificial knee joint

== ENCOUNTER → 2017-10-21 | Outpatient (REF) | payer MEDICARE ==
[~2017-10-21] MED LIST changes: +AMOX875T2 PO; +LOVE1INJ SC; +PROT40IN4 IV; +SERO50TA PO; +ZOSY3INJ2 IV
[2017-10-21 12:39] LABS: MEAN CORPUSCULAR HEMOGLOBIN 30.2 pg (27.0-33.0); MEAN CORPUSCULAR VOLUME 94.2 fl (80.0-96.0); PLATELET COUNT, AUTOMATED 104 10^3/uL (150-450); RED CELL DISTRIBUTION WIDTH 17.8 % (11.5-14.5); WHITE BLOOD COUNT 2.8 10^3/uL (4.0-10.0)
[2017-10-21 13:33] LABS: ALBUMIN 2.8 GM/DL (3.2-5.2); ALBUMIN/GLOBULIN RATIO 0.51 (1.00-1.93); BILIRUBIN,DIRECT 0.7 MG/DL (0.0-0.2); BILIRUBIN,TOTAL 1.1 MG/DL (0.2-1.0); TOTAL PROTEIN 8.3 GM/DL (6.4-8.2)
[2017-10-21 13:36] LABS: ANION GAP 8 MEQ/L (8-16); BLOOD UREA NITROGEN 15 MG/DL (7-18); CALCIUM LEVEL 8.2 MG/DL (8.8-10.2); CARBON DIOXIDE LEVEL 25 MEQ/L (21-32); CHLORIDE LEVEL 105 MEQ/L (98-107); CREATININE FOR GFR 1.03 MG/DL (0.70-1.30); GLOMERULAR FILTRATION RATE > 60.0 (>42); GLUCOSE, FASTING 91 MG/DL (83-110); POTASSIUM SERUM 4.2 MEQ/L (3.5-5.1); SODIUM LEVEL 138 MEQ/L (136-145)
== END ==
PROVIDERS: ATTEND Family Medicine
DX: Z86.61 Personal history of infections of the central nervous system (principal)

== ENCOUNTER → 2017-10-26 | Outpatient (REF) | payer MEDICARE ==
[2017-10-26 09:31] LABS: MEAN CORPUSCULAR HEMOGLOBIN 30.3 pg (27.0-33.0); MEAN CORPUSCULAR HGB CONC 32.5 g/dl (32.0-36.5); MEAN CORPUSCULAR VOLUME 93.5 fl (80.0-96.0); RED CELL DISTRIBUTION WIDTH 17.9 % (11.5-14.5); WHITE BLOOD COUNT 3.5 10^3/uL (4.0-10.0)
[2017-10-26 09:45] LABS: PLATELET COUNT, AUTOMATED 85 10^3/uL (150-450)
[2017-10-26 09:46] LABS: IMMATURE PLATELET FRACTION % 1.6 % (0.0-10.9)
[2017-10-26 09:50] LABS: ANION GAP 6 MEQ/L (8-16); BLOOD UREA NITROGEN 13 MG/DL (7-18); CALCIUM LEVEL 8.8 MG/DL (8.8-10.2); CARBON DIOXIDE LEVEL 29 MEQ/L (21-32); CHLORIDE LEVEL 105 MEQ/L (98-107); CREATININE FOR GFR 1.04 MG/DL (0.70-1.30); GLOMERULAR FILTRATION RATE > 60.0 (>42); GLUCOSE, FASTING 123 MG/DL (83-110); POTASSIUM SERUM 3.9 MEQ/L (3.5-5.1); SODIUM LEVEL 140 MEQ/L (136-145)
== END ==
DX: K72.90 Hepatic failure, unspecified without coma (principal)
CPT/HCPCS: 80048

== ENCOUNTER 2017-10-30 11:03 | Observation (INO) | payer MEDICARE ==
[2017-10-30 13:15] LABS: APPEARANCE, URINE CLEAR (CLEAR); BACTERIA, URINE AUTO NEGATIVE (NEGATIVE); BILIRUBIN, URINE AUTO NEGATIVE (NEGATIVE); BLOOD, URINE BLOOD NEGATIVE (NEGATIVE); COLOR, URINE YELLOW (YELLOW); GLUCOSE, URINE (UA) AUTO NEGATIVE (NEGATIVE); KETONE, URINE AUTO NEGATIVE (NEGATIVE); LEUKOCYTE ESTERASE, URINE AUTO NEGATIVE (NEGATIVE); MUCUS, URINE SMALL (NEGATIVE); NITRITE, URINE AUTO NEGATIVE (NEGATIVE); PROTEIN, URINE AUTO NEGATIVE (NEGATIVE); RBC, URINE AUTO 2 /HPF (0-3); SPECIFIC GRAVITY URINE AUTO 1.018 (1.002-1.035); SQUAMOUS EPITHELIAL CELL UR AU 0 /HPF (0-6); WBC, URINE AUTO 0 /HPF (0-3)
[2017-10-30 13:58] LABS: VENOUS BASE EXCESS 1.5 (-2.0-2.0); VENOUS O2 SATURATION 63.1 % (60.0-80.0); VENOUS PARTIAL PRESSURE CO2 40.3 mmHg (38.0-50.0); VENOUS PARTIAL PRESSURE O2 35.4 mmHg (30.0-50.0); VENOUS PH 7.427 UNITS (7.330-7.430); VENOUS STANDARD HCO3 25.1 MEQ/L; VENOUS TOTAL CO2 27.2 MEQ/L (24.0-28.0)
[2017-10-30 14:05] LABS: BASO % 0.2 % (0.0-1.0); EOS # 0.1 10^3/uL (0.0-0.50); EOS % 0.8 % (0.0-3.0); HEMATOCRIT 31.3 % (42.0-52.0); HEMOGLOBIN 10.3 g/dl (14.0-18.0); IMMATURE GRANULOCYTE % 0.5 % (0-0); LYMPH # 0.3 10^3/uL (1.5-4.5); LYMPH % 4.1 % (24.0-44.0); MEAN CORPUSCULAR HEMOGLOBIN 30.1 pg (27.0-33.0); MEAN CORPUSCULAR HGB CONC 32.9 g/dl (32.0-36.5); MEAN CORPUSCULAR VOLUME 91.5 fl (80.0-96.0); MONO # 0.5 10^3/uL (0.0-0.8); MONO % 7.8 % (0.0-5.0); NEUTROPHILS # 5.6 10^3/uL (1.8-7.7); NEUTROPHILS % 86.6 % (36.0-66.0); RED BLOOD COUNT 3.42 10^6/uL (4.30-6.10); RED CELL DISTRIBUTION WIDTH 17.2 % (11.5-14.5); WHITE BLOOD COUNT 6.4 10^3/uL (4.0-10.0)
[2017-10-30 14:14] LABS: INR 1.16
[2017-10-30 14:22] LABS: LACTIC ACID SEPSIS PROTOCOL 1.7 MMOL/L (0.4-2.0); NT-PRO BNP 237 PG/ML (<125)
[2017-10-30 14:24] LABS: ALBUMIN 2.7 GM/DL (3.2-5.2); ALBUMIN/GLOBULIN RATIO 0.49 (1.00-1.93); ALKALINE PHOSPHATASE 901 U/L (45-117); ALT/SGPT 73 U/L (12-78); ANION GAP 7 MEQ/L (8-16); AST/SGOT 116 U/L (7-37); BILIRUBIN,DIRECT 0.9 MG/DL (0.0-0.2); BILIRUBIN,TOTAL 1.6 MG/DL (0.2-1.0); BLOOD UREA NITROGEN 13 MG/DL (7-18); CALCIUM LEVEL 8.3 MG/DL (8.8-10.2); CARBON DIOXIDE LEVEL 28 MEQ/L (21-32); CHLORIDE LEVEL 103 MEQ/L (98-107); CPK CREATINE PHOSPHOKINASE 42 U/L (39-308); CREATININE FOR GFR 1.08 MG/DL (0.70-1.30); GLOMERULAR FILTRATION RATE > 60.0 (>42); GLUCOSE, FASTING 94 MG/DL (83-110); POTASSIUM SERUM 3.7 MEQ/L (3.5-5.1); SODIUM LEVEL 138 MEQ/L (136-145); TOTAL PROTEIN 8.2 GM/DL (6.4-8.2); TROPONIN I < 0.02 NG/ML (< 0.10)
[2017-10-30 14:30] LABS: MB/CK RELATIVE INDEX 2.38 (< OR =4)
[2017-10-30 14:32] LABS: PLATELET COUNT, AUTOMATED 73 10^3/uL (150-450); POSITIVE DIFF POS FLAG
[2017-10-30 14:33] LABS: IMMATURE PLATELET FRACTION % 1.8 % (0.0-10.9)
[2017-10-30 15:02] LABS: AMMONIA 57 uMOL/L (<32)
[2017-10-30] MEDS ORDERED: ISOVUE-370 76% 100ML VIAL (Q9967) As Ordered ×4 (15:25)
[2017-10-30] MEDS: NS 1,000 ML IV ×8 (16:30→21:00)
[2017-10-30] MEDS: ACETAMINOPHEN 325 MG TAB PO ×4 (17:24)
[2017-10-30] MEDS: IMIPENEM/CILASTATIN 500 MG in D5W MINI-BAG PLUS 100 ML IV ×4 (17:24)
[2017-10-30 18:06] LABS: CPK CREATINE PHOSPHOKINASE 43 U/L (39-308); MB/CK RELATIVE INDEX 2.32 (< OR =4); TROPONIN I < 0.02 NG/ML (< 0.10)
[2017-10-30] MEDS ORDERED: ACETAMINOPHEN 650 MG SUPP PR ×4 (18:45)
[2017-10-30] MEDS ORDERED: ACETAMINOPHEN 325 MG TAB PO ×4 (18:45)
[2017-10-30] MEDS ORDERED: MOM 30ML SUSPENSION UDC PO ×4 (18:45)
[2017-10-30 19:05] LABS: C REACTIVE PROTEIN QUANTITATIV 6.13 MG/DL (0.00-0.30)
[2017-10-30] MEDS: FLEET ENEMA PR ×4 (21:00)
[2017-10-30] MEDS: AMITRIPTYLINE 50 MG TAB PO ×4 (21:01)
[2017-10-30] MEDS: FINASTERIDE 5 MG TAB PO ×4 (21:01)
[2017-10-30] MEDS: DONEPEZIL 5 MG TAB PO ×4 (21:01)
[2017-10-30] MEDS: QUEtiapine FUMARATE 50 MG TAB PO ×4 (21:02)
[2017-10-30] MEDS: TAMSULOSIN 0.4 MG CAP PO ×4 (21:02)
[2017-10-30] MEDS: LACTULOSE 20 GM/30 ML SYRUP UD PO ×4 (21:02)
[2017-10-31] MEDS: LACTULOSE 20 GM/30 ML SYRUP UD PO ×12 (05:44→22:06)
[2017-10-31 07:01] LABS: HEMATOCRIT 28.1 % (42.0-52.0); HEMOGLOBIN 9.1 g/dl (14.0-18.0); MEAN CORPUSCULAR HEMOGLOBIN 29.9 pg (27.0-33.0); MEAN CORPUSCULAR HGB CONC 32.4 g/dl (32.0-36.5); MEAN CORPUSCULAR VOLUME 92.4 fl (80.0-96.0); RED BLOOD COUNT 3.04 10^6/uL (4.30-6.10); RED CELL DISTRIBUTION WIDTH 17.1 % (11.5-14.5); WHITE BLOOD COUNT 4.3 10^3/uL (4.0-10.0)
[2017-10-31 07:07] LABS: PLATELET COUNT, AUTOMATED 57 10^3/uL (150-450)
[2017-10-31 07:28] LABS: AMMONIA 62 uMOL/L (<32)
[2017-10-31 07:35] LABS: ALBUMIN 2.2 GM/DL (3.2-5.2); ALBUMIN/GLOBULIN RATIO 0.47 (1.00-1.93); ALKALINE PHOSPHATASE 652 U/L (45-117); ALT/SGPT 56 U/L (12-78); ANION GAP 6 MEQ/L (8-16); AST/SGOT 86 U/L (7-37); BLOOD UREA NITROGEN 13 MG/DL (7-18); C REACTIVE PROTEIN QUANTITATIV 8.39 MG/DL (0.00-0.30); CALCIUM LEVEL 8.1 MG/DL (8.8-10.2); CARBON DIOXIDE LEVEL 26 MEQ/L (21-32); CHLORIDE LEVEL 108 MEQ/L (98-107); CREATININE FOR GFR 0.92 MG/DL (0.70-1.30); GLOMERULAR FILTRATION RATE > 60.0 (>42); GLUCOSE, FASTING 85 MG/DL (83-110); POTASSIUM SERUM 3.6 MEQ/L (3.5-5.1); SODIUM LEVEL 140 MEQ/L (136-145); TOTAL PROTEIN 6.9 GM/DL (6.4-8.2)
[2017-10-31] MEDS: OMEPRAZOLE 20 MG CAP PO ×4 (08:08)
[2017-10-31] MEDS: VITAMIN D 1,000 INTERNATIONAL UNITS TABLET PO ×4 (08:08)
[2017-10-31] MEDS: AMITRIPTYLINE 50 MG TAB PO ×8 (08:09→22:05)
[2017-10-31] MEDS: SUCRALFATE 1 GM TAB PO ×20 (08:09→22:05)
[2017-10-31] MEDS: MULTIVITAMINS/MINERALS THERAP 1 TAB PO ×4 (08:09)
[2017-10-31] MEDS: QUEtiapine FUMARATE 50 MG TAB PO ×8 (08:09→22:06)
[2017-10-31] MEDS: NADOLOL 20MG TABLET PO ×4 (08:11)
[2017-10-31] MEDS: NS 1,000 ML IV ×8 (08:12→22:15)
[2017-10-31] MEDS: ENOXAPARIN 40 MG/0.4 ML SYRINGE (J1650) SC ×4 (08:12)
[2017-10-31] MEDS: MAGNESIUM CITRATE 300 ML BTL PO ×8 (13:41→16:42)
[2017-10-31] MEDS: DONEPEZIL 5 MG TAB PO ×4 (22:05)
[2017-10-31] MEDS: FINASTERIDE 5 MG TAB PO ×4 (22:06)
[2017-10-31] MEDS: TAMSULOSIN 0.4 MG CAP PO ×4 (22:06)
[2017-11-01] MEDS: LACTULOSE 20 GM/30 ML SYRUP UD PO ×4 (06:04)
[2017-11-01] MEDS: VITAMIN D 1,000 INTERNATIONAL UNITS TABLET PO ×4 (09:12)
[2017-11-01] MEDS: SUCRALFATE 1 GM TAB PO ×8 (09:12→12:18)
[2017-11-01] MEDS: OMEPRAZOLE 20 MG CAP PO ×4 (09:12)
[2017-11-01] MEDS: QUEtiapine FUMARATE 50 MG TAB PO ×4 (09:13)
[2017-11-01] MEDS: NADOLOL 20MG TABLET PO ×4 (09:13)
[2017-11-01] MEDS: AMITRIPTYLINE 50 MG TAB PO ×4 (09:13)
[2017-11-01] MEDS: MULTIVITAMINS/MINERALS THERAP 1 TAB PO ×4 (09:13)
[2017-11-01] MEDS: ENOXAPARIN 40 MG/0.4 ML SYRINGE (J1650) SC ×4 (09:14)
[2017-11-01 09:16] LABS: BASO % 0.6 % (0.0-1.0); EOS # 0.2 10^3/uL (0.0-0.50); EOS % 4.5 % (0.0-3.0); HEMOGLOBIN 9.1 g/dl (14.0-18.0); IMMATURE GRANULOCYTE % 0.8 % (0-0); LYMPH # 0.6 10^3/uL (1.5-4.5); LYMPH % 15.9 % (24.0-44.0); MEAN CORPUSCULAR HEMOGLOBIN 30.5 pg (27.0-33.0); MEAN CORPUSCULAR HGB CONC 33.7 g/dl (32.0-36.5); MEAN CORPUSCULAR VOLUME 90.6 fl (80.0-96.0); MONO # 0.5 10^3/uL (0.0-0.8); NEUTROPHILS # 2.3 10^3/uL (1.8-7.7); NEUTROPHILS % 64.2 % (36.0-66.0); RED BLOOD COUNT 2.98 10^6/uL (4.30-6.10); RED CELL DISTRIBUTION WIDTH 17.2 % (11.5-14.5); WHITE BLOOD COUNT 3.6 10^3/uL (4.0-10.0)
[2017-11-01 09:21] LABS: PLATELET COUNT, AUTOMATED 70 10^3/uL (150-450)
[2017-11-01 09:22] LABS: IMMATURE PLATELET FRACTION % 1.3 % (0.0-10.9); PLATELET F 70
[2017-11-01 09:36] LABS: ALBUMIN 2.3 GM/DL (3.2-5.2); ALBUMIN/GLOBULIN RATIO 0.46 (1.00-1.93); ALKALINE PHOSPHATASE 638 U/L (45-117); ALT/SGPT 52 U/L (12-78); ANION GAP 7 MEQ/L (8-16); AST/SGOT 74 U/L (7-37); BILIRUBIN,TOTAL 0.9 MG/DL (0.2-1.0); BLOOD UREA NITROGEN 11 MG/DL (7-18); CARBON DIOXIDE LEVEL 24 MEQ/L (21-32); CHLORIDE LEVEL 108 MEQ/L (98-107); CREATININE FOR GFR 0.95 MG/DL (0.70-1.30); GLOMERULAR FILTRATION RATE > 60.0 (>42); GLUCOSE, FASTING 112 MG/DL (83-110); POTASSIUM SERUM 4.2 MEQ/L (3.5-5.1); SODIUM LEVEL 139 MEQ/L (136-145); TOTAL PROTEIN 7.3 GM/DL (6.4-8.2)
[2017-11-01] MEDS: NS 1,000 ML IV ×4 (11:30)
== END 2017-11-01 13:23 ==
LOC: M ED 11:03 → M ED INP 18:42 → M MSPAV 20:30
DX: R50.9 Fever, unspecified (principal); K59.00 Constipation, unspecified; E72.20 Disorder of urea cycle metabolism, unspecified; G20 Parkinson's disease; F02.80 Dementia in other diseases classified elsewhere, unspecified severity, without behavioral disturbance, psychotic disturbance, mood disturbance, and anxiety; K46.9 Unspecified abdominal hernia without obstruction or gangrene; K21.9 Gastro-esophageal reflux disease without esophagitis; G24.01 Drug induced subacute dyskinesia; Z85.09 Personal history of malignant neoplasm of other digestive organs; Z79.899 Other long term (current) drug therapy; Z88.1 Allergy status to other antibiotic agents; Z88.8 Allergy status to other drugs, medicaments and biological substances
CPT/HCPCS: 96372

== ENCOUNTER → 2017-11-08 | Outpatient (REF) | payer MEDICARE ==
[2017-11-08 11:15] LABS: HEMATOCRIT 28.9 % (42.0-52.0); HEMOGLOBIN 9.6 g/dl (14.0-18.0); MEAN CORPUSCULAR HGB CONC 33.2 g/dl (32.0-36.5); MEAN CORPUSCULAR VOLUME 93.2 fl (80.0-96.0); RED CELL DISTRIBUTION WIDTH 17.1 % (11.5-14.5); WHITE BLOOD COUNT 3.3 10^3/uL (4.0-10.0)
[2017-11-08 11:28] LABS: AMMONIA 120 uMOL/L (<32)
[2017-11-08 11:38] LABS: ALBUMIN 2.7 GM/DL (3.2-5.2); ALBUMIN/GLOBULIN RATIO 0.54 (1.00-1.93); ALKALINE PHOSPHATASE 713 U/L (45-117); ALT/SGPT 58 U/L (12-78); ANION GAP 8 MEQ/L (8-16); AST/SGOT 85 U/L (7-37); BILIRUBIN,DIRECT 0.7 MG/DL (0.0-0.2); BILIRUBIN,TOTAL 1.1 MG/DL (0.2-1.0); BLOOD UREA NITROGEN 10 MG/DL (7-18); CALCIUM LEVEL 8.4 MG/DL (8.8-10.2); CARBON DIOXIDE LEVEL 27 MEQ/L (21-32); CHLORIDE LEVEL 105 MEQ/L (98-107); CREATININE FOR GFR 1.01 MG/DL (0.70-1.30); GLOMERULAR FILTRATION RATE > 60.0 (>42); GLUCOSE, FASTING 120 MG/DL (83-110); POTASSIUM SERUM 4.2 MEQ/L (3.5-5.1); SODIUM LEVEL 140 MEQ/L (136-145); TOTAL PROTEIN 7.7 GM/DL (6.4-8.2)
[2017-11-08 11:44] LABS: IMMATURE PLATELET FRACTION % 3.8 % (0.0-10.9); PLATELET COUNT, AUTOMATED 79 10^3/uL (150-450); POS COUNT POS FLAG
== END ==
DX: K72.90 Hepatic failure, unspecified without coma (principal)
CPT/HCPCS: 82140

== ENCOUNTER → 2017-11-15 | Outpatient (REF) | payer MEDICARE ==
[2017-11-15 11:27] LABS: HEMATOCRIT 30.2 % (42.0-52.0); MEAN CORPUSCULAR HEMOGLOBIN 30.6 pg (27.0-33.0); MEAN CORPUSCULAR HGB CONC 33.1 g/dl (32.0-36.5); MEAN CORPUSCULAR VOLUME 92.4 fl (80.0-96.0); RED BLOOD COUNT 3.27 10^6/uL (4.30-6.10); RED CELL DISTRIBUTION WIDTH 17.3 % (11.5-14.5); WHITE BLOOD COUNT 3.5 10^3/uL (4.0-10.0)
[2017-11-15 11:31] LABS: PLATELET COUNT, AUTOMATED 77 10^3/uL (150-450)
[2017-11-15 11:33] LABS: IMMATURE PLATELET FRACTION % 1.9 % (0.0-10.9); PLATELET F 1.4
[2017-11-15 11:46] LABS: AMMONIA 93 uMOL/L (<32)
[2017-11-15 11:48] LABS: ALBUMIN 2.7 GM/DL (3.2-5.2); ALBUMIN/GLOBULIN RATIO 0.59 (1.00-1.93); ALKALINE PHOSPHATASE 691 U/L (45-117); ALT/SGPT 47 U/L (12-78); ANION GAP 6 MEQ/L (8-16); AST/SGOT 72 U/L (7-37); BILIRUBIN,DIRECT 0.6 MG/DL (0.0-0.2); BILIRUBIN,TOTAL 1.2 MG/DL (0.2-1.0); BLOOD UREA NITROGEN 14 MG/DL (7-18); CALCIUM LEVEL 8.4 MG/DL (8.8-10.2); CARBON DIOXIDE LEVEL 27 MEQ/L (21-32); CHLORIDE LEVEL 106 MEQ/L (98-107); CREATININE FOR GFR 1.07 MG/DL (0.70-1.30); GLOMERULAR FILTRATION RATE > 60.0 (>42); GLUCOSE, FASTING 116 MG/DL (83-110); POTASSIUM SERUM 4.2 MEQ/L (3.5-5.1); SODIUM LEVEL 139 MEQ/L (136-145); TOTAL PROTEIN 7.3 GM/DL (6.4-8.2)
== END ==
DX: K72.91 Hepatic failure, unspecified with coma (principal)
CPT/HCPCS: 82140

== ENCOUNTER 2017-11-18 13:10 | Inpatient (IN) | payer MEDICARE ==
[2017-11-18] MEDS: NS 1,000 ML IV (14:05)
[2017-11-18 14:06] LABS: BEDSIDE GLUCOSE 145 MG/DL (83-110)
[2017-11-18 14:15] LABS: VENOUS BASE EXCESS -0.7 (-2.0-2.0); VENOUS HCO3 24.7 MEQ/L (23.0-27.0); VENOUS O2 SATURATION 79.3 % (60.0-80.0); VENOUS PARTIAL PRESSURE CO2 43.7 mmHg (38.0-50.0); VENOUS PARTIAL PRESSURE O2 47.2 mmHg (30.0-50.0); VENOUS STANDARD HCO3 23.6 MEQ/L
[2017-11-18 14:20] LABS: BASO % 0.6 % (0.0-1.0); EOS # 0.1 10^3/uL (0.0-0.50); EOS % 3.1 % (0.0-3.0); HEMATOCRIT 29.5 % (42.0-52.0); IMMATURE GRANULOCYTE % 0.3 % (0-0); LYMPH # 0.6 10^3/uL (1.5-4.5); LYMPH % 16.3 % (24.0-44.0); MEAN CORPUSCULAR HEMOGLOBIN 30.8 pg (27.0-33.0); MEAN CORPUSCULAR HGB CONC 33.9 g/dl (32.0-36.5); MEAN CORPUSCULAR VOLUME 90.8 fl (80.0-96.0); MONO # 0.5 10^3/uL (0.0-0.8); MONO % 14.6 % (0.0-5.0); NEUTROPHILS # 2.3 10^3/uL (1.8-7.7); NEUTROPHILS % 65.1 % (36.0-66.0); RED BLOOD COUNT 3.25 10^6/uL (4.30-6.10); RED CELL DISTRIBUTION WIDTH 17.1 % (11.5-14.5); WHITE BLOOD COUNT 3.6 10^3/uL (4.0-10.0)
[2017-11-18 14:21] LABS: IMMATURE PLATELET FRACTION % 1.8 % (0.0-10.9); PLATELET COUNT, AUTOMATED 66 10^3/uL (150-450)
[2017-11-18 14:33] LABS: OSMOLALITY SERUM 292 MOSM/KG (280-301)
[2017-11-18 14:34] LABS: AMMONIA 121 uMOL/L (<32)
[2017-11-18 14:42] LABS: ALBUMIN 2.5 GM/DL (3.2-5.2); ALBUMIN/GLOBULIN RATIO 0.53 (1.00-1.93); ALKALINE PHOSPHATASE 596 U/L (45-117); ALT/SGPT 44 U/L (12-78); ANION GAP 8 MEQ/L (8-16); AST/SGOT 59 U/L (7-37); BILIRUBIN,DIRECT 0.5 MG/DL (0.0-0.2); BLOOD UREA NITROGEN 13 MG/DL (7-18); CALCIUM LEVEL 8.5 MG/DL (8.8-10.2); CARBON DIOXIDE LEVEL 26 MEQ/L (21-32); CHLORIDE LEVEL 105 MEQ/L (98-107); CPK CREATINE PHOSPHOKINASE 122 U/L (39-308); CREATININE FOR GFR 0.97 MG/DL (0.70-1.30); GLOMERULAR FILTRATION RATE > 60.0 (>42); GLUCOSE, FASTING 120 MG/DL (83-110); SODIUM LEVEL 139 MEQ/L (136-145); TOTAL PROTEIN 7.2 GM/DL (6.4-8.2); TROPONIN I < 0.02 NG/ML (< 0.10)
[2017-11-18 14:48] LABS: CK-MB VALUE MASS 1.7 NG/ML (0.0-3.6); MB/CK RELATIVE INDEX 1.39 (< OR =4)
[2017-11-18] MEDS: LACTULOSE 20 GM/30 ML SYRUP UD PO ×2 (15:52→17:00)
[2017-11-18] MEDS ORDERED: BISACODYL 10 MG SUPP PR ×2 (17:00)
[2017-11-18] MEDS ORDERED: ONDANSETRON 4MG/2ML VIAL (J2405) IV (17:00)
[2017-11-18 17:10] LABS: PROTHROMBIN TIME 15.4 SECONDS (12.4-14.5)
[2017-11-18] MEDS: SUCRALFATE 1 GM TAB PO (17:30)
[2017-11-18 17:38] LABS: APPEARANCE, URINE CLEAR (CLEAR); BACTERIA, URINE AUTO NEGATIVE (NEGATIVE); BILIRUBIN, URINE AUTO NEGATIVE (NEGATIVE); BLOOD, URINE BLOOD NEGATIVE (NEGATIVE); COLOR, URINE YELLOW (YELLOW); GLUCOSE, URINE (UA) AUTO NEGATIVE (NEGATIVE); KETONE, URINE AUTO NEGATIVE (NEGATIVE); LEUKOCYTE ESTERASE, URINE AUTO NEGATIVE (NEGATIVE); NITRITE, URINE AUTO NEGATIVE (NEGATIVE); PROTEIN, URINE AUTO NEGATIVE (NEGATIVE); RBC, URINE AUTO 0 /HPF (0-3); SQUAMOUS EPITHELIAL CELL UR AU 0 /HPF (0-6); WBC, URINE AUTO 0 /HPF (0-3)
[2017-11-18 17:59] LABS: AMPHETAMINES LEVEL URINE NEGATIVE (NEGATIVE); BARBITURATES URINE NEGATIVE (NEGATIVE); BENZODIAZEPINES URINE NEGATIVE (NEGATIVE); CANNABINOIDS URINE NEGATIVE (NEGATIVE); COCAINE METABOLITE URINE NEGATIVE (NEGATIVE); METHADONE URINE NEGATIVE (NEGATIVE); OPIATES URINE NEGATIVE (NEGATIVE); PHENCYCLIDINE URINE NEGATIVE (NEGATIVE)
[2017-11-18 19:44] LABS: CPK CREATINE PHOSPHOKINASE 108 U/L (39-308); TROPONIN I < 0.02 NG/ML (< 0.10)
[2017-11-18 19:45] LABS: CK-MB VALUE MASS 1.2 NG/ML (0.0-3.6); MB/CK RELATIVE INDEX 1.11 (< OR =4)
[2017-11-18] MEDS: SENOKOT S TAB PO (21:00)
[2017-11-19] MEDS: NS 1,000 ML IV (00:34)
[2017-11-19] MEDS: FINASTERIDE 5 MG TAB PO ×2 (01:08→20:35)
[2017-11-19] MEDS: TAMSULOSIN 0.4 MG CAP PO ×2 (01:08→20:35)
[2017-11-19] MEDS: QUEtiapine FUMARATE 50 MG TAB PO ×3 (01:08→20:35)
[2017-11-19] MEDS: rifAXIMin 550 MG TAB (XIFAXAN) PO ×3 (01:08→20:35)
[2017-11-19] MEDS: LACTULOSE 20 GM/30 ML SYRUP UD PO ×5 (01:08→23:46)
[2017-11-19] MEDS: SUCRALFATE 1 GM TAB PO ×5 (01:09→20:35)
[2017-11-19] MEDS: DONEPEZIL 5 MG TAB PO ×2 (01:09→20:35)
[2017-11-19] MEDS: AMITRIPTYLINE 50 MG TAB PO ×3 (01:09→20:35)
[2017-11-19 04:37] LABS: HEMATOCRIT 31.2 % (42.0-52.0); HEMOGLOBIN 10.4 g/dl (14.0-18.0); MEAN CORPUSCULAR HEMOGLOBIN 30.4 pg (27.0-33.0); MEAN CORPUSCULAR HGB CONC 33.3 g/dl (32.0-36.5); MEAN CORPUSCULAR VOLUME 91.2 fl (80.0-96.0); PLATELET COUNT, AUTOMATED 67 10^3/uL (150-450); RED BLOOD COUNT 3.42 10^6/uL (4.30-6.10); RED CELL DISTRIBUTION WIDTH 17.2 % (11.5-14.5); WHITE BLOOD COUNT 3.7 10^3/uL (4.0-10.0)
[2017-11-19 04:45] LABS: INR 1.13; PROTHROMBIN TIME 14.7 SECONDS (12.4-14.5)
[2017-11-19 04:49] LABS: AMMONIA 57 uMOL/L (<32)
[2017-11-19 04:56] LABS: ALBUMIN 2.7 GM/DL (3.2-5.2); ALBUMIN/GLOBULIN RATIO 0.51 (1.00-1.93); ALKALINE PHOSPHATASE 632 U/L (45-117); ALT/SGPT 47 U/L (12-78); ANION GAP 6 MEQ/L (8-16); AST/SGOT 63 U/L (7-37); BLOOD UREA NITROGEN 12 MG/DL (7-18); CALCIUM LEVEL 8.8 MG/DL (8.8-10.2); CARBON DIOXIDE LEVEL 26 MEQ/L (21-32); CHLORIDE LEVEL 108 MEQ/L (98-107); CREATININE FOR GFR 1.01 MG/DL (0.70-1.30); GLOMERULAR FILTRATION RATE > 60.0 (>42); GLUCOSE, FASTING 95 MG/DL (83-110); POTASSIUM SERUM 3.9 MEQ/L (3.5-5.1); SODIUM LEVEL 140 MEQ/L (136-145)
[2017-11-19] MEDS: OMEPRAZOLE 20 MG CAP PO (08:45)
[2017-11-19] MEDS: VITAMIN D 1,000 INTERNATIONAL UNITS TABLET PO (08:45)
[2017-11-19] MEDS: SENOKOT S TAB PO ×2 (08:45→20:35)
[2017-11-19] MEDS: NADOLOL 20MG TABLET PO (08:47)
[2017-11-19] MEDS: MULTIVITAMINS/MINERALS THERAP 1 TAB PO (08:47)
[2017-11-20] MEDS: LACTULOSE 20 GM/30 ML SYRUP UD PO ×4 (05:00→22:12)
[2017-11-20 06:53] LABS: HEMATOCRIT 31.4 % (42.0-52.0); HEMOGLOBIN 10.5 g/dl (14.0-18.0); MEAN CORPUSCULAR HEMOGLOBIN 30.3 pg (27.0-33.0); MEAN CORPUSCULAR HGB CONC 33.4 g/dl (32.0-36.5); MEAN CORPUSCULAR VOLUME 90.8 fl (80.0-96.0); RED BLOOD COUNT 3.46 10^6/uL (4.30-6.10); RED CELL DISTRIBUTION WIDTH 17.2 % (11.5-14.5); WHITE BLOOD COUNT 3.5 10^3/uL (4.0-10.0)
[2017-11-20 06:59] LABS: IMMATURE PLATELET FRACTION % 2.3 % (0.0-10.9); PLATELET COUNT, AUTOMATED 61 10^3/uL (150-450)
[2017-11-20 07:01] LABS: INR 1.13; PROTHROMBIN TIME 14.7 SECONDS (12.4-14.5)
[2017-11-20 07:15] LABS: AMMONIA 58 uMOL/L (<32)
[2017-11-20 07:25] LABS: ALBUMIN 2.7 GM/DL (3.2-5.2); ALBUMIN/GLOBULIN RATIO 0.59 (1.00-1.93); ALKALINE PHOSPHATASE 629 U/L (45-117); ALT/SGPT 46 U/L (12-78); ANION GAP 9 MEQ/L (8-16); AST/SGOT 63 U/L (7-37); BILIRUBIN,DIRECT 0.5 MG/DL (0.0-0.2); BILIRUBIN,TOTAL 1.3 MG/DL (0.2-1.0); BLOOD UREA NITROGEN 12 MG/DL (7-18); CALCIUM LEVEL 8.8 MG/DL (8.8-10.2); CARBON DIOXIDE LEVEL 25 MEQ/L (21-32); CHLORIDE LEVEL 107 MEQ/L (98-107); CREATININE FOR GFR 0.91 MG/DL (0.70-1.30); GLOMERULAR FILTRATION RATE > 60.0 (>42); GLUCOSE, FASTING 100 MG/DL (83-110); MAGNESIUM LEVEL 1.9 MG/DL (1.8-2.4); SODIUM LEVEL 141 MEQ/L (136-145); TOTAL PROTEIN 7.3 GM/DL (6.4-8.2)
[2017-11-20] MEDS: NADOLOL 20MG TABLET PO (08:20)
[2017-11-20] MEDS: OMEPRAZOLE 20 MG CAP PO (08:20)
[2017-11-20] MEDS: rifAXIMin 550 MG TAB (XIFAXAN) PO ×2 (08:20→22:13)
[2017-11-20] MEDS: QUEtiapine FUMARATE 50 MG TAB PO ×2 (08:20→22:13)
[2017-11-20] MEDS: VITAMIN D 1,000 INTERNATIONAL UNITS TABLET PO (08:20)
[2017-11-20] MEDS: MULTIVITAMINS/MINERALS THERAP 1 TAB PO (08:20)
[2017-11-20] MEDS: SUCRALFATE 1 GM TAB PO ×4 (08:20→22:13)
[2017-11-20] MEDS: AMITRIPTYLINE 50 MG TAB PO ×2 (08:21→22:13)
[2017-11-20] MEDS: SENOKOT S TAB PO ×2 (08:21→22:13)
[2017-11-20] MEDS: FINASTERIDE 5 MG TAB PO (22:13)
[2017-11-20] MEDS: DONEPEZIL 5 MG TAB PO (22:13)
[2017-11-20] MEDS: TAMSULOSIN 0.4 MG CAP PO (22:13)
[2017-11-21] MEDS: LACTULOSE 20 GM/30 ML SYRUP UD PO ×4 (04:42→23:43)
[2017-11-21 07:31] LABS: HEMATOCRIT 28.5 % (42.0-52.0); HEMOGLOBIN 9.7 g/dl (14.0-18.0); MEAN CORPUSCULAR HEMOGLOBIN 30.7 pg (27.0-33.0); MEAN CORPUSCULAR VOLUME 90.2 fl (80.0-96.0); RED BLOOD COUNT 3.16 10^6/uL (4.30-6.10); RED CELL DISTRIBUTION WIDTH 17.2 % (11.5-14.5); WHITE BLOOD COUNT 3.1 10^3/uL (4.0-10.0)
[2017-11-21 07:35] LABS: PLATELET COUNT, AUTOMATED 58 10^3/uL (150-450)
[2017-11-21 07:36] LABS: IMMATURE PLATELET FRACTION % 1.8 % (0.0-10.9); PLATELET F 57
[2017-11-21 07:43] LABS: INR 1.21; PROTHROMBIN TIME 15.5 SECONDS (12.4-14.5)
[2017-11-21 07:52] LABS: AMMONIA 74 uMOL/L (<32)
[2017-11-21 07:53] LABS: ALBUMIN 2.4 GM/DL (3.2-5.2); ALBUMIN/GLOBULIN RATIO 0.55 (1.00-1.93); ALKALINE PHOSPHATASE 619 U/L (45-117); ALT/SGPT 42 U/L (12-78); ANION GAP 8 MEQ/L (8-16); AST/SGOT 57 U/L (7-37); BILIRUBIN,DIRECT 0.4 MG/DL (0.0-0.2); BILIRUBIN,TOTAL 0.8 MG/DL (0.2-1.0); BLOOD UREA NITROGEN 13 MG/DL (7-18); CALCIUM LEVEL 8.5 MG/DL (8.8-10.2); CARBON DIOXIDE LEVEL 25 MEQ/L (21-32); CHLORIDE LEVEL 106 MEQ/L (98-107); CREATININE FOR GFR 1.04 MG/DL (0.70-1.30); GLOMERULAR FILTRATION RATE > 60.0 (>42); GLUCOSE, FASTING 92 MG/DL (83-110); MAGNESIUM LEVEL 1.9 MG/DL (1.8-2.4); POTASSIUM SERUM 3.8 MEQ/L (3.5-5.1); SODIUM LEVEL 139 MEQ/L (136-145); TOTAL PROTEIN 6.8 GM/DL (6.4-8.2)
[2017-11-21] MEDS: SUCRALFATE 1 GM TAB PO ×4 (08:50→20:36)
[2017-11-21] MEDS: QUEtiapine FUMARATE 50 MG TAB PO ×2 (08:51→20:36)
[2017-11-21] MEDS: AMITRIPTYLINE 50 MG TAB PO ×2 (08:51→20:37)
[2017-11-21] MEDS: VITAMIN D 1,000 INTERNATIONAL UNITS TABLET PO (08:51)
[2017-11-21] MEDS: MULTIVITAMINS/MINERALS THERAP 1 TAB PO (08:51)
[2017-11-21] MEDS: OMEPRAZOLE 20 MG CAP PO (08:51)
[2017-11-21] MEDS: rifAXIMin 550 MG TAB (XIFAXAN) PO ×2 (08:51→20:37)
[2017-11-21] MEDS: SENOKOT S TAB PO ×2 (08:51→20:36)
[2017-11-21] MEDS: NADOLOL 20MG TABLET PO (08:52)
[2017-11-21] MEDS ORDERED: LACTULOSE 20 GM/30 ML SYRUP UD PO (14:15)
[2017-11-21] MEDS: DONEPEZIL 5 MG TAB PO (20:37)
[2017-11-21] MEDS: TAMSULOSIN 0.4 MG CAP PO (20:37)
[2017-11-21] MEDS: FINASTERIDE 5 MG TAB PO (20:37)
[2017-11-22] MEDS: NORCO, ANEXSIA 5/325MG TABLET (HYDROcodone/ACETAMINOPHEN) PO (02:07)
[2017-11-22 07:14] LABS: INR 1.16
[2017-11-22] MEDS: SUCRALFATE 1 GM TAB PO ×4 (07:30→20:30)
[2017-11-22 07:31] LABS: ALBUMIN 2.6 GM/DL (3.2-5.2); ALBUMIN/GLOBULIN RATIO 0.62 (1.00-1.93); ALKALINE PHOSPHATASE 621 U/L (45-117); ALT/SGPT 42 U/L (12-78); ANION GAP 8 MEQ/L (8-16); AST/SGOT 59 U/L (7-37); BILIRUBIN,TOTAL 0.6 MG/DL (0.2-1.0); BLOOD UREA NITROGEN 16 MG/DL (7-18); CALCIUM LEVEL 8.4 MG/DL (8.8-10.2); CARBON DIOXIDE LEVEL 25 MEQ/L (21-32); CHLORIDE LEVEL 106 MEQ/L (98-107); CREATININE FOR GFR 1.02 MG/DL (0.70-1.30); GLOMERULAR FILTRATION RATE > 60.0 (>42); GLUCOSE, FASTING 94 MG/DL (70-100); MAGNESIUM LEVEL 1.9 MG/DL (1.8-2.4); SODIUM LEVEL 139 MEQ/L (136-145); TOTAL PROTEIN 6.8 GM/DL (6.4-8.2)
[2017-11-22] MEDS: LACTULOSE 20 GM/30 ML SYRUP UD PO ×4 (08:30→23:54)
[2017-11-22] MEDS: rifAXIMin 550 MG TAB (XIFAXAN) PO ×2 (09:00→20:31)
[2017-11-22] MEDS: NADOLOL 20MG TABLET PO (09:00)
[2017-11-22] MEDS: OMEPRAZOLE 20 MG CAP PO (09:00)
[2017-11-22] MEDS: VITAMIN D 1,000 INTERNATIONAL UNITS TABLET PO (09:00)
[2017-11-22] MEDS: MULTIVITAMINS/MINERALS THERAP 1 TAB PO (09:00)
[2017-11-22] MEDS: AMITRIPTYLINE 50 MG TAB PO ×2 (09:00→20:31)
[2017-11-22] MEDS: SENOKOT S TAB PO ×2 (09:00→20:30)
[2017-11-22] MEDS: QUEtiapine FUMARATE 50 MG TAB PO ×2 (09:00→20:31)
[2017-11-22 09:26] LABS: CA19-9 TUMOR MARKER,CARBOHYDRA 41.8 U/ML (<35.0)
[2017-11-22 12:23] LABS: AMMONIA 84 uMOL/L (<32)
[2017-11-22] MEDS: DONEPEZIL 5 MG TAB PO (20:30)
[2017-11-22] MEDS: FINASTERIDE 5 MG TAB PO (20:31)
[2017-11-22] MEDS: TAMSULOSIN 0.4 MG CAP PO (20:31)
[2017-11-23] MEDS: LACTULOSE 20 GM/30 ML SYRUP UD PO ×2 (06:19→11:50)
[2017-11-23 07:22] LABS: HEMATOCRIT 29.8 % (42.0-52.0); HEMOGLOBIN 10.1 g/dl (14.0-18.0); MEAN CORPUSCULAR HEMOGLOBIN 30.5 pg (27.0-33.0); MEAN CORPUSCULAR HGB CONC 33.9 g/dl (32.0-36.5); RED BLOOD COUNT 3.31 10^6/uL (4.30-6.10); WHITE BLOOD COUNT 3.1 10^3/uL (4.0-10.0)
[2017-11-23 07:23] LABS: PLATELET COUNT, AUTOMATED 61 10^3/uL (150-450)
[2017-11-23 07:24] LABS: IMMATURE PLATELET FRACTION % 1.7 % (0.0-10.9)
[2017-11-23 07:36] LABS: AMMONIA 58 uMOL/L (<32)
[2017-11-23 07:40] LABS: ALBUMIN 2.5 GM/DL (3.2-5.2); ALBUMIN/GLOBULIN RATIO 0.52 (1.00-1.93); ALKALINE PHOSPHATASE 590 U/L (45-117); ALT/SGPT 44 U/L (12-78); ANION GAP 7 MEQ/L (8-16); AST/SGOT 62 U/L (7-37); BILIRUBIN,TOTAL 0.7 MG/DL (0.2-1.0); BLOOD UREA NITROGEN 14 MG/DL (7-18); CALCIUM LEVEL 8.6 MG/DL (8.8-10.2); CARBON DIOXIDE LEVEL 24 MEQ/L (21-32); CHLORIDE LEVEL 106 MEQ/L (98-107); CREATININE FOR GFR 1.09 MG/DL (0.70-1.30); GLOMERULAR FILTRATION RATE > 60.0 (>42); GLUCOSE, FASTING 123 MG/DL (70-100); MAGNESIUM LEVEL 1.9 MG/DL (1.8-2.4); POTASSIUM SERUM 3.7 MEQ/L (3.5-5.1); SODIUM LEVEL 137 MEQ/L (136-145); TOTAL PROTEIN 7.3 GM/DL (6.4-8.2)
[2017-11-23 07:48] LABS: INR 1.26
[2017-11-23] MEDS: VITAMIN D 1,000 INTERNATIONAL UNITS TABLET PO (08:33)
[2017-11-23] MEDS: MULTIVITAMINS/MINERALS THERAP 1 TAB PO (08:33)
[2017-11-23] MEDS: AMITRIPTYLINE 50 MG TAB PO (08:33)
[2017-11-23] MEDS: rifAXIMin 550 MG TAB (XIFAXAN) PO (08:33)
[2017-11-23] MEDS: OMEPRAZOLE 20 MG CAP PO (08:33)
[2017-11-23] MEDS: SUCRALFATE 1 GM TAB PO ×2 (08:33→11:50)
[2017-11-23] MEDS: NADOLOL 20MG TABLET PO (08:33)
[2017-11-23] MEDS: SENOKOT S TAB PO (08:33)
[2017-11-23] MEDS: QUEtiapine FUMARATE 50 MG TAB PO (08:33)
== END 2017-11-23 13:08 | DRG 442 ==
LOC: M ICU 11-19 00:24 → M MS4PR 11-19 21:51 → M ED 13:10 → M ED INP 16:57
DX: K72.91 Hepatic failure, unspecified with coma (principal); F02.81 Dementia in other diseases classified elsewhere, unspecified severity, with behavioral disturbance; E78.5 Hyperlipidemia, unspecified; Z92.21 Personal history of antineoplastic chemotherapy; F32.9 Major depressive disorder, single episode, unspecified; G31.83 Neurocognitive disorder with Lewy bodies; Z88.1 Allergy status to other antibiotic agents; Z88.6 Allergy status to analgesic agent; Z88.8 Allergy status to other drugs, medicaments and biological substances; Z96.651 Presence of right artificial knee joint; Z90.49 Acquired absence of other specified parts of digestive tract; Z79.899 Other long term (current) drug therapy

== ENCOUNTER → 2017-11-22 | Outpatient (REF) | payer MEDICARE | DX: K72.90 Hepatic failure, unspecified without coma (principal) ==

== ENCOUNTER 2017-11-30 19:20 | Emergency (ER) | payer MEDICARE ==
[2017-11-30 20:03] LABS: BASO % 0.3 % (0.0-1.0); EOS # 0.1 10^3/uL (0.0-0.50); EOS % 4.3 % (0.0-3.0); HEMATOCRIT 29.2 % (42.0-52.0); HEMOGLOBIN 9.8 g/dl (14.0-18.0); IMMATURE GRANULOCYTE % 0.9 % (0-0); LYMPH # 0.6 10^3/uL (1.5-4.5); LYMPH % 17.4 % (24.0-44.0); MEAN CORPUSCULAR HEMOGLOBIN 30.5 pg (27.0-33.0); MEAN CORPUSCULAR HGB CONC 33.6 g/dl (32.0-36.5); MONO # 0.5 10^3/uL (0.0-0.8); MONO % 15.2 % (0.0-5.0); NEUTROPHILS % 61.9 % (36.0-66.0); RED BLOOD COUNT 3.21 10^6/uL (4.30-6.10); RED CELL DISTRIBUTION WIDTH 17.1 % (11.5-14.5); WHITE BLOOD COUNT 3.3 10^3/uL (4.0-10.0)
[2017-11-30 20:06] LABS: PLATELET COUNT, AUTOMATED 72 10^3/uL (150-450)
[2017-11-30 20:08] LABS: IMMATURE PLATELET FRACTION % 1.4 % (0.0-10.9)
[2017-11-30 20:15] LABS: INR 1.17; PROTHROMBIN TIME 15.1 SECONDS (12.4-14.5)
[2017-11-30 20:16] LABS: PARTIAL THROMBOPLASTIN TIME 33.2 SECONDS (26.8-37.9)
[2017-11-30 20:27] LABS: LACTIC ACID SEPSIS PROTOCOL 1.6 MMOL/L (0.4-2.0)
[2017-11-30 20:36] LABS: ALBUMIN 2.6 GM/DL (3.2-5.2); ALBUMIN/GLOBULIN RATIO 0.54 (1.00-1.93); ALKALINE PHOSPHATASE 592 U/L (45-117); ALT/SGPT 49 U/L (12-78); ANION GAP 7 MEQ/L (8-16); AST/SGOT 69 U/L (7-37); BILIRUBIN,DIRECT 0.4 MG/DL (0.0-0.2); BILIRUBIN,TOTAL 0.7 MG/DL (0.2-1.0); BLOOD UREA NITROGEN 12 MG/DL (7-18); CALCIUM LEVEL 8.4 MG/DL (8.8-10.2); CARBON DIOXIDE LEVEL 27 MEQ/L (21-32); CHLORIDE LEVEL 107 MEQ/L (98-107); CREATININE FOR GFR 1.17 MG/DL (0.70-1.30); GLOMERULAR FILTRATION RATE > 60.0 (>42); GLUCOSE, FASTING 88 MG/DL (70-100); POTASSIUM SERUM 3.9 MEQ/L (3.5-5.1); SODIUM LEVEL 141 MEQ/L (136-145); T UPTAKE 36 % (33-40); THYROXINE (T4) 5.6 UG/DL (4.5-12.0); TOTAL PROTEIN 7.4 GM/DL (6.4-8.2); VENOUS BASE EXCESS -0.6 (-2.0-2.0); VENOUS HCO3 24.1 MEQ/L (23.0-27.0); VENOUS O2 SATURATION 64.8 % (60.0-80.0); VENOUS PARTIAL PRESSURE CO2 40.1 mmHg (38.0-50.0); VENOUS PARTIAL PRESSURE O2 36.9 mmHg (30.0-50.0); VENOUS PH 7.397 UNITS (7.330-7.430); VENOUS STANDARD HCO3 23.3 MEQ/L; VENOUS TOTAL CO2 25.3 MEQ/L (24.0-28.0)
[2017-11-30 20:49] LABS: AMMONIA 44 uMOL/L (<32)
[2017-11-30 21:21] LABS: APPEARANCE, URINE CLEAR (CLEAR); BACTERIA, URINE AUTO NEGATIVE (NEGATIVE); BILIRUBIN, URINE AUTO NEGATIVE (NEGATIVE); BLOOD, URINE BLOOD NEGATIVE (NEGATIVE); COLOR, URINE YELLOW (YELLOW); GLUCOSE, URINE (UA) AUTO NEGATIVE (NEGATIVE); KETONE, URINE AUTO NEGATIVE (NEGATIVE); LEUKOCYTE ESTERASE, URINE AUTO NEGATIVE (NEGATIVE); MUCUS, URINE SMALL (NEGATIVE); NITRITE, URINE AUTO NEGATIVE (NEGATIVE); PROTEIN, URINE AUTO NEGATIVE (NEGATIVE); RBC, URINE AUTO 1 /HPF (0-3); SPECIFIC GRAVITY URINE AUTO 1.011 (1.002-1.035); SQUAMOUS EPITHELIAL CELL UR AU 0 /HPF (0-6); WBC, URINE AUTO 1 /HPF (0-3)
[2017-11-30] MEDS: QUEtiapine FUMARATE 50 MG TAB PO ×3 (22:18)
== END 2017-11-30 23:08 | disposition home or self-care (01) ==
LOC: M ED 19:20
DX: K72.10 Chronic hepatic failure without coma (principal); F03.90 Unspecified dementia, unspecified severity, without behavioral disturbance, psychotic disturbance, mood disturbance, and anxiety; Z87.820 Personal history of traumatic brain injury; I10 Essential (primary) hypertension; E78.00 Pure hypercholesterolemia, unspecified; G20 Parkinson's disease; Z79.899 Other long term (current) drug therapy
CPT/HCPCS: 70450

== ENCOUNTER → 2017-12-02 | Outpatient (REF) | payer MEDICARE ==
[2017-12-02 12:40] LABS: HEMATOCRIT 29.2 % (42.0-52.0); HEMOGLOBIN 9.6 g/dl (14.0-18.0); MEAN CORPUSCULAR HEMOGLOBIN 30.5 pg (27.0-33.0); MEAN CORPUSCULAR HGB CONC 32.9 g/dl (32.0-36.5); MEAN CORPUSCULAR VOLUME 92.7 fl (80.0-96.0); RED BLOOD COUNT 3.15 10^6/uL (4.30-6.10); RED CELL DISTRIBUTION WIDTH 17.2 % (11.5-14.5); WHITE BLOOD COUNT 3.3 10^3/uL (4.0-10.0)
[2017-12-02 12:42] LABS: PLATELET COUNT, AUTOMATED 64 10^3/uL (150-450)
[2017-12-02 12:43] LABS: IMMATURE PLATELET FRACTION % 2.3 % (0.0-10.9); PLATELET F 64
[2017-12-02 13:00] LABS: AMMONIA 97 uMOL/L (<32)
[2017-12-02 13:25] LABS: ALBUMIN 2.7 GM/DL (3.2-5.2); ALBUMIN/GLOBULIN RATIO 0.57 (1.00-1.93); ALKALINE PHOSPHATASE 564 U/L (45-117); ALT/SGPT 49 U/L (12-78); ANION GAP 11 MEQ/L (8-16); AST/SGOT 75 U/L (7-37); BILIRUBIN,DIRECT 0.4 MG/DL (0.0-0.2); BILIRUBIN,TOTAL 0.8 MG/DL (0.2-1.0); BLOOD UREA NITROGEN 13 MG/DL (7-18); CALCIUM LEVEL 8.5 MG/DL (8.8-10.2); CARBON DIOXIDE LEVEL 23 MEQ/L (21-32); CHLORIDE LEVEL 108 MEQ/L (98-107); CREATININE FOR GFR 1.07 MG/DL (0.70-1.30); GLOMERULAR FILTRATION RATE > 60.0 (>42); GLUCOSE, FASTING 112 MG/DL (70-100); POTASSIUM SERUM 4.2 MEQ/L (3.5-5.1); SODIUM LEVEL 142 MEQ/L (136-145); TOTAL PROTEIN 7.4 GM/DL (6.4-8.2)
== END ==
DX: Z09 Encounter for follow-up examination after completed treatment for conditions other than malignant neoplasm (principal); Z86.19 Personal history of other infectious and parasitic diseases
CPT/HCPCS: 82140

== ENCOUNTER → 2017-12-06 | Outpatient (REF) | payer MEDICARE ==
[2017-12-06 14:14] LABS: AMMONIA 51 uMOL/L (<32)
[2017-12-06 14:19] LABS: ALBUMIN 2.7 GM/DL (3.2-5.2); ALBUMIN/GLOBULIN RATIO 0.56 (1.00-1.93); ALKALINE PHOSPHATASE 532 U/L (45-117); ALT/SGPT 48 U/L (12-78); ANION GAP 7 MEQ/L (8-16); AST/SGOT 65 U/L (7-37); BILIRUBIN,TOTAL 0.7 MG/DL (0.2-1.0); BLOOD UREA NITROGEN 11 MG/DL (7-18); CALCIUM LEVEL 8.3 MG/DL (8.8-10.2); CARBON DIOXIDE LEVEL 26 MEQ/L (21-32); CHLORIDE LEVEL 106 MEQ/L (98-107); CREATININE FOR GFR 1.11 MG/DL (0.70-1.30); GLOMERULAR FILTRATION RATE > 60.0 (>42); GLUCOSE, FASTING 131 MG/DL (70-100); POTASSIUM SERUM 3.8 MEQ/L (3.5-5.1); SODIUM LEVEL 139 MEQ/L (136-145); TOTAL PROTEIN 7.5 GM/DL (6.4-8.2)
== END ==
DX: G93.40 Encephalopathy, unspecified (principal)
CPT/HCPCS: 82140

== ENCOUNTER → 2017-12-08 | Outpatient (REF) | payer MEDICARE ==
[2017-12-08 10:06] LABS: AMMONIA 53 uMOL/L (<32)
[2017-12-08 10:16] LABS: ALBUMIN 2.9 GM/DL (3.2-5.2); ALBUMIN/GLOBULIN RATIO 0.59 (1.00-1.93); ALKALINE PHOSPHATASE 529 U/L (45-117); ALT/SGPT 46 U/L (12-78); ANION GAP 9 MEQ/L (8-16); AST/SGOT 62 U/L (7-37); BILIRUBIN,TOTAL 0.9 MG/DL (0.2-1.0); BLOOD UREA NITROGEN 10 MG/DL (7-18); CALCIUM LEVEL 8.8 MG/DL (8.8-10.2); CARBON DIOXIDE LEVEL 26 MEQ/L (21-32); CHLORIDE LEVEL 105 MEQ/L (98-107); GLOMERULAR FILTRATION RATE > 60.0 (>42); GLUCOSE, FASTING 100 MG/DL (70-100); POTASSIUM SERUM 3.7 MEQ/L (3.5-5.1); SODIUM LEVEL 140 MEQ/L (136-145); TOTAL PROTEIN 7.8 GM/DL (6.4-8.2)
== END ==
DX: G93.40 Encephalopathy, unspecified (principal)

== ENCOUNTER → 2017-12-12 | Outpatient (REF) | payer MEDICARE ==
[2017-12-12 10:44] LABS: AMMONIA < 10 uMOL/L (<32)
[2017-12-12 10:54] LABS: ALBUMIN 2.7 GM/DL (3.2-5.2); ALBUMIN/GLOBULIN RATIO 0.59 (1.00-1.93); ALKALINE PHOSPHATASE 469 U/L (45-117); ALT/SGPT 42 U/L (12-78); ANION GAP 10 MEQ/L (8-16); AST/SGOT 61 U/L (7-37); BILIRUBIN,TOTAL 1.2 MG/DL (0.2-1.0); BLOOD UREA NITROGEN 12 MG/DL (7-18); CALCIUM LEVEL 8.1 MG/DL (8.8-10.2); CARBON DIOXIDE LEVEL 23 MEQ/L (21-32); CHLORIDE LEVEL 108 MEQ/L (98-107); CREATININE FOR GFR 1.15 MG/DL (0.70-1.30); GLOMERULAR FILTRATION RATE > 60.0 (>42); GLUCOSE, FASTING 140 MG/DL (70-100); POTASSIUM SERUM 3.5 MEQ/L (3.5-5.1); SODIUM LEVEL 141 MEQ/L (136-145); TOTAL PROTEIN 7.3 GM/DL (6.4-8.2)
== END ==
DX: G93.41 Metabolic encephalopathy (principal)
CPT/HCPCS: 82140

== ENCOUNTER → 2017-12-15 | Outpatient (REF) | payer MEDICARE ==
[2017-12-15 07:23] LABS: AMMONIA 39 uMOL/L (<32)
[2017-12-15 07:26] LABS: ALBUMIN 2.4 GM/DL (3.2-5.2); ALBUMIN/GLOBULIN RATIO 0.56 (1.00-1.93); ALKALINE PHOSPHATASE 456 U/L (45-117); ALT/SGPT 35 U/L (12-78); ANION GAP 10 MEQ/L (8-16); AST/SGOT 54 U/L (7-37); BILIRUBIN,TOTAL 0.6 MG/DL (0.2-1.0); BLOOD UREA NITROGEN 10 MG/DL (7-18); CARBON DIOXIDE LEVEL 24 MEQ/L (21-32); CHLORIDE LEVEL 108 MEQ/L (98-107); CREATININE FOR GFR 1.07 MG/DL (0.70-1.30); GLOMERULAR FILTRATION RATE > 60.0 (>42); GLUCOSE, FASTING 97 MG/DL (70-100); POTASSIUM SERUM 3.6 MEQ/L (3.5-5.1); SODIUM LEVEL 142 MEQ/L (136-145); TOTAL PROTEIN 6.7 GM/DL (6.4-8.2)
== END ==
DX: G93.40 Encephalopathy, unspecified (principal)

== ENCOUNTER → 2017-12-19 | Outpatient (REF) | payer MEDICARE ==
[2017-12-19 10:59] LABS: HEMATOCRIT 28.2 % (42.0-52.0); HEMOGLOBIN 9.4 g/dl (14.0-18.0); MEAN CORPUSCULAR HEMOGLOBIN 30.7 pg (27.0-33.0); MEAN CORPUSCULAR HGB CONC 33.3 g/dl (32.0-36.5); MEAN CORPUSCULAR VOLUME 92.2 fl (80.0-96.0); RED BLOOD COUNT 3.06 10^6/uL (4.30-6.10); RED CELL DISTRIBUTION WIDTH 16.7 % (11.5-14.5); WHITE BLOOD COUNT 2.3 10^3/uL (4.0-10.0)
[2017-12-19 11:06] LABS: AMMONIA 32 uMOL/L (<32)
[2017-12-19 11:09] LABS: ALBUMIN 2.8 GM/DL (3.2-5.2); ALKALINE PHOSPHATASE 462 U/L (45-117); ALT/SGPT 39 U/L (12-78); ANION GAP 8 MEQ/L (8-16); AST/SGOT 56 U/L (7-37); BLOOD UREA NITROGEN 6 MG/DL (7-18); CALCIUM LEVEL 8.5 MG/DL (8.8-10.2); CARBON DIOXIDE LEVEL 27 MEQ/L (21-32); CHLORIDE LEVEL 106 MEQ/L (98-107); CREATININE FOR GFR 1.08 MG/DL (0.70-1.30); GLOMERULAR FILTRATION RATE > 60.0 (>42); GLUCOSE, FASTING 136 MG/DL (70-100); POTASSIUM SERUM 3.9 MEQ/L (3.5-5.1); SODIUM LEVEL 141 MEQ/L (136-145); TOTAL PROTEIN 7.5 GM/DL (6.4-8.2)
[2017-12-19 11:24] LABS: PLATELET COUNT, AUTOMATED 69 10^3/uL (150-450)
[2017-12-19 11:25] LABS: IMMATURE PLATELET FRACTION % 1.4 % (0.0-10.9); PLATELET F 80
== END ==
DX: G93.41 Metabolic encephalopathy (principal)
CPT/HCPCS: 82140

== ENCOUNTER → 2017-12-27 | Outpatient (REF) | payer MEDICARE ==
[2017-12-27 13:42] LABS: HEMATOCRIT 30.2 % (42.0-52.0); HEMOGLOBIN 9.9 g/dl (14.0-18.0); MEAN CORPUSCULAR HEMOGLOBIN 30.5 pg (27.0-33.0); MEAN CORPUSCULAR HGB CONC 32.8 g/dl (32.0-36.5); MEAN CORPUSCULAR VOLUME 92.9 fl (80.0-96.0); RED BLOOD COUNT 3.25 10^6/uL (4.30-6.10); RED CELL DISTRIBUTION WIDTH 16.8 % (11.5-14.5); WHITE BLOOD COUNT 3.4 10^3/uL (4.0-10.0)
[2017-12-27 13:44] LABS: PLATELET COUNT, AUTOMATED 66 10^3/uL (150-450)
[2017-12-27 13:46] LABS: IMMATURE PLATELET FRACTION % 2.6 % (0.0-10.9)
[2017-12-27 13:59] LABS: AMMONIA 37 uMOL/L (<32)
[2017-12-27 14:14] LABS: ALBUMIN 2.8 GM/DL (3.2-5.2); ALBUMIN/GLOBULIN RATIO 0.62 (1.00-1.93); ALKALINE PHOSPHATASE 430 U/L (45-117); ALT/SGPT 35 U/L (12-78); ANION GAP 6 MEQ/L (8-16); AST/SGOT 53 U/L (7-37); BILIRUBIN,TOTAL 0.8 MG/DL (0.2-1.0); BLOOD UREA NITROGEN 11 MG/DL (7-18); CALCIUM LEVEL 8.5 MG/DL (8.8-10.2); CARBON DIOXIDE LEVEL 29 MEQ/L (21-32); CHLORIDE LEVEL 106 MEQ/L (98-107); CREATININE FOR GFR 0.98 MG/DL (0.70-1.30); GLOMERULAR FILTRATION RATE > 60.0 (>42); GLUCOSE, FASTING 99 MG/DL (70-100); POTASSIUM SERUM 4.1 MEQ/L (3.5-5.1); SODIUM LEVEL 141 MEQ/L (136-145); TOTAL PROTEIN 7.3 GM/DL (6.4-8.2)
== END ==
LOC: M SFHCADAM 11:45
DX: K72.90 Hepatic failure, unspecified without coma (principal); K74.60 Unspecified cirrhosis of liver; Z87.19 Personal history of other diseases of the digestive system
CPT/HCPCS: 82140

== ENCOUNTER 2018-01-06 13:41 | Outpatient (RCR) | payer MEDICARE | END 2018-01-28 | LOC: M PT 13:41 | DX: Z51.89 Encounter for other specified aftercare (principal); R26.81 Unsteadiness on feet ==

== ENCOUNTER 2018-01-19 11:18 | Day surgery (SDC) | payer MEDICARE ==
[2018-01-19] MEDS: NS 1,000 ML IV (11:30)
[2018-01-19] MEDS ORDERED: PROPOFOL 200 MG/20 ML VIAL As Ordered (13:03)
[2018-01-19] MEDS ORDERED: LIDOCAINE 2% INJ 100 MG/5 ML SDV (FOR ANES.) As Ordered (13:03)
== END 2018-01-19 14:00 | disposition home or self-care (01) ==
LOC: M OPP 11:18
DX: K76.6 Portal hypertension (principal); I85.10 Secondary esophageal varices without bleeding; R00.8 Other abnormalities of heart beat; K57.32 Diverticulitis of large intestine without perforation or abscess without bleeding; K92.2 Gastrointestinal hemorrhage, unspecified; K21.9 Gastro-esophageal reflux disease without esophagitis; R12 Heartburn; D64.9 Anemia, unspecified; K74.60 Unspecified cirrhosis of liver; C22.1 Intrahepatic bile duct carcinoma; Z92.21 Personal history of antineoplastic chemotherapy; Z86.73 Personal history of transient ischemic attack (TIA), and cerebral infarction without residual deficits; I10 Essential (primary) hypertension; M19.90 Unspecified osteoarthritis, unspecified site; F41.9 Anxiety disorder, unspecified; F32.9 Major depressive disorder, single episode, unspecified; F03.90 Unspecified dementia, unspecified severity, without behavioral disturbance, psychotic disturbance, mood disturbance, and anxiety; R06.83 Snoring; N40.1 Benign prostatic hyperplasia with lower urinary tract symptoms; Z88.8 Allergy status to other drugs, medicaments and biological substances; Z88.1 Allergy status to other antibiotic agents; Z79.899 Other long term (current) drug therapy; Z80.3 Family history of malignant neoplasm of breast; Z80.1 Family history of malignant neoplasm of trachea, bronchus and lung; Z80.41 Family history of malignant neoplasm of ovary
CPT/HCPCS: 43244

== ENCOUNTER 2018-03-02 12:30 | Inpatient (IN) | payer MEDICARE ==
[2018-03-02] MEDS: FINASTERIDE 5 MG TAB PO (09:00)
[2018-03-02] MEDS: HEPARIN SOD (PORCINE) 5000 UNITS/ML VIAL SC ×2 (09:00→21:18)
[2018-03-02] MEDS: NADOLOL 20MG TABLET PO (09:00)
[~2018-03-02 12:30] MED LIST changes: -AMIT100TA PO; -AMIT150T PO; -AMIT50TA PO; -AMIT50TA4 PO; -AMOX875T2 PO; -ASPI81CH PO; -BACL1TAB8 PO; -CEFT250T8 PO; -CEPH500T PO; -CIPR500T89 PO; -DONETAB6 PO; -FINA5TAB2 PO; -FLAG500T PO; -FLOM5CAP PO; -FURO20TA2 PO; -HYDR12.55 PO; -KLOR20PO12 GT; -LACT10SO29 NG; -LACT10SO29 PO; -LACT10SO3 PO; -LASI20TA PO; -LIDO2SO SSP; -LORA10TA2 PO; -LOVE1INJ SC; -METR0.00 TOP; -MULTCAP PO; -NADO20TA PO; -OMEP40CA2 PO; +ONDANSETRON 4 MG TAB (S0181) PO; -PANT40TA2 PO; -POTA20TA PO; -POTA20TA4 PO; -PROT40IN4 IV; -RANI300C PO; -RANI300T PO; -SERO50TA PO; -SUCR1TA PO; -TUBE5INJ ID; -TYLE325T5 PO; -URSO1TAB6 PO; -VITA200038 PO; -VITACAP31 PO; -VITMTA PO; -ZOSY3INJ2 IV; -[UNRECOGNIZED DRUG - CODE] PO
[2018-03-02] MEDS: SODIUM CHLORIDE 0.9% INJ 10 ML SYR IV ×3 (15:20→21:19)
[2018-03-02] MEDS: MEROPENEM INJ 2 GM in NS 100 ML IV ×2 (15:20→21:19)
[2018-03-02] MEDS: SUCRALFATE 1 GM TAB PO ×2 (16:48→21:18)
[2018-03-02] MEDS: LACTULOSE 20 GM/30 ML SYRUP UD PO (17:50)
[2018-03-02] MEDS: DONEPEZIL 5 MG TAB PO (21:18)
[2018-03-02] MEDS: NYSTATIN 100,000 UNITS/GM TOPICAL PWD 15 GM TOP (21:18)
[2018-03-02] MEDS: rifAXIMin 550 MG TAB (XIFAXAN) PO (21:18)
[2018-03-02] MEDS: FAMOTIDINE 20 MG TAB PO (21:18)
[2018-03-02] MEDS: AMITRIPTYLINE 50 MG TAB PO (21:18)
[2018-03-03] MEDS: LACTULOSE 20 GM/30 ML SYRUP UD PO ×6 (00:23→23:19)
[2018-03-03] MEDS: MEROPENEM INJ 2 GM in NS 100 ML IV (06:02)
[2018-03-03] MEDS: SODIUM CHLORIDE 0.9% INJ 10 ML SYR IV ×5 (06:03→23:47)
[2018-03-03 06:42] LABS: BASO % 0.9 % (0.0-1.0); EOS # 0.3 10^3/uL (0.0-0.50); HEMOGLOBIN 7.8 g/dl (13.5-17.5); IMMATURE GRANULOCYTE % 0.6 % (0-3.0); LYMPH # 0.5 10^3/uL (1.5-4.5); LYMPH % 13.3 % (24.0-44.0); MEAN CORPUSCULAR HEMOGLOBIN 32.6 pg (27.0-33.0); MEAN CORPUSCULAR HGB CONC 33.9 g/dl (32.0-36.5); MEAN CORPUSCULAR VOLUME 96.2 fl (80.0-96.0); MONO # 0.6 10^3/uL (0.0-0.8); MONO % 16.2 % (0.0-5.0); NEUTROPHILS # 2.1 10^3/uL (1.8-7.7); RED BLOOD COUNT 2.39 10^6/uL (4.30-6.10); RED CELL DISTRIBUTION WIDTH 19.3 % (11.5-14.5); WHITE BLOOD COUNT 3.4 10^3/uL (4.0-10.0)
[2018-03-03 07:07] LABS: PLATELET COUNT, AUTOMATED 96 10^3/uL (150-450)
[2018-03-03 07:08] LABS: IMMATURE PLATELET FRACTION % 1.2 % (0.0-10.9)
[2018-03-03 07:11] LABS: ALBUMIN 2.4 GM/DL (3.2-5.2); ALBUMIN/GLOBULIN RATIO 0.44 (1.00-1.93); ALKALINE PHOSPHATASE 1967 U/L (45-117); ALT/SGPT 84 U/L (12-78); ANION GAP 9 MEQ/L (8-16); AST/SGOT 184 U/L (7-37); BILIRUBIN,TOTAL 2.1 MG/DL (0.2-1.0); BLOOD UREA NITROGEN 13 MG/DL (7-18); CALCIUM LEVEL 8.1 MG/DL (8.8-10.2); CARBON DIOXIDE LEVEL 22 MEQ/L (21-32); CHLORIDE LEVEL 107 MEQ/L (98-107); GLOMERULAR FILTRATION RATE > 60.0 (>42); GLUCOSE, FASTING 87 MG/DL (70-100); POTASSIUM SERUM 4.2 MEQ/L (3.5-5.1); SODIUM LEVEL 138 MEQ/L (136-145); TOTAL PROTEIN 7.9 GM/DL (6.4-8.2)
[2018-03-03] MEDS: rifAXIMin 550 MG TAB (XIFAXAN) PO ×2 (08:25→22:25)
[2018-03-03] MEDS: FINASTERIDE 5 MG TAB PO (08:26)
[2018-03-03] MEDS: TAMSULOSIN 0.4 MG CAP PO (08:26)
[2018-03-03] MEDS: SUCRALFATE 1 GM TAB PO ×4 (08:26→22:25)
[2018-03-03] MEDS: NADOLOL 20MG TABLET PO (08:26)
[2018-03-03] MEDS: MULTIVITAMINS/MINERALS THERAP 1 TAB PO (08:26)
[2018-03-03] MEDS: AMITRIPTYLINE 50 MG TAB PO ×2 (08:26→22:25)
[2018-03-03] MEDS: VITAMIN D 1,000 INTERNATIONAL UNITS TABLET PO (08:27)
[2018-03-03] MEDS: DAPTOmycin 500 MG in NS 50 ML IV (08:27)
[2018-03-03] MEDS: NYSTATIN 100,000 UNITS/GM TOPICAL PWD 15 GM TOP ×2 (08:27→22:26)
[2018-03-03] MEDS: HEPARIN SOD (PORCINE) 5000 UNITS/ML VIAL SC ×2 (09:00→22:26)
[2018-03-03] MEDS: MEROPENEM INJ 1 GM in APPROPRIATE DILUENT 1 EA IV ×4 (14:23→23:19)
[2018-03-03 15:20] LABS: APPEARANCE, URINE HAZY (CLEAR); BACTERIA, URINE AUTO NEGATIVE (NEGATIVE); BILIRUBIN, URINE AUTO NEGATIVE (NEGATIVE); BLOOD, URINE BLOOD 2+ (NEGATIVE); COLOR, URINE AMBER (YELLOW); GLUCOSE, URINE (UA) AUTO 1+ mg/dL (NEGATIVE); KETONE, URINE AUTO TRACE mg/dL (NEGATIVE); LEUKOCYTE ESTERASE, URINE AUTO NEGATIVE (NEGATIVE); NITRITE, URINE AUTO NEGATIVE (NEGATIVE); PROTEIN, URINE AUTO 1+ mg/dL (NEGATIVE); RBC, URINE AUTO 3 /HPF (0-3); SPECIFIC GRAVITY URINE AUTO 1.016 (1.002-1.035); SQUAMOUS EPITHELIAL CELL UR AU 0 /HPF (0-6); UROBILINOGEN, URINE AUTO 0.2 mg/dL (0.0-2.0); WBC, URINE AUTO 1 /HPF (0-3)
[2018-03-03 15:28] LABS: AMMONIA 30 uMOL/L (<32)
[2018-03-03] MEDS: FAMOTIDINE 20 MG TAB PO (22:25)
[2018-03-03] MEDS: DONEPEZIL 5 MG TAB PO (22:25)
[2018-03-04] MEDS: SODIUM CHLORIDE 0.9% INJ 10 ML SYR IV ×5 (06:00→23:16)
[2018-03-04] MEDS: MEROPENEM INJ 1 GM in APPROPRIATE DILUENT 1 EA IV ×6 (06:21→22:36)
[2018-03-04] MEDS: LACTULOSE 20 GM/30 ML SYRUP UD PO ×4 (06:22→23:16)
[2018-03-04] MEDS: SUCRALFATE 1 GM TAB PO ×4 (07:57→21:56)
[2018-03-04] MEDS: DAPTOmycin 500 MG in NS 50 ML IV (07:57)
[2018-03-04] MEDS: FINASTERIDE 5 MG TAB PO (08:50)
[2018-03-04] MEDS: NADOLOL 20MG TABLET PO (08:51)
[2018-03-04] MEDS: MULTIVITAMINS/MINERALS THERAP 1 TAB PO (08:51)
[2018-03-04] MEDS: TAMSULOSIN 0.4 MG CAP PO (08:51)
[2018-03-04] MEDS: AMITRIPTYLINE 50 MG TAB PO ×2 (08:51→21:56)
[2018-03-04] MEDS: NYSTATIN 100,000 UNITS/GM TOPICAL PWD 15 GM TOP ×2 (08:52→21:54)
[2018-03-04] MEDS: HEPARIN SOD (PORCINE) 5000 UNITS/ML VIAL SC ×2 (08:52→21:54)
[2018-03-04] MEDS: rifAXIMin 550 MG TAB (XIFAXAN) PO ×2 (08:52→21:56)
[2018-03-04] MEDS: VITAMIN D 1,000 INTERNATIONAL UNITS TABLET PO (08:52)
[2018-03-04] MEDS: DONEPEZIL 5 MG TAB PO (21:56)
[2018-03-04] MEDS: FAMOTIDINE 20 MG TAB PO (21:56)
[2018-03-05] MEDS: MEROPENEM INJ 1 GM in APPROPRIATE DILUENT 1 EA IV ×6 (05:46→21:39)
[2018-03-05] MEDS: SODIUM CHLORIDE 0.9% INJ 10 ML SYR IV ×4 (05:46→17:37)
[2018-03-05] MEDS: LACTULOSE 20 GM/30 ML SYRUP UD PO ×4 (05:46→23:36)
[2018-03-05 06:44] LABS: HEMATOCRIT 22.5 % (42.0-52.0); HEMOGLOBIN 7.6 g/dl (13.5-17.5); MEAN CORPUSCULAR HEMOGLOBIN 32.9 pg (27.0-33.0); MEAN CORPUSCULAR HGB CONC 33.8 g/dl (32.0-36.5); MEAN CORPUSCULAR VOLUME 97.4 fl (80.0-96.0); PLATELET COUNT, AUTOMATED 76 10^3/uL (150-450); RED BLOOD COUNT 2.31 10^6/uL (4.30-6.10); RED CELL DISTRIBUTION WIDTH 18.7 % (11.5-14.5); WHITE BLOOD COUNT 3.2 10^3/uL (4.0-10.0)
[2018-03-05 06:45] LABS: IMMATURE PLATELET FRACTION % 1.5 % (0.0-10.9)
[2018-03-05 07:24] LABS: ALBUMIN 2.2 GM/DL (3.2-5.2); ALKALINE PHOSPHATASE 1825 U/L (45-117); ALT/SGPT 89 U/L (12-78); ANION GAP 7 MEQ/L (8-16); AST/SGOT 180 U/L (7-37); BLOOD UREA NITROGEN 13 MG/DL (7-18); CALCIUM LEVEL 8.2 MG/DL (8.8-10.2); CARBON DIOXIDE LEVEL 23 MEQ/L (21-32); CHLORIDE LEVEL 107 MEQ/L (98-107); CREATININE FOR GFR 1.01 MG/DL (0.70-1.30); GLOMERULAR FILTRATION RATE > 60.0 (>42); GLUCOSE, FASTING 91 MG/DL (70-100); MAGNESIUM LEVEL 2.1 MG/DL (1.8-2.4); POTASSIUM SERUM 3.8 MEQ/L (3.5-5.1); SODIUM LEVEL 137 MEQ/L (136-145); TOTAL PROTEIN 7.7 GM/DL (6.4-8.2)
[2018-03-05] MEDS: SUCRALFATE 1 GM TAB PO ×4 (07:46→21:01)
[2018-03-05] MEDS: DAPTOmycin 500 MG in NS 50 ML IV (07:47)
[2018-03-05] MEDS: VITAMIN D 1,000 INTERNATIONAL UNITS TABLET PO (07:47)
[2018-03-05] MEDS: AMITRIPTYLINE 50 MG TAB PO ×2 (07:48→21:01)
[2018-03-05] MEDS: FINASTERIDE 5 MG TAB PO (07:48)
[2018-03-05] MEDS: rifAXIMin 550 MG TAB (XIFAXAN) PO ×2 (07:48→21:01)
[2018-03-05] MEDS: MULTIVITAMINS/MINERALS THERAP 1 TAB PO (07:48)
[2018-03-05] MEDS: TAMSULOSIN 0.4 MG CAP PO (07:49)
[2018-03-05] MEDS: NADOLOL 20MG TABLET PO (07:49)
[2018-03-05] MEDS: NYSTATIN 100,000 UNITS/GM TOPICAL PWD 15 GM TOP ×2 (07:50→21:01)
[2018-03-05] MEDS: FAMOTIDINE 20 MG TAB PO (21:01)
[2018-03-05] MEDS: DONEPEZIL 5 MG TAB PO (21:01)
[2018-03-06] MEDS: MEROPENEM INJ 1 GM in APPROPRIATE DILUENT 1 EA IV ×6 (05:31→21:48)
[2018-03-06] MEDS: SODIUM CHLORIDE 0.9% INJ 10 ML SYR IV ×5 (05:31→21:57)
[2018-03-06] MEDS: LACTULOSE 20 GM/30 ML SYRUP UD PO ×3 (05:33→17:18)
[2018-03-06 05:41] LABS: MEAN CORPUSCULAR HEMOGLOBIN 32.3 pg (27.0-33.0); MEAN CORPUSCULAR HGB CONC 33.3 g/dl (32.0-36.5); MEAN CORPUSCULAR VOLUME 96.8 fl (80.0-96.0); RED BLOOD COUNT 2.17 10^6/uL (4.30-6.10); RED CELL DISTRIBUTION WIDTH 18.4 % (11.5-14.5)
[2018-03-06 05:43] LABS: ADD MANUAL DIFFER YES; DIFF SLIDE NUMBER 34; PLATELET COUNT, AUTOMATED 74 10^3/uL (150-450); POSITIVE MORPH POS FLAG
[2018-03-06 06:20] LABS: ALBUMIN 2.1 GM/DL (3.2-5.2); ALBUMIN/GLOBULIN RATIO 0.41 (1.00-1.93); ALKALINE PHOSPHATASE 1696 U/L (45-117); ALT/SGPT 92 U/L (12-78); ANION GAP 7 MEQ/L (8-16); AST/SGOT 182 U/L (7-37); BILIRUBIN,TOTAL 1.7 MG/DL (0.2-1.0); BLOOD UREA NITROGEN 13 MG/DL (7-18); CALCIUM LEVEL 7.8 MG/DL (8.8-10.2); CARBON DIOXIDE LEVEL 24 MEQ/L (21-32); CHLORIDE LEVEL 107 MEQ/L (98-107); CREATININE FOR GFR 1.05 MG/DL (0.70-1.30); GLOMERULAR FILTRATION RATE > 60.0 (>42); GLUCOSE, FASTING 82 MG/DL (70-100); MAGNESIUM LEVEL 2.2 MG/DL (1.8-2.4); POTASSIUM SERUM 4.1 MEQ/L (3.5-5.1); SODIUM LEVEL 138 MEQ/L (136-145); TOTAL PROTEIN 7.2 GM/DL (6.4-8.2)
[2018-03-06 06:26] LABS: EOSINOPHILS 8 % (0-5); LYMPHOCYTES 21 % (16-52); MONOCYTES 15 % (0-8); NEUTROPHILS 56 % (35-75); PLATELET ESTIMATE DECREASED (NORMAL)
[2018-03-06 06:27] LABS: ANISOCYTOSIS 2+
[2018-03-06] MEDS: VITAMIN D 1,000 INTERNATIONAL UNITS TABLET PO (08:28)
[2018-03-06] MEDS: TAMSULOSIN 0.4 MG CAP PO (08:28)
[2018-03-06] MEDS: DAPTOmycin 500 MG in NS 50 ML IV (08:28)
[2018-03-06] MEDS: FINASTERIDE 5 MG TAB PO (08:28)
[2018-03-06] MEDS: SUCRALFATE 1 GM TAB PO ×4 (08:28→21:44)
[2018-03-06] MEDS: rifAXIMin 550 MG TAB (XIFAXAN) PO ×2 (08:28→21:44)
[2018-03-06] MEDS: NADOLOL 20MG TABLET PO (08:28)
[2018-03-06] MEDS: AMITRIPTYLINE 50 MG TAB PO ×2 (08:29→21:44)
[2018-03-06] MEDS: MULTIVITAMINS/MINERALS THERAP 1 TAB PO (08:29)
[2018-03-06] MEDS: NYSTATIN 100,000 UNITS/GM TOPICAL PWD 15 GM TOP ×2 (08:30→21:50)
[2018-03-06] MEDS: FAMOTIDINE 20 MG TAB PO ×2 (10:01→21:44)
[2018-03-06 13:37] LABS: IMMEDIATE SPIN CROSSMATCH 1 2
[2018-03-06 18:00] LABS: IMMEDIATE SPIN CROSSMATCH 1
[2018-03-06] MEDS: DONEPEZIL 5 MG TAB PO (21:44)
[2018-03-07] MEDS: MEROPENEM INJ 1 GM in APPROPRIATE DILUENT 1 EA IV ×6 (05:46→22:33)
[2018-03-07] MEDS: SODIUM CHLORIDE 0.9% INJ 10 ML SYR IV ×5 (05:47→21:59)
[2018-03-07] MEDS: LACTULOSE 20 GM/30 ML SYRUP UD PO ×4 (05:47→17:36)
[2018-03-07 06:14] LABS: HEMATOCRIT 22.5 % (42.0-52.0); HEMOGLOBIN 7.7 g/dl (13.5-17.5); MEAN CORPUSCULAR HEMOGLOBIN 32.5 pg (27.0-33.0); MEAN CORPUSCULAR HGB CONC 34.2 g/dl (32.0-36.5); MEAN CORPUSCULAR VOLUME 94.9 fl (80.0-96.0); PLATELET COUNT, AUTOMATED 92 10^3/uL (150-450); RED BLOOD COUNT 2.37 10^6/uL (4.30-6.10); RED CELL DISTRIBUTION WIDTH 18.1 % (11.5-14.5); WHITE BLOOD COUNT 3.3 10^3/uL (4.0-10.0)
[2018-03-07 06:15] LABS: IMMATURE PLATELET FRACTION % 1.9 % (0.0-10.9)
[2018-03-07 06:55] LABS: ALBUMIN 2.2 GM/DL (3.2-5.2); ALBUMIN/GLOBULIN RATIO 0.42 (1.00-1.93); ALKALINE PHOSPHATASE 1756 U/L (45-117); ALT/SGPT 96 U/L (12-78); ANION GAP 5 MEQ/L (8-16); AST/SGOT 174 U/L (7-37); BILIRUBIN,TOTAL 2.2 MG/DL (0.2-1.0); BLOOD UREA NITROGEN 13 MG/DL (7-18); CALCIUM LEVEL 7.8 MG/DL (8.8-10.2); CARBON DIOXIDE LEVEL 26 MEQ/L (21-32); CHLORIDE LEVEL 107 MEQ/L (98-107); CREATININE FOR GFR 0.99 MG/DL (0.70-1.30); GLOMERULAR FILTRATION RATE > 60.0 (>42); GLUCOSE, FASTING 83 MG/DL (70-100); MAGNESIUM LEVEL 2.1 MG/DL (1.8-2.4); SODIUM LEVEL 138 MEQ/L (136-145); TOTAL PROTEIN 7.5 GM/DL (6.4-8.2)
[2018-03-07] MEDS: SUCRALFATE 1 GM TAB PO ×4 (07:48→21:59)
[2018-03-07] MEDS: DAPTOmycin 500 MG in NS 50 ML IV (07:48)
[2018-03-07] MEDS: FINASTERIDE 5 MG TAB PO (08:27)
[2018-03-07] MEDS: FAMOTIDINE 20 MG TAB PO ×2 (08:27→21:59)
[2018-03-07] MEDS: TAMSULOSIN 0.4 MG CAP PO (08:27)
[2018-03-07] MEDS: MULTIVITAMINS/MINERALS THERAP 1 TAB PO (08:27)
[2018-03-07] MEDS: VITAMIN D 1,000 INTERNATIONAL UNITS TABLET PO (08:28)
[2018-03-07] MEDS: NADOLOL 20MG TABLET PO (08:28)
[2018-03-07] MEDS: AMITRIPTYLINE 50 MG TAB PO ×2 (08:28→21:59)
[2018-03-07] MEDS: rifAXIMin 550 MG TAB (XIFAXAN) PO ×2 (08:28→21:59)
[2018-03-07] MEDS: NYSTATIN 100,000 UNITS/GM TOPICAL PWD 15 GM TOP ×2 (08:29→21:00)
[2018-03-07] MEDS ORDERED: NS 1,000 ML IV (10:00)
[2018-03-07 10:51] LABS: IMMEDIATE SPIN CROSSMATCH 1 1
[2018-03-07] MEDS: DONEPEZIL 5 MG TAB PO (21:59)
[2018-03-08] MEDS: LACTULOSE 20 GM/30 ML SYRUP UD PO ×5 (00:19→22:58)
[2018-03-08] MEDS: SODIUM CHLORIDE 0.9% INJ 10 ML SYR IV ×3 (06:26→23:27)
[2018-03-08] MEDS: MEROPENEM INJ 1 GM in APPROPRIATE DILUENT 1 EA IV ×6 (06:26→22:59)
[2018-03-08] MEDS: SUCRALFATE 1 GM TAB PO ×4 (08:07→22:19)
[2018-03-08] MEDS: DAPTOmycin 500 MG in NS 50 ML IV (08:08)
[2018-03-08 08:38] LABS: HEMATOCRIT 31.4 % (42.0-52.0); MEAN CORPUSCULAR HEMOGLOBIN 31.8 pg (27.0-33.0); MEAN CORPUSCULAR HGB CONC 34.1 g/dl (32.0-36.5); MEAN CORPUSCULAR VOLUME 93.5 fl (80.0-96.0); RED BLOOD COUNT 3.36 10^6/uL (4.30-6.10); RED CELL DISTRIBUTION WIDTH 18.6 % (11.5-14.5); WHITE BLOOD COUNT 3.5 10^3/uL (4.0-10.0)
[2018-03-08] MEDS: rifAXIMin 550 MG TAB (XIFAXAN) PO ×2 (08:42→22:19)
[2018-03-08] MEDS: MULTIVITAMINS/MINERALS THERAP 1 TAB PO (08:43)
[2018-03-08] MEDS: FAMOTIDINE 20 MG TAB PO ×2 (08:43→22:18)
[2018-03-08] MEDS: FINASTERIDE 5 MG TAB PO (08:43)
[2018-03-08] MEDS: TAMSULOSIN 0.4 MG CAP PO (08:43)
[2018-03-08] MEDS: AMITRIPTYLINE 50 MG TAB PO ×2 (08:43→22:18)
[2018-03-08] MEDS: NADOLOL 20MG TABLET PO (08:43)
[2018-03-08 08:44] LABS: HEMOGLOBIN 10.7 g/dl (13.5-17.5); PLATELET COUNT, AUTOMATED 92 10^3/uL (150-450)
[2018-03-08] MEDS: NYSTATIN 100,000 UNITS/GM TOPICAL PWD 15 GM TOP ×2 (08:44→22:19)
[2018-03-08] MEDS: VITAMIN D 1,000 INTERNATIONAL UNITS TABLET PO (08:44)
[2018-03-08 08:45] LABS: IMMATURE PLATELET FRACTION % 1.4 % (0.0-10.9); PLATELET F 91
[2018-03-08 09:21] LABS: ALBUMIN 2.4 GM/DL (3.2-5.2); ALBUMIN/GLOBULIN RATIO 0.44 (1.00-1.93); ALKALINE PHOSPHATASE 1877 U/L (45-117); ALT/SGPT 104 U/L (12-78); ANION GAP 8 MEQ/L (8-16); AST/SGOT 179 U/L (7-37); BILIRUBIN,TOTAL 2.4 MG/DL (0.2-1.0); BLOOD UREA NITROGEN 16 MG/DL (7-18); CALCIUM LEVEL 8.2 MG/DL (8.8-10.2); CARBON DIOXIDE LEVEL 24 MEQ/L (21-32); CHLORIDE LEVEL 105 MEQ/L (98-107); CREATININE FOR GFR 1.06 MG/DL (0.70-1.30); GLOMERULAR FILTRATION RATE > 60.0 (>42); GLUCOSE, FASTING 131 MG/DL (70-100); MAGNESIUM LEVEL 2.2 MG/DL (1.8-2.4); SODIUM LEVEL 137 MEQ/L (136-145); TOTAL PROTEIN 7.9 GM/DL (6.4-8.2)
[2018-03-08] MEDS: DONEPEZIL 5 MG TAB PO (22:19)
[2018-03-09] MEDS: LACTULOSE 20 GM/30 ML SYRUP UD PO ×4 (05:11→22:00)
[2018-03-09] MEDS: MEROPENEM INJ 1 GM in APPROPRIATE DILUENT 1 EA IV ×6 (05:11→22:00)
[2018-03-09] MEDS: SODIUM CHLORIDE 0.9% INJ 10 ML SYR IV ×3 (05:49→22:29)
[2018-03-09] MEDS: DAPTOmycin 500 MG in NS 50 ML IV (07:40)
[2018-03-09] MEDS: SUCRALFATE 1 GM TAB PO ×4 (07:40→21:25)
[2018-03-09] MEDS: MULTIVITAMINS/MINERALS THERAP 1 TAB PO (09:12)
[2018-03-09] MEDS: FAMOTIDINE 20 MG TAB PO ×2 (09:12→21:25)
[2018-03-09] MEDS: FINASTERIDE 5 MG TAB PO (09:12)
[2018-03-09] MEDS: rifAXIMin 550 MG TAB (XIFAXAN) PO ×2 (09:12→21:27)
[2018-03-09] MEDS: VITAMIN D 1,000 INTERNATIONAL UNITS TABLET PO (09:13)
[2018-03-09] MEDS: AMITRIPTYLINE 50 MG TAB PO ×2 (09:13→21:25)
[2018-03-09] MEDS: TAMSULOSIN 0.4 MG CAP PO (09:13)
[2018-03-09] MEDS: NADOLOL 20MG TABLET PO (09:14)
[2018-03-09] MEDS: NYSTATIN 100,000 UNITS/GM TOPICAL PWD 15 GM TOP ×2 (09:14→21:26)
[2018-03-09 11:00] LABS: HEMATOCRIT 31.4 % (42.0-52.0); HEMOGLOBIN 10.5 g/dl (13.5-17.5); MEAN CORPUSCULAR HEMOGLOBIN 31.7 pg (27.0-33.0); MEAN CORPUSCULAR HGB CONC 33.4 g/dl (32.0-36.5); MEAN CORPUSCULAR VOLUME 94.9 fl (80.0-96.0); RED BLOOD COUNT 3.31 10^6/uL (4.30-6.10); RED CELL DISTRIBUTION WIDTH 17.9 % (11.5-14.5); WHITE BLOOD COUNT 3.8 10^3/uL (4.0-10.0)
[2018-03-09 11:06] LABS: IMMATURE PLATELET FRACTION % 1.5 % (0.0-10.9); PLATELET COUNT, AUTOMATED 87 10^3/uL (150-450); PLATELET F 87
[2018-03-09 12:04] LABS: ALBUMIN 2.4 GM/DL (3.2-5.2); ALBUMIN/GLOBULIN RATIO 0.42 (1.00-1.93); ALKALINE PHOSPHATASE 1868 U/L (45-117); ALT/SGPT 101 U/L (12-78); ANION GAP 5 MEQ/L (8-16); AST/SGOT 173 U/L (7-37); BILIRUBIN,TOTAL 2.3 MG/DL (0.2-1.0); BLOOD UREA NITROGEN 15 MG/DL (7-18); CALCIUM LEVEL 8.4 MG/DL (8.8-10.2); CARBON DIOXIDE LEVEL 27 MEQ/L (21-32); CHLORIDE LEVEL 105 MEQ/L (98-107); CREATININE FOR GFR 1.07 MG/DL (0.70-1.30); GLOMERULAR FILTRATION RATE > 60.0 (>42); GLUCOSE, FASTING 86 MG/DL (70-100); MAGNESIUM LEVEL 2.3 MG/DL (1.8-2.4); POTASSIUM SERUM 3.8 MEQ/L (3.5-5.1); SODIUM LEVEL 137 MEQ/L (136-145); TOTAL PROTEIN 8.1 GM/DL (6.4-8.2)
[2018-03-09] MEDS ORDERED: IBUPROFEN 400 MG TAB PO (13:45)
[2018-03-09] MEDS: DICLOFENAC EPOLAMINE 1.3 % PATCH TOP ×2 (15:20→21:26)
[2018-03-09] MEDS: NAPROXEN 250 MG TAB PO (15:20)
[2018-03-09] MEDS: DONEPEZIL 5 MG TAB PO (21:25)
[2018-03-10] MEDS: MEROPENEM INJ 1 GM in APPROPRIATE DILUENT 1 EA IV ×6 (05:20→23:00)
[2018-03-10] MEDS: LACTULOSE 20 GM/30 ML SYRUP UD PO ×4 (05:21→23:01)
[2018-03-10] MEDS: SODIUM CHLORIDE 0.9% INJ 10 ML SYR IV ×3 (05:59→17:31)
[2018-03-10] MEDS: DAPTOmycin 500 MG in NS 50 ML IV (08:47)
[2018-03-10] MEDS: VITAMIN D 1,000 INTERNATIONAL UNITS TABLET PO (08:48)
[2018-03-10] MEDS: DICLOFENAC EPOLAMINE 1.3 % PATCH TOP ×2 (08:48→22:04)
[2018-03-10] MEDS: TAMSULOSIN 0.4 MG CAP PO (08:49)
[2018-03-10] MEDS: SUCRALFATE 1 GM TAB PO ×4 (08:49→22:03)
[2018-03-10] MEDS: FAMOTIDINE 20 MG TAB PO ×2 (08:49→22:03)
[2018-03-10] MEDS: FINASTERIDE 5 MG TAB PO (08:49)
[2018-03-10] MEDS: MULTIVITAMINS/MINERALS THERAP 1 TAB PO (08:49)
[2018-03-10] MEDS: rifAXIMin 550 MG TAB (XIFAXAN) PO ×2 (08:49→22:03)
[2018-03-10] MEDS: AMITRIPTYLINE 50 MG TAB PO ×2 (08:49→22:04)
[2018-03-10] MEDS: NYSTATIN 100,000 UNITS/GM TOPICAL PWD 15 GM TOP ×2 (08:50→22:04)
[2018-03-10] MEDS: NADOLOL 20MG TABLET PO (08:50)
[2018-03-10 08:54] LABS: HEMATOCRIT 30.5 % (42.0-52.0); HEMOGLOBIN 10.3 g/dl (13.5-17.5); MEAN CORPUSCULAR HEMOGLOBIN 31.5 pg (27.0-33.0); MEAN CORPUSCULAR HGB CONC 33.8 g/dl (32.0-36.5); MEAN CORPUSCULAR VOLUME 93.3 fl (80.0-96.0); RED BLOOD COUNT 3.27 10^6/uL (4.30-6.10); RED CELL DISTRIBUTION WIDTH 17.4 % (11.5-14.5); WHITE BLOOD COUNT 3.4 10^3/uL (4.0-10.0)
[2018-03-10 09:01] LABS: PLATELET COUNT, AUTOMATED 82 10^3/uL (150-450)
[2018-03-10 09:58] LABS: ALBUMIN 2.6 GM/DL (3.2-5.2); ALBUMIN/GLOBULIN RATIO 0.46 (1.00-1.93); ALKALINE PHOSPHATASE 2063 U/L (45-117); ALT/SGPT 116 U/L (12-78); ANION GAP 6 MEQ/L (8-16); AST/SGOT 207 U/L (7-37); BILIRUBIN,TOTAL 2.2 MG/DL (0.2-1.0); BLOOD UREA NITROGEN 16 MG/DL (7-18); CALCIUM LEVEL 8.2 MG/DL (8.8-10.2); CARBON DIOXIDE LEVEL 27 MEQ/L (21-32); CHLORIDE LEVEL 104 MEQ/L (98-107); CREATININE FOR GFR 1.04 MG/DL (0.70-1.30); GLOMERULAR FILTRATION RATE > 60.0 (>42); GLUCOSE, FASTING 89 MG/DL (70-100); MAGNESIUM LEVEL 2.2 MG/DL (1.8-2.4); POTASSIUM SERUM 3.8 MEQ/L (3.5-5.1); SODIUM LEVEL 137 MEQ/L (136-145); TOTAL PROTEIN 8.2 GM/DL (6.4-8.2)
[2018-03-10] MEDS: DONEPEZIL 5 MG TAB PO (22:03)
[2018-03-11] MEDS: SODIUM CHLORIDE 0.9% INJ 10 ML SYR IV ×4 (05:59→22:17)
[2018-03-11] MEDS: LACTULOSE 20 GM/30 ML SYRUP UD PO ×4 (05:59→22:18)
[2018-03-11] MEDS: MEROPENEM INJ 1 GM in APPROPRIATE DILUENT 1 EA IV ×6 (05:59→22:17)
[2018-03-11 07:04] LABS: HEMATOCRIT 27.6 % (42.0-52.0); HEMOGLOBIN 9.3 g/dl (13.5-17.5); MEAN CORPUSCULAR HEMOGLOBIN 31.5 pg (27.0-33.0); MEAN CORPUSCULAR HGB CONC 33.7 g/dl (32.0-36.5); MEAN CORPUSCULAR VOLUME 93.6 fl (80.0-96.0); RED BLOOD COUNT 2.95 10^6/uL (4.30-6.10); RED CELL DISTRIBUTION WIDTH 17.1 % (11.5-14.5)
[2018-03-11 07:10] LABS: PLATELET COUNT, AUTOMATED 71 10^3/uL (150-450)
[2018-03-11 07:12] LABS: IMMATURE PLATELET FRACTION % 1.7 % (0.0-10.9)
[2018-03-11 07:37] LABS: ALBUMIN 2.2 GM/DL (3.2-5.2); ALBUMIN/GLOBULIN RATIO 0.41 (1.00-1.93); ALKALINE PHOSPHATASE 1851 U/L (45-117); ALT/SGPT 118 U/L (12-78); ANION GAP 6 MEQ/L (8-16); AST/SGOT 204 U/L (7-37); BILIRUBIN,TOTAL 1.5 MG/DL (0.2-1.0); BLOOD UREA NITROGEN 17 MG/DL (7-18); CALCIUM LEVEL 8.1 MG/DL (8.8-10.2); CARBON DIOXIDE LEVEL 26 MEQ/L (21-32); CHLORIDE LEVEL 105 MEQ/L (98-107); CREATININE FOR GFR 1.04 MG/DL (0.70-1.30); GLOMERULAR FILTRATION RATE > 60.0 (>42); GLUCOSE, FASTING 82 MG/DL (70-100); MAGNESIUM LEVEL 2.1 MG/DL (1.8-2.4); POTASSIUM SERUM 3.9 MEQ/L (3.5-5.1); SODIUM LEVEL 137 MEQ/L (136-145); TOTAL PROTEIN 7.6 GM/DL (6.4-8.2)
[2018-03-11] MEDS: AMITRIPTYLINE 50 MG TAB PO ×2 (08:16→21:36)
[2018-03-11] MEDS: FAMOTIDINE 20 MG TAB PO ×2 (08:16→21:36)
[2018-03-11] MEDS: NADOLOL 20MG TABLET PO (08:17)
[2018-03-11] MEDS: FINASTERIDE 5 MG TAB PO (08:17)
[2018-03-11] MEDS: MULTIVITAMINS/MINERALS THERAP 1 TAB PO (08:17)
[2018-03-11] MEDS: TAMSULOSIN 0.4 MG CAP PO (08:17)
[2018-03-11] MEDS: VITAMIN D 1,000 INTERNATIONAL UNITS TABLET PO (08:17)
[2018-03-11] MEDS: SUCRALFATE 1 GM TAB PO ×4 (08:17→21:36)
[2018-03-11] MEDS: rifAXIMin 550 MG TAB (XIFAXAN) PO ×2 (08:17→21:36)
[2018-03-11] MEDS: NYSTATIN 100,000 UNITS/GM TOPICAL PWD 15 GM TOP ×2 (08:18→21:00)
[2018-03-11] MEDS: DAPTOmycin 500 MG in NS 50 ML IV (08:18)
[2018-03-11] MEDS: DICLOFENAC EPOLAMINE 1.3 % PATCH TOP ×2 (08:18→21:36)
[2018-03-11] MEDS: ACETAMINOPHEN TAB 650MG DOSE (2X325MG) PO (11:05)
[2018-03-11] MEDS: DONEPEZIL 5 MG TAB PO (21:36)
[2018-03-12] MEDS: SODIUM CHLORIDE 0.9% INJ 10 ML SYR IV ×2 (06:13→17:51)
[2018-03-12] MEDS: MEROPENEM INJ 1 GM in APPROPRIATE DILUENT 1 EA IV ×6 (06:13→23:09)
[2018-03-12] MEDS: LACTULOSE 20 GM/30 ML SYRUP UD PO ×4 (06:13→22:11)
[2018-03-12] MEDS: DAPTOmycin 500 MG in NS 50 ML IV (08:42)
[2018-03-12] MEDS: ACETAMINOPHEN TAB 650MG DOSE (2X325MG) PO ×2 (08:43→21:01)
[2018-03-12] MEDS: MULTIVITAMINS/MINERALS THERAP 1 TAB PO (08:43)
[2018-03-12] MEDS: FAMOTIDINE 20 MG TAB PO ×2 (08:43→20:59)
[2018-03-12] MEDS: FINASTERIDE 5 MG TAB PO (08:43)
[2018-03-12] MEDS: TAMSULOSIN 0.4 MG CAP PO (08:43)
[2018-03-12] MEDS: VITAMIN D 1,000 INTERNATIONAL UNITS TABLET PO (08:43)
[2018-03-12] MEDS: rifAXIMin 550 MG TAB (XIFAXAN) PO ×2 (08:43→20:59)
[2018-03-12] MEDS: SUCRALFATE 1 GM TAB PO ×4 (08:43→20:59)
[2018-03-12] MEDS: DICLOFENAC EPOLAMINE 1.3 % PATCH TOP ×2 (08:44→21:00)
[2018-03-12] MEDS: AMITRIPTYLINE 50 MG TAB PO ×2 (08:44→20:59)
[2018-03-12] MEDS: NYSTATIN 100,000 UNITS/GM TOPICAL PWD 15 GM TOP ×2 (08:44→21:00)
[2018-03-12] MEDS: NADOLOL 20MG TABLET PO (08:44)
[2018-03-12] MEDS: DONEPEZIL 5 MG TAB PO (20:59)
[2018-03-13] MEDS: MEROPENEM INJ 1 GM in APPROPRIATE DILUENT 1 EA IV ×6 (05:24→22:32)
[2018-03-13] MEDS: SODIUM CHLORIDE 0.9% INJ 10 ML SYR IV ×3 (05:28→23:12)
[2018-03-13] MEDS: LACTULOSE 20 GM/30 ML SYRUP UD PO ×4 (05:30→21:45)
[2018-03-13 07:36] LABS: CPK CREATINE PHOSPHOKINASE 58 U/L (39-308)
[2018-03-13] MEDS: TAMSULOSIN 0.4 MG CAP PO (08:50)
[2018-03-13] MEDS: MULTIVITAMINS/MINERALS THERAP 1 TAB PO (08:50)
[2018-03-13] MEDS: SUCRALFATE 1 GM TAB PO ×4 (08:50→21:46)
[2018-03-13] MEDS: DAPTOmycin 500 MG in NS 50 ML IV (08:50)
[2018-03-13] MEDS: VITAMIN D 1,000 INTERNATIONAL UNITS TABLET PO (08:51)
[2018-03-13] MEDS: rifAXIMin 550 MG TAB (XIFAXAN) PO ×2 (08:51→21:46)
[2018-03-13] MEDS: FAMOTIDINE 20 MG TAB PO ×2 (08:51→21:46)
[2018-03-13] MEDS: NADOLOL 20MG TABLET PO (08:52)
[2018-03-13] MEDS: FINASTERIDE 5 MG TAB PO (08:52)
[2018-03-13] MEDS: AMITRIPTYLINE 50 MG TAB PO ×2 (08:53→21:46)
[2018-03-13] MEDS: DICLOFENAC EPOLAMINE 1.3 % PATCH TOP ×2 (08:53→21:46)
[2018-03-13] MEDS: NYSTATIN 100,000 UNITS/GM TOPICAL PWD 15 GM TOP ×2 (08:53→21:47)
[2018-03-13 15:41] LABS: C REACTIVE PROTEIN QUANTITATIV 3.17 MG/DL (0.00-0.30)
[2018-03-13] MEDS: DONEPEZIL 5 MG TAB PO (21:46)
[2018-03-14] MEDS: MEROPENEM INJ 1 GM in APPROPRIATE DILUENT 1 EA IV ×6 (05:08→21:58)
[2018-03-14] MEDS: LACTULOSE 20 GM/30 ML SYRUP UD PO ×4 (05:49→22:00)
[2018-03-14] MEDS: SODIUM CHLORIDE 0.9% INJ 10 ML SYR IV ×3 (05:49→22:32)
[2018-03-14 06:41] LABS: HEMATOCRIT 28.2 % (42.0-52.0); HEMOGLOBIN 9.5 g/dl (13.5-17.5); MEAN CORPUSCULAR HEMOGLOBIN 31.8 pg (27.0-33.0); MEAN CORPUSCULAR HGB CONC 33.7 g/dl (32.0-36.5); MEAN CORPUSCULAR VOLUME 94.3 fl (80.0-96.0); RED BLOOD COUNT 2.99 10^6/uL (4.30-6.10); RED CELL DISTRIBUTION WIDTH 16.5 % (11.5-14.5); WHITE BLOOD COUNT 3.3 10^3/uL (4.0-10.0)
[2018-03-14 06:42] LABS: PLATELET COUNT, AUTOMATED 63 10^3/uL (150-450)
[2018-03-14 06:43] LABS: IMMATURE PLATELET FRACTION % 1.3 % (0.0-10.9)
[2018-03-14] MEDS: rifAXIMin 550 MG TAB (XIFAXAN) PO ×2 (08:24→21:30)
[2018-03-14] MEDS: DICLOFENAC EPOLAMINE 1.3 % PATCH TOP ×2 (08:24→21:29)
[2018-03-14] MEDS: SUCRALFATE 1 GM TAB PO ×4 (08:24→21:31)
[2018-03-14] MEDS: AMITRIPTYLINE 50 MG TAB PO ×2 (08:25→21:30)
[2018-03-14] MEDS: VITAMIN D 1,000 INTERNATIONAL UNITS TABLET PO (08:25)
[2018-03-14] MEDS: FINASTERIDE 5 MG TAB PO (08:25)
[2018-03-14] MEDS: FAMOTIDINE 20 MG TAB PO ×2 (08:25→21:31)
[2018-03-14] MEDS: TAMSULOSIN 0.4 MG CAP PO (08:25)
[2018-03-14] MEDS: MULTIVITAMINS/MINERALS THERAP 1 TAB PO (08:25)
[2018-03-14] MEDS: NADOLOL 20MG TABLET PO (08:26)
[2018-03-14] MEDS: NYSTATIN 100,000 UNITS/GM TOPICAL PWD 15 GM TOP ×2 (08:27→21:31)
[2018-03-14] MEDS: DAPTOmycin 500 MG in NS 50 ML IV (10:26)
[2018-03-14 18:56] LABS: CPK CREATINE PHOSPHOKINASE 55 U/L (39-308)
[2018-03-14] MEDS: DONEPEZIL 5 MG TAB PO (21:31)
[2018-03-15 01:19] LABS: KETONE, URINE AUTO RFX TRACE mg/dL (NEGATIVE); LEUKOCYTE ESTERASE UR AUTO RFX NEGATIVE (NEGATIVE); MUCUS, URINE RFX SMALL (NEGATIVE); NITRITE, URINE AUTO RFX NEGATIVE (NEGATIVE); RBC, URINE AUTO RFX 2 /HPF (0-3); SPECIFIC GRAVITY UR AUTO RFX 1.012 (1.002-1.035); SQUAM EPITHELIAL CELL UR AURFX 0 /HPF (0-6); WBC, URINE AUTO RFX 0 /HPF (0-3)
[2018-03-15] MEDS: LACTULOSE 20 GM/30 ML SYRUP UD PO ×4 (05:09→22:33)
[2018-03-15] MEDS: MEROPENEM INJ 1 GM in APPROPRIATE DILUENT 1 EA IV ×6 (05:10→22:33)
[2018-03-15] MEDS: SODIUM CHLORIDE 0.9% INJ 10 ML SYR IV ×3 (05:41→17:46)
[2018-03-15 06:47] LABS: BASO % 0.7 % (0.0-1.0); EOS # 0.4 10^3/uL (0.0-0.50); EOS % 14.5 % (0.0-3.0); HEMATOCRIT 28.4 % (42.0-52.0); HEMOGLOBIN 9.7 g/dl (13.5-17.5); IMMATURE GRANULOCYTE % 0.7 % (0-3.0); LYMPH # 0.4 10^3/uL (1.5-4.5); LYMPH % 14.5 % (24.0-44.0); MEAN CORPUSCULAR HGB CONC 34.2 g/dl (32.0-36.5); MEAN CORPUSCULAR VOLUME 93.7 fl (80.0-96.0); MONO # 0.4 10^3/uL (0.0-0.8); MONO % 13.8 % (0.0-5.0); NEUTROPHILS # 1.5 10^3/uL (1.8-7.7); NEUTROPHILS % 55.8 % (36.0-66.0); RED BLOOD COUNT 3.03 10^6/uL (4.30-6.10); RED CELL DISTRIBUTION WIDTH 16.4 % (11.5-14.5); WHITE BLOOD COUNT 2.8 10^3/uL (4.0-10.0)
[2018-03-15 06:50] LABS: IMMATURE PLATELET FRACTION % 1.2 % (0.0-10.9); PLATELET COUNT, AUTOMATED 63 10^3/uL (150-450)
[2018-03-15 07:09] LABS: ANION GAP 6 MEQ/L (8-16); BLOOD UREA NITROGEN 14 MG/DL (7-18); CALCIUM LEVEL 8.2 MG/DL (8.8-10.2); CARBON DIOXIDE LEVEL 25 MEQ/L (21-32); CHLORIDE LEVEL 107 MEQ/L (98-107); CREATININE FOR GFR 1.03 MG/DL (0.70-1.30); GLOMERULAR FILTRATION RATE > 60.0 (>42); GLUCOSE, FASTING 79 MG/DL (70-100); POTASSIUM SERUM 3.9 MEQ/L (3.5-5.1); SODIUM LEVEL 138 MEQ/L (136-145)
[2018-03-15] MEDS: SUCRALFATE 1 GM TAB PO ×4 (07:38→21:13)
[2018-03-15] MEDS: DAPTOmycin 500 MG in NS 50 ML IV (07:39)
[2018-03-15] MEDS: TAMSULOSIN 0.4 MG CAP PO (08:30)
[2018-03-15] MEDS: rifAXIMin 550 MG TAB (XIFAXAN) PO ×2 (08:30→21:12)
[2018-03-15] MEDS: FINASTERIDE 5 MG TAB PO (08:30)
[2018-03-15] MEDS: FAMOTIDINE 20 MG TAB PO ×2 (08:30→21:13)
[2018-03-15] MEDS: MULTIVITAMINS/MINERALS THERAP 1 TAB PO (08:30)
[2018-03-15] MEDS: NADOLOL 20MG TABLET PO (08:31)
[2018-03-15] MEDS: AMITRIPTYLINE 50 MG TAB PO ×2 (08:31→21:13)
[2018-03-15] MEDS: DICLOFENAC EPOLAMINE 1.3 % PATCH TOP ×2 (08:31→21:13)
[2018-03-15] MEDS: VITAMIN D 1,000 INTERNATIONAL UNITS TABLET PO (08:31)
[2018-03-15] MEDS: NYSTATIN 100,000 UNITS/GM TOPICAL PWD 15 GM TOP ×2 (08:32→21:14)
[2018-03-15] MEDS: DONEPEZIL 5 MG TAB PO (21:12)
[2018-03-16] MEDS: SODIUM CHLORIDE 0.9% INJ 10 ML SYR IV ×2 (06:00→16:05)
[2018-03-16] MEDS: LACTULOSE 20 GM/30 ML SYRUP UD PO ×4 (06:00→22:37)
[2018-03-16] MEDS: MEROPENEM INJ 1 GM in APPROPRIATE DILUENT 1 EA IV ×6 (06:00→23:35)
[2018-03-16] MEDS: SUCRALFATE 1 GM TAB PO ×4 (07:47→20:06)
[2018-03-16] MEDS: DAPTOmycin 500 MG in NS 50 ML IV (07:47)
[2018-03-16] MEDS: MULTIVITAMINS/MINERALS THERAP 1 TAB PO (08:28)
[2018-03-16] MEDS: FINASTERIDE 5 MG TAB PO (08:28)
[2018-03-16] MEDS: FAMOTIDINE 20 MG TAB PO ×2 (08:28→20:06)
[2018-03-16] MEDS: DICLOFENAC EPOLAMINE 1.3 % PATCH TOP ×2 (08:28→20:07)
[2018-03-16] MEDS: rifAXIMin 550 MG TAB (XIFAXAN) PO ×2 (08:28→20:06)
[2018-03-16] MEDS: TAMSULOSIN 0.4 MG CAP PO (08:28)
[2018-03-16] MEDS: NADOLOL 20MG TABLET PO (08:28)
[2018-03-16] MEDS: AMITRIPTYLINE 50 MG TAB PO ×2 (08:29→20:06)
[2018-03-16] MEDS: NYSTATIN 100,000 UNITS/GM TOPICAL PWD 15 GM TOP ×2 (08:29→20:06)
[2018-03-16] MEDS: VITAMIN D 1,000 INTERNATIONAL UNITS TABLET PO (10:44)
[2018-03-16] MEDS: HEPARIN SOD (PORCINE) 5000 UNITS/ML VIAL SQ (17:22)
[2018-03-16] MEDS: DONEPEZIL 5 MG TAB PO (20:06)
[2018-03-17] MEDS: LACTULOSE 20 GM/30 ML SYRUP UD PO ×4 (05:47→22:16)
[2018-03-17] MEDS: HEPARIN SOD (PORCINE) 5000 UNITS/ML VIAL SQ ×2 (05:48→17:08)
[2018-03-17] MEDS: SODIUM CHLORIDE 0.9% INJ 10 ML SYR IV ×4 (05:48→17:08)
[2018-03-17] MEDS: MEROPENEM INJ 1 GM in APPROPRIATE DILUENT 1 EA IV ×6 (05:48→21:48)
[2018-03-17 07:06] LABS: BASO % 1.1 % (0.0-1.0); EOS # 0.3 10^3/uL (0.0-0.50); EOS % 11.1 % (0.0-3.0); HEMATOCRIT 27.3 % (42.0-52.0); HEMOGLOBIN 9.1 g/dl (13.5-17.5); IMMATURE GRANULOCYTE % 0.7 % (0-3.0); LYMPH # 0.4 10^3/uL (1.5-4.5); LYMPH % 15.1 % (24.0-44.0); MEAN CORPUSCULAR HGB CONC 33.3 g/dl (32.0-36.5); MEAN CORPUSCULAR VOLUME 92.9 fl (80.0-96.0); MONO # 0.5 10^3/uL (0.0-0.8); MONO % 17.2 % (0.0-5.0); NEUTROPHILS # 1.5 10^3/uL (1.8-7.7); NEUTROPHILS % 54.8 % (36.0-66.0); RED BLOOD COUNT 2.94 10^6/uL (4.30-6.10); RED CELL DISTRIBUTION WIDTH 16.1 % (11.5-14.5); WHITE BLOOD COUNT 2.8 10^3/uL (4.0-10.0)
[2018-03-17 07:09] LABS: PLATELET COUNT, AUTOMATED 64 10^3/uL (150-450)
[2018-03-17 07:10] LABS: IMMATURE PLATELET FRACTION % 1.2 % (0.0-10.9)
[2018-03-17] MEDS: DAPTOmycin 500 MG in NS 50 ML IV (08:17)
[2018-03-17] MEDS: SUCRALFATE 1 GM TAB PO ×4 (08:18→21:02)
[2018-03-17] MEDS: VITAMIN D 1,000 INTERNATIONAL UNITS TABLET PO (09:09)
[2018-03-17] MEDS: rifAXIMin 550 MG TAB (XIFAXAN) PO ×2 (09:10→21:02)
[2018-03-17] MEDS: TAMSULOSIN 0.4 MG CAP PO (09:10)
[2018-03-17] MEDS: FAMOTIDINE 20 MG TAB PO ×2 (09:10→21:02)
[2018-03-17] MEDS: FINASTERIDE 5 MG TAB PO (09:10)
[2018-03-17] MEDS: NADOLOL 20MG TABLET PO (09:10)
[2018-03-17] MEDS: MULTIVITAMINS/MINERALS THERAP 1 TAB PO (09:10)
[2018-03-17] MEDS: AMITRIPTYLINE 50 MG TAB PO ×2 (09:10→21:02)
[2018-03-17] MEDS: DICLOFENAC EPOLAMINE 1.3 % PATCH TOP ×2 (09:11→21:01)
[2018-03-17] MEDS: NYSTATIN 100,000 UNITS/GM TOPICAL PWD 15 GM TOP ×2 (09:11→21:00)
[2018-03-17] MEDS: DONEPEZIL 5 MG TAB PO (21:02)
[2018-03-18] MEDS: MEROPENEM INJ 1 GM in APPROPRIATE DILUENT 1 EA IV ×6 (05:45→21:33)
[2018-03-18] MEDS: LACTULOSE 20 GM/30 ML SYRUP UD PO ×4 (05:45→22:02)
[2018-03-18] MEDS: SODIUM CHLORIDE 0.9% INJ 10 ML SYR IV ×2 (05:45→17:44)
[2018-03-18] MEDS: HEPARIN SOD (PORCINE) 5000 UNITS/ML VIAL SQ ×2 (05:45→17:44)
[2018-03-18] MEDS: DAPTOmycin 500 MG in NS 50 ML IV (09:16)
[2018-03-18] MEDS: AMITRIPTYLINE 50 MG TAB PO ×2 (09:18→21:00)
[2018-03-18] MEDS: VITAMIN D 1,000 INTERNATIONAL UNITS TABLET PO (09:18)
[2018-03-18] MEDS: TAMSULOSIN 0.4 MG CAP PO (09:18)
[2018-03-18] MEDS: FAMOTIDINE 20 MG TAB PO ×2 (09:19→21:00)
[2018-03-18] MEDS: MULTIVITAMINS/MINERALS THERAP 1 TAB PO (09:19)
[2018-03-18] MEDS: rifAXIMin 550 MG TAB (XIFAXAN) PO ×2 (09:19→21:00)
[2018-03-18] MEDS: FINASTERIDE 5 MG TAB PO (09:19)
[2018-03-18] MEDS: SUCRALFATE 1 GM TAB PO ×4 (09:19→21:01)
[2018-03-18] MEDS: DICLOFENAC EPOLAMINE 1.3 % PATCH TOP ×2 (09:19→21:01)
[2018-03-18] MEDS: NADOLOL 20MG TABLET PO (09:23)
[2018-03-18] MEDS: NYSTATIN 100,000 UNITS/GM TOPICAL PWD 15 GM TOP ×2 (09:25→21:00)
[2018-03-18 13:25] LABS: BEDSIDE GLUCOSE 84 MG/DL (83-110)
[2018-03-18 14:35] LABS: BASO % 0.8 % (0.0-1.0); EOS # 0.4 10^3/uL (0.0-0.50); EOS % 15.8 % (0.0-3.0); HEMATOCRIT 29.2 % (42.0-52.0); HEMOGLOBIN 9.6 g/dl (13.5-17.5); IMMATURE GRANULOCYTE % 0.4 % (0-3.0); LYMPH # 0.4 10^3/uL (1.5-4.5); LYMPH % 16.2 % (24.0-44.0); MEAN CORPUSCULAR HEMOGLOBIN 31.2 pg (27.0-33.0); MEAN CORPUSCULAR HGB CONC 32.9 g/dl (32.0-36.5); MEAN CORPUSCULAR VOLUME 94.8 fl (80.0-96.0); MONO # 0.4 10^3/uL (0.0-0.8); MONO % 15.4 % (0.0-5.0); NEUTROPHILS # 1.3 10^3/uL (1.8-7.7); NEUTROPHILS % 51.4 % (36.0-66.0); RED BLOOD COUNT 3.08 10^6/uL (4.30-6.10); RED CELL DISTRIBUTION WIDTH 16.4 % (11.5-14.5); WHITE BLOOD COUNT 2.6 10^3/uL (4.0-10.0)
[2018-03-18 14:37] LABS: PLATELET COUNT, AUTOMATED 65 10^3/uL (150-450)
[2018-03-18 14:39] LABS: IMMATURE PLATELET FRACTION % 1.4 % (0.0-10.9)
[2018-03-18 15:03] LABS: AMMONIA 30 uMOL/L (<32)
[2018-03-18 15:21] LABS: ALBUMIN 2.4 GM/DL (3.2-5.2); ALBUMIN/GLOBULIN RATIO 0.45 (1.00-1.93); ALKALINE PHOSPHATASE 2204 U/L (45-117); ALT/SGPT 176 U/L (12-78); ANION GAP 7 MEQ/L (8-16); AST/SGOT 273 U/L (7-37); BILIRUBIN,TOTAL 1.5 MG/DL (0.2-1.0); BLOOD UREA NITROGEN 15 MG/DL (7-18); CALCIUM LEVEL 8.3 MG/DL (8.8-10.2); CARBON DIOXIDE LEVEL 27 MEQ/L (21-32); CHLORIDE LEVEL 104 MEQ/L (98-107); CREATININE FOR GFR 1.09 MG/DL (0.70-1.30); GLOMERULAR FILTRATION RATE > 60.0 (>42); GLUCOSE, FASTING 93 MG/DL (70-100); POTASSIUM SERUM 4.1 MEQ/L (3.5-5.1); SODIUM LEVEL 138 MEQ/L (136-145); TOTAL PROTEIN 7.7 GM/DL (6.4-8.2)
[2018-03-18] MEDS: DONEPEZIL 5 MG TAB PO (21:00)
[2018-03-18] MEDS: ACETAMINOPHEN TAB 650MG DOSE (2X325MG) PO (21:33)
[2018-03-19] MEDS: LACTULOSE 20 GM/30 ML SYRUP UD PO ×4 (05:13→21:36)
[2018-03-19] MEDS: SODIUM CHLORIDE 0.9% INJ 10 ML SYR IV ×2 (05:14→17:05)
[2018-03-19] MEDS: HEPARIN SOD (PORCINE) 5000 UNITS/ML VIAL SQ ×2 (05:14→17:05)
[2018-03-19] MEDS: MEROPENEM INJ 1 GM in APPROPRIATE DILUENT 1 EA IV ×6 (05:14→22:31)
[2018-03-19] MEDS: SUCRALFATE 1 GM TAB PO ×4 (07:38→21:37)
[2018-03-19] MEDS: rifAXIMin 550 MG TAB (XIFAXAN) PO ×2 (07:38→21:36)
[2018-03-19] MEDS: DAPTOmycin 500 MG in NS 50 ML IV (07:38)
[2018-03-19] MEDS: MULTIVITAMINS/MINERALS THERAP 1 TAB PO (07:38)
[2018-03-19] MEDS: AMITRIPTYLINE 50 MG TAB PO ×2 (07:39→21:37)
[2018-03-19] MEDS: FINASTERIDE 5 MG TAB PO (07:39)
[2018-03-19] MEDS: DICLOFENAC EPOLAMINE 1.3 % PATCH TOP ×2 (07:39→21:37)
[2018-03-19] MEDS: FAMOTIDINE 20 MG TAB PO ×2 (07:39→21:36)
[2018-03-19] MEDS: TAMSULOSIN 0.4 MG CAP PO (07:39)
[2018-03-19] MEDS: VITAMIN D 1,000 INTERNATIONAL UNITS TABLET PO (07:39)
[2018-03-19] MEDS: NADOLOL 20MG TABLET PO (07:39)
[2018-03-19] MEDS: NYSTATIN 100,000 UNITS/GM TOPICAL PWD 15 GM TOP ×2 (07:40→21:38)
[2018-03-19] MEDS: DONEPEZIL 5 MG TAB PO (21:36)
[2018-03-20] MEDS: HEPARIN SOD (PORCINE) 5000 UNITS/ML VIAL SQ ×2 (05:48→17:48)
[2018-03-20] MEDS: MEROPENEM INJ 1 GM in APPROPRIATE DILUENT 1 EA IV ×6 (05:48→22:49)
[2018-03-20] MEDS: LACTULOSE 20 GM/30 ML SYRUP UD PO ×4 (05:49→23:00)
[2018-03-20] MEDS: SODIUM CHLORIDE 0.9% INJ 10 ML SYR IV ×3 (05:49→22:49)
[2018-03-20 06:22] LABS: CPK CREATINE PHOSPHOKINASE 46 U/L (39-308)
[2018-03-20] MEDS: NADOLOL 20MG TABLET PO (07:55)
[2018-03-20] MEDS: DAPTOmycin 500 MG in NS 50 ML IV (07:55)
[2018-03-20] MEDS: TAMSULOSIN 0.4 MG CAP PO (07:55)
[2018-03-20] MEDS: SUCRALFATE 1 GM TAB PO ×4 (07:55→20:29)
[2018-03-20] MEDS: FAMOTIDINE 20 MG TAB PO ×2 (07:55→20:29)
[2018-03-20] MEDS: VITAMIN D 1,000 INTERNATIONAL UNITS TABLET PO (07:55)
[2018-03-20] MEDS: FINASTERIDE 5 MG TAB PO (07:55)
[2018-03-20] MEDS: DICLOFENAC EPOLAMINE 1.3 % PATCH TOP ×2 (07:56→20:29)
[2018-03-20] MEDS: rifAXIMin 550 MG TAB (XIFAXAN) PO ×2 (07:56→20:29)
[2018-03-20] MEDS: AMITRIPTYLINE 50 MG TAB PO ×2 (07:56→20:29)
[2018-03-20] MEDS: NYSTATIN 100,000 UNITS/GM TOPICAL PWD 15 GM TOP ×2 (07:57→20:29)
[2018-03-20] MEDS: MULTIVITAMINS/MINERALS THERAP 1 TAB PO (07:57)
[2018-03-20] MEDS: DONEPEZIL 5 MG TAB PO (20:29)
[2018-03-21] MEDS: LACTULOSE 20 GM/30 ML SYRUP UD PO ×4 (06:21→22:04)
[2018-03-21] MEDS: HEPARIN SOD (PORCINE) 5000 UNITS/ML VIAL SQ (06:21)
[2018-03-21] MEDS: MEROPENEM INJ 1 GM in APPROPRIATE DILUENT 1 EA IV ×6 (06:22→22:54)
[2018-03-21] MEDS: SODIUM CHLORIDE 0.9% INJ 10 ML SYR IV ×3 (06:22→22:54)
[2018-03-21 07:02] LABS: BASO % 0.7 % (0.0-1.0); EOS # 0.3 10^3/uL (0.0-0.50); EOS % 12.5 % (0.0-3.0); HEMATOCRIT 25.7 % (42.0-52.0); HEMOGLOBIN 8.7 g/dl (13.5-17.5); IMMATURE GRANULOCYTE % 0.7 % (0-3.0); LYMPH # 0.5 10^3/uL (1.5-4.5); LYMPH % 19.2 % (24.0-44.0); MEAN CORPUSCULAR HEMOGLOBIN 31.3 pg (27.0-33.0); MEAN CORPUSCULAR HGB CONC 33.9 g/dl (32.0-36.5); MEAN CORPUSCULAR VOLUME 92.4 fl (80.0-96.0); MONO # 0.5 10^3/uL (0.0-0.8); MONO % 16.6 % (0.0-5.0); NEUTROPHILS # 1.4 10^3/uL (1.8-7.7); NEUTROPHILS % 50.3 % (36.0-66.0); RED BLOOD COUNT 2.78 10^6/uL (4.30-6.10); WHITE BLOOD COUNT 2.7 10^3/uL (4.0-10.0)
[2018-03-21 07:04] LABS: PLATELET COUNT, AUTOMATED 63 10^3/uL (150-450)
[2018-03-21 07:05] LABS: IMMATURE PLATELET FRACTION % 1.4 % (0.0-10.9)
[2018-03-21 07:22] LABS: ANION GAP 6 MEQ/L (8-16); BLOOD UREA NITROGEN 19 MG/DL (7-18); C REACTIVE PROTEIN QUANTITATIV 1.69 MG/DL (0.00-0.30); CALCIUM LEVEL 8.1 MG/DL (8.8-10.2); CARBON DIOXIDE LEVEL 25 MEQ/L (21-32); CHLORIDE LEVEL 107 MEQ/L (98-107); CREATININE FOR GFR 1.11 MG/DL (0.70-1.30); GLOMERULAR FILTRATION RATE > 60.0 (>42); GLUCOSE, FASTING 98 MG/DL (70-100); POTASSIUM SERUM 4.1 MEQ/L (3.5-5.1); SODIUM LEVEL 138 MEQ/L (136-145)
[2018-03-21 07:31] LABS: ERYTHROCYTE SEDIMENTATION RATE 63 mm/hr (0-20)
[2018-03-21] MEDS: DAPTOmycin 500 MG in NS 50 ML IV (08:18)
[2018-03-21] MEDS: FAMOTIDINE 20 MG TAB PO ×2 (08:18→21:51)
[2018-03-21] MEDS: MULTIVITAMINS/MINERALS THERAP 1 TAB PO (08:18)
[2018-03-21] MEDS: FINASTERIDE 5 MG TAB PO (08:18)
[2018-03-21] MEDS: SUCRALFATE 1 GM TAB PO ×4 (08:18→21:50)
[2018-03-21] MEDS: rifAXIMin 550 MG TAB (XIFAXAN) PO ×2 (08:18→21:50)
[2018-03-21] MEDS: AMITRIPTYLINE 50 MG TAB PO ×2 (08:18→21:51)
[2018-03-21] MEDS: TAMSULOSIN 0.4 MG CAP PO (08:19)
[2018-03-21] MEDS: VITAMIN D 1,000 INTERNATIONAL UNITS TABLET PO (08:19)
[2018-03-21] MEDS: NYSTATIN 100,000 UNITS/GM TOPICAL PWD 15 GM TOP ×2 (08:20→21:00)
[2018-03-21] MEDS: DICLOFENAC EPOLAMINE 1.3 % PATCH TOP ×2 (08:20→21:52)
[2018-03-21] MEDS: NADOLOL 20MG TABLET PO (08:20)
[2018-03-21] MEDS: ASPIRIN 81 MG ENTERIC TAB PO (10:06)
[2018-03-21] MEDS: DONEPEZIL 5 MG TAB PO (21:51)
[2018-03-22] MEDS: LACTULOSE 20 GM/30 ML SYRUP UD PO ×4 (06:00→23:00)
[2018-03-22] MEDS: SODIUM CHLORIDE 0.9% INJ 10 ML SYR IV ×3 (06:01→23:19)
[2018-03-22] MEDS: MEROPENEM INJ 1 GM in APPROPRIATE DILUENT 1 EA IV ×6 (06:01→22:53)
[2018-03-22] MEDS: AMITRIPTYLINE 50 MG TAB PO ×2 (08:37→22:23)
[2018-03-22] MEDS: DAPTOmycin 500 MG in NS 50 ML IV (08:37)
[2018-03-22] MEDS: MULTIVITAMINS/MINERALS THERAP 1 TAB PO (08:37)
[2018-03-22] MEDS: SUCRALFATE 1 GM TAB PO ×4 (08:37→22:22)
[2018-03-22] MEDS: FAMOTIDINE 20 MG TAB PO ×2 (08:38→22:23)
[2018-03-22] MEDS: TAMSULOSIN 0.4 MG CAP PO (08:38)
[2018-03-22] MEDS: FINASTERIDE 5 MG TAB PO (08:38)
[2018-03-22] MEDS: VITAMIN D 1,000 INTERNATIONAL UNITS TABLET PO (08:38)
[2018-03-22] MEDS: ASPIRIN 81 MG ENTERIC TAB PO (08:38)
[2018-03-22] MEDS: NYSTATIN 100,000 UNITS/GM TOPICAL PWD 15 GM TOP ×2 (08:39→22:24)
[2018-03-22] MEDS: NADOLOL 20MG TABLET PO (13:30)
[2018-03-22] MEDS: DICLOFENAC EPOLAMINE 1.3 % PATCH TOP ×2 (13:30→21:00)
[2018-03-22] MEDS: rifAXIMin 550 MG TAB (XIFAXAN) PO ×2 (13:31→22:22)
[2018-03-22] MEDS: DONEPEZIL 5 MG TAB PO (22:22)
[2018-03-23] MEDS: MEROPENEM INJ 1 GM in APPROPRIATE DILUENT 1 EA IV ×2 (05:05→06:18)
[2018-03-23] MEDS: LACTULOSE 20 GM/30 ML SYRUP UD PO (05:06)
[2018-03-23] MEDS: SODIUM CHLORIDE 0.9% INJ 10 ML SYR IV (06:12)
[2018-03-23] MEDS: AMITRIPTYLINE 50 MG TAB PO (08:26)
[2018-03-23] MEDS: MULTIVITAMINS/MINERALS THERAP 1 TAB PO (08:26)
[2018-03-23] MEDS: SUCRALFATE 1 GM TAB PO (08:26)
[2018-03-23] MEDS: TAMSULOSIN 0.4 MG CAP PO (08:26)
[2018-03-23] MEDS: NADOLOL 20MG TABLET PO (08:26)
[2018-03-23] MEDS: DAPTOmycin 500 MG in NS 50 ML IV (08:26)
[2018-03-23] MEDS: NYSTATIN 100,000 UNITS/GM TOPICAL PWD 15 GM TOP (08:27)
[2018-03-23] MEDS: rifAXIMin 550 MG TAB (XIFAXAN) PO (08:27)
[2018-03-23] MEDS: FINASTERIDE 5 MG TAB PO (08:27)
[2018-03-23] MEDS: ASPIRIN 81 MG ENTERIC TAB PO (08:27)
[2018-03-23] MEDS: FAMOTIDINE 20 MG TAB PO (08:27)
[2018-03-23] MEDS: DICLOFENAC EPOLAMINE 1.3 % PATCH TOP (08:27)
[2018-03-23] MEDS: VITAMIN D 1,000 INTERNATIONAL UNITS TABLET PO (08:29)
== END 2018-03-23 11:55 | disposition home health service (06) | DRG 948 ==
LOC: M PM&R 03-20 15:15
PROC: 30253N1 (ICD-10-PCS; principal; 2018-03-06)
PROC: 30253R1 (ICD-10-PCS; 2018-03-06)
DX: R53.81 Other malaise (principal); I85.10 Secondary esophageal varices without bleeding; D62 Acute posthemorrhagic anemia; B37.89 Other sites of candidiasis; K76.6 Portal hypertension; C24.9 Malignant neoplasm of biliary tract, unspecified; N40.0 Benign prostatic hyperplasia without lower urinary tract symptoms; E78.5 Hyperlipidemia, unspecified; I12.9 Hypertensive chronic kidney disease with stage 1 through stage 4 chronic kidney disease, or unspecified chronic kidney disease; F03.90 Unspecified dementia, unspecified severity, without behavioral disturbance, psychotic disturbance, mood disturbance, and anxiety; K74.60 Unspecified cirrhosis of liver; D63.8 Anemia in other chronic diseases classified elsewhere; N18.3 Chronic kidney disease, stage 3 (moderate); K21.9 Gastro-esophageal reflux disease without esophagitis; K72.90 Hepatic failure, unspecified without coma; G24.01 Drug induced subacute dyskinesia; E55.9 Vitamin D deficiency, unspecified; D69.6 Thrombocytopenia, unspecified; M46.46 Discitis, unspecified, lumbar region; Z79.899 Other long term (current) drug therapy; Z92.21 Personal history of antineoplastic chemotherapy; Z96.651 Presence of right artificial knee joint; Z88.1 Allergy status to other antibiotic agents; Z88.8 Allergy status to other drugs, medicaments and biological substances; Z88.6 Allergy status to analgesic agent

== ENCOUNTER 2018-03-25 19:37 | Inpatient (IN) | payer MEDICARE ==
[2018-03-25 20:27] LABS: BASO % 0.4 % (0.0-1.0); EOS # 0.3 10^3/uL (0.0-0.50); HEMATOCRIT 25.2 % (42.0-52.0); HEMOGLOBIN 8.6 g/dl (13.5-17.5); IMMATURE GRANULOCYTE % 0.6 % (0-3.0); LYMPH # 0.5 10^3/uL (1.5-4.5); LYMPH % 9.7 % (24.0-44.0); MEAN CORPUSCULAR HGB CONC 34.1 g/dl (32.0-36.5); MEAN CORPUSCULAR VOLUME 93.7 fl (80.0-96.0); MONO # 0.8 10^3/uL (0.0-0.8); MONO % 16.3 % (0.0-5.0); NEUTROPHILS # 3.3 10^3/uL (1.8-7.7); RED BLOOD COUNT 2.69 10^6/uL (4.30-6.10); RED CELL DISTRIBUTION WIDTH 16.5 % (11.5-14.5)
[2018-03-25 20:29] LABS: PLATELET COUNT, AUTOMATED 67 10^3/uL (150-450)
[2018-03-25 20:30] LABS: IMMATURE PLATELET FRACTION % 1.7 % (0.0-10.9)
[2018-03-25 20:32] LABS: AMMONIA 47 uMOL/L (<32)
[2018-03-25 20:36] LABS: LACTIC ACID SEPSIS PROTOCOL 1.2 MMOL/L (0.4-2.0)
[2018-03-25 20:37] LABS: ALBUMIN 2.4 GM/DL (3.2-5.2); ALT/SGPT 132 U/L (12-78); ANION GAP 6 MEQ/L (8-16); AST/SGOT 187 U/L (7-37); BILIRUBIN,DIRECT 1.1 MG/DL (0.0-0.2); BILIRUBIN,TOTAL 1.7 MG/DL (0.2-1.0); BLOOD UREA NITROGEN 21 MG/DL (7-18); CALCIUM LEVEL 7.8 MG/DL (8.8-10.2); CARBON DIOXIDE LEVEL 25 MEQ/L (21-32); CHLORIDE LEVEL 105 MEQ/L (98-107); CPK CREATINE PHOSPHOKINASE 53 U/L (39-308); CREATININE FOR GFR 1.13 MG/DL (0.70-1.30); GLOMERULAR FILTRATION RATE > 60.0 (>42); GLUCOSE, FASTING 96 MG/DL (70-100); POTASSIUM SERUM 4.6 MEQ/L (3.5-5.1); SODIUM LEVEL 136 MEQ/L (136-145); TOTAL PROTEIN 7.2 GM/DL (6.4-8.2); TROPONIN I < 0.02 NG/ML (< 0.10)
[2018-03-25 20:47] LABS: ACETAMINOPHEN LEVEL < 2.0 UG/ML (10.0-30.0); ALKALINE PHOSPHATASE 1550 U/L (45-117); CK-MB VALUE MASS 1.1 NG/ML (<3.6); MB/CK RELATIVE INDEX 2.07 (< OR =4); SALICYLATE LEVEL < 1.7 MG/DL (5.0-30.0)
[2018-03-25] MEDS: NS 1,000 ML IV (21:20)
[2018-03-25 21:43] LABS: KETONE, URINE AUTO RFX NEGATIVE (NEGATIVE); LEUKOCYTE ESTERASE UR AUTO RFX NEGATIVE (NEGATIVE); MUCUS, URINE RFX SMALL (NEGATIVE); NITRITE, URINE AUTO RFX NEGATIVE (NEGATIVE); RBC, URINE AUTO RFX 4 /HPF (0-3); SPECIFIC GRAVITY UR AUTO RFX 1.013 (1.002-1.035); SQUAM EPITHELIAL CELL UR AURFX 0 /HPF (0-6); WBC, URINE AUTO RFX 2 /HPF (0-3)
[2018-03-26] MEDS ORDERED: METOCLOPRAMIDE 10 MG TAB PO
[2018-03-26] MEDS ORDERED: BISACODYL 5 MG TAB PO
[2018-03-26] MEDS: DOCUSATE SODIUM 100 MG CAP PO ×3 (00:25→20:09)
[2018-03-26] MEDS: LACTULOSE 20 GM/30 ML SYRUP UD PO ×4 (00:39→20:09)
[2018-03-26] MEDS: rifAXIMin 550 MG TAB (XIFAXAN) PO ×3 (00:47→20:09)
[2018-03-26] MEDS: AMITRIPTYLINE 50 MG TAB PO ×3 (00:47→20:09)
[2018-03-26] MEDS: TAMSULOSIN 0.4 MG CAP PO ×2 (00:47→20:09)
[2018-03-26] MEDS: FAMOTIDINE 20 MG TAB PO ×3 (00:48→20:09)
[2018-03-26] MEDS: DONEPEZIL 5 MG TAB PO ×2 (00:48→20:09)
[2018-03-26 01:38] LABS: GAMMA GLUTAMYLTRANSPEPTIDASE 1096 U/L (15-85)
[2018-03-26] MEDS: GI COCKTAIL 50ML BTL(HYOSCYAMINE/MAALOX/LIDOCAINE VISCOUS)(1:3:1) PO (02:05)
[2018-03-26] MEDS ORDERED: HEPARIN SOD (PORCINE) 5000 UNITS/ML VIAL SC (06:00)
[2018-03-26 07:17] LABS: BASO % 0.7 % (0.0-1.0); EOS # 0.2 10^3/uL (0.0-0.50); EOS % 6.9 % (0.0-3.0); HEMATOCRIT 25.6 % (42.0-52.0); HEMOGLOBIN 8.7 g/dl (13.5-17.5); IMMATURE GRANULOCYTE % 0.3 % (0-3.0); LYMPH # 0.5 10^3/uL (1.5-4.5); LYMPH % 18.3 % (24.0-44.0); MEAN CORPUSCULAR HEMOGLOBIN 32.2 pg (27.0-33.0); MEAN CORPUSCULAR VOLUME 94.8 fl (80.0-96.0); MONO # 0.6 10^3/uL (0.0-0.8); MONO % 20.3 % (0.0-5.0); NEUTROPHILS # 1.6 10^3/uL (1.8-7.7); NEUTROPHILS % 53.5 % (36.0-66.0); RED CELL DISTRIBUTION WIDTH 16.5 % (11.5-14.5); WHITE BLOOD COUNT 2.9 10^3/uL (4.0-10.0)
[2018-03-26 07:22] LABS: PLATELET COUNT, AUTOMATED 61 10^3/uL (150-450)
[2018-03-26] MEDS: MULTIVITAMINS/MINERALS THERAP 1 TAB PO (07:28)
[2018-03-26] MEDS: VITAMIN D 1,000 INTERNATIONAL UNITS TABLET PO (07:29)
[2018-03-26] MEDS: SUCRALFATE 1 GM TAB PO ×4 (07:29→20:09)
[2018-03-26] MEDS: ASPIRIN 81 MG ENTERIC TAB PO (07:29)
[2018-03-26] MEDS: FINASTERIDE 5 MG TAB PO (07:29)
[2018-03-26 07:30] LABS: AMMONIA 20 uMOL/L (<32)
[2018-03-26 07:47] LABS: ALBUMIN 2.4 GM/DL (3.2-5.2); ALBUMIN/GLOBULIN RATIO 0.51 (1.00-1.93); ALKALINE PHOSPHATASE 1498 U/L (45-117); ALT/SGPT 121 U/L (12-78); ANION GAP 6 MEQ/L (8-16); AST/SGOT 162 U/L (7-37); BILIRUBIN,TOTAL 1.4 MG/DL (0.2-1.0); BLOOD UREA NITROGEN 21 MG/DL (7-18); CARBON DIOXIDE LEVEL 27 MEQ/L (21-32); CHLORIDE LEVEL 106 MEQ/L (98-107); CREATININE FOR GFR 1.14 MG/DL (0.70-1.30); GLOMERULAR FILTRATION RATE > 60.0 (>42); GLUCOSE, FASTING 98 MG/DL (70-100); POTASSIUM SERUM 3.9 MEQ/L (3.5-5.1); SODIUM LEVEL 139 MEQ/L (136-145); TOTAL PROTEIN 7.1 GM/DL (6.4-8.2)
[2018-03-26] MEDS: HEPARIN SOD (PORCINE) 5000 UNITS/ML VIAL SC (08:57)
[2018-03-26] MEDS: NADOLOL 20MG TABLET PO (09:00)
[2018-03-26] MEDS: SODIUM CHLORIDE 0.9% 1000 ML IV (12:25)
[2018-03-26] MEDS ORDERED: FAMOTIDINE 20 MG TAB PO (21:00)
[2018-03-27 06:08] LABS: BASO % 0.9 % (0.0-1.0); EOS # 0.2 10^3/uL (0.0-0.50); EOS % 5.2 % (0.0-3.0); HEMATOCRIT 24.9 % (42.0-52.0); HEMOGLOBIN 8.5 g/dl (13.5-17.5); IMMATURE GRANULOCYTE % 0.9 % (0-3.0); LYMPH # 0.5 10^3/uL (1.5-4.5); LYMPH % 13.6 % (24.0-44.0); MEAN CORPUSCULAR HEMOGLOBIN 31.8 pg (27.0-33.0); MEAN CORPUSCULAR HGB CONC 34.1 g/dl (32.0-36.5); MEAN CORPUSCULAR VOLUME 93.3 fl (80.0-96.0); MONO # 0.6 10^3/uL (0.0-0.8); MONO % 17.3 % (0.0-5.0); NEUTROPHILS # 2.1 10^3/uL (1.8-7.7); NEUTROPHILS % 62.1 % (36.0-66.0); RED BLOOD COUNT 2.67 10^6/uL (4.30-6.10); RED CELL DISTRIBUTION WIDTH 16.4 % (11.5-14.5); WHITE BLOOD COUNT 3.3 10^3/uL (4.0-10.0)
[2018-03-27 06:13] LABS: IMMATURE PLATELET FRACTION % 1.4 % (0.0-10.9); PLATELET COUNT, AUTOMATED 63 10^3/uL (150-450)
[2018-03-27 06:42] LABS: ALBUMIN 2.3 GM/DL (3.2-5.2); ALKALINE PHOSPHATASE 1446 U/L (45-117); ALT/SGPT 111 U/L (12-78); ANION GAP 6 MEQ/L (8-16); AST/SGOT 154 U/L (7-37); BILIRUBIN,TOTAL 1.4 MG/DL (0.2-1.0); BLOOD UREA NITROGEN 21 MG/DL (7-18); CALCIUM LEVEL 7.9 MG/DL (8.8-10.2); CARBON DIOXIDE LEVEL 26 MEQ/L (21-32); CHLORIDE LEVEL 108 MEQ/L (98-107); CREATININE FOR GFR 1.08 MG/DL (0.70-1.30); GLOMERULAR FILTRATION RATE > 60.0 (>42); GLUCOSE, FASTING 92 MG/DL (70-100); POTASSIUM SERUM 4.5 MEQ/L (3.5-5.1); SODIUM LEVEL 140 MEQ/L (136-145); TOTAL PROTEIN 6.9 GM/DL (6.4-8.2)
[2018-03-27] MEDS: DOCUSATE SODIUM 100 MG CAP PO ×2 (07:51→20:33)
[2018-03-27] MEDS: SUCRALFATE 1 GM TAB PO ×4 (07:51→20:33)
[2018-03-27] MEDS: rifAXIMin 550 MG TAB (XIFAXAN) PO ×2 (07:51→20:33)
[2018-03-27] MEDS: FINASTERIDE 5 MG TAB PO (07:51)
[2018-03-27] MEDS: ASPIRIN 81 MG ENTERIC TAB PO (07:51)
[2018-03-27] MEDS: VITAMIN D 1,000 INTERNATIONAL UNITS TABLET PO (07:51)
[2018-03-27] MEDS: LACTULOSE 20 GM/30 ML SYRUP UD PO ×3 (07:51→20:32)
[2018-03-27] MEDS: MULTIVITAMINS/MINERALS THERAP 1 TAB PO (07:52)
[2018-03-27] MEDS: AMITRIPTYLINE 50 MG TAB PO ×2 (07:52→20:33)
[2018-03-27] MEDS: FAMOTIDINE 20 MG TAB PO ×2 (07:52→20:33)
[2018-03-27] MEDS: NADOLOL 20MG TABLET PO (09:00)
[2018-03-27 13:41] LABS: AMMONIA 28 uMOL/L (<32)
[2018-03-27] MEDS: DONEPEZIL 5 MG TAB PO (20:32)
[2018-03-27] MEDS: TAMSULOSIN 0.4 MG CAP PO (20:33)
[2018-03-28 06:24] LABS: BASO % 0.6 % (0.0-1.0); EOS # 0.2 10^3/uL (0.0-0.50); EOS % 6.5 % (0.0-3.0); HEMATOCRIT 24.8 % (42.0-52.0); HEMOGLOBIN 8.3 g/dl (13.5-17.5); IMMATURE GRANULOCYTE % 0.9 % (0-3.0); LYMPH # 0.6 10^3/uL (1.5-4.5); LYMPH % 16.3 % (24.0-44.0); MEAN CORPUSCULAR HEMOGLOBIN 31.2 pg (27.0-33.0); MEAN CORPUSCULAR HGB CONC 33.5 g/dl (32.0-36.5); MEAN CORPUSCULAR VOLUME 93.2 fl (80.0-96.0); MONO # 0.7 10^3/uL (0.0-0.8); MONO % 20.2 % (0.0-5.0); NEUTROPHILS # 1.9 10^3/uL (1.8-7.7); NEUTROPHILS % 55.5 % (36.0-66.0); RED BLOOD COUNT 2.66 10^6/uL (4.30-6.10); RED CELL DISTRIBUTION WIDTH 16.3 % (11.5-14.5); WHITE BLOOD COUNT 3.4 10^3/uL (4.0-10.0)
[2018-03-28 06:25] LABS: PLATELET COUNT, AUTOMATED 66 10^3/uL (150-450)
[2018-03-28 06:26] LABS: IMMATURE PLATELET FRACTION % 1.7 % (0.0-10.9)
[2018-03-28 06:43] LABS: AMMONIA 25 uMOL/L (<32)
[2018-03-28 06:57] LABS: ALBUMIN 2.2 GM/DL (3.2-5.2); ALBUMIN/GLOBULIN RATIO 0.48 (1.00-1.93); ALKALINE PHOSPHATASE 1390 U/L (45-117); ALT/SGPT 113 U/L (12-78); ANION GAP 7 MEQ/L (8-16); AST/SGOT 156 U/L (7-37); BILIRUBIN,TOTAL 1.6 MG/DL (0.2-1.0); BLOOD UREA NITROGEN 21 MG/DL (7-18); CARBON DIOXIDE LEVEL 25 MEQ/L (21-32); CHLORIDE LEVEL 106 MEQ/L (98-107); CREATININE FOR GFR 1.12 MG/DL (0.70-1.30); GLOMERULAR FILTRATION RATE > 60.0 (>42); GLUCOSE, FASTING 87 MG/DL (70-100); POTASSIUM SERUM 4.4 MEQ/L (3.5-5.1); SODIUM LEVEL 138 MEQ/L (136-145); TOTAL PROTEIN 6.8 GM/DL (6.4-8.2)
[2018-03-28] MEDS: VITAMIN D 1,000 INTERNATIONAL UNITS TABLET PO (08:03)
[2018-03-28] MEDS: LACTULOSE 20 GM/30 ML SYRUP UD PO ×3 (08:03→20:18)
[2018-03-28] MEDS: MULTIVITAMINS/MINERALS THERAP 1 TAB PO (08:03)
[2018-03-28] MEDS: FINASTERIDE 5 MG TAB PO (08:03)
[2018-03-28] MEDS: ASPIRIN 81 MG ENTERIC TAB PO (08:03)
[2018-03-28] MEDS: rifAXIMin 550 MG TAB (XIFAXAN) PO ×2 (08:05→20:19)
[2018-03-28] MEDS: AMITRIPTYLINE 50 MG TAB PO ×2 (08:05→20:18)
[2018-03-28] MEDS: DOCUSATE SODIUM 100 MG CAP PO ×2 (08:05→20:18)
[2018-03-28] MEDS: NADOLOL 20MG TABLET PO (08:05)
[2018-03-28] MEDS: FAMOTIDINE 20 MG TAB PO ×2 (08:06→20:19)
[2018-03-28] MEDS: SUCRALFATE 1 GM TAB PO ×4 (08:06→20:18)
[2018-03-28] MEDS: DONEPEZIL 5 MG TAB PO (20:18)
[2018-03-28] MEDS: TAMSULOSIN 0.4 MG CAP PO (20:18)
[2018-03-29 06:13] LABS: EOS # 0.2 10^3/uL (0.0-0.50); EOS % 6.6 % (0.0-3.0); HEMATOCRIT 25.7 % (42.0-52.0); HEMOGLOBIN 8.8 g/dl (13.5-17.5); LYMPH # 0.5 10^3/uL (1.5-4.5); LYMPH % 17.3 % (24.0-44.0); MEAN CORPUSCULAR HEMOGLOBIN 32.2 pg (27.0-33.0); MEAN CORPUSCULAR HGB CONC 34.2 g/dl (32.0-36.5); MEAN CORPUSCULAR VOLUME 94.1 fl (80.0-96.0); MONO # 0.5 10^3/uL (0.0-0.8); MONO % 16.3 % (0.0-5.0); NEUTROPHILS # 1.7 10^3/uL (1.8-7.7); NEUTROPHILS % 57.8 % (36.0-66.0); RED BLOOD COUNT 2.73 10^6/uL (4.30-6.10); RED CELL DISTRIBUTION WIDTH 16.2 % (11.5-14.5); WHITE BLOOD COUNT 2.9 10^3/uL (4.0-10.0)
[2018-03-29 06:14] LABS: PLATELET COUNT, AUTOMATED 73 10^3/uL (150-450)
[2018-03-29 06:44] LABS: AMMONIA 18 uMOL/L (<32)
[2018-03-29 07:02] LABS: ALBUMIN 2.3 GM/DL (3.2-5.2); ALBUMIN/GLOBULIN RATIO 0.44 (1.00-1.93); ALKALINE PHOSPHATASE 1394 U/L (45-117); ALT/SGPT 117 U/L (12-78); ANION GAP 4 MEQ/L (8-16); AST/SGOT 157 U/L (7-37); BILIRUBIN,TOTAL 1.3 MG/DL (0.2-1.0); BLOOD UREA NITROGEN 21 MG/DL (7-18); CALCIUM LEVEL 8.5 MG/DL (8.8-10.2); CARBON DIOXIDE LEVEL 28 MEQ/L (21-32); CHLORIDE LEVEL 105 MEQ/L (98-107); CREATININE FOR GFR 1.21 MG/DL (0.70-1.30); GLOMERULAR FILTRATION RATE > 60.0 (>42); GLUCOSE, FASTING 87 MG/DL (70-100); POTASSIUM SERUM 4.5 MEQ/L (3.5-5.1); SODIUM LEVEL 137 MEQ/L (136-145); TOTAL PROTEIN 7.5 GM/DL (6.4-8.2)
[2018-03-29] MEDS: NADOLOL 20MG TABLET PO (09:00)
[2018-03-29] MEDS: AMITRIPTYLINE 50 MG TAB PO (09:43)
[2018-03-29] MEDS: MULTIVITAMINS/MINERALS THERAP 1 TAB PO (09:43)
[2018-03-29] MEDS: FINASTERIDE 5 MG TAB PO (09:43)
[2018-03-29] MEDS: DOCUSATE SODIUM 100 MG CAP PO (09:44)
[2018-03-29] MEDS: ASPIRIN 81 MG ENTERIC TAB PO (09:44)
[2018-03-29] MEDS: VITAMIN D 1,000 INTERNATIONAL UNITS TABLET PO (09:44)
[2018-03-29] MEDS: SUCRALFATE 1 GM TAB PO (09:44)
[2018-03-29] MEDS: LACTULOSE 20 GM/30 ML SYRUP UD PO (09:44)
[2018-03-29] MEDS: FAMOTIDINE 20 MG TAB PO (09:44)
[2018-03-29] MEDS: rifAXIMin 550 MG TAB (XIFAXAN) PO (09:44)
== END 2018-03-29 12:30 | DRG 92 ==
LOC: M MSPAV 03-26 00:13 → M ED 19:37 → M ED INP 22:42
DX: R29.6 Repeated falls (principal); K76.6 Portal hypertension; I85.10 Secondary esophageal varices without bleeding; C22.1 Intrahepatic bile duct carcinoma; Z66 Do not resuscitate; M48.00 Spinal stenosis, site unspecified; K72.90 Hepatic failure, unspecified without coma; G24.01 Drug induced subacute dyskinesia; D63.8 Anemia in other chronic diseases classified elsewhere; R26.81 Unsteadiness on feet; R53.1 Weakness; N40.0 Benign prostatic hyperplasia without lower urinary tract symptoms; E78.5 Hyperlipidemia, unspecified; G62.9 Polyneuropathy, unspecified; K21.9 Gastro-esophageal reflux disease without esophagitis; I10 Essential (primary) hypertension; K74.60 Unspecified cirrhosis of liver; F03.90 Unspecified dementia, unspecified severity, without behavioral disturbance, psychotic disturbance, mood disturbance, and anxiety; Z88.1 Allergy status to other antibiotic agents; Z88.8 Allergy status to other drugs, medicaments and biological substances; Z88.6 Allergy status to analgesic agent; Z79.82 Long term (current) use of aspirin; Z79.899 Other long term (current) drug therapy; Z96.651 Presence of right artificial knee joint; Z95.828 Presence of other vascular implants and grafts; Z92.21 Personal history of antineoplastic chemotherapy

== ENCOUNTER → 2018-04-04 | Outpatient (REF) ==
[2018-04-04 10:22] LABS: HEMATOCRIT 29.9 % (42.0-52.0); MEAN CORPUSCULAR HEMOGLOBIN 31.4 pg (27.0-33.0); MEAN CORPUSCULAR HGB CONC 33.4 g/dl (32.0-36.5); RED BLOOD COUNT 3.18 10^6/uL (4.30-6.10); RED CELL DISTRIBUTION WIDTH 16.4 % (11.5-14.5); WHITE BLOOD COUNT 3.2 10^3/uL (4.0-10.0)
[2018-04-04 10:30] LABS: AMMONIA 33 uMOL/L (<32)
[2018-04-04 10:34] LABS: PLATELET COUNT, AUTOMATED 94 10^3/uL (150-450)
[2018-04-04 10:35] LABS: IMMATURE PLATELET FRACTION % 1.6 % (0.0-10.9)
[2018-04-04 10:41] LABS: ALBUMIN 2.9 GM/DL (3.2-5.2); ALBUMIN/GLOBULIN RATIO 0.55 (1.00-1.93); ALKALINE PHOSPHATASE 1393 U/L (45-117); ALT/SGPT 112 U/L (12-78); ANION GAP 8 MEQ/L (8-16); AST/SGOT 141 U/L (7-37); BLOOD UREA NITROGEN 16 MG/DL (7-18); CALCIUM LEVEL 8.9 MG/DL (8.8-10.2); CARBON DIOXIDE LEVEL 27 MEQ/L (21-32); CHLORIDE LEVEL 104 MEQ/L (98-107); CREATININE FOR GFR 1.23 MG/DL (0.70-1.30); GLOMERULAR FILTRATION RATE > 60.0 (>42); GLUCOSE, FASTING 132 MG/DL (70-100); POTASSIUM SERUM 3.7 MEQ/L (3.5-5.1); SODIUM LEVEL 139 MEQ/L (136-145); TOTAL PROTEIN 8.2 GM/DL (6.4-8.2)
== END ==
DX: N19 Unspecified kidney failure (principal)

== ENCOUNTER → 2018-04-08 | Outpatient (REF) | payer MEDICARE | DX: R50.9 Fever, unspecified (principal) ==

== ENCOUNTER → 2018-04-08 | Outpatient (REF) | payer MEDICARE | DX: R50.9 Fever, unspecified (principal) ==

== ENCOUNTER → 2018-04-11 | Outpatient (REF) | DX: I10 Essential (primary) hypertension (principal) ==

== ENCOUNTER → 2018-04-17 | Outpatient (REF) | payer MEDICARE ==
[2018-04-17 13:39] LABS: BASO % 0.3 % (0.0-1.0); EOS # 0.1 10^3/uL (0.0-0.50); HEMATOCRIT 27.8 % (42.0-52.0); HEMOGLOBIN 9.5 g/dl (13.5-17.5); IMMATURE GRANULOCYTE % 0.7 % (0-3.0); LYMPH # 0.5 10^3/uL (1.5-4.5); LYMPH % 15.8 % (24.0-44.0); MEAN CORPUSCULAR HEMOGLOBIN 32.4 pg (27.0-33.0); MEAN CORPUSCULAR HGB CONC 34.2 g/dl (32.0-36.5); MEAN CORPUSCULAR VOLUME 94.9 fl (80.0-96.0); MONO # 0.5 10^3/uL (0.0-0.8); MONO % 16.5 % (0.0-5.0); NEUTROPHILS # 1.9 10^3/uL (1.8-7.7); NEUTROPHILS % 62.7 % (36.0-66.0); RED BLOOD COUNT 2.93 10^6/uL (4.30-6.10); RED CELL DISTRIBUTION WIDTH 16.1 % (11.5-14.5)
[2018-04-17 13:43] LABS: PLATELET COUNT, AUTOMATED 71 10^3/uL (150-450)
[2018-04-17 13:44] LABS: IMMATURE PLATELET FRACTION % 2.3 % (0.0-10.9); PLATELET F 70
[2018-04-17 14:11] LABS: ERYTHROCYTE SEDIMENTATION RATE 70 mm/hr (0-20)
[2018-04-17 14:44] LABS: ALBUMIN 2.6 GM/DL (3.2-5.2); ALBUMIN/GLOBULIN RATIO 0.55 (1.00-1.93); ALKALINE PHOSPHATASE 1092 U/L (45-117); ALT/SGPT 77 U/L (12-78); ANION GAP 11 MEQ/L (8-16); AST/SGOT 112 U/L (7-37); BILIRUBIN,TOTAL 0.9 MG/DL (0.2-1.0); BLOOD UREA NITROGEN 16 MG/DL (7-18); C REACTIVE PROTEIN QUANTITATIV 3.04 MG/DL (0.00-0.30); CALCIUM LEVEL 8.5 MG/DL (8.8-10.2); CARBON DIOXIDE LEVEL 23 MEQ/L (21-32); CHLORIDE LEVEL 105 MEQ/L (98-107); CREATININE FOR GFR 1.11 MG/DL (0.70-1.30); GLOMERULAR FILTRATION RATE > 60.0 (>42); GLUCOSE, FASTING 100 MG/DL (70-100); POTASSIUM SERUM 4.1 MEQ/L (3.5-5.1); SODIUM LEVEL 139 MEQ/L (136-145); TOTAL PROTEIN 7.3 GM/DL (6.4-8.2)
== END ==
LOC: M LAB REF 13:32
DX: I85.01 Esophageal varices with bleeding (principal)
CPT/HCPCS: 80053

== ENCOUNTER 2018-04-30 12:41 | Inpatient (IN) | payer MEDICARE ==
[2018-04-30 15:19] LABS: BASO % 0.9 % (0.0-1.0); EOS % 1.7 % (0.0-3.0); HEMATOCRIT 30.6 % (42.0-52.0); HEMOGLOBIN 10.4 g/dl (13.5-17.5); IMMATURE GRANULOCYTE % 0.4 % (0-3.0); LYMPH # 0.3 10^3/uL (1.5-4.5); LYMPH % 14.6 % (24.0-44.0); MEAN CORPUSCULAR HEMOGLOBIN 32.3 pg (27.0-33.0); MONO # 0.4 10^3/uL (0.0-0.8); MONO % 17.2 % (0.0-5.0); NEUTROPHILS # 1.5 10^3/uL (1.8-7.7); NEUTROPHILS % 65.2 % (36.0-66.0); RED BLOOD COUNT 3.22 10^6/uL (4.30-6.10); RED CELL DISTRIBUTION WIDTH 15.8 % (11.5-14.5); WHITE BLOOD COUNT 2.3 10^3/uL (4.0-10.0)
[2018-04-30 15:25] LABS: PLATELET COUNT, AUTOMATED 71 10^3/uL (150-450)
[2018-04-30 15:26] LABS: IMMATURE PLATELET FRACTION % 1.9 % (0.0-10.9)
[2018-04-30 15:28] LABS: AMMONIA 102 uMOL/L (<32)
[2018-04-30 15:34] LABS: ALBUMIN/GLOBULIN RATIO 0.61 (1.00-1.93); ALKALINE PHOSPHATASE 914 U/L (45-117); ALT/SGPT 65 U/L (12-78); ANION GAP 11 MEQ/L (8-16); AST/SGOT 127 U/L (7-37); BILIRUBIN,DIRECT 0.5 MG/DL (0.0-0.2); BILIRUBIN,TOTAL 1.3 MG/DL (0.2-1.0); BLOOD UREA NITROGEN 19 MG/DL (7-18); CALCIUM LEVEL 8.5 MG/DL (8.8-10.2); CARBON DIOXIDE LEVEL 23 MEQ/L (21-32); CHLORIDE LEVEL 107 MEQ/L (98-107); CPK CREATINE PHOSPHOKINASE 79 U/L (39-308); CREATININE FOR GFR 1.24 MG/DL (0.70-1.30); GLOMERULAR FILTRATION RATE > 60.0 (>42); GLUCOSE, FASTING 93 MG/DL (70-100); POTASSIUM SERUM 4.5 MEQ/L (3.5-5.1); SODIUM LEVEL 141 MEQ/L (136-145); TOTAL PROTEIN 7.9 GM/DL (6.4-8.2); TROPONIN I < 0.02 NG/ML (< 0.10)
[2018-04-30] MEDS: NS 500 ML IV (15:37)
[2018-04-30 15:40] LABS: MB/CK RELATIVE INDEX 1.26 (< OR =4)
[2018-04-30 16:03] LABS: LACTIC ACID SEPSIS PROTOCOL 1.5 MMOL/L (0.4-2.0)
[2018-04-30 16:04] LABS: KETONE, URINE AUTO RFX NEGATIVE (NEGATIVE); LEUKOCYTE ESTERASE UR AUTO RFX NEGATIVE (NEGATIVE); NITRITE, URINE AUTO RFX NEGATIVE (NEGATIVE); RBC, URINE AUTO RFX 0 /HPF (0-3); SPECIFIC GRAVITY UR AUTO RFX 1.004 (1.002-1.035); SQUAM EPITHELIAL CELL UR AURFX 0 /HPF (0-6); WBC, URINE AUTO RFX 0 /HPF (0-3)
[2018-04-30] MEDS: LACTULOSE 20 GM/30 ML SYRUP UD PO ×2 (17:02→22:09)
[2018-04-30] MEDS: SUCRALFATE 1 GM TAB PO (22:09)
[2018-04-30] MEDS: rifAXIMin 550 MG TAB (XIFAXAN) PO (22:10)
[2018-04-30] MEDS: FAMOTIDINE 20 MG TAB PO (22:10)
[2018-04-30] MEDS: TAMSULOSIN 0.4 MG CAP PO (22:10)
[2018-04-30] MEDS: AMITRIPTYLINE 50 MG TAB PO (22:10)
[2018-05-01 05:52] LABS: MEAN CORPUSCULAR HEMOGLOBIN 31.7 pg (27.0-33.0); MEAN CORPUSCULAR HGB CONC 33.3 g/dl (32.0-36.5); MEAN CORPUSCULAR VOLUME 95.1 fl (80.0-96.0); RED BLOOD COUNT 2.84 10^6/uL (4.30-6.10); RED CELL DISTRIBUTION WIDTH 15.8 % (11.5-14.5)
[2018-05-01 05:55] LABS: PLATELET COUNT, AUTOMATED 61 10^3/uL (150-450)
[2018-05-01 06:18] LABS: AMMONIA 62 uMOL/L (<32)
[2018-05-01 06:23] LABS: ALBUMIN 2.6 GM/DL (3.2-5.2); ALBUMIN/GLOBULIN RATIO 0.59 (1.00-1.93); ALKALINE PHOSPHATASE 748 U/L (45-117); ALT/SGPT 54 U/L (12-78); ANION GAP 9 MEQ/L (8-16); AST/SGOT 94 U/L (7-37); BILIRUBIN,TOTAL 1.3 MG/DL (0.2-1.0); BLOOD UREA NITROGEN 16 MG/DL (7-18); CALCIUM LEVEL 8.5 MG/DL (8.8-10.2); CARBON DIOXIDE LEVEL 24 MEQ/L (21-32); CHLORIDE LEVEL 110 MEQ/L (98-107); CREATININE FOR GFR 1.13 MG/DL (0.70-1.30); GLOMERULAR FILTRATION RATE > 60.0 (>42); GLUCOSE, FASTING 81 MG/DL (70-100); POTASSIUM SERUM 3.6 MEQ/L (3.5-5.1); SODIUM LEVEL 143 MEQ/L (136-145)
[2018-05-01] MEDS: SUCRALFATE 1 GM TAB PO ×4 (06:34→20:40)
[2018-05-01] MEDS: VITAMIN D 1,000 INTERNATIONAL UNITS TABLET PO (08:23)
[2018-05-01] MEDS: rifAXIMin 550 MG TAB (XIFAXAN) PO ×2 (08:23→20:41)
[2018-05-01] MEDS: LACTULOSE 20 GM/30 ML SYRUP UD PO ×3 (08:23→20:41)
[2018-05-01] MEDS: MULTIVITAMINS/MINERALS THERAP 1 TAB PO (08:23)
[2018-05-01] MEDS: OMEPRAZOLE 20 MG CAP PO (08:23)
[2018-05-01] MEDS: AMITRIPTYLINE 50 MG TAB PO ×2 (08:23→20:40)
[2018-05-01] MEDS: FINASTERIDE 5 MG TAB PO (08:24)
[2018-05-01] MEDS: ASPIRIN 81 MG ENTERIC TAB PO (08:24)
[2018-05-01] MEDS: FAMOTIDINE 20 MG TAB PO (20:40)
[2018-05-01] MEDS: TAMSULOSIN 0.4 MG CAP PO (20:40)
[2018-05-02 06:23] LABS: HEMATOCRIT 27.1 % (42.0-52.0); HEMOGLOBIN 9.2 g/dl (13.5-17.5); MEAN CORPUSCULAR HEMOGLOBIN 32.2 pg (27.0-33.0); MEAN CORPUSCULAR HGB CONC 33.9 g/dl (32.0-36.5); MEAN CORPUSCULAR VOLUME 94.8 fl (80.0-96.0); RED BLOOD COUNT 2.86 10^6/uL (4.30-6.10); RED CELL DISTRIBUTION WIDTH 15.8 % (11.5-14.5); WHITE BLOOD COUNT 2.5 10^3/uL (4.0-10.0)
[2018-05-02 06:25] LABS: PLATELET COUNT, AUTOMATED 61 10^3/uL (150-450)
[2018-05-02 06:26] LABS: IMMATURE PLATELET FRACTION % 1.3 % (0.0-10.9)
[2018-05-02 06:37] LABS: AMMONIA 60 uMOL/L (<32)
[2018-05-02 06:40] LABS: ALBUMIN 2.5 GM/DL (3.2-5.2); ALBUMIN/GLOBULIN RATIO 0.57 (1.00-1.93); ALKALINE PHOSPHATASE 834 U/L (45-117); ALT/SGPT 63 U/L (12-78); ANION GAP 9 MEQ/L (8-16); AST/SGOT 123 U/L (7-37); BILIRUBIN,TOTAL 0.8 MG/DL (0.2-1.0); BLOOD UREA NITROGEN 17 MG/DL (7-18); CALCIUM LEVEL 8.2 MG/DL (8.8-10.2); CARBON DIOXIDE LEVEL 24 MEQ/L (21-32); CHLORIDE LEVEL 109 MEQ/L (98-107); CREATININE FOR GFR 1.06 MG/DL (0.70-1.30); GLOMERULAR FILTRATION RATE > 60.0 (>42); GLUCOSE, FASTING 80 MG/DL (70-100); POTASSIUM SERUM 3.8 MEQ/L (3.5-5.1); SODIUM LEVEL 142 MEQ/L (136-145); TOTAL PROTEIN 6.9 GM/DL (6.4-8.2)
[2018-05-02] MEDS: rifAXIMin 550 MG TAB (XIFAXAN) PO (07:52)
[2018-05-02] MEDS: LACTULOSE 20 GM/30 ML SYRUP UD PO ×2 (07:52→16:21)
[2018-05-02] MEDS: SUCRALFATE 1 GM TAB PO ×3 (07:53→16:21)
[2018-05-02] MEDS: MULTIVITAMINS/MINERALS THERAP 1 TAB PO (07:53)
[2018-05-02] MEDS: FINASTERIDE 5 MG TAB PO (07:53)
[2018-05-02] MEDS: VITAMIN D 1,000 INTERNATIONAL UNITS TABLET PO (07:53)
[2018-05-02] MEDS: AMITRIPTYLINE 50 MG TAB PO (07:54)
[2018-05-02] MEDS: ASPIRIN 81 MG ENTERIC TAB PO (07:54)
[2018-05-02] MEDS: OMEPRAZOLE 20 MG CAP PO (07:55)
== END 2018-05-02 17:28 | disposition home or self-care (01) | DRG 441 ==
LOC: M ED 12:41 → M ED INP 18:35 → M MSPAV 20:20
DX: K72.10 Chronic hepatic failure without coma (principal); I81 Portal vein thrombosis; M47.816 Spondylosis without myelopathy or radiculopathy, lumbar region; K74.60 Unspecified cirrhosis of liver; D63.8 Anemia in other chronic diseases classified elsewhere; D69.59 Other secondary thrombocytopenia; D70.9 Neutropenia, unspecified; F03.90 Unspecified dementia, unspecified severity, without behavioral disturbance, psychotic disturbance, mood disturbance, and anxiety; Z79.82 Long term (current) use of aspirin; Z79.899 Other long term (current) drug therapy; Z88.6 Allergy status to analgesic agent; Z88.1 Allergy status to other antibiotic agents; Z88.8 Allergy status to other drugs, medicaments and biological substances; Z96.651 Presence of right artificial knee joint; Z90.49 Acquired absence of other specified parts of digestive tract; Z96.89 Presence of other specified functional implants; Z85.05 Personal history of malignant neoplasm of liver

== ENCOUNTER → 2018-05-10 | Outpatient (CLI) | payer MEDICARE ==
[2018-05-10 16:41] LABS: HEMATOCRIT 28.8 % (42.0-52.0); HEMOGLOBIN 9.9 g/dl (13.5-17.5); MEAN CORPUSCULAR HEMOGLOBIN 32.5 pg (27.0-33.0); MEAN CORPUSCULAR HGB CONC 34.4 g/dl (32.0-36.5); MEAN CORPUSCULAR VOLUME 94.4 fl (80.0-96.0); RED BLOOD COUNT 3.05 10^6/uL (4.30-6.10); RED CELL DISTRIBUTION WIDTH 15.8 % (11.5-14.5); WHITE BLOOD COUNT 3.3 10^3/uL (4.0-10.0)
[2018-05-10 16:55] LABS: AMMONIA 89 uMOL/L (<32)
[2018-05-10 16:58] LABS: PLATELET COUNT, AUTOMATED 72 10^3/uL (150-450)
[2018-05-10 16:59] LABS: IMMATURE PLATELET FRACTION % 1.9 % (0.0-10.9)
[2018-05-10 17:07] LABS: ALBUMIN 2.7 GM/DL (3.2-5.2); ALBUMIN/GLOBULIN RATIO 0.57 (1.00-1.93); ALKALINE PHOSPHATASE 850 U/L (45-117); ALT/SGPT 78 U/L (12-78); ANION GAP 8 MEQ/L (8-16); AST/SGOT 122 U/L (7-37); BILIRUBIN,TOTAL 0.7 MG/DL (0.2-1.0); BLOOD UREA NITROGEN 21 MG/DL (7-18); CALCIUM LEVEL 8.1 MG/DL (8.8-10.2); CARBON DIOXIDE LEVEL 25 MEQ/L (21-32); CHLORIDE LEVEL 108 MEQ/L (98-107); CREATININE FOR GFR 1.29 MG/DL (0.70-1.30); GLOMERULAR FILTRATION RATE 57.8 (>42); GLUCOSE, FASTING 110 MG/DL (70-100); POTASSIUM SERUM 4.4 MEQ/L (3.5-5.1); SODIUM LEVEL 141 MEQ/L (136-145); TOTAL PROTEIN 7.4 GM/DL (6.4-8.2)
== END ==
LOC: M WUC 14:34
DX: K72.90 Hepatic failure, unspecified without coma (principal)
CPT/HCPCS: 82140

== ENCOUNTER 2018-05-24 22:08 | Inpatient (IN) | payer MEDICARE ==
[2018-05-24] MEDS: ACETAMINOPHEN 325 MG TAB PO (22:50)
[2018-05-24 23:05] LABS: HEMATOCRIT 26.7 % (42.0-52.0); MEAN CORPUSCULAR HEMOGLOBIN 31.7 pg (27.0-33.0); MEAN CORPUSCULAR HGB CONC 33.7 g/dl (32.0-36.5); RED BLOOD COUNT 2.84 10^6/uL (4.30-6.10); RED CELL DISTRIBUTION WIDTH 15.3 % (11.5-14.5); WHITE BLOOD COUNT 7.7 10^3/uL (4.0-10.0)
[2018-05-24 23:08] LABS: ADD MANUAL DIFFER YES; DIFF SLIDE NUMBER 353; PLATELET COUNT, AUTOMATED 61 10^3/uL (150-450); POSITIVE DIFF POS FLAG
[2018-05-24 23:09] LABS: IMMATURE PLATELET FRACTION % 1.6 % (0.0-10.9)
[2018-05-24 23:13] LABS: INR 1.36
[2018-05-24 23:20] LABS: ABG BASE EXCESS -4.6 (-2.0-2.0); ABG HCO3 18.2 MEQ/L (22.0-26.0); ABG O2 SATURATION 98.6 % (95.0-99.0); ABG PARTIAL PRESSURE CO2 26.4 mmHg (35.0-45.0); ABG PARTIAL PRESSURE O2 121.2 mmHg (75.0-100.0); ABG STANDARD HCO3 20.6 MEQ/L (22.0-26.0); ABG pH (ARTERIAL) 7.457 UNITS (7.350-7.450)
[2018-05-24 23:38] LABS: LACTIC ACID SEPSIS PROTOCOL 3.3 MMOL/L (0.4-2.0)
[2018-05-24 23:40] LABS: ALKALINE PHOSPHATASE 594 U/L (45-117); ALT/SGPT 53 U/L (12-78); AMYLASE 40 U/L (25-115); AST/SGOT 63 U/L (7-37); BILIRUBIN,TOTAL 1.8 MG/DL (0.2-1.0); BLOOD UREA NITROGEN 22 MG/DL (7-18); CPK CREATINE PHOSPHOKINASE 135 U/L (39-308); CREATININE FOR GFR 1.41 MG/DL (0.70-1.30); GLUCOSE, FASTING 126 MG/DL (70-100); POTASSIUM SERUM 3.6 MEQ/L (3.5-5.1); SODIUM LEVEL 138 MEQ/L (136-145); TROPONIN I < 0.02 NG/ML (< 0.10)
[2018-05-24 23:41] LABS: CK-MB VALUE MASS 1.2 NG/ML (<3.6); MB/CK RELATIVE INDEX 0.88 (< OR =4)
[2018-05-24] MEDS: NS 1,000 ML IV (23:45)
[2018-05-24 23:50] LABS: ATYPICAL LYMPH 5 % (0-5); LYMPHOCYTES 2 % (16-52); MONOCYTES 9 % (0-8); NEUTROPHILS 84 % (35-75)
[2018-05-24 23:51] LABS: ANISOCYTOSIS 1+; PLATELET ESTIMATE MARKED DECREASE (NORMAL)
[2018-05-24 23:54] LABS: APPEARANCE, URINE HAZY (CLEAR); BACTERIA, URINE AUTO NEGATIVE (NEGATIVE); BILIRUBIN, URINE AUTO NEGATIVE (NEGATIVE); BLOOD, URINE BLOOD 2+ (NEGATIVE); COLOR, URINE AMBER (YELLOW); GLUCOSE, URINE (UA) AUTO NEGATIVE (NEGATIVE); KETONE, URINE AUTO NEGATIVE (NEGATIVE); LEUKOCYTE ESTERASE, URINE AUTO NEGATIVE (NEGATIVE); MUCUS, URINE SMALL (NEGATIVE); NITRITE, URINE AUTO NEGATIVE (NEGATIVE); PROTEIN, URINE AUTO 2+ mg/dL (NEGATIVE); RBC, URINE AUTO 3 /HPF (0-3); SPECIFIC GRAVITY URINE AUTO 1.023 (1.002-1.035); SQUAMOUS EPITHELIAL CELL UR AU 0 /HPF (0-6); WBC, URINE AUTO 2 /HPF (0-3)
[2018-05-25 00:31] LABS: AMMONIA 21 uMOL/L (<32)
[2018-05-25 00:35] LABS: INFLUENZA A AMPLIFICATION NEGATIVE (NEGATIVE); INFLUENZA B AMPLIFICATION NEGATIVE (NEGATIVE)
[2018-05-25] MEDS ORDERED: ACETAMINOPHEN 650 MG SUPP PR (01:00)
[2018-05-25] MEDS: NS 1,000 ML IV ×2 (02:17→11:58)
[2018-05-25] MEDS: cefTRIAXone SOD 2 GM in D5W MINI-BAG PLUS 50 ML IV (02:40)
[2018-05-25] MEDS: VANCOMYCIN HCL 1,000 MG, VIAL MATE ADAPTER 1 EACH in D5W 250 ML IV ×2 (03:04→11:57)
[2018-05-25 04:14] LABS: ALBUMIN 2.5 GM/DL (3.2-5.2); ALBUMIN/GLOBULIN RATIO 0.61 (1.00-1.93); ANION GAP 11 MEQ/L (8-16); CARBON DIOXIDE LEVEL 20 MEQ/L (21-32); CHLORIDE LEVEL 107 MEQ/L (98-107); TOTAL PROTEIN 6.6 GM/DL (6.4-8.2)
[2018-05-25 05:46] LABS: HEMATOCRIT 27.6 % (42.0-52.0); HEMOGLOBIN 9.3 g/dl (13.5-17.5); MEAN CORPUSCULAR HEMOGLOBIN 31.6 pg (27.0-33.0); MEAN CORPUSCULAR HGB CONC 33.7 g/dl (32.0-36.5); MEAN CORPUSCULAR VOLUME 93.9 fl (80.0-96.0); RED BLOOD COUNT 2.94 10^6/uL (4.30-6.10); RED CELL DISTRIBUTION WIDTH 15.4 % (11.5-14.5); WHITE BLOOD COUNT 7.3 10^3/uL (4.0-10.0)
[2018-05-25 05:48] LABS: ADD MANUAL DIFFER YES; DIFF SLIDE NUMBER 92; PLATELET COUNT, AUTOMATED 58 10^3/uL (150-450); POSITIVE MORPH POS FLAG
[2018-05-25 06:11] LABS: ALBUMIN 2.2 GM/DL (3.2-5.2); ALKALINE PHOSPHATASE 521 U/L (45-117); ALT/SGPT 49 U/L (12-78); ANION GAP 9 MEQ/L (8-16); AST/SGOT 63 U/L (7-37); BILIRUBIN,TOTAL 1.2 MG/DL (0.2-1.0); BLOOD UREA NITROGEN 20 MG/DL (7-18); CARBON DIOXIDE LEVEL 22 MEQ/L (21-32); CHLORIDE LEVEL 109 MEQ/L (98-107); CREATININE FOR GFR 1.18 MG/DL (0.70-1.30); GLOMERULAR FILTRATION RATE > 60.0 (>42); GLUCOSE, FASTING 104 MG/DL (70-100); POTASSIUM SERUM 3.4 MEQ/L (3.5-5.1); SODIUM LEVEL 140 MEQ/L (136-145); TOTAL PROTEIN 6.6 GM/DL (6.4-8.2)
[2018-05-25 06:17] LABS: LYMPHOCYTES 10 % (16-52); MONOCYTES 8 % (0-8); NEUTROPHILS 82 % (35-75); PLATELET ESTIMATE MARKED DECREASE (NORMAL)
[2018-05-25] MEDS: rifAXIMin 550 MG TAB (XIFAXAN) PO ×2 (09:40→20:08)
[2018-05-25] MEDS: MULTIVITAMINS/MINERALS THERAP 1 TAB PO (09:40)
[2018-05-25] MEDS: VITAMIN D 1,000 INTERNATIONAL UNITS TABLET PO (09:40)
[2018-05-25] MEDS: LACTULOSE 20 GM/30 ML SYRUP UD PO ×2 (09:40→20:09)
[2018-05-25] MEDS: TAMSULOSIN 0.4 MG CAP PO (09:40)
[2018-05-25] MEDS: AMITRIPTYLINE 50 MG TAB PO ×2 (09:41→20:08)
[2018-05-25] MEDS: SUCRALFATE 1 GM TAB PO ×4 (09:41→20:08)
[2018-05-25] MEDS: PANTOPRAZOLE 40MG TAB (PROTONIX) PO (09:41)
[2018-05-25] MEDS: DONEPEZIL 5 MG TAB PO (09:41)
[2018-05-25] MEDS: FINASTERIDE 5 MG TAB PO (09:41)
[2018-05-25] MEDS: ASPIRIN 81 MG ENTERIC TAB PO (09:41)
[2018-05-25] MEDS ORDERED: LIDOCAINE 1% MDV 20ML VIAL As Ordered (11:20)
[2018-05-25] MEDS: LIDOCAINE 1% MDV 20ML VIAL SC (11:58)
[2018-05-25 12:31] LABS: CRYSTALS, BODY FLUID NONE SEEN (NONE SEEN); SOURCE, BODY FLUID CRYSTALS RT KNEE
[2018-05-25 12:57] LABS: BF MONONUCLEAR CELL % 5.5 % (0-0); BF POLYMORPHONUCLEAR CELL % 94.5 % (0-0)
[2018-05-25 13:08] LABS: BODY FLUID RHEUMATOID SCREEN NEGATIVE (NEGATIVE); MUCIN CLOT TEST 3+ (4+)
[2018-05-25 13:11] LABS: APPEARANCE, BODY FLUID CLOUDY (CLEAR); RBC BODY FLUID 20 10^3/uL (<2); SOURCE, BODY FLUID RT KNEE; SYNOVIAL FLUID COLOR AMBER (YELLOW); WBC BODY FLUID 23770 /uL (0-10)
[2018-05-25 13:12] LABS: BF DIFF IF INDICATED? YES (NO)
[2018-05-25 13:16] LABS: SOURCE, BODY FLUID GLUCOSE RT KNEE; SOURCE, BODY FLUID URIC ACID RT KNEE; URIC ACID, BODY FLUID 7.1 MG/DL (NOT ESTABLISHED)
[2018-05-25] MEDS: ACETAMINOPHEN TAB 650MG DOSE (2X325MG) PO (18:19)
[2018-05-25] MEDS: POTASSIUM CHLORIDE 10 MEQ SR TABLET PO ×2 (18:19→20:09)
[2018-05-25] MEDS: FAMOTIDINE 20 MG TAB PO (20:08)
[2018-05-26] MEDS: VANCOMYCIN HCL 1,000 MG, VIAL MATE ADAPTER 1 EACH in D5W 250 ML IV ×3 (00:20→23:58)
[2018-05-26] MEDS: NS 1,000 ML IV ×4 (00:25→23:03)
[2018-05-26] MEDS: cefTRIAXone SOD 2 GM in D5W MINI-BAG PLUS 50 ML IV (01:34)
[2018-05-26 06:16] LABS: HEMATOCRIT 25.5 % (42.0-52.0); HEMOGLOBIN 8.7 g/dl (13.5-17.5); MEAN CORPUSCULAR HEMOGLOBIN 32.2 pg (27.0-33.0); MEAN CORPUSCULAR HGB CONC 34.1 g/dl (32.0-36.5); MEAN CORPUSCULAR VOLUME 94.4 fl (80.0-96.0); RED CELL DISTRIBUTION WIDTH 15.7 % (11.5-14.5); WHITE BLOOD COUNT 4.7 10^3/uL (4.0-10.0)
[2018-05-26 06:20] LABS: ADD MANUAL DIFFER YES; DIFF SLIDE NUMBER 45; PLATELET COUNT, AUTOMATED 68 10^3/uL (150-450)
[2018-05-26 06:21] LABS: IMMATURE PLATELET FRACTION % 1.6 % (0.0-10.9)
[2018-05-26 06:33] LABS: EOSINOPHILS 1 % (0-5); LYMPHOCYTES 11 % (16-52); MONOCYTES 13 % (0-8); NEUTROPHILS 75 % (35-75); PLATELET ESTIMATE DECREASED (NORMAL)
[2018-05-26 06:37] LABS: ALBUMIN 2.1 GM/DL (3.2-5.2); ALBUMIN/GLOBULIN RATIO 0.48 (1.00-1.93); ALKALINE PHOSPHATASE 529 U/L (45-117); ALT/SGPT 49 U/L (12-78); ANION GAP 9 MEQ/L (8-16); AST/SGOT 67 U/L (7-37); BILIRUBIN,TOTAL 0.7 MG/DL (0.2-1.0); BLOOD UREA NITROGEN 16 MG/DL (7-18); CALCIUM LEVEL 7.5 MG/DL (8.8-10.2); CARBON DIOXIDE LEVEL 21 MEQ/L (21-32); CHLORIDE LEVEL 109 MEQ/L (98-107); CREATININE FOR GFR 0.97 MG/DL (0.70-1.30); GLOMERULAR FILTRATION RATE > 60.0 (>42); GLUCOSE, FASTING 83 MG/DL (70-100); SODIUM LEVEL 139 MEQ/L (136-145); TOTAL PROTEIN 6.5 GM/DL (6.4-8.2)
[2018-05-26 06:42] LABS: ERYTHROCYTE SEDIMENTATION RATE 72 mm/hr (0-20)
[2018-05-26] MEDS: SUCRALFATE 1 GM TAB PO ×4 (07:30→20:51)
[2018-05-26] MEDS: DONEPEZIL 5 MG TAB PO (09:00)
[2018-05-26] MEDS: ASPIRIN 81 MG ENTERIC TAB PO (09:00)
[2018-05-26] MEDS: MULTIVITAMINS/MINERALS THERAP 1 TAB PO (09:00)
[2018-05-26] MEDS: rifAXIMin 550 MG TAB (XIFAXAN) PO ×2 (09:00→20:51)
[2018-05-26] MEDS: PANTOPRAZOLE 40MG TAB (PROTONIX) PO (09:00)
[2018-05-26] MEDS: VITAMIN D 1,000 INTERNATIONAL UNITS TABLET PO (09:00)
[2018-05-26] MEDS: AMITRIPTYLINE 50 MG TAB PO ×2 (09:00→20:51)
[2018-05-26] MEDS: LACTULOSE 20 GM/30 ML SYRUP UD PO ×2 (09:00→20:51)
[2018-05-26] MEDS: TAMSULOSIN 0.4 MG CAP PO (09:00)
[2018-05-26] MEDS: FINASTERIDE 5 MG TAB PO (09:00)
[2018-05-26 11:01] LABS: VANCOMYCIN LEVEL TROUGH 14.6 UG/ML (10.0-20.0)
[2018-05-26] MEDS: ACETAMINOPHEN TAB 650MG DOSE (2X325MG) PO ×2 (11:17→20:52)
[2018-05-26] MEDS ORDERED: ceFAZolin 1GM INJ (J0690 PER 500MG) As Ordered (14:39)
[2018-05-26] MEDS ORDERED: TRANEXAMIC ACID 100 MG/ML 10ML VIAL As Ordered (14:39)
[2018-05-26] MEDS ORDERED: BUPIVACAINE LIPOSOME/PF 1.3% 20 ML VIAL (13.3MG/ML)(EXPAREL) As Ordered (14:44)
[2018-05-26] MEDS ORDERED: BUPIVACAINE HCL 0.5% 10 ML VIAL As Ordered (14:44)
[2018-05-26] MEDS ORDERED: EPINEPHrine INJ 1 MG/ML 1ML AMP As Ordered (14:44)
[2018-05-26] MEDS: FAMOTIDINE 20 MG TAB PO (20:51)
[2018-05-27] MEDS: cefTRIAXone SOD 2 GM in D5W MINI-BAG PLUS 50 ML IV (01:53)
[2018-05-27 05:23] LABS: BASO % 0.5 % (0.0-1.0); EOS # 0.1 10^3/uL (0.0-0.50); EOS % 2.8 % (0.0-3.0); HEMATOCRIT 24.6 % (42.0-52.0); HEMOGLOBIN 8.4 g/dl (13.5-17.5); IMMATURE GRANULOCYTE % 0.3 % (0-3.0); LYMPH # 0.5 10^3/uL (1.5-4.5); LYMPH % 12.2 % (24.0-44.0); MEAN CORPUSCULAR HEMOGLOBIN 31.7 pg (27.0-33.0); MEAN CORPUSCULAR HGB CONC 34.1 g/dl (32.0-36.5); MEAN CORPUSCULAR VOLUME 92.8 fl (80.0-96.0); MONO # 0.8 10^3/uL (0.0-0.8); MONO % 20.4 % (0.0-5.0); NEUTROPHILS # 2.5 10^3/uL (1.8-7.7); NEUTROPHILS % 63.8 % (36.0-66.0); PLATELET COUNT, AUTOMATED 74 10^3/uL (150-450); RED BLOOD COUNT 2.65 10^6/uL (4.30-6.10); WHITE BLOOD COUNT 3.9 10^3/uL (4.0-10.0)
[2018-05-27 05:40] LABS: ALBUMIN/GLOBULIN RATIO 0.49 (1.00-1.93); ALKALINE PHOSPHATASE 504 U/L (45-117); ALT/SGPT 49 U/L (12-78); ANION GAP 8 MEQ/L (8-16); AST/SGOT 64 U/L (7-37); BILIRUBIN,TOTAL 0.6 MG/DL (0.2-1.0); BLOOD UREA NITROGEN 13 MG/DL (7-18); CALCIUM LEVEL 7.5 MG/DL (8.8-10.2); CARBON DIOXIDE LEVEL 22 MEQ/L (21-32); CHLORIDE LEVEL 108 MEQ/L (98-107); CREATININE FOR GFR 0.91 MG/DL (0.70-1.30); GLOMERULAR FILTRATION RATE > 60.0 (>42); GLUCOSE, FASTING 89 MG/DL (70-100); POTASSIUM SERUM 3.8 MEQ/L (3.5-5.1); SODIUM LEVEL 138 MEQ/L (136-145); TOTAL PROTEIN 6.1 GM/DL (6.4-8.2)
[2018-05-27 05:52] LABS: ERYTHROCYTE SEDIMENTATION RATE 73 mm/hr (0-20)
[2018-05-27] MEDS: PANTOPRAZOLE 40MG TAB (PROTONIX) PO (09:33)
[2018-05-27] MEDS: SUCRALFATE 1 GM TAB PO ×4 (09:33→20:55)
[2018-05-27] MEDS: AMITRIPTYLINE 50 MG TAB PO ×2 (09:33→20:56)
[2018-05-27] MEDS: LACTULOSE 20 GM/30 ML SYRUP UD PO ×2 (09:33→20:55)
[2018-05-27] MEDS: DONEPEZIL 5 MG TAB PO (09:33)
[2018-05-27] MEDS: rifAXIMin 550 MG TAB (XIFAXAN) PO ×2 (09:33→20:55)
[2018-05-27] MEDS: FINASTERIDE 5 MG TAB PO (09:34)
[2018-05-27] MEDS: MULTIVITAMINS/MINERALS THERAP 1 TAB PO (09:34)
[2018-05-27] MEDS: ASPIRIN 81 MG ENTERIC TAB PO (09:34)
[2018-05-27] MEDS: TAMSULOSIN 0.4 MG CAP PO (09:34)
[2018-05-27] MEDS: VITAMIN D 1,000 INTERNATIONAL UNITS TABLET PO (09:34)
[2018-05-27] MEDS: VANCOMYCIN HCL 1,000 MG, VIAL MATE ADAPTER 1 EACH in D5W 250 ML IV ×2 (11:46→23:48)
[2018-05-27] MEDS: NS 1,000 ML IV ×2 (11:47→22:13)
[2018-05-27] MEDS: ACETAMINOPHEN TAB 650MG DOSE (2X325MG) PO ×2 (16:53→20:56)
[2018-05-27] MEDS: FAMOTIDINE 20 MG TAB PO (20:55)
[2018-05-28] MEDS: ACETAMINOPHEN TAB 650MG DOSE (2X325MG) PO ×2 (01:35→14:37)
[2018-05-28] MEDS: cefTRIAXone SOD 2 GM in D5W MINI-BAG PLUS 50 ML IV (02:00)
[2018-05-28 06:03] LABS: HEMATOCRIT 22.9 % (42.0-52.0); HEMOGLOBIN 7.9 g/dl (13.5-17.5); MEAN CORPUSCULAR HEMOGLOBIN 31.9 pg (27.0-33.0); MEAN CORPUSCULAR HGB CONC 34.5 g/dl (32.0-36.5); MEAN CORPUSCULAR VOLUME 92.3 fl (80.0-96.0); RED BLOOD COUNT 2.48 10^6/uL (4.30-6.10); RED CELL DISTRIBUTION WIDTH 14.9 % (11.5-14.5); WHITE BLOOD COUNT 3.7 10^3/uL (4.0-10.0)
[2018-05-28 06:08] LABS: PLATELET COUNT, AUTOMATED 77 10^3/uL (150-450); POSITIVE MORPH POS FLAG
[2018-05-28 06:09] LABS: ADD MANUAL DIFFER YES; DIFF SLIDE NUMBER 21; IMMATURE PLATELET FRACTION % 0.6 % (0.0-10.9)
[2018-05-28 06:50] LABS: ALBUMIN 1.9 GM/DL (3.2-5.2); ALBUMIN/GLOBULIN RATIO 0.44 (1.00-1.93); ALKALINE PHOSPHATASE 587 U/L (45-117); ALT/SGPT 52 U/L (12-78); ANION GAP 13 MEQ/L (8-16); AST/SGOT 67 U/L (7-37); BILIRUBIN,TOTAL 0.7 MG/DL (0.2-1.0); BLOOD UREA NITROGEN 12 MG/DL (7-18); CALCIUM LEVEL 7.6 MG/DL (8.8-10.2); CARBON DIOXIDE LEVEL 21 MEQ/L (21-32); CHLORIDE LEVEL 110 MEQ/L (98-107); CREATININE FOR GFR 1.05 MG/DL (0.70-1.30); GLOMERULAR FILTRATION RATE > 60.0 (>42); GLUCOSE, FASTING 119 MG/DL (70-100); POTASSIUM SERUM 3.7 MEQ/L (3.5-5.1); SODIUM LEVEL 144 MEQ/L (136-145); TOTAL PROTEIN 6.2 GM/DL (6.4-8.2)
[2018-05-28 06:53] LABS: ANISOCYTOSIS 1+; ATYPICAL LYMPH 3 % (0-5); BANDS 2 % (< 11); BASOPHILS 1 % (0-4); EOSINOPHILS 4 % (0-5); HYPOCHROMASIA 1+; LYMPHOCYTES 19 % (16-52); MICROCYTOSIS 1+; MONOCYTES 2 % (0-8); MYELOCYTES 1 % (0-0); NEUTROPHILS 68 % (35-75); PLATELET ESTIMATE DECREASED (NORMAL)
[2018-05-28 07:00] LABS: ERYTHROCYTE SEDIMENTATION RATE 91 mm/hr (0-20)
[2018-05-28] MEDS: VITAMIN D 1,000 INTERNATIONAL UNITS TABLET PO (08:57)
[2018-05-28] MEDS: AMITRIPTYLINE 50 MG TAB PO ×2 (08:57→20:13)
[2018-05-28] MEDS: MULTIVITAMINS/MINERALS THERAP 1 TAB PO (08:57)
[2018-05-28] MEDS: SUCRALFATE 1 GM TAB PO ×4 (08:57→20:13)
[2018-05-28] MEDS: FINASTERIDE 5 MG TAB PO (08:57)
[2018-05-28] MEDS: DONEPEZIL 5 MG TAB PO (08:57)
[2018-05-28] MEDS: PANTOPRAZOLE 40MG TAB (PROTONIX) PO (08:57)
[2018-05-28] MEDS: ASPIRIN 81 MG ENTERIC TAB PO (08:57)
[2018-05-28] MEDS: TAMSULOSIN 0.4 MG CAP PO (08:57)
[2018-05-28] MEDS: LACTULOSE 20 GM/30 ML SYRUP UD PO ×2 (08:57→20:13)
[2018-05-28] MEDS: NS 1,000 ML IV ×2 (08:58→17:36)
[2018-05-28] MEDS: rifAXIMin 550 MG TAB (XIFAXAN) PO ×2 (08:58→20:13)
[2018-05-28] MEDS: FAMOTIDINE 20 MG TAB PO (20:13)
[2018-05-29] MEDS: cefTRIAXone SOD 2 GM in D5W MINI-BAG PLUS 50 ML IV (00:24)
[2018-05-29] MEDS: NS 1,000 ML IV (04:03)
[2018-05-29 09:08] LABS: BASO % 0.5 % (0.0-1.0); EOS # 0.1 10^3/uL (0.0-0.50); EOS % 2.7 % (0.0-3.0); HEMATOCRIT 23.4 % (42.0-52.0); IMMATURE GRANULOCYTE % 0.8 % (0-3.0); LYMPH # 0.5 10^3/uL (1.5-4.5); LYMPH % 13.1 % (24.0-44.0); MEAN CORPUSCULAR HEMOGLOBIN 31.4 pg (27.0-33.0); MEAN CORPUSCULAR HGB CONC 34.2 g/dl (32.0-36.5); MEAN CORPUSCULAR VOLUME 91.8 fl (80.0-96.0); MONO # 0.9 10^3/uL (0.0-0.8); MONO % 25.7 % (0.0-5.0); NEUTROPHILS # 2.1 10^3/uL (1.8-7.7); NEUTROPHILS % 57.2 % (36.0-66.0); RED BLOOD COUNT 2.55 10^6/uL (4.30-6.10); RED CELL DISTRIBUTION WIDTH 14.9 % (11.5-14.5); WHITE BLOOD COUNT 3.7 10^3/uL (4.0-10.0)
[2018-05-29 09:13] LABS: PLATELET COUNT, AUTOMATED 85 10^3/uL (150-450); POSITIVE MORPH POS FLAG
[2018-05-29 09:14] LABS: IMMATURE PLATELET FRACTION % 0.7 % (0.0-10.9); PLATELET F 85
[2018-05-29] MEDS: LACTULOSE 20 GM/30 ML SYRUP UD PO ×2 (09:42→21:40)
[2018-05-29] MEDS: SUCRALFATE 1 GM TAB PO ×4 (09:42→21:40)
[2018-05-29] MEDS: rifAXIMin 550 MG TAB (XIFAXAN) PO ×2 (09:42→21:40)
[2018-05-29] MEDS: PANTOPRAZOLE 40MG TAB (PROTONIX) PO (09:43)
[2018-05-29] MEDS: FINASTERIDE 5 MG TAB PO (09:43)
[2018-05-29] MEDS: DONEPEZIL 5 MG TAB PO (09:43)
[2018-05-29] MEDS: TAMSULOSIN 0.4 MG CAP PO (09:43)
[2018-05-29] MEDS: MULTIVITAMINS/MINERALS THERAP 1 TAB PO (09:43)
[2018-05-29] MEDS: ASPIRIN 81 MG ENTERIC TAB PO (09:43)
[2018-05-29] MEDS: VITAMIN D 1,000 INTERNATIONAL UNITS TABLET PO (09:43)
[2018-05-29] MEDS: AMITRIPTYLINE 50 MG TAB PO ×2 (09:43→21:40)
[2018-05-29 09:44] LABS: ALBUMIN/GLOBULIN RATIO 0.53 (1.00-1.93); ALKALINE PHOSPHATASE 639 U/L (45-117); ALT/SGPT 62 U/L (12-78); ANION GAP 9 MEQ/L (8-16); AST/SGOT 81 U/L (7-37); BILIRUBIN,TOTAL 0.9 MG/DL (0.2-1.0); BLOOD UREA NITROGEN 12 MG/DL (7-18); CALCIUM LEVEL 7.5 MG/DL (8.8-10.2); CARBON DIOXIDE LEVEL 23 MEQ/L (21-32); CHLORIDE LEVEL 107 MEQ/L (98-107); CREATININE FOR GFR 1.04 MG/DL (0.70-1.30); GLOMERULAR FILTRATION RATE > 60.0 (>42); GLUCOSE, FASTING 124 MG/DL (70-100); SODIUM LEVEL 139 MEQ/L (136-145); TOTAL PROTEIN 5.8 GM/DL (6.4-8.2)
[2018-05-29] MEDS: FAMOTIDINE 20 MG TAB PO (21:40)
[2018-05-29] MEDS: ACETAMINOPHEN TAB 650MG DOSE (2X325MG) PO (21:41)
[2018-05-30] MEDS: cefTRIAXone SOD 2 GM in D5W MINI-BAG PLUS 50 ML IV (01:25)
[2018-05-30] MEDS: ASPIRIN 81 MG ENTERIC TAB PO (08:12)
[2018-05-30] MEDS: PANTOPRAZOLE 40MG TAB (PROTONIX) PO (08:12)
[2018-05-30] MEDS: VITAMIN D 1,000 INTERNATIONAL UNITS TABLET PO (08:12)
[2018-05-30] MEDS: FINASTERIDE 5 MG TAB PO (08:12)
[2018-05-30] MEDS: LACTULOSE 20 GM/30 ML SYRUP UD PO ×2 (08:12→21:39)
[2018-05-30] MEDS: AMITRIPTYLINE 50 MG TAB PO ×2 (08:12→21:40)
[2018-05-30] MEDS: MULTIVITAMINS/MINERALS THERAP 1 TAB PO (08:13)
[2018-05-30] MEDS: SUCRALFATE 1 GM TAB PO ×4 (08:13→21:39)
[2018-05-30] MEDS: TAMSULOSIN 0.4 MG CAP PO (08:13)
[2018-05-30] MEDS: DONEPEZIL 5 MG TAB PO (08:13)
[2018-05-30] MEDS: rifAXIMin 550 MG TAB (XIFAXAN) PO ×2 (08:13→21:39)
[2018-05-30] MEDS: ACETAMINOPHEN TAB 650MG DOSE (2X325MG) PO ×2 (08:14→16:52)
[2018-05-30 08:52] LABS: BASO % 0.3 % (0.0-1.0); EOS # 0.1 10^3/uL (0.0-0.50); EOS % 2.5 % (0.0-3.0); HEMATOCRIT 23.9 % (42.0-52.0); HEMOGLOBIN 8.2 g/dl (13.5-17.5); IMMATURE GRANULOCYTE % 1.3 % (0-3.0); LYMPH # 0.3 10^3/uL (1.5-4.5); LYMPH % 8.5 % (24.0-44.0); MEAN CORPUSCULAR HEMOGLOBIN 31.4 pg (27.0-33.0); MEAN CORPUSCULAR HGB CONC 34.3 g/dl (32.0-36.5); MEAN CORPUSCULAR VOLUME 91.6 fl (80.0-96.0); MONO % 24.6 % (0.0-5.0); NEUTROPHILS # 2.5 10^3/uL (1.8-7.7); NEUTROPHILS % 62.8 % (36.0-66.0); RED BLOOD COUNT 2.61 10^6/uL (4.30-6.10); RED CELL DISTRIBUTION WIDTH 14.6 % (11.5-14.5)
[2018-05-30 08:54] LABS: PLATELET COUNT, AUTOMATED 92 10^3/uL (150-450)
[2018-05-30 09:12] LABS: ALBUMIN/GLOBULIN RATIO 0.53 (1.00-1.93); ALKALINE PHOSPHATASE 725 U/L (45-117); ALT/SGPT 65 U/L (12-78); ANION GAP 11 MEQ/L (8-16); AST/SGOT 86 U/L (7-37); BILIRUBIN,TOTAL 0.7 MG/DL (0.2-1.0); BLOOD UREA NITROGEN 13 MG/DL (7-18); CALCIUM LEVEL 7.3 MG/DL (8.8-10.2); CARBON DIOXIDE LEVEL 24 MEQ/L (21-32); CHLORIDE LEVEL 106 MEQ/L (98-107); GLOMERULAR FILTRATION RATE > 60.0 (>42); GLUCOSE, FASTING 92 MG/DL (70-100); POTASSIUM SERUM 3.5 MEQ/L (3.5-5.1); SODIUM LEVEL 141 MEQ/L (136-145); TOTAL PROTEIN 5.8 GM/DL (6.4-8.2)
[2018-05-30] MEDS: FAMOTIDINE 20 MG TAB PO (21:39)
[2018-05-31] MEDS: cefTRIAXone SOD 2 GM in D5W MINI-BAG PLUS 50 ML IV (01:33)
[2018-05-31 05:59] LABS: HEMOGLOBIN 8.4 g/dl (13.5-17.5); MEAN CORPUSCULAR HEMOGLOBIN 30.9 pg (27.0-33.0); MEAN CORPUSCULAR HGB CONC 33.6 g/dl (32.0-36.5); MEAN CORPUSCULAR VOLUME 91.9 fl (80.0-96.0); PLATELET COUNT, AUTOMATED 114 10^3/uL (150-450); RED BLOOD COUNT 2.72 10^6/uL (4.30-6.10); RED CELL DISTRIBUTION WIDTH 14.6 % (11.5-14.5); WHITE BLOOD COUNT 3.6 10^3/uL (4.0-10.0)
[2018-05-31 06:04] LABS: MAGNESIUM LEVEL 1.9 MG/DL (1.8-2.4)
[2018-05-31 06:08] LABS: AMMONIA 25 uMOL/L (<32)
[2018-05-31 06:10] LABS: INR 1.33; PROTHROMBIN TIME 16.7 SECONDS (12.1-14.4)
[2018-05-31 06:11] LABS: PARTIAL THROMBOPLASTIN TIME 43.7 SECONDS (25.4-37.6)
[2018-05-31] MEDS: PANTOPRAZOLE 40MG TAB (PROTONIX) PO (08:09)
[2018-05-31] MEDS: ASPIRIN 81 MG ENTERIC TAB PO (08:09)
[2018-05-31] MEDS: DONEPEZIL 5 MG TAB PO (08:09)
[2018-05-31] MEDS: MULTIVITAMINS/MINERALS THERAP 1 TAB PO (08:09)
[2018-05-31] MEDS: SUCRALFATE 1 GM TAB PO ×4 (08:09→20:08)
[2018-05-31] MEDS: TAMSULOSIN 0.4 MG CAP PO (08:09)
[2018-05-31] MEDS: VITAMIN D 1,000 INTERNATIONAL UNITS TABLET PO (08:09)
[2018-05-31] MEDS: AMITRIPTYLINE 50 MG TAB PO (08:10)
[2018-05-31] MEDS: rifAXIMin 550 MG TAB (XIFAXAN) PO ×2 (08:10→20:08)
[2018-05-31] MEDS: FINASTERIDE 5 MG TAB PO (08:10)
[2018-05-31] MEDS: ACETAMINOPHEN TAB 650MG DOSE (2X325MG) PO (08:19)
[2018-05-31] MEDS: LACTULOSE 20 GM/30 ML SYRUP UD PO ×2 (08:19→20:08)
[2018-05-31 15:47] LABS: IMMEDIATE SPIN CROSSMATCH 1 4
[2018-05-31] MEDS: FAMOTIDINE 20 MG TAB PO (20:08)
[2018-06-01] MEDS: cefTRIAXone SOD 2 GM in D5W MINI-BAG PLUS 50 ML IV (01:50)
[2018-06-01 05:52] LABS: HEMATOCRIT 26.4 % (42.0-52.0); HEMOGLOBIN 8.9 g/dl (13.5-17.5); MEAN CORPUSCULAR HEMOGLOBIN 30.7 pg (27.0-33.0); MEAN CORPUSCULAR HGB CONC 33.7 g/dl (32.0-36.5); PLATELET COUNT, AUTOMATED 106 10^3/uL (150-450); RED CELL DISTRIBUTION WIDTH 14.6 % (11.5-14.5)
[2018-06-01] MEDS: LACTULOSE 20 GM/30 ML SYRUP UD PO ×2 (08:54→20:39)
[2018-06-01] MEDS: TAMSULOSIN 0.4 MG CAP PO (08:55)
[2018-06-01] MEDS: PANTOPRAZOLE 40MG TAB (PROTONIX) PO (08:55)
[2018-06-01] MEDS: MULTIVITAMINS/MINERALS THERAP 1 TAB PO (08:55)
[2018-06-01] MEDS: rifAXIMin 550 MG TAB (XIFAXAN) PO ×2 (08:55→20:39)
[2018-06-01] MEDS: FINASTERIDE 5 MG TAB PO (08:55)
[2018-06-01] MEDS: AMITRIPTYLINE 50 MG TAB PO ×2 (08:55→22:03)
[2018-06-01] MEDS: VITAMIN D 1,000 INTERNATIONAL UNITS TABLET PO (08:55)
[2018-06-01] MEDS: SUCRALFATE 1 GM TAB PO ×4 (08:56→20:39)
[2018-06-01] MEDS: SODIUM CHLORIDE 0.9% INJ 10 ML SYR IV (08:56)
[2018-06-01] MEDS ORDERED: LIDOCAINE 2% INJ 100 MG/5 ML SDV (FOR ANES.) As Ordered (12:20)
[2018-06-01] MEDS ORDERED: ROCURONIUM BROMIDE 50 MG/5 ML VIAL As Ordered (12:20)
[2018-06-01] MEDS ORDERED: PROPOFOL 200 MG/20 ML VIAL As Ordered (12:20)
[2018-06-01] MEDS ORDERED: fentaNYL 100 MCG/2 ML INJECTION (J3010) As Ordered ×2 (12:20→16:08)
[2018-06-01] MEDS ORDERED: PHENYLephrine HCL 500 MCG/5 ML (100MCG/ML) SYRINGE (J2370) As Ordered (12:52)
[2018-06-01] MEDS ORDERED: PHENYLEPHRINE INJ 10MG/ML VIAL (J2370) As Ordered (12:52)
[2018-06-01] MEDS ORDERED: ONDANSETRON 4MG/2ML VIAL (J2405) As Ordered ×2 (13:35)
[2018-06-01] MEDS ORDERED: SUGAMMADEX SODIUM 500 MG/5 ML VIAL (BRIDION) As Ordered (13:35)
[2018-06-01] MEDS: EPINEPHrine INJ 1 MG/ML 1ML AMP As Ordered (13:46)
[2018-06-01] MEDS: ceFAZolin 1GM INJ (J0690 PER 500MG) As Ordered (13:47)
[2018-06-01] MEDS: TRANEXAMIC ACID 100 MG/ML 10ML VIAL As Ordered (13:48)
[2018-06-01] MEDS: TOBRAMYCIN SULF 1.2 GM VIAL As Ordered ×2 (14:03→14:53)
[2018-06-01] MEDS: VANCOMYCIN 1000 MG/20 ML VIAL (J3370) As Ordered (14:04)
[2018-06-01] MEDS ORDERED: HYDROmorphone HCL 2 MG/ML 1ML VIAL (J1170) As Ordered (14:39)
[2018-06-01] MEDS: BUPIVACAINE HCL 0.25% 10 ML VIAL As Ordered (15:33)
[2018-06-01] MEDS: LR 1,000 ML IV (16:00)
[2018-06-01] MEDS ORDERED: PERCOCET 5MG/325MG TAB PO (16:00)
[2018-06-01] MEDS ORDERED: ONDANSETRON 4MG/2ML VIAL (J2405) IV (16:00)
[2018-06-01] MEDS ORDERED: NORCO, ANEXSIA 5/325MG TABLET (HYDROcodone/ACETAMINOPHEN) PO (16:15)
[2018-06-01] MEDS: fentaNYL 100 MCG/2 ML INJECTION (J3010) IV ×2 (16:20→16:31)
[2018-06-01] MEDS: MORPHINE 4 MG/ML 1ML VIAL/SYRINGE (J2270) IV ×3 (17:11→23:49)
[2018-06-01] MEDS: FAMOTIDINE 20 MG TAB PO (20:39)
[2018-06-02] MEDS: cefTRIAXone SOD 2 GM in D5W MINI-BAG PLUS 50 ML IV (01:04)
[2018-06-02] MEDS: MORPHINE 4 MG/ML 1ML VIAL/SYRINGE (J2270) IV ×3 (04:47→20:19)
[2018-06-02 05:28] LABS: HEMATOCRIT 23.6 % (42.0-52.0); HEMOGLOBIN 8.1 g/dl (13.5-17.5); MEAN CORPUSCULAR HEMOGLOBIN 30.8 pg (27.0-33.0); MEAN CORPUSCULAR HGB CONC 34.3 g/dl (32.0-36.5); MEAN CORPUSCULAR VOLUME 89.7 fl (80.0-96.0); PLATELET COUNT, AUTOMATED 140 10^3/uL (150-450); RED BLOOD COUNT 2.63 10^6/uL (4.30-6.10); RED CELL DISTRIBUTION WIDTH 14.6 % (11.5-14.5); WHITE BLOOD COUNT 11.1 10^3/uL (4.0-10.0)
[2018-06-02 06:21] LABS: ANION GAP 7 MEQ/L (8-16); BLOOD UREA NITROGEN 16 MG/DL (7-18); CALCIUM LEVEL 8.3 MG/DL (8.8-10.2); CARBON DIOXIDE LEVEL 26 MEQ/L (21-32); CHLORIDE LEVEL 102 MEQ/L (98-107); CREATININE FOR GFR 1.14 MG/DL (0.70-1.30); GLOMERULAR FILTRATION RATE > 60.0 (>42); GLUCOSE, FASTING 117 MG/DL (70-100); POTASSIUM SERUM 4.4 MEQ/L (3.5-5.1); SODIUM LEVEL 135 MEQ/L (136-145)
[2018-06-02 07:02] LABS: AMMONIA 44 uMOL/L (<32)
[2018-06-02] MEDS: SUCRALFATE 1 GM TAB PO ×4 (08:01→20:18)
[2018-06-02] MEDS: LACTULOSE 20 GM/30 ML SYRUP UD PO ×2 (10:04→20:25)
[2018-06-02] MEDS: AMITRIPTYLINE 50 MG TAB PO ×2 (10:05→20:18)
[2018-06-02] MEDS: PANTOPRAZOLE 40MG TAB (PROTONIX) PO (10:05)
[2018-06-02] MEDS: FINASTERIDE 5 MG TAB PO (10:05)
[2018-06-02] MEDS: MULTIVITAMINS/MINERALS THERAP 1 TAB PO (10:05)
[2018-06-02] MEDS: ACETAMINOPHEN TAB 650MG DOSE (2X325MG) PO (10:06)
[2018-06-02] MEDS: rifAXIMin 550 MG TAB (XIFAXAN) PO ×2 (10:07→20:18)
[2018-06-02] MEDS: VITAMIN D 1,000 INTERNATIONAL UNITS TABLET PO (10:07)
[2018-06-02] MEDS: TAMSULOSIN 0.4 MG CAP PO (10:07)
[2018-06-02] MEDS: SODIUM CHLORIDE 0.9% INJ 10 ML SYR IV ×2 (10:08→20:24)
[2018-06-02] MEDS: NS 500 ML IV (16:49)
[2018-06-02] MEDS: FAMOTIDINE 20 MG TAB PO (20:18)
[2018-06-03] MEDS: ACETAMINOPHEN TAB 650MG DOSE (2X325MG) PO ×3 (00:20→20:46)
[2018-06-03] MEDS: cefTRIAXone SOD 2 GM in D5W MINI-BAG PLUS 50 ML IV (00:32)
[2018-06-03] MEDS: SODIUM CHLORIDE 0.9% INJ 10 ML SYR IV ×4 (05:53→20:43)
[2018-06-03] MEDS: MORPHINE 4 MG/ML 1ML VIAL/SYRINGE (J2270) IV (05:53)
[2018-06-03 06:10] LABS: HEMATOCRIT 21.1 % (42.0-52.0); HEMOGLOBIN 7.2 g/dl (13.5-17.5); MEAN CORPUSCULAR HEMOGLOBIN 30.8 pg (27.0-33.0); MEAN CORPUSCULAR HGB CONC 34.1 g/dl (32.0-36.5); MEAN CORPUSCULAR VOLUME 90.2 fl (80.0-96.0); PLATELET COUNT, AUTOMATED 107 10^3/uL (150-450); RED BLOOD COUNT 2.34 10^6/uL (4.30-6.10); RED CELL DISTRIBUTION WIDTH 14.2 % (11.5-14.5); WHITE BLOOD COUNT 6.4 10^3/uL (4.0-10.0)
[2018-06-03 06:42] LABS: ALBUMIN 1.8 GM/DL (3.2-5.2); ALBUMIN/GLOBULIN RATIO 0.49 (1.00-1.93); ALKALINE PHOSPHATASE 565 U/L (45-117); ALT/SGPT 38 U/L (12-78); ANION GAP 9 MEQ/L (8-16); AST/SGOT 42 U/L (7-37); BILIRUBIN,TOTAL 0.7 MG/DL (0.2-1.0); BLOOD UREA NITROGEN 18 MG/DL (7-18); CALCIUM LEVEL 8.2 MG/DL (8.8-10.2); CARBON DIOXIDE LEVEL 26 MEQ/L (21-32); CHLORIDE LEVEL 104 MEQ/L (98-107); CREATININE FOR GFR 1.11 MG/DL (0.70-1.30); GLOMERULAR FILTRATION RATE > 60.0 (>42); GLUCOSE, FASTING 89 MG/DL (70-100); POTASSIUM SERUM 4.1 MEQ/L (3.5-5.1); SODIUM LEVEL 139 MEQ/L (136-145); TOTAL PROTEIN 5.5 GM/DL (6.4-8.2)
[2018-06-03] MEDS: SUCRALFATE 1 GM TAB PO ×4 (07:56→20:44)
[2018-06-03] MEDS: LACTULOSE 20 GM/30 ML SYRUP UD PO ×2 (09:00→20:44)
[2018-06-03] MEDS: MULTIVITAMINS/MINERALS THERAP 1 TAB PO (09:30)
[2018-06-03] MEDS: TAMSULOSIN 0.4 MG CAP PO (09:30)
[2018-06-03] MEDS: PANTOPRAZOLE 40MG TAB (PROTONIX) PO (09:31)
[2018-06-03] MEDS: AMITRIPTYLINE 50 MG TAB PO ×2 (09:31→20:44)
[2018-06-03] MEDS: rifAXIMin 550 MG TAB (XIFAXAN) PO ×2 (09:31→20:44)
[2018-06-03] MEDS: VITAMIN D 1,000 INTERNATIONAL UNITS TABLET PO (09:31)
[2018-06-03] MEDS: FINASTERIDE 5 MG TAB PO (09:31)
[2018-06-03 13:44] LABS: IMMEDIATE SPIN CROSSMATCH 1 2
[2018-06-03] MEDS: NORCO, ANEXSIA 5/325MG TABLET (HYDROcodone/ACETAMINOPHEN) PO (17:56)
[2018-06-03] MEDS: FAMOTIDINE 20 MG TAB PO (20:44)
[2018-06-04] MEDS: cefTRIAXone SOD 2 GM in D5W MINI-BAG PLUS 50 ML IV (00:16)
[2018-06-04] MEDS: SODIUM CHLORIDE 0.9% INJ 10 ML SYR IV ×2 (05:24→07:50)
[2018-06-04 05:32] LABS: HEMATOCRIT 24.2 % (42.0-52.0); HEMOGLOBIN 8.3 g/dl (13.5-17.5); MEAN CORPUSCULAR HEMOGLOBIN 30.7 pg (27.0-33.0); MEAN CORPUSCULAR HGB CONC 34.3 g/dl (32.0-36.5); MEAN CORPUSCULAR VOLUME 89.6 fl (80.0-96.0); PLATELET COUNT, AUTOMATED 128 10^3/uL (150-450); RED CELL DISTRIBUTION WIDTH 14.5 % (11.5-14.5); WHITE BLOOD COUNT 4.9 10^3/uL (4.0-10.0)
[2018-06-04 05:50] LABS: ALBUMIN 1.7 GM/DL (3.2-5.2); ALKALINE PHOSPHATASE 580 U/L (45-117); ALT/SGPT 38 U/L (12-78); ANION GAP 7 MEQ/L (8-16); AST/SGOT 47 U/L (7-37); BLOOD UREA NITROGEN 18 MG/DL (7-18); CALCIUM LEVEL 8.5 MG/DL (8.8-10.2); CARBON DIOXIDE LEVEL 26 MEQ/L (21-32); CHLORIDE LEVEL 106 MEQ/L (98-107); CREATININE FOR GFR 1.05 MG/DL (0.70-1.30); GLOMERULAR FILTRATION RATE > 60.0 (>42); GLUCOSE, FASTING 91 MG/DL (70-100); POTASSIUM SERUM 3.8 MEQ/L (3.5-5.1); SODIUM LEVEL 139 MEQ/L (136-145); TOTAL PROTEIN 5.9 GM/DL (6.4-8.2)
[2018-06-04] MEDS ORDERED: traMADol 50 MG TAB PO (07:45)
[2018-06-04] MEDS: AMITRIPTYLINE 50 MG TAB PO ×2 (07:47→21:25)
[2018-06-04] MEDS: TAMSULOSIN 0.4 MG CAP PO (07:48)
[2018-06-04] MEDS: MULTIVITAMINS/MINERALS THERAP 1 TAB PO (07:48)
[2018-06-04] MEDS: SUCRALFATE 1 GM TAB PO ×4 (07:48→21:26)
[2018-06-04] MEDS: PANTOPRAZOLE 40MG TAB (PROTONIX) PO (07:48)
[2018-06-04] MEDS: FINASTERIDE 5 MG TAB PO (07:48)
[2018-06-04] MEDS: rifAXIMin 550 MG TAB (XIFAXAN) PO ×2 (07:48→21:26)
[2018-06-04] MEDS: VITAMIN D 1,000 INTERNATIONAL UNITS TABLET PO (07:48)
[2018-06-04] MEDS: LACTULOSE 20 GM/30 ML SYRUP UD PO ×2 (07:50→21:24)
[2018-06-04] MEDS: ACETAMINOPHEN 500 MG TAB PO ×3 (08:13→21:25)
[2018-06-04] MEDS: FAMOTIDINE 20 MG TAB PO (21:26)
[2018-06-05] MEDS: cefTRIAXone SOD 2 GM in D5W MINI-BAG PLUS 50 ML IV (01:01)
[2018-06-05] MEDS: traMADol 50 MG TAB PO (01:02)
[2018-06-05 05:36] LABS: HEMATOCRIT 24.6 % (42.0-52.0); HEMOGLOBIN 8.3 g/dl (13.5-17.5); MEAN CORPUSCULAR HEMOGLOBIN 30.7 pg (27.0-33.0); MEAN CORPUSCULAR HGB CONC 33.7 g/dl (32.0-36.5); MEAN CORPUSCULAR VOLUME 91.1 fl (80.0-96.0); PLATELET COUNT, AUTOMATED 144 10^3/uL (150-450); RED CELL DISTRIBUTION WIDTH 14.6 % (11.5-14.5); WHITE BLOOD COUNT 4.2 10^3/uL (4.0-10.0)
[2018-06-05 05:51] LABS: ALBUMIN 1.9 GM/DL (3.2-5.2); ALBUMIN/GLOBULIN RATIO 0.42 (1.00-1.93); ALKALINE PHOSPHATASE 636 U/L (45-117); ALT/SGPT 40 U/L (12-78); ANION GAP 7 MEQ/L (8-16); AST/SGOT 62 U/L (7-37); BILIRUBIN,TOTAL 0.9 MG/DL (0.2-1.0); BLOOD UREA NITROGEN 16 MG/DL (7-18); CALCIUM LEVEL 8.9 MG/DL (8.8-10.2); CARBON DIOXIDE LEVEL 28 MEQ/L (21-32); CHLORIDE LEVEL 106 MEQ/L (98-107); CREATININE FOR GFR 1.09 MG/DL (0.70-1.30); GLOMERULAR FILTRATION RATE > 60.0 (>42); GLUCOSE, FASTING 82 MG/DL (70-100); POTASSIUM SERUM 3.5 MEQ/L (3.5-5.1); SODIUM LEVEL 141 MEQ/L (136-145); TOTAL PROTEIN 6.4 GM/DL (6.4-8.2)
[2018-06-05] MEDS: ACETAMINOPHEN 500 MG TAB PO ×3 (06:00→21:17)
[2018-06-05] MEDS: MULTIVITAMINS/MINERALS THERAP 1 TAB PO (08:29)
[2018-06-05] MEDS: SUCRALFATE 1 GM TAB PO ×4 (08:29→20:47)
[2018-06-05] MEDS: rifAXIMin 550 MG TAB (XIFAXAN) PO ×2 (08:29→20:48)
[2018-06-05] MEDS: LACTULOSE 20 GM/30 ML SYRUP UD PO ×2 (08:29→20:47)
[2018-06-05] MEDS: FINASTERIDE 5 MG TAB PO (08:29)
[2018-06-05] MEDS: TAMSULOSIN 0.4 MG CAP PO (08:29)
[2018-06-05] MEDS: PANTOPRAZOLE 40MG TAB (PROTONIX) PO (08:30)
[2018-06-05] MEDS: AMITRIPTYLINE 50 MG TAB PO ×2 (08:30→20:47)
[2018-06-05] MEDS: SODIUM CHLORIDE 0.9% INJ 10 ML SYR IV (08:30)
[2018-06-05] MEDS: VITAMIN D 1,000 INTERNATIONAL UNITS TABLET PO (08:30)
[2018-06-05] MEDS ORDERED: VANCOMYCIN HCL 1,000 MG in IV FLUID PLACE HOLDER 1 EA IV (09:00)
[2018-06-05] MEDS: VANCOMYCIN HCL 1,000 MG, VIAL MATE ADAPTER 1 EACH in D5W 250 ML IV ×3 (09:55→21:16)
[2018-06-05] MEDS: ONDANSETRON 4 MG TAB (S0181) PO (18:45)
[2018-06-05] MEDS: FAMOTIDINE 20 MG TAB PO (20:47)
[2018-06-05] MEDS: LACTOBACILLUS ACIDOPHILUS CAP (BACID) PO (20:47)
[2018-06-06] MEDS: SODIUM CHLORIDE 0.9% INJ 10 ML SYR IV ×2 (06:05→11:55)
[2018-06-06] MEDS: ACETAMINOPHEN 500 MG TAB PO ×3 (06:05→23:11)
[2018-06-06 06:24] LABS: HEMATOCRIT 23.8 % (42.0-52.0); HEMOGLOBIN 8.2 g/dl (13.5-17.5); MEAN CORPUSCULAR HEMOGLOBIN 30.8 pg (27.0-33.0); MEAN CORPUSCULAR HGB CONC 34.5 g/dl (32.0-36.5); MEAN CORPUSCULAR VOLUME 89.5 fl (80.0-96.0); PLATELET COUNT, AUTOMATED 127 10^3/uL (150-450); RED BLOOD COUNT 2.66 10^6/uL (4.30-6.10); RED CELL DISTRIBUTION WIDTH 14.6 % (11.5-14.5); WHITE BLOOD COUNT 3.3 10^3/uL (4.0-10.0)
[2018-06-06 06:47] LABS: ALBUMIN 1.8 GM/DL (3.2-5.2); ALBUMIN/GLOBULIN RATIO 0.41 (1.00-1.93); ALKALINE PHOSPHATASE 627 U/L (45-117); ALT/SGPT 39 U/L (12-78); ANION GAP 8 MEQ/L (8-16); AST/SGOT 58 U/L (7-37); BILIRUBIN,TOTAL 2.2 MG/DL (0.2-1.0); BLOOD UREA NITROGEN 17 MG/DL (7-18); CALCIUM LEVEL 8.8 MG/DL (8.8-10.2); CARBON DIOXIDE LEVEL 26 MEQ/L (21-32); CHLORIDE LEVEL 106 MEQ/L (98-107); CREATININE FOR GFR 1.08 MG/DL (0.70-1.30); GLOMERULAR FILTRATION RATE > 60.0 (>42); GLUCOSE, FASTING 81 MG/DL (70-100); POTASSIUM SERUM 3.5 MEQ/L (3.5-5.1); SODIUM LEVEL 140 MEQ/L (136-145); TOTAL PROTEIN 6.2 GM/DL (6.4-8.2)
[2018-06-06 06:49] LABS: ERYTHROCYTE SEDIMENTATION RATE 81 mm/hr (0-20)
[2018-06-06] MEDS: LACTOBACILLUS ACIDOPHILUS CAP (BACID) PO ×3 (08:10→20:20)
[2018-06-06] MEDS: rifAXIMin 550 MG TAB (XIFAXAN) PO ×2 (08:11→20:22)
[2018-06-06] MEDS: VITAMIN D 1,000 INTERNATIONAL UNITS TABLET PO (08:11)
[2018-06-06] MEDS: LACTULOSE 20 GM/30 ML SYRUP UD PO ×3 (08:11→20:21)
[2018-06-06] MEDS: FINASTERIDE 5 MG TAB PO (08:11)
[2018-06-06] MEDS: SUCRALFATE 1 GM TAB PO ×4 (08:11→20:19)
[2018-06-06] MEDS: MULTIVITAMINS/MINERALS THERAP 1 TAB PO (08:11)
[2018-06-06] MEDS: TAMSULOSIN 0.4 MG CAP PO (08:12)
[2018-06-06] MEDS: AMITRIPTYLINE 50 MG TAB PO ×2 (08:12→20:19)
[2018-06-06] MEDS: PANTOPRAZOLE 40MG TAB (PROTONIX) PO (08:12)
[2018-06-06] MEDS: VANCOMYCIN HCL 1,000 MG, VIAL MATE ADAPTER 1 EACH in D5W 250 ML IV (10:31)
[2018-06-06 11:15] LABS: AMMONIA 33 uMOL/L (<32)
[2018-06-06] MEDS: FAMOTIDINE 20 MG TAB PO (20:19)
[2018-06-07] MEDS: ACETAMINOPHEN 500 MG TAB PO ×3 (05:05→20:45)
[2018-06-07] MEDS: SODIUM CHLORIDE 0.9% INJ 10 ML SYR IV ×3 (05:57→10:52)
[2018-06-07 06:30] LABS: VANCOMYCIN LEVEL TROUGH 17.4 UG/ML (10.0-20.0)
[2018-06-07 06:35] LABS: ALBUMIN 2.1 GM/DL (3.2-5.2); ALBUMIN/GLOBULIN RATIO 0.49 (1.00-1.93); ALKALINE PHOSPHATASE 633 U/L (45-117); ALT/SGPT 35 U/L (12-78); ANION GAP 9 MEQ/L (8-16); AST/SGOT 47 U/L (7-37); BILIRUBIN,TOTAL 2.2 MG/DL (0.2-1.0); BLOOD UREA NITROGEN 17 MG/DL (7-18); CALCIUM LEVEL 9.3 MG/DL (8.8-10.2); CARBON DIOXIDE LEVEL 27 MEQ/L (21-32); CHLORIDE LEVEL 104 MEQ/L (98-107); CREATININE FOR GFR 1.15 MG/DL (0.70-1.30); GLOMERULAR FILTRATION RATE > 60.0 (>42); GLUCOSE, FASTING 86 MG/DL (70-100); POTASSIUM SERUM 3.4 MEQ/L (3.5-5.1); SODIUM LEVEL 140 MEQ/L (136-145); TOTAL PROTEIN 6.4 GM/DL (6.4-8.2)
[2018-06-07 06:44] LABS: ERYTHROCYTE SEDIMENTATION RATE 85 mm/hr (0-20)
[2018-06-07] MEDS: LACTULOSE 20 GM/30 ML SYRUP UD PO ×3 (08:14→20:42)
[2018-06-07] MEDS: VANCOMYCIN HCL 1,000 MG, VIAL MATE ADAPTER 1 EACH in D5W 250 ML IV (08:14)
[2018-06-07] MEDS: TAMSULOSIN 0.4 MG CAP PO (08:15)
[2018-06-07] MEDS: VITAMIN D 1,000 INTERNATIONAL UNITS TABLET PO (08:15)
[2018-06-07] MEDS: LACTOBACILLUS ACIDOPHILUS CAP (BACID) PO ×3 (08:15→20:42)
[2018-06-07] MEDS: SUCRALFATE 1 GM TAB PO ×4 (08:15→20:42)
[2018-06-07] MEDS: AMITRIPTYLINE 50 MG TAB PO ×2 (08:15→20:43)
[2018-06-07] MEDS: rifAXIMin 550 MG TAB (XIFAXAN) PO ×2 (08:15→20:44)
[2018-06-07] MEDS: FINASTERIDE 5 MG TAB PO (08:15)
[2018-06-07] MEDS: MULTIVITAMINS/MINERALS THERAP 1 TAB PO (08:15)
[2018-06-07] MEDS: PANTOPRAZOLE 40MG TAB (PROTONIX) PO (08:15)
[2018-06-07] MEDS: POTASSIUM CHLORIDE 10 MEQ SR TABLET PO ×2 (12:38→18:02)
[2018-06-07] MEDS ORDERED: ISOVUE-370 76% 100ML VIAL (Q9967) As Ordered (18:48)
[2018-06-07] MEDS: cefTRIAXone SOD 1 GM in D5W MINI-BAG PLUS 50 ML IV (20:42)
[2018-06-07] MEDS: FAMOTIDINE 20 MG TAB PO (20:42)
[2018-06-08] MEDS: SODIUM CHLORIDE 0.9% INJ 10 ML SYR IV ×2 (05:29→08:40)
[2018-06-08] MEDS: ACETAMINOPHEN 500 MG TAB PO ×3 (05:31→22:02)
[2018-06-08 06:08] LABS: ERYTHROCYTE SEDIMENTATION RATE 86 mm/hr (0-20)
[2018-06-08 06:15] LABS: C REACTIVE PROTEIN QUANTITATIV 8.54 MG/DL (0.00-0.30)
[2018-06-08 06:42] LABS: ALBUMIN 2.2 GM/DL (3.2-5.2); ALBUMIN/GLOBULIN RATIO 0.56 (1.00-1.93); ALKALINE PHOSPHATASE 646 U/L (45-117); ALT/SGPT 35 U/L (12-78); ANION GAP 10 MEQ/L (8-16); AST/SGOT 52 U/L (7-37); BLOOD UREA NITROGEN 15 MG/DL (7-18); CALCIUM LEVEL 9.5 MG/DL (8.8-10.2); CARBON DIOXIDE LEVEL 25 MEQ/L (21-32); CHLORIDE LEVEL 107 MEQ/L (98-107); CREATININE FOR GFR 1.04 MG/DL (0.70-1.30); GLOMERULAR FILTRATION RATE > 60.0 (>42); GLUCOSE, FASTING 87 MG/DL (70-100); POTASSIUM SERUM 4.2 MEQ/L (3.5-5.1); SODIUM LEVEL 142 MEQ/L (136-145); TOTAL PROTEIN 6.1 GM/DL (6.4-8.2)
[2018-06-08 06:53] LABS: HEMATOCRIT 23.9 % (42.0-52.0); HEMOGLOBIN 8.2 g/dl (13.5-17.5); MEAN CORPUSCULAR HEMOGLOBIN 31.2 pg (27.0-33.0); MEAN CORPUSCULAR HGB CONC 34.3 g/dl (32.0-36.5); MEAN CORPUSCULAR VOLUME 90.9 fl (80.0-96.0); PLATELET COUNT, AUTOMATED 136 10^3/uL (150-450); RED BLOOD COUNT 2.63 10^6/uL (4.30-6.10); RED CELL DISTRIBUTION WIDTH 14.8 % (11.5-14.5); WHITE BLOOD COUNT 3.7 10^3/uL (4.0-10.0)
[2018-06-08] MEDS: TAMSULOSIN 0.4 MG CAP PO (08:38)
[2018-06-08] MEDS: VITAMIN D 1,000 INTERNATIONAL UNITS TABLET PO (08:38)
[2018-06-08] MEDS: LACTOBACILLUS ACIDOPHILUS CAP (BACID) PO ×3 (08:38→22:02)
[2018-06-08] MEDS: VANCOMYCIN HCL 1,000 MG, VIAL MATE ADAPTER 1 EACH in D5W 250 ML IV (08:39)
[2018-06-08] MEDS: AMITRIPTYLINE 50 MG TAB PO ×2 (08:39→22:02)
[2018-06-08] MEDS: SUCRALFATE 1 GM TAB PO ×4 (08:39→22:13)
[2018-06-08] MEDS: LACTULOSE 20 GM/30 ML SYRUP UD PO ×2 (08:40→22:01)
[2018-06-08] MEDS: MULTIVITAMINS/MINERALS THERAP 1 TAB PO (08:40)
[2018-06-08] MEDS: FINASTERIDE 5 MG TAB PO (08:40)
[2018-06-08] MEDS: PANTOPRAZOLE 40MG TAB (PROTONIX) PO (08:40)
[2018-06-08] MEDS: rifAXIMin 550 MG TAB (XIFAXAN) PO ×2 (08:40→22:02)
[2018-06-08] MEDS ORDERED: ISOVUE-370 76% 100ML VIAL (Q9967) As Ordered (15:43)
[2018-06-08] MEDS: cefTRIAXone SOD 1 GM in D5W MINI-BAG PLUS 50 ML IV (18:35)
[2018-06-08] MEDS: FAMOTIDINE 20 MG TAB PO (22:02)
[2018-06-09] MEDS: ACETAMINOPHEN 500 MG TAB PO ×3 (06:07→21:27)
[2018-06-09] MEDS: SUCRALFATE 1 GM TAB PO ×4 (08:03→21:26)
[2018-06-09] MEDS: VANCOMYCIN HCL 1,000 MG, VIAL MATE ADAPTER 1 EACH in D5W 250 ML IV (08:03)
[2018-06-09 08:54] LABS: ALBUMIN 2.4 GM/DL (3.2-5.2); ALBUMIN/GLOBULIN RATIO 0.55 (1.00-1.93); ALKALINE PHOSPHATASE 681 U/L (45-117); ALT/SGPT 34 U/L (12-78); ANION GAP 9 MEQ/L (8-16); AST/SGOT 50 U/L (7-37); BLOOD UREA NITROGEN 14 MG/DL (7-18); CALCIUM LEVEL 9.7 MG/DL (8.8-10.2); CARBON DIOXIDE LEVEL 25 MEQ/L (21-32); CHLORIDE LEVEL 103 MEQ/L (98-107); GLOMERULAR FILTRATION RATE > 60.0 (>42); GLUCOSE, FASTING 90 MG/DL (70-100); POTASSIUM SERUM 4.1 MEQ/L (3.5-5.1); SODIUM LEVEL 137 MEQ/L (136-145); TOTAL PROTEIN 6.8 GM/DL (6.4-8.2)
[2018-06-09] MEDS: SODIUM CHLORIDE 0.9% INJ 10 ML SYR IV (09:00)
[2018-06-09 09:09] LABS: ERYTHROCYTE SEDIMENTATION RATE 77 mm/hr (0-20)
[2018-06-09] MEDS: TAMSULOSIN 0.4 MG CAP PO (09:50)
[2018-06-09] MEDS: VITAMIN D 1,000 INTERNATIONAL UNITS TABLET PO (09:50)
[2018-06-09] MEDS: rifAXIMin 550 MG TAB (XIFAXAN) PO ×2 (09:50→21:26)
[2018-06-09] MEDS: FINASTERIDE 5 MG TAB PO (09:51)
[2018-06-09] MEDS: MULTIVITAMINS/MINERALS THERAP 1 TAB PO (09:51)
[2018-06-09] MEDS: LACTULOSE 20 GM/30 ML SYRUP UD PO ×3 (09:51→21:29)
[2018-06-09] MEDS: AMITRIPTYLINE 50 MG TAB PO ×2 (09:51→21:26)
[2018-06-09] MEDS: PANTOPRAZOLE 40MG TAB (PROTONIX) PO (09:51)
[2018-06-09] MEDS: LACTOBACILLUS ACIDOPHILUS CAP (BACID) PO ×3 (09:51→21:29)
[2018-06-09] MEDS: SPIRONOLACTONE 25 MG TAB PO (11:03)
[2018-06-09] MEDS ORDERED: FLEET OIL RETENTION ENEMA PR (17:45)
[2018-06-09] MEDS: cefTRIAXone SOD 1 GM in D5W MINI-BAG PLUS 50 ML IV (19:05)
[2018-06-09] MEDS: FAMOTIDINE 20 MG TAB PO (21:26)
[2018-06-10] MEDS: ACETAMINOPHEN 500 MG TAB PO ×3 (05:31→21:07)
[2018-06-10 08:01] LABS: BASO % 0.3 % (0.0-1.0); EOS # 0.1 10^3/uL (0.0-0.50); EOS % 3.2 % (0.0-3.0); HEMATOCRIT 26.2 % (42.0-52.0); HEMOGLOBIN 8.7 g/dl (13.5-17.5); IMMATURE GRANULOCYTE % 2.1 % (0-3.0); LYMPH # 0.5 10^3/uL (1.5-4.5); LYMPH % 13.9 % (24.0-44.0); MEAN CORPUSCULAR HEMOGLOBIN 30.9 pg (27.0-33.0); MEAN CORPUSCULAR HGB CONC 33.2 g/dl (32.0-36.5); MEAN CORPUSCULAR VOLUME 92.9 fl (80.0-96.0); MONO # 0.9 10^3/uL (0.0-0.8); MONO % 26.8 % (0.0-5.0); NEUTROPHILS # 1.8 10^3/uL (1.8-7.7); NEUTROPHILS % 53.7 % (36.0-66.0); PLATELET COUNT, AUTOMATED 117 10^3/uL (150-450); RED BLOOD COUNT 2.82 10^6/uL (4.30-6.10); RED CELL DISTRIBUTION WIDTH 15.2 % (11.5-14.5); WHITE BLOOD COUNT 3.4 10^3/uL (4.0-10.0)
[2018-06-10 08:27] LABS: C REACTIVE PROTEIN QUANTITATIV 9.58 MG/DL (0.00-0.30)
[2018-06-10 08:27] LABS: VANCOMYCIN LEVEL TROUGH 12.8 UG/ML (10.0-20.0)
[2018-06-10 08:35] LABS: ERYTHROCYTE SEDIMENTATION RATE > 140 mm/hr (0-20)
[2018-06-10] MEDS: PANTOPRAZOLE 40MG TAB (PROTONIX) PO (08:53)
[2018-06-10] MEDS: LACTOBACILLUS ACIDOPHILUS CAP (BACID) PO ×3 (08:53→21:05)
[2018-06-10] MEDS: SPIRONOLACTONE 25 MG TAB PO (08:54)
[2018-06-10] MEDS: SUCRALFATE 1 GM TAB PO ×4 (08:54→21:05)
[2018-06-10] MEDS: VITAMIN D 1,000 INTERNATIONAL UNITS TABLET PO (08:54)
[2018-06-10] MEDS: AMITRIPTYLINE 50 MG TAB PO ×2 (08:54→21:06)
[2018-06-10] MEDS: TAMSULOSIN 0.4 MG CAP PO (08:54)
[2018-06-10] MEDS: MULTIVITAMINS/MINERALS THERAP 1 TAB PO (08:55)
[2018-06-10] MEDS: FINASTERIDE 5 MG TAB PO (08:55)
[2018-06-10] MEDS: VANCOMYCIN HCL 1,000 MG, VIAL MATE ADAPTER 1 EACH in D5W 250 ML IV ×2 (08:56→23:23)
[2018-06-10] MEDS: LACTULOSE 20 GM/30 ML SYRUP UD PO ×3 (08:57→21:06)
[2018-06-10] MEDS: rifAXIMin 550 MG TAB (XIFAXAN) PO ×2 (08:58→21:05)
[2018-06-10] MEDS: cefTRIAXone SOD 1 GM in D5W MINI-BAG PLUS 50 ML IV (18:14)
[2018-06-10] MEDS: FAMOTIDINE 20 MG TAB PO (21:06)
[2018-06-11] MEDS: ACETAMINOPHEN 500 MG TAB PO ×3 (05:27→22:01)
[2018-06-11 06:28] LABS: BASO % 0.6 % (0.0-1.0); EOS # 0.1 10^3/uL (0.0-0.50); EOS % 3.2 % (0.0-3.0); HEMATOCRIT 25.2 % (42.0-52.0); HEMOGLOBIN 8.3 g/dl (13.5-17.5); IMMATURE GRANULOCYTE % 1.7 % (0-3.0); LYMPH # 0.4 10^3/uL (1.5-4.5); LYMPH % 11.5 % (24.0-44.0); MEAN CORPUSCULAR HEMOGLOBIN 30.7 pg (27.0-33.0); MEAN CORPUSCULAR HGB CONC 32.9 g/dl (32.0-36.5); MEAN CORPUSCULAR VOLUME 93.3 fl (80.0-96.0); MONO % 27.3 % (0.0-5.0); NEUTROPHILS # 1.9 10^3/uL (1.8-7.7); NEUTROPHILS % 55.7 % (36.0-66.0); PLATELET COUNT, AUTOMATED 112 10^3/uL (150-450); RED CELL DISTRIBUTION WIDTH 15.3 % (11.5-14.5); WHITE BLOOD COUNT 3.5 10^3/uL (4.0-10.0)
[2018-06-11 06:42] LABS: ALBUMIN 2.2 GM/DL (3.2-5.2); ALBUMIN/GLOBULIN RATIO 0.48 (1.00-1.93); ALKALINE PHOSPHATASE 619 U/L (45-117); ALT/SGPT 29 U/L (12-78); ANION GAP 9 MEQ/L (8-16); AST/SGOT 48 U/L (7-37); BILIRUBIN,TOTAL 1.6 MG/DL (0.2-1.0); BLOOD UREA NITROGEN 13 MG/DL (7-18); C REACTIVE PROTEIN QUANTITATIV 9.81 MG/DL (0.00-0.30); CALCIUM LEVEL 9.4 MG/DL (8.8-10.2); CARBON DIOXIDE LEVEL 27 MEQ/L (21-32); CHLORIDE LEVEL 102 MEQ/L (98-107); CREATININE FOR GFR 1.13 MG/DL (0.70-1.30); GLOMERULAR FILTRATION RATE > 60.0 (>42); GLUCOSE, FASTING 83 MG/DL (70-100); POTASSIUM SERUM 3.6 MEQ/L (3.5-5.1); SODIUM LEVEL 138 MEQ/L (136-145); TOTAL PROTEIN 6.8 GM/DL (6.4-8.2)
[2018-06-11 07:09] LABS: ERYTHROCYTE SEDIMENTATION RATE 77 mm/hr (0-20)
[2018-06-11] MEDS: VITAMIN D 1,000 INTERNATIONAL UNITS TABLET PO (09:16)
[2018-06-11] MEDS: LACTOBACILLUS ACIDOPHILUS CAP (BACID) PO ×3 (09:16→20:02)
[2018-06-11] MEDS: LACTULOSE 20 GM/30 ML SYRUP UD PO ×3 (09:16→20:04)
[2018-06-11] MEDS: PANTOPRAZOLE 40MG TAB (PROTONIX) PO (09:17)
[2018-06-11] MEDS: AMITRIPTYLINE 50 MG TAB PO ×2 (09:17→20:03)
[2018-06-11] MEDS: TAMSULOSIN 0.4 MG CAP PO (09:18)
[2018-06-11] MEDS: SPIRONOLACTONE 25 MG TAB PO (09:18)
[2018-06-11] MEDS: rifAXIMin 550 MG TAB (XIFAXAN) PO ×2 (09:18→20:02)
[2018-06-11] MEDS: SUCRALFATE 1 GM TAB PO ×4 (09:18→20:04)
[2018-06-11] MEDS: FINASTERIDE 5 MG TAB PO (09:18)
[2018-06-11] MEDS: MULTIVITAMINS/MINERALS THERAP 1 TAB PO (09:18)
[2018-06-11] MEDS ORDERED: ISOVUE-370 76% 100ML VIAL (Q9967) As Ordered (17:39)
[2018-06-11] MEDS: VANCOMYCIN HCL 1,000 MG, VIAL MATE ADAPTER 1 EACH in D5W 250 ML IV (18:44)
[2018-06-11] MEDS: FAMOTIDINE 20 MG TAB PO (20:02)
[2018-06-11] MEDS: cefTRIAXone SOD 1 GM in D5W MINI-BAG PLUS 50 ML IV (20:21)
[2018-06-12] MEDS: ACETAMINOPHEN 500 MG TAB PO ×2 (05:43→13:49)
[2018-06-12 06:13] LABS: BASO % 0.6 % (0.0-1.0); EOS # 0.1 10^3/uL (0.0-0.50); EOS % 3.3 % (0.0-3.0); HEMATOCRIT 26.3 % (42.0-52.0); HEMOGLOBIN 8.9 g/dl (13.5-17.5); IMMATURE GRANULOCYTE % 1.4 % (0-3.0); LYMPH # 0.3 10^3/uL (1.5-4.5); LYMPH % 9.4 % (24.0-44.0); MEAN CORPUSCULAR HGB CONC 33.8 g/dl (32.0-36.5); MEAN CORPUSCULAR VOLUME 91.6 fl (80.0-96.0); MONO # 0.7 10^3/uL (0.0-0.8); MONO % 19.4 % (0.0-5.0); NEUTROPHILS # 2.4 10^3/uL (1.8-7.7); NEUTROPHILS % 65.9 % (36.0-66.0); PLATELET COUNT, AUTOMATED 114 10^3/uL (150-450); RED BLOOD COUNT 2.87 10^6/uL (4.30-6.10); RED CELL DISTRIBUTION WIDTH 15.3 % (11.5-14.5); WHITE BLOOD COUNT 3.6 10^3/uL (4.0-10.0)
[2018-06-12 06:31] LABS: ALBUMIN 2.4 GM/DL (3.2-5.2); ALBUMIN/GLOBULIN RATIO 0.52 (1.00-1.93); ALKALINE PHOSPHATASE 658 U/L (45-117); ALT/SGPT 27 U/L (12-78); ANION GAP 7 MEQ/L (8-16); AST/SGOT 45 U/L (7-37); BILIRUBIN,TOTAL 1.3 MG/DL (0.2-1.0); BLOOD UREA NITROGEN 13 MG/DL (7-18); C REACTIVE PROTEIN QUANTITATIV 8.21 MG/DL (0.00-0.30); CALCIUM LEVEL 9.6 MG/DL (8.8-10.2); CARBON DIOXIDE LEVEL 28 MEQ/L (21-32); CHLORIDE LEVEL 102 MEQ/L (98-107); CREATININE FOR GFR 1.18 MG/DL (0.70-1.30); GLOMERULAR FILTRATION RATE > 60.0 (>42); GLUCOSE, FASTING 84 MG/DL (70-100); POTASSIUM SERUM 3.4 MEQ/L (3.5-5.1); SODIUM LEVEL 137 MEQ/L (136-145)
[2018-06-12 06:39] LABS: ERYTHROCYTE SEDIMENTATION RATE 77 mm/hr (0-20)
[2018-06-12] MEDS: rifAXIMin 550 MG TAB (XIFAXAN) PO ×2 (09:39→20:23)
[2018-06-12] MEDS: LACTULOSE 20 GM/30 ML SYRUP UD PO ×3 (09:39→20:23)
[2018-06-12] MEDS: LACTOBACILLUS ACIDOPHILUS CAP (BACID) PO ×3 (09:39→20:23)
[2018-06-12] MEDS: MULTIVITAMINS/MINERALS THERAP 1 TAB PO (09:39)
[2018-06-12] MEDS: PANTOPRAZOLE 40MG TAB (PROTONIX) PO (09:39)
[2018-06-12] MEDS: SPIRONOLACTONE 25 MG TAB PO (09:39)
[2018-06-12] MEDS: VITAMIN D 1,000 INTERNATIONAL UNITS TABLET PO (09:39)
[2018-06-12] MEDS: SUCRALFATE 1 GM TAB PO ×4 (09:40→20:23)
[2018-06-12] MEDS: AMITRIPTYLINE 50 MG TAB PO ×2 (09:40→20:23)
[2018-06-12] MEDS: TAMSULOSIN 0.4 MG CAP PO (09:40)
[2018-06-12] MEDS: FINASTERIDE 5 MG TAB PO (09:40)
[2018-06-12] MEDS ORDERED: LIDOCAINE 2% MDV 20 ML VIAL As Ordered (10:18)
[2018-06-12] MEDS: POTASSIUM CHLORIDE 10 MEQ SR TABLET PO (11:31)
[2018-06-12] MEDS: VANCOMYCIN HCL 1,000 MG, VIAL MATE ADAPTER 1 EACH in D5W 250 ML IV (11:32)
[2018-06-12] MEDS ORDERED: cefTRIAXone SOD 1 GM in D5W MINI-BAG PLUS 50 ML IV (19:00)
[2018-06-12] MEDS: FAMOTIDINE 20 MG TAB PO (20:23)
[2018-06-12] MEDS: cefTRIAXone SOD 2 GM in D5W MINI-BAG PLUS 50 ML IV (20:23)
[2018-06-13 06:19] LABS: BASO % 0.4 % (0.0-1.0); EOS # 0.1 10^3/uL (0.0-0.50); EOS % 2.6 % (0.0-3.0); HEMATOCRIT 27.1 % (42.0-52.0); HEMOGLOBIN 9.1 g/dl (13.5-17.5); IMMATURE GRANULOCYTE % 1.6 % (0-3.0); LYMPH # 0.6 10^3/uL (1.5-4.5); MEAN CORPUSCULAR HEMOGLOBIN 30.7 pg (27.0-33.0); MEAN CORPUSCULAR HGB CONC 33.6 g/dl (32.0-36.5); MEAN CORPUSCULAR VOLUME 91.6 fl (80.0-96.0); MONO # 1.2 10^3/uL (0.0-0.8); MONO % 24.3 % (0.0-5.0); NEUTROPHILS % 60.1 % (36.0-66.0); PLATELET COUNT, AUTOMATED 124 10^3/uL (150-450); RED BLOOD COUNT 2.96 10^6/uL (4.30-6.10); RED CELL DISTRIBUTION WIDTH 15.7 % (11.5-14.5)
[2018-06-13 06:38] LABS: ALBUMIN 2.5 GM/DL (3.2-5.2); ALBUMIN/GLOBULIN RATIO 0.49 (1.00-1.93); ALKALINE PHOSPHATASE 763 U/L (45-117); ALT/SGPT 31 U/L (12-78); ANION GAP 8 MEQ/L (8-16); AST/SGOT 60 U/L (7-37); BLOOD UREA NITROGEN 14 MG/DL (7-18); C REACTIVE PROTEIN QUANTITATIV 7.72 MG/DL (0.00-0.30); CALCIUM LEVEL 9.7 MG/DL (8.8-10.2); CARBON DIOXIDE LEVEL 27 MEQ/L (21-32); CHLORIDE LEVEL 103 MEQ/L (98-107); CREATININE FOR GFR 1.21 MG/DL (0.70-1.30); GLOMERULAR FILTRATION RATE > 60.0 (>42); GLUCOSE, FASTING 94 MG/DL (70-100); SODIUM LEVEL 138 MEQ/L (136-145); TOTAL PROTEIN 7.6 GM/DL (6.4-8.2)
[2018-06-13 06:43] LABS: ERYTHROCYTE SEDIMENTATION RATE 75 mm/hr (0-20)
[2018-06-13] MEDS: TAMSULOSIN 0.4 MG CAP PO (08:13)
[2018-06-13] MEDS: FINASTERIDE 5 MG TAB PO (08:13)
[2018-06-13] MEDS: LACTOBACILLUS ACIDOPHILUS CAP (BACID) PO ×3 (08:13→20:18)
[2018-06-13] MEDS: VITAMIN D 1,000 INTERNATIONAL UNITS TABLET PO (08:13)
[2018-06-13] MEDS: PANTOPRAZOLE 40MG TAB (PROTONIX) PO (08:13)
[2018-06-13] MEDS: AMITRIPTYLINE 50 MG TAB PO ×2 (08:13→20:18)
[2018-06-13] MEDS: LACTULOSE 20 GM/30 ML SYRUP UD PO ×3 (08:13→20:18)
[2018-06-13] MEDS: SUCRALFATE 1 GM TAB PO ×4 (08:13→20:18)
[2018-06-13] MEDS: rifAXIMin 550 MG TAB (XIFAXAN) PO ×2 (08:14→20:18)
[2018-06-13] MEDS: SPIRONOLACTONE 25 MG TAB PO (08:14)
[2018-06-13] MEDS: MULTIVITAMINS/MINERALS THERAP 1 TAB PO (08:14)
[2018-06-13] MEDS: FAMOTIDINE 20 MG TAB PO (20:18)
[2018-06-13] MEDS: cefTRIAXone SOD 2 GM in D5W MINI-BAG PLUS 50 ML IV (20:18)
[2018-06-14] MEDS: traMADol 50 MG TAB PO (00:33)
[2018-06-14 06:15] LABS: BASO % 0.4 % (0.0-1.0); EOS # 0.2 10^3/uL (0.0-0.50); EOS % 3.3 % (0.0-3.0); HEMATOCRIT 25.9 % (42.0-52.0); HEMOGLOBIN 8.6 g/dl (13.5-17.5); IMMATURE GRANULOCYTE % 1.3 % (0-3.0); LYMPH # 0.5 10^3/uL (1.5-4.5); LYMPH % 11.8 % (24.0-44.0); MEAN CORPUSCULAR HEMOGLOBIN 30.7 pg (27.0-33.0); MEAN CORPUSCULAR HGB CONC 33.2 g/dl (32.0-36.5); MEAN CORPUSCULAR VOLUME 92.5 fl (80.0-96.0); MONO % 22.7 % (0.0-5.0); NEUTROPHILS # 2.8 10^3/uL (1.8-7.7); NEUTROPHILS % 60.5 % (36.0-66.0); PLATELET COUNT, AUTOMATED 105 10^3/uL (150-450); RED CELL DISTRIBUTION WIDTH 15.9 % (11.5-14.5); WHITE BLOOD COUNT 4.6 10^3/uL (4.0-10.0)
[2018-06-14 06:37] LABS: ERYTHROCYTE SEDIMENTATION RATE 81 mm/hr (0-20)
[2018-06-14 06:49] LABS: ALBUMIN 2.4 GM/DL (3.2-5.2); ALBUMIN/GLOBULIN RATIO 0.52 (1.00-1.93); ALKALINE PHOSPHATASE 674 U/L (45-117); ALT/SGPT 27 U/L (12-78); ANION GAP 9 MEQ/L (8-16); AST/SGOT 54 U/L (7-37); BILIRUBIN,TOTAL 0.9 MG/DL (0.2-1.0); BLOOD UREA NITROGEN 14 MG/DL (7-18); C REACTIVE PROTEIN QUANTITATIV 8.25 MG/DL (0.00-0.30); CALCIUM LEVEL 9.6 MG/DL (8.8-10.2); CARBON DIOXIDE LEVEL 27 MEQ/L (21-32); CHLORIDE LEVEL 101 MEQ/L (98-107); CREATININE FOR GFR 1.23 MG/DL (0.70-1.30); GLOMERULAR FILTRATION RATE > 60.0 (>42); GLUCOSE, FASTING 90 MG/DL (70-100); POTASSIUM SERUM 3.7 MEQ/L (3.5-5.1); SODIUM LEVEL 137 MEQ/L (136-145)
[2018-06-14] MEDS: AMITRIPTYLINE 50 MG TAB PO ×2 (08:12→20:21)
[2018-06-14] MEDS: LACTULOSE 20 GM/30 ML SYRUP UD PO ×3 (08:12→20:20)
[2018-06-14] MEDS: TAMSULOSIN 0.4 MG CAP PO (08:13)
[2018-06-14] MEDS: rifAXIMin 550 MG TAB (XIFAXAN) PO ×2 (08:13→20:20)
[2018-06-14] MEDS: VITAMIN D 1,000 INTERNATIONAL UNITS TABLET PO (08:13)
[2018-06-14] MEDS: SUCRALFATE 1 GM TAB PO ×4 (08:13→20:20)
[2018-06-14] MEDS: MULTIVITAMINS/MINERALS THERAP 1 TAB PO (08:13)
[2018-06-14] MEDS: FINASTERIDE 5 MG TAB PO (08:13)
[2018-06-14] MEDS: LACTOBACILLUS ACIDOPHILUS CAP (BACID) PO ×3 (08:13→20:20)
[2018-06-14] MEDS: SPIRONOLACTONE 25 MG TAB PO (08:13)
[2018-06-14] MEDS: PANTOPRAZOLE 40MG TAB (PROTONIX) PO (08:13)
[2018-06-14] MEDS: SODIUM CHLORIDE 0.9% INJ 10 ML SYR IV (17:41)
[2018-06-14] MEDS: cefTRIAXone SOD 2 GM in D5W MINI-BAG PLUS 50 ML IV (20:20)
[2018-06-14] MEDS: FAMOTIDINE 20 MG TAB PO (20:20)
[2018-06-15] MEDS: SODIUM CHLORIDE 0.9% INJ 10 ML SYR IV ×2 (05:28→17:57)
[2018-06-15 06:25] LABS: BASO % 0.5 % (0.0-1.0); EOS # 0.3 10^3/uL (0.0-0.50); EOS % 5.9 % (0.0-3.0); IMMATURE GRANULOCYTE % 1.4 % (0-3.0); LYMPH # 0.5 10^3/uL (1.5-4.5); LYMPH % 12.5 % (24.0-44.0); MEAN CORPUSCULAR HEMOGLOBIN 30.2 pg (27.0-33.0); MEAN CORPUSCULAR HGB CONC 33.3 g/dl (32.0-36.5); MEAN CORPUSCULAR VOLUME 90.6 fl (80.0-96.0); MONO % 22.6 % (0.0-5.0); NEUTROPHILS # 2.4 10^3/uL (1.8-7.7); NEUTROPHILS % 57.1 % (36.0-66.0); PLATELET COUNT, AUTOMATED 113 10^3/uL (150-450); RED BLOOD COUNT 2.65 10^6/uL (4.30-6.10); RED CELL DISTRIBUTION WIDTH 15.8 % (11.5-14.5); WHITE BLOOD COUNT 4.3 10^3/uL (4.0-10.0)
[2018-06-15 06:45] LABS: ALBUMIN 2.5 GM/DL (3.2-5.2); ALKALINE PHOSPHATASE 716 U/L (45-117); ALT/SGPT 30 U/L (12-78); ANION GAP 11 MEQ/L (8-16); AST/SGOT 57 U/L (7-37); BLOOD UREA NITROGEN 17 MG/DL (7-18); CALCIUM LEVEL 9.6 MG/DL (8.8-10.2); CARBON DIOXIDE LEVEL 27 MEQ/L (21-32); CHLORIDE LEVEL 99 MEQ/L (98-107); CREATININE FOR GFR 1.37 MG/DL (0.70-1.30); GLOMERULAR FILTRATION RATE 53.9 (>42); GLUCOSE, FASTING 80 MG/DL (70-100); POTASSIUM SERUM 3.9 MEQ/L (3.5-5.1); SODIUM LEVEL 137 MEQ/L (136-145); TOTAL PROTEIN 6.7 GM/DL (6.4-8.2)
[2018-06-15] MEDS: FINASTERIDE 5 MG TAB PO (08:36)
[2018-06-15] MEDS: rifAXIMin 550 MG TAB (XIFAXAN) PO ×2 (08:36→20:15)
[2018-06-15] MEDS: TAMSULOSIN 0.4 MG CAP PO (08:36)
[2018-06-15] MEDS: SPIRONOLACTONE 25 MG TAB PO (08:36)
[2018-06-15] MEDS: MULTIVITAMINS/MINERALS THERAP 1 TAB PO (08:36)
[2018-06-15] MEDS: AMITRIPTYLINE 50 MG TAB PO ×2 (08:36→20:15)
[2018-06-15] MEDS: VITAMIN D 1,000 INTERNATIONAL UNITS TABLET PO (08:36)
[2018-06-15] MEDS: LACTULOSE 20 GM/30 ML SYRUP UD PO ×3 (08:36→20:15)
[2018-06-15] MEDS: SUCRALFATE 1 GM TAB PO ×4 (08:37→20:15)
[2018-06-15] MEDS: PANTOPRAZOLE 40MG TAB (PROTONIX) PO (08:37)
[2018-06-15] MEDS: LACTOBACILLUS ACIDOPHILUS CAP (BACID) PO ×3 (08:37→20:15)
[2018-06-15] MEDS: FAMOTIDINE 20 MG TAB PO (20:15)
[2018-06-15] MEDS: cefTRIAXone SOD 2 GM in D5W MINI-BAG PLUS 50 ML IV (20:15)
[2018-06-16] MEDS: ACETAMINOPHEN TAB 650MG DOSE (2X325MG) PO (01:09)
[2018-06-16] MEDS: SODIUM CHLORIDE 0.9% INJ 10 ML SYR IV ×2 (05:20→17:42)
[2018-06-16 05:36] LABS: BASO % 0.5 % (0.0-1.0); EOS # 0.2 10^3/uL (0.0-0.50); HEMOGLOBIN 7.9 g/dl (13.5-17.5); IMMATURE GRANULOCYTE % 1.4 % (0-3.0); LYMPH # 0.6 10^3/uL (1.5-4.5); LYMPH % 15.8 % (24.0-44.0); MEAN CORPUSCULAR HEMOGLOBIN 30.6 pg (27.0-33.0); MEAN CORPUSCULAR HGB CONC 32.9 g/dl (32.0-36.5); MONO # 0.8 10^3/uL (0.0-0.8); MONO % 22.4 % (0.0-5.0); NEUTROPHILS % 53.9 % (36.0-66.0); PLATELET COUNT, AUTOMATED 109 10^3/uL (150-450); RED BLOOD COUNT 2.58 10^6/uL (4.30-6.10); RED CELL DISTRIBUTION WIDTH 15.9 % (11.5-14.5); WHITE BLOOD COUNT 3.7 10^3/uL (4.0-10.0)
[2018-06-16 06:00] LABS: AMMONIA 31 uMOL/L (<32)
[2018-06-16 06:03] LABS: ALBUMIN 2.5 GM/DL (3.2-5.2); ALKALINE PHOSPHATASE 741 U/L (45-117); ALT/SGPT 32 U/L (12-78); ANION GAP 8 MEQ/L (8-16); AST/SGOT 63 U/L (7-37); BLOOD UREA NITROGEN 18 MG/DL (7-18); CALCIUM LEVEL 9.5 MG/DL (8.8-10.2); CARBON DIOXIDE LEVEL 28 MEQ/L (21-32); CHLORIDE LEVEL 101 MEQ/L (98-107); CREATININE FOR GFR 1.46 MG/DL (0.70-1.30); GLOMERULAR FILTRATION RATE 50.1 (>42); GLUCOSE, FASTING 86 MG/DL (70-100); SODIUM LEVEL 137 MEQ/L (136-145); TOTAL PROTEIN 6.7 GM/DL (6.4-8.2)
[2018-06-16] MEDS: SUCRALFATE 1 GM TAB PO ×4 (06:54→20:54)
[2018-06-16] MEDS: MULTIVITAMINS/MINERALS THERAP 1 TAB PO (09:05)
[2018-06-16] MEDS: SPIRONOLACTONE 25 MG TAB PO (09:05)
[2018-06-16] MEDS: rifAXIMin 550 MG TAB (XIFAXAN) PO ×2 (09:05→20:54)
[2018-06-16] MEDS: FINASTERIDE 5 MG TAB PO (09:05)
[2018-06-16] MEDS: TAMSULOSIN 0.4 MG CAP PO (09:05)
[2018-06-16] MEDS: AMITRIPTYLINE 50 MG TAB PO ×2 (09:05→20:55)
[2018-06-16] MEDS: LACTOBACILLUS ACIDOPHILUS CAP (BACID) PO ×3 (09:05→20:54)
[2018-06-16] MEDS: VITAMIN D 1,000 INTERNATIONAL UNITS TABLET PO (09:05)
[2018-06-16] MEDS: PANTOPRAZOLE 40MG TAB (PROTONIX) PO (09:05)
[2018-06-16] MEDS: LACTULOSE 20 GM/30 ML SYRUP UD PO ×3 (09:05→20:54)
[2018-06-16] MEDS: FAMOTIDINE 20 MG TAB PO (20:54)
[2018-06-16] MEDS: cefTRIAXone SOD 2 GM in D5W MINI-BAG PLUS 50 ML IV (20:54)
[2018-06-17] MEDS: traMADol 50 MG TAB PO (01:55)
[2018-06-17] MEDS: SODIUM CHLORIDE 0.9% INJ 10 ML SYR IV ×3 (05:28→20:14)
[2018-06-17 06:06] LABS: ALBUMIN 2.4 GM/DL (3.2-5.2); ALBUMIN/GLOBULIN RATIO 0.56 (1.00-1.93); ALKALINE PHOSPHATASE 734 U/L (45-117); ALT/SGPT 33 U/L (12-78); ANION GAP 9 MEQ/L (8-16); AST/SGOT 62 U/L (7-37); BILIRUBIN,TOTAL 0.8 MG/DL (0.2-1.0); BLOOD UREA NITROGEN 20 MG/DL (7-18); C REACTIVE PROTEIN QUANTITATIV 6.55 MG/DL (0.00-0.30); CALCIUM LEVEL 9.4 MG/DL (8.8-10.2); CARBON DIOXIDE LEVEL 26 MEQ/L (21-32); CHLORIDE LEVEL 102 MEQ/L (98-107); CREATININE FOR GFR 1.59 MG/DL (0.70-1.30); GLOMERULAR FILTRATION RATE 45.4 (>42); GLUCOSE, FASTING 85 MG/DL (70-100); SODIUM LEVEL 137 MEQ/L (136-145); TOTAL PROTEIN 6.7 GM/DL (6.4-8.2)
[2018-06-17] MEDS: LACTOBACILLUS ACIDOPHILUS CAP (BACID) PO ×3 (09:46→20:15)
[2018-06-17] MEDS: VITAMIN D 1,000 INTERNATIONAL UNITS TABLET PO (09:46)
[2018-06-17] MEDS: rifAXIMin 550 MG TAB (XIFAXAN) PO ×2 (09:46→20:15)
[2018-06-17] MEDS: AMITRIPTYLINE 50 MG TAB PO ×2 (09:46→20:15)
[2018-06-17] MEDS: LACTULOSE 20 GM/30 ML SYRUP UD PO ×3 (09:47→20:14)
[2018-06-17] MEDS: SUCRALFATE 1 GM TAB PO ×4 (09:47→20:15)
[2018-06-17] MEDS: PANTOPRAZOLE 40MG TAB (PROTONIX) PO (09:47)
[2018-06-17] MEDS: SPIRONOLACTONE 25 MG TAB PO (09:47)
[2018-06-17] MEDS: TAMSULOSIN 0.4 MG CAP PO (09:47)
[2018-06-17] MEDS: MULTIVITAMINS/MINERALS THERAP 1 TAB PO (09:47)
[2018-06-17] MEDS: FINASTERIDE 5 MG TAB PO (09:47)
[2018-06-17 09:56] LABS: HEMATOCRIT 25.2 % (42.0-52.0); HEMOGLOBIN 8.4 g/dl (13.5-17.5); MEAN CORPUSCULAR HGB CONC 33.3 g/dl (32.0-36.5); RED BLOOD COUNT 2.71 10^6/uL (4.30-6.10); RED CELL DISTRIBUTION WIDTH 16.1 % (11.5-14.5); WHITE BLOOD COUNT 3.5 10^3/uL (4.0-10.0)
[2018-06-17 09:57] LABS: PLATELET COUNT, AUTOMATED 96 10^3/uL (150-450)
[2018-06-17 09:58] LABS: IMMATURE PLATELET FRACTION % 1.1 % (0.0-10.9)
[2018-06-17] MEDS: cefTRIAXone SOD 2 GM in D5W MINI-BAG PLUS 50 ML IV (20:14)
[2018-06-17] MEDS: FAMOTIDINE 20 MG TAB PO (20:15)
[2018-06-18] MEDS: SODIUM CHLORIDE 0.9% INJ 10 ML SYR IV ×2 (05:23→18:07)
[2018-06-18] MEDS: ACETAMINOPHEN TAB 650MG DOSE (2X325MG) PO ×2 (05:57→13:14)
[2018-06-18 06:22] LABS: HEMATOCRIT 25.1 % (42.0-52.0); HEMOGLOBIN 8.2 g/dl (13.5-17.5); MEAN CORPUSCULAR HEMOGLOBIN 30.5 pg (27.0-33.0); MEAN CORPUSCULAR HGB CONC 32.7 g/dl (32.0-36.5); MEAN CORPUSCULAR VOLUME 93.3 fl (80.0-96.0); PLATELET COUNT, AUTOMATED 105 10^3/uL (150-450); RED BLOOD COUNT 2.69 10^6/uL (4.30-6.10); RED CELL DISTRIBUTION WIDTH 15.9 % (11.5-14.5); WHITE BLOOD COUNT 3.5 10^3/uL (4.0-10.0)
[2018-06-18 06:39] LABS: ALBUMIN 2.6 GM/DL (3.2-5.2); ALBUMIN/GLOBULIN RATIO 0.59 (1.00-1.93); ALKALINE PHOSPHATASE 766 U/L (45-117); ALT/SGPT 35 U/L (12-78); ANION GAP 8 MEQ/L (8-16); AST/SGOT 61 U/L (7-37); BILIRUBIN,TOTAL 0.7 MG/DL (0.2-1.0); BLOOD UREA NITROGEN 22 MG/DL (7-18); CALCIUM LEVEL 9.7 MG/DL (8.8-10.2); CARBON DIOXIDE LEVEL 28 MEQ/L (21-32); CHLORIDE LEVEL 101 MEQ/L (98-107); CREATININE FOR GFR 1.69 MG/DL (0.70-1.30); GLOMERULAR FILTRATION RATE 42.3 (>42); GLUCOSE, FASTING 86 MG/DL (70-100); POTASSIUM SERUM 4.3 MEQ/L (3.5-5.1); SODIUM LEVEL 137 MEQ/L (136-145)
[2018-06-18] MEDS: LACTULOSE 20 GM/30 ML SYRUP UD PO ×3 (08:26→20:41)
[2018-06-18] MEDS: SPIRONOLACTONE 25 MG TAB PO (08:26)
[2018-06-18] MEDS: LACTOBACILLUS ACIDOPHILUS CAP (BACID) PO ×3 (08:27→20:41)
[2018-06-18] MEDS: PANTOPRAZOLE 40MG TAB (PROTONIX) PO (08:27)
[2018-06-18] MEDS: AMITRIPTYLINE 50 MG TAB PO ×2 (08:27→20:42)
[2018-06-18] MEDS: MULTIVITAMINS/MINERALS THERAP 1 TAB PO (08:27)
[2018-06-18] MEDS: VITAMIN D 1,000 INTERNATIONAL UNITS TABLET PO (08:27)
[2018-06-18] MEDS: rifAXIMin 550 MG TAB (XIFAXAN) PO ×2 (08:27→20:42)
[2018-06-18] MEDS: TAMSULOSIN 0.4 MG CAP PO (08:27)
[2018-06-18] MEDS: FINASTERIDE 5 MG TAB PO (08:27)
[2018-06-18] MEDS: SUCRALFATE 1 GM TAB PO ×4 (08:27→20:41)
[2018-06-18] MEDS: cefTRIAXone SOD 2 GM in D5W MINI-BAG PLUS 50 ML IV (20:42)
[2018-06-18] MEDS: FAMOTIDINE 20 MG TAB PO (20:42)
[2018-06-19] MEDS: SODIUM CHLORIDE 0.9% INJ 10 ML SYR IV ×2 (05:33→16:37)
[2018-06-19 05:55] LABS: HEMATOCRIT 24.8 % (42.0-52.0); HEMOGLOBIN 8.5 g/dl (13.5-17.5); MEAN CORPUSCULAR HEMOGLOBIN 31.1 pg (27.0-33.0); MEAN CORPUSCULAR HGB CONC 34.3 g/dl (32.0-36.5); MEAN CORPUSCULAR VOLUME 90.8 fl (80.0-96.0); RED BLOOD COUNT 2.73 10^6/uL (4.30-6.10); WHITE BLOOD COUNT 3.8 10^3/uL (4.0-10.0)
[2018-06-19 05:56] LABS: PLATELET COUNT, AUTOMATED 98 10^3/uL (150-450)
[2018-06-19 06:09] LABS: IMMATURE PLATELET FRACTION % 0.9 % (0.0-10.9)
[2018-06-19 06:21] LABS: ALBUMIN 2.6 GM/DL (3.2-5.2); ALBUMIN/GLOBULIN RATIO 0.55 (1.00-1.93); ALKALINE PHOSPHATASE 806 U/L (45-117); ALT/SGPT 39 U/L (12-78); ANION GAP 8 MEQ/L (8-16); AST/SGOT 71 U/L (7-37); BILIRUBIN,TOTAL 0.7 MG/DL (0.2-1.0); BLOOD UREA NITROGEN 25 MG/DL (7-18); CALCIUM LEVEL 9.5 MG/DL (8.8-10.2); CARBON DIOXIDE LEVEL 27 MEQ/L (21-32); CHLORIDE LEVEL 102 MEQ/L (98-107); CREATININE FOR GFR 1.78 MG/DL (0.70-1.30); GLOMERULAR FILTRATION RATE 39.9 (>42); GLUCOSE, FASTING 93 MG/DL (70-100); POTASSIUM SERUM 4.2 MEQ/L (3.5-5.1); SODIUM LEVEL 137 MEQ/L (136-145); TOTAL PROTEIN 7.3 GM/DL (6.4-8.2)
[2018-06-19] MEDS: VITAMIN D 1,000 INTERNATIONAL UNITS TABLET PO (08:52)
[2018-06-19] MEDS: MULTIVITAMINS/MINERALS THERAP 1 TAB PO (08:52)
[2018-06-19] MEDS: LACTULOSE 20 GM/30 ML SYRUP UD PO ×3 (08:52→20:39)
[2018-06-19] MEDS: AMITRIPTYLINE 50 MG TAB PO ×2 (08:52→20:39)
[2018-06-19] MEDS: LACTOBACILLUS ACIDOPHILUS CAP (BACID) PO ×3 (08:52→20:38)
[2018-06-19] MEDS: rifAXIMin 550 MG TAB (XIFAXAN) PO ×2 (08:52→20:39)
[2018-06-19] MEDS: SUCRALFATE 1 GM TAB PO ×4 (08:53→20:39)
[2018-06-19] MEDS: FINASTERIDE 5 MG TAB PO (08:53)
[2018-06-19] MEDS: SPIRONOLACTONE 25 MG TAB PO (08:53)
[2018-06-19] MEDS: PANTOPRAZOLE 40MG TAB (PROTONIX) PO (08:53)
[2018-06-19] MEDS: TAMSULOSIN 0.4 MG CAP PO (08:53)
[2018-06-19] MEDS: cefTRIAXone SOD 2 GM in D5W MINI-BAG PLUS 50 ML IV (20:38)
[2018-06-19] MEDS: FAMOTIDINE 20 MG TAB PO (20:39)
[2018-06-20] MEDS: ACETAMINOPHEN TAB 650MG DOSE (2X325MG) PO (04:18)
[2018-06-20] MEDS: SODIUM CHLORIDE 0.9% INJ 10 ML SYR IV ×2 (05:57→18:11)
[2018-06-20 06:08] LABS: HEMATOCRIT 24.4 % (42.0-52.0); HEMOGLOBIN 8.1 g/dl (13.5-17.5); MEAN CORPUSCULAR HEMOGLOBIN 30.9 pg (27.0-33.0); MEAN CORPUSCULAR HGB CONC 33.2 g/dl (32.0-36.5); MEAN CORPUSCULAR VOLUME 93.1 fl (80.0-96.0); RED BLOOD COUNT 2.62 10^6/uL (4.30-6.10); RED CELL DISTRIBUTION WIDTH 16.1 % (11.5-14.5); WHITE BLOOD COUNT 3.3 10^3/uL (4.0-10.0)
[2018-06-20 06:13] LABS: PLATELET COUNT, AUTOMATED 86 10^3/uL (150-450)
[2018-06-20 06:14] LABS: IMMATURE PLATELET FRACTION % 0.9 % (0.0-10.9); PLATELET F 0.9
[2018-06-20] MEDS: SUCRALFATE 1 GM TAB PO ×4 (06:46→20:17)
[2018-06-20] MEDS: LACTULOSE 20 GM/30 ML SYRUP UD PO ×3 (08:57→20:18)
[2018-06-20] MEDS: rifAXIMin 550 MG TAB (XIFAXAN) PO ×2 (08:58→20:17)
[2018-06-20] MEDS: LACTOBACILLUS ACIDOPHILUS CAP (BACID) PO ×3 (08:58→20:17)
[2018-06-20] MEDS: TAMSULOSIN 0.4 MG CAP PO (08:58)
[2018-06-20] MEDS: MULTIVITAMINS/MINERALS THERAP 1 TAB PO (08:58)
[2018-06-20] MEDS: AMITRIPTYLINE 50 MG TAB PO ×2 (08:58→20:18)
[2018-06-20] MEDS: VITAMIN D 1,000 INTERNATIONAL UNITS TABLET PO (08:58)
[2018-06-20] MEDS: PANTOPRAZOLE 40MG TAB (PROTONIX) PO (08:58)
[2018-06-20] MEDS: SPIRONOLACTONE 25 MG TAB PO (08:58)
[2018-06-20] MEDS: FINASTERIDE 5 MG TAB PO (08:58)
[2018-06-20] MEDS ORDERED: SENNA 8.6 MG TAB (SENOKOT) PO (17:30)
[2018-06-20] MEDS: FAMOTIDINE 20 MG TAB PO (20:17)
[2018-06-20] MEDS: cefTRIAXone SOD 2 GM in D5W MINI-BAG PLUS 50 ML IV (20:18)
[2018-06-20] MEDS: MAGNESIUM CITRATE 300 ML BTL PO (20:23)
[2018-06-20] MEDS: traMADol 50 MG TAB PO (22:15)
[2018-06-21] MEDS: SODIUM CHLORIDE 0.9% INJ 10 ML SYR IV ×3 (05:00→20:42)
[2018-06-21 05:33] LABS: HEMATOCRIT 24.5 % (42.0-52.0); MEAN CORPUSCULAR HEMOGLOBIN 30.5 pg (27.0-33.0); MEAN CORPUSCULAR HGB CONC 32.7 g/dl (32.0-36.5); MEAN CORPUSCULAR VOLUME 93.5 fl (80.0-96.0); RED BLOOD COUNT 2.62 10^6/uL (4.30-6.10); RED CELL DISTRIBUTION WIDTH 16.1 % (11.5-14.5); WHITE BLOOD COUNT 3.2 10^3/uL (4.0-10.0)
[2018-06-21 05:34] LABS: PLATELET COUNT, AUTOMATED 93 10^3/uL (150-450)
[2018-06-21 05:44] LABS: ALBUMIN 2.5 GM/DL (3.2-5.2); ALBUMIN/GLOBULIN RATIO 0.54 (1.00-1.93); ALKALINE PHOSPHATASE 727 U/L (45-117); ALT/SGPT 35 U/L (12-78); ANION GAP 8 MEQ/L (8-16); AST/SGOT 60 U/L (7-37); BILIRUBIN,TOTAL 0.6 MG/DL (0.2-1.0); BLOOD UREA NITROGEN 25 MG/DL (7-18); C REACTIVE PROTEIN QUANTITATIV 3.86 MG/DL (0.00-0.30); CALCIUM LEVEL 9.6 MG/DL (8.8-10.2); CARBON DIOXIDE LEVEL 27 MEQ/L (21-32); CHLORIDE LEVEL 102 MEQ/L (98-107); CREATININE FOR GFR 1.92 MG/DL (0.70-1.30); GLOMERULAR FILTRATION RATE 36.5 (>42); GLUCOSE, FASTING 94 MG/DL (70-100); SODIUM LEVEL 137 MEQ/L (136-145); TOTAL PROTEIN 7.1 GM/DL (6.4-8.2)
[2018-06-21] MEDS: SUCRALFATE 1 GM TAB PO ×4 (06:46→20:41)
[2018-06-21] MEDS: LACTULOSE 20 GM/30 ML SYRUP UD PO ×3 (09:46→20:40)
[2018-06-21] MEDS: SPIRONOLACTONE 25 MG TAB PO (09:46)
[2018-06-21] MEDS: LACTOBACILLUS ACIDOPHILUS CAP (BACID) PO ×3 (09:46→20:41)
[2018-06-21] MEDS: VITAMIN D 1,000 INTERNATIONAL UNITS TABLET PO (09:46)
[2018-06-21] MEDS: FINASTERIDE 5 MG TAB PO (09:46)
[2018-06-21] MEDS: rifAXIMin 550 MG TAB (XIFAXAN) PO ×2 (09:46→20:41)
[2018-06-21] MEDS: AMITRIPTYLINE 50 MG TAB PO ×2 (09:47→20:40)
[2018-06-21] MEDS: TAMSULOSIN 0.4 MG CAP PO (09:47)
[2018-06-21] MEDS: MULTIVITAMINS/MINERALS THERAP 1 TAB PO (09:47)
[2018-06-21] MEDS: PANTOPRAZOLE 40MG TAB (PROTONIX) PO (09:47)
[2018-06-21] MEDS: cefTRIAXone SOD 2 GM in D5W MINI-BAG PLUS 50 ML IV (20:40)
[2018-06-21] MEDS: FAMOTIDINE 20 MG TAB PO (20:41)
[2018-06-21] MEDS: ACETAMINOPHEN TAB 650MG DOSE (2X325MG) PO (20:42)
[2018-06-22] MEDS: SODIUM CHLORIDE 0.9% INJ 10 ML SYR IV ×2 (05:25→17:59)
[2018-06-22] MEDS: SPIRONOLACTONE 25 MG TAB PO (11:33)
[2018-06-22] MEDS: rifAXIMin 550 MG TAB (XIFAXAN) PO ×2 (11:33→20:57)
[2018-06-22] MEDS: AMITRIPTYLINE 50 MG TAB PO ×2 (11:33→20:58)
[2018-06-22] MEDS: VITAMIN D 1,000 INTERNATIONAL UNITS TABLET PO (11:34)
[2018-06-22] MEDS: PANTOPRAZOLE 40MG TAB (PROTONIX) PO (11:34)
[2018-06-22] MEDS: FINASTERIDE 5 MG TAB PO (11:35)
[2018-06-22] MEDS: MULTIVITAMINS/MINERALS THERAP 1 TAB PO (11:35)
[2018-06-22] MEDS: LACTOBACILLUS ACIDOPHILUS CAP (BACID) PO ×3 (11:35→20:58)
[2018-06-22] MEDS: SUCRALFATE 1 GM TAB PO ×4 (11:35→20:58)
[2018-06-22] MEDS: TAMSULOSIN 0.4 MG CAP PO (11:35)
[2018-06-22] MEDS: LACTULOSE 20 GM/30 ML SYRUP UD PO ×3 (11:36→20:57)
[2018-06-22] MEDS: cefTRIAXone SOD 2 GM in D5W MINI-BAG PLUS 50 ML IV (20:57)
[2018-06-22] MEDS: FAMOTIDINE 20 MG TAB PO (20:58)
[2018-06-23] MEDS: SODIUM CHLORIDE 0.9% INJ 10 ML SYR IV ×3 (05:37→22:52)
[2018-06-23] MEDS: PANTOPRAZOLE 40MG TAB (PROTONIX) PO (08:28)
[2018-06-23] MEDS: LACTULOSE 20 GM/30 ML SYRUP UD PO ×3 (08:28→20:59)
[2018-06-23] MEDS: AMITRIPTYLINE 50 MG TAB PO ×2 (08:28→21:00)
[2018-06-23] MEDS: rifAXIMin 550 MG TAB (XIFAXAN) PO ×2 (08:28→20:59)
[2018-06-23] MEDS: MULTIVITAMINS/MINERALS THERAP 1 TAB PO (08:28)
[2018-06-23] MEDS: SPIRONOLACTONE 25 MG TAB PO (08:28)
[2018-06-23] MEDS: LACTOBACILLUS ACIDOPHILUS CAP (BACID) PO ×3 (08:28→20:59)
[2018-06-23] MEDS: VITAMIN D 1,000 INTERNATIONAL UNITS TABLET PO (08:28)
[2018-06-23] MEDS: TAMSULOSIN 0.4 MG CAP PO (08:28)
[2018-06-23] MEDS: FINASTERIDE 5 MG TAB PO (08:28)
[2018-06-23] MEDS: SUCRALFATE 1 GM TAB PO ×4 (08:28→21:00)
[2018-06-23] MEDS: FAMOTIDINE 20 MG TAB PO (21:00)
[2018-06-23] MEDS: cefTRIAXone SOD 2 GM in D5W MINI-BAG PLUS 50 ML IV (21:01)
[2018-06-24] MEDS: SODIUM CHLORIDE 0.9% INJ 10 ML SYR IV ×3 (05:51→21:58)
[2018-06-24] MEDS: MULTIVITAMINS/MINERALS THERAP 1 TAB PO (09:05)
[2018-06-24] MEDS: VITAMIN D 1,000 INTERNATIONAL UNITS TABLET PO (09:05)
[2018-06-24] MEDS: TAMSULOSIN 0.4 MG CAP PO (09:06)
[2018-06-24] MEDS: SPIRONOLACTONE 25 MG TAB PO (09:06)
[2018-06-24] MEDS: LACTULOSE 20 GM/30 ML SYRUP UD PO ×3 (09:06→20:16)
[2018-06-24] MEDS: FINASTERIDE 5 MG TAB PO (09:06)
[2018-06-24] MEDS: PANTOPRAZOLE 40MG TAB (PROTONIX) PO (09:06)
[2018-06-24] MEDS: LACTOBACILLUS ACIDOPHILUS CAP (BACID) PO ×3 (09:06→20:16)
[2018-06-24] MEDS: SUCRALFATE 1 GM TAB PO ×4 (09:06→20:17)
[2018-06-24] MEDS: AMITRIPTYLINE 50 MG TAB PO ×2 (09:06→20:16)
[2018-06-24] MEDS: rifAXIMin 550 MG TAB (XIFAXAN) PO ×2 (09:07→20:17)
[2018-06-24] MEDS: cefTRIAXone SOD 2 GM in D5W MINI-BAG PLUS 50 ML IV (20:16)
[2018-06-24] MEDS: FAMOTIDINE 20 MG TAB PO (20:17)
[2018-06-25] MEDS: SODIUM CHLORIDE 0.9% INJ 10 ML SYR IV ×2 (05:21→16:38)
[2018-06-25] MEDS: VITAMIN D 1,000 INTERNATIONAL UNITS TABLET PO (09:14)
[2018-06-25] MEDS: MULTIVITAMINS/MINERALS THERAP 1 TAB PO (09:14)
[2018-06-25] MEDS: FINASTERIDE 5 MG TAB PO (09:14)
[2018-06-25] MEDS: AMITRIPTYLINE 50 MG TAB PO ×2 (09:14→20:44)
[2018-06-25] MEDS: PANTOPRAZOLE 40MG TAB (PROTONIX) PO (09:14)
[2018-06-25] MEDS: SUCRALFATE 1 GM TAB PO ×4 (09:14→20:44)
[2018-06-25] MEDS: rifAXIMin 550 MG TAB (XIFAXAN) PO ×2 (09:15→20:44)
[2018-06-25] MEDS: SPIRONOLACTONE 25 MG TAB PO (09:15)
[2018-06-25] MEDS: LACTOBACILLUS ACIDOPHILUS CAP (BACID) PO ×3 (09:15→20:43)
[2018-06-25] MEDS: LACTULOSE 20 GM/30 ML SYRUP UD PO ×3 (09:15→20:42)
[2018-06-25] MEDS: TAMSULOSIN 0.4 MG CAP PO (09:15)
[2018-06-25] MEDS: FAMOTIDINE 20 MG TAB PO (20:44)
[2018-06-25] MEDS: cefTRIAXone SOD 2 GM in D5W MINI-BAG PLUS 50 ML IV (20:44)
[2018-06-26] MEDS: SODIUM CHLORIDE 0.9% INJ 10 ML SYR IV ×4 (05:24→20:03)
[2018-06-26] MEDS: LACTOBACILLUS ACIDOPHILUS CAP (BACID) PO ×3 (10:00→20:02)
[2018-06-26] MEDS: PANTOPRAZOLE 40MG TAB (PROTONIX) PO (10:00)
[2018-06-26] MEDS: SPIRONOLACTONE 25 MG TAB PO (10:00)
[2018-06-26] MEDS: AMITRIPTYLINE 50 MG TAB PO ×2 (10:00→20:02)
[2018-06-26] MEDS: rifAXIMin 550 MG TAB (XIFAXAN) PO ×2 (10:00→20:02)
[2018-06-26] MEDS: LACTULOSE 20 GM/30 ML SYRUP UD PO ×3 (10:00→20:02)
[2018-06-26] MEDS: MULTIVITAMINS/MINERALS THERAP 1 TAB PO (10:00)
[2018-06-26] MEDS: SUCRALFATE 1 GM TAB PO ×4 (10:00→20:02)
[2018-06-26] MEDS: TAMSULOSIN 0.4 MG CAP PO (10:00)
[2018-06-26] MEDS: FINASTERIDE 5 MG TAB PO (10:00)
[2018-06-26] MEDS: VITAMIN D 1,000 INTERNATIONAL UNITS TABLET PO (10:01)
[2018-06-26 16:45] LABS: HEMATOCRIT 26.7 % (42.0-52.0); MEAN CORPUSCULAR HEMOGLOBIN 31.6 pg (27.0-33.0); MEAN CORPUSCULAR HGB CONC 33.7 g/dl (32.0-36.5); MEAN CORPUSCULAR VOLUME 93.7 fl (80.0-96.0); RED BLOOD COUNT 2.85 10^6/uL (4.30-6.10); RED CELL DISTRIBUTION WIDTH 16.4 % (11.5-14.5); WHITE BLOOD COUNT 3.6 10^3/uL (4.0-10.0)
[2018-06-26 16:49] LABS: PLATELET COUNT, AUTOMATED 81 10^3/uL (150-450)
[2018-06-26 16:50] LABS: IMMATURE PLATELET FRACTION % 1.8 % (0.0-10.9)
[2018-06-26 17:11] LABS: ALBUMIN 2.8 GM/DL (3.2-5.2); ALBUMIN/GLOBULIN RATIO 0.58 (1.00-1.93); ALKALINE PHOSPHATASE 762 U/L (45-117); ALT/SGPT 51 U/L (12-78); ANION GAP 9 MEQ/L (8-16); AST/SGOT 80 U/L (7-37); BILIRUBIN,TOTAL 0.9 MG/DL (0.2-1.0); BLOOD UREA NITROGEN 31 MG/DL (7-18); CALCIUM LEVEL 10.1 MG/DL (8.8-10.2); CARBON DIOXIDE LEVEL 25 MEQ/L (21-32); CHLORIDE LEVEL 103 MEQ/L (98-107); CREATININE FOR GFR 2.11 MG/DL (0.70-1.30); GLOMERULAR FILTRATION RATE 32.8 (>42); GLUCOSE, FASTING 107 MG/DL (70-100); POTASSIUM SERUM 4.7 MEQ/L (3.5-5.1); SODIUM LEVEL 137 MEQ/L (136-145); TOTAL PROTEIN 7.6 GM/DL (6.4-8.2)
[2018-06-26] MEDS: cefTRIAXone SOD 2 GM in D5W MINI-BAG PLUS 50 ML IV (20:02)
[2018-06-26] MEDS: FAMOTIDINE 20 MG TAB PO (20:02)
[2018-06-26 21:09] LABS: ERYTHROCYTE SEDIMENTATION RATE 73 mm/hr (0-20)
[2018-06-27] MEDS: SODIUM CHLORIDE 0.9% INJ 10 ML SYR IV ×2 (06:32→17:29)
[2018-06-27] MEDS: SUCRALFATE 1 GM TAB PO ×5 (07:40→20:11)
[2018-06-27] MEDS: LACTOBACILLUS ACIDOPHILUS CAP (BACID) PO ×3 (09:45→20:11)
[2018-06-27] MEDS: LACTULOSE 20 GM/30 ML SYRUP UD PO ×3 (09:45→20:10)
[2018-06-27] MEDS: TAMSULOSIN 0.4 MG CAP PO (12:45)
[2018-06-27] MEDS: SPIRONOLACTONE 25 MG TAB PO ×2 (12:45→12:54)
[2018-06-27] MEDS: PANTOPRAZOLE 40MG TAB (PROTONIX) PO (12:45)
[2018-06-27] MEDS: rifAXIMin 550 MG TAB (XIFAXAN) PO ×2 (12:45→20:11)
[2018-06-27] MEDS: VITAMIN D 1,000 INTERNATIONAL UNITS TABLET PO (12:45)
[2018-06-27] MEDS: FINASTERIDE 5 MG TAB PO (12:45)
[2018-06-27] MEDS: MULTIVITAMINS/MINERALS THERAP 1 TAB PO (12:46)
[2018-06-27] MEDS: AMITRIPTYLINE 50 MG TAB PO ×2 (12:46→20:11)
[2018-06-27] MEDS: cefTRIAXone SOD 2 GM in D5W MINI-BAG PLUS 50 ML IV (20:10)
[2018-06-27] MEDS: FAMOTIDINE 20 MG TAB PO (20:11)
[2018-06-28] MEDS: SODIUM CHLORIDE 0.9% INJ 10 ML SYR IV ×3 (05:19→20:30)
[2018-06-28 06:15] LABS: ALBUMIN 2.5 GM/DL (3.2-5.2); ANION GAP 10 MEQ/L (8-16); BLOOD UREA NITROGEN 33 MG/DL (7-18); CALCIUM LEVEL 9.4 MG/DL (8.8-10.2); CARBON DIOXIDE LEVEL 25 MEQ/L (21-32); CHLORIDE LEVEL 105 MEQ/L (98-107); CREATININE FOR GFR 2.02 MG/DL (0.70-1.30); GLOMERULAR FILTRATION RATE 34.5 (>42); GLUCOSE, FASTING 80 MG/DL (70-100); PHOSPHORUS LEVEL 3.4 MG/DL (2.5-4.9); SODIUM LEVEL 140 MEQ/L (136-145)
[2018-06-28] MEDS: MULTIVITAMINS/MINERALS THERAP 1 TAB PO (09:10)
[2018-06-28] MEDS: LACTOBACILLUS ACIDOPHILUS CAP (BACID) PO ×3 (09:10→20:28)
[2018-06-28] MEDS: SPIRONOLACTONE 25 MG TAB PO (09:10)
[2018-06-28] MEDS: SUCRALFATE 1 GM TAB PO ×4 (09:10→20:28)
[2018-06-28] MEDS: VITAMIN D 1,000 INTERNATIONAL UNITS TABLET PO (09:10)
[2018-06-28] MEDS: LACTULOSE 20 GM/30 ML SYRUP UD PO ×3 (09:10→20:29)
[2018-06-28] MEDS: PANTOPRAZOLE 40MG TAB (PROTONIX) PO (09:10)
[2018-06-28] MEDS: rifAXIMin 550 MG TAB (XIFAXAN) PO ×2 (09:10→20:28)
[2018-06-28] MEDS: TAMSULOSIN 0.4 MG CAP PO (09:10)
[2018-06-28] MEDS: AMITRIPTYLINE 50 MG TAB PO ×2 (09:11→20:28)
[2018-06-28] MEDS: FINASTERIDE 5 MG TAB PO (09:11)
[2018-06-28] MEDS: cefTRIAXone SOD 2 GM in D5W MINI-BAG PLUS 50 ML IV (20:28)
[2018-06-28] MEDS: FAMOTIDINE 20 MG TAB PO (20:28)
[2018-06-29] MEDS: SODIUM CHLORIDE 0.9% INJ 10 ML SYR IV ×2 (04:55→17:54)
[2018-06-29 05:10] LABS: HEMATOCRIT 25.7 % (42.0-52.0); HEMOGLOBIN 8.6 g/dl (13.5-17.5); MEAN CORPUSCULAR HEMOGLOBIN 31.3 pg (27.0-33.0); MEAN CORPUSCULAR HGB CONC 33.5 g/dl (32.0-36.5); MEAN CORPUSCULAR VOLUME 93.5 fl (80.0-96.0); RED BLOOD COUNT 2.75 10^6/uL (4.30-6.10); RED CELL DISTRIBUTION WIDTH 15.9 % (11.5-14.5); WHITE BLOOD COUNT 2.9 10^3/uL (4.0-10.0)
[2018-06-29 05:12] LABS: PLATELET COUNT, AUTOMATED 71 10^3/uL (150-450)
[2018-06-29 05:13] LABS: IMMATURE PLATELET FRACTION % 1.4 % (0.0-10.9)
[2018-06-29 05:43] LABS: ALBUMIN 2.7 GM/DL (3.2-5.2); ALBUMIN/GLOBULIN RATIO 0.59 (1.00-1.93); ALKALINE PHOSPHATASE 729 U/L (45-117); ALT/SGPT 51 U/L (12-78); ANION GAP 9 MEQ/L (8-16); AST/SGOT 79 U/L (7-37); BILIRUBIN,TOTAL 0.6 MG/DL (0.2-1.0); BLOOD UREA NITROGEN 33 MG/DL (7-18); C REACTIVE PROTEIN QUANTITATIV 2.17 MG/DL (0.00-0.30); CALCIUM LEVEL 9.5 MG/DL (8.8-10.2); CARBON DIOXIDE LEVEL 26 MEQ/L (21-32); CHLORIDE LEVEL 105 MEQ/L (98-107); CREATININE FOR GFR 2.06 MG/DL (0.70-1.30); GLOMERULAR FILTRATION RATE 33.7 (>42); GLUCOSE, FASTING 82 MG/DL (70-100); POTASSIUM SERUM 4.1 MEQ/L (3.5-5.1); SODIUM LEVEL 140 MEQ/L (136-145); TOTAL PROTEIN 7.3 GM/DL (6.4-8.2)
[2018-06-29] MEDS: SUCRALFATE 1 GM TAB PO ×4 (07:45→20:05)
[2018-06-29] MEDS: MULTIVITAMINS/MINERALS THERAP 1 TAB PO (11:39)
[2018-06-29] MEDS: FINASTERIDE 5 MG TAB PO (11:39)
[2018-06-29] MEDS: SPIRONOLACTONE 25 MG TAB PO (11:39)
[2018-06-29] MEDS: PANTOPRAZOLE 40MG TAB (PROTONIX) PO (11:39)
[2018-06-29] MEDS: LACTOBACILLUS ACIDOPHILUS CAP (BACID) PO ×3 (11:39→20:04)
[2018-06-29] MEDS: VITAMIN D 1,000 INTERNATIONAL UNITS TABLET PO (11:39)
[2018-06-29] MEDS: AMITRIPTYLINE 50 MG TAB PO ×2 (11:39→20:04)
[2018-06-29] MEDS: LACTULOSE 20 GM/30 ML SYRUP UD PO ×3 (11:39→20:04)
[2018-06-29] MEDS: TAMSULOSIN 0.4 MG CAP PO (11:40)
[2018-06-29] MEDS: rifAXIMin 550 MG TAB (XIFAXAN) PO ×2 (11:40→20:04)
[2018-06-29] MEDS: FAMOTIDINE 20 MG TAB PO (20:04)
[2018-06-29] MEDS: cefTRIAXone SOD 2 GM in D5W MINI-BAG PLUS 50 ML IV (20:05)
[2018-06-30] MEDS: SODIUM CHLORIDE 0.9% INJ 10 ML SYR IV ×2 (06:35→17:45)
[2018-06-30] MEDS: PANTOPRAZOLE 40MG TAB (PROTONIX) PO (08:21)
[2018-06-30] MEDS: LACTOBACILLUS ACIDOPHILUS CAP (BACID) PO ×3 (08:21→20:06)
[2018-06-30] MEDS: SPIRONOLACTONE 25 MG TAB PO (08:21)
[2018-06-30] MEDS: TAMSULOSIN 0.4 MG CAP PO (08:21)
[2018-06-30] MEDS: AMITRIPTYLINE 50 MG TAB PO ×2 (08:21→20:05)
[2018-06-30] MEDS: MULTIVITAMINS/MINERALS THERAP 1 TAB PO (08:21)
[2018-06-30] MEDS: VITAMIN D 1,000 INTERNATIONAL UNITS TABLET PO (08:21)
[2018-06-30] MEDS: SUCRALFATE 1 GM TAB PO ×4 (08:21→20:06)
[2018-06-30] MEDS: FINASTERIDE 5 MG TAB PO (08:21)
[2018-06-30] MEDS: rifAXIMin 550 MG TAB (XIFAXAN) PO ×2 (08:21→20:06)
[2018-06-30] MEDS: LACTULOSE 20 GM/30 ML SYRUP UD PO ×3 (08:21→20:05)
[2018-06-30] MEDS: cefTRIAXone SOD 2 GM in D5W MINI-BAG PLUS 50 ML IV (20:05)
[2018-06-30] MEDS: FAMOTIDINE 20 MG TAB PO (20:06)
[2018-07-01] MEDS: SODIUM CHLORIDE 0.9% INJ 10 ML SYR IV ×2 (05:36→17:59)
[2018-07-01] MEDS: FINASTERIDE 5 MG TAB PO (08:55)
[2018-07-01] MEDS: AMITRIPTYLINE 50 MG TAB PO ×2 (08:55→19:59)
[2018-07-01] MEDS: PANTOPRAZOLE 40MG TAB (PROTONIX) PO (08:55)
[2018-07-01] MEDS: SUCRALFATE 1 GM TAB PO ×4 (08:55→19:59)
[2018-07-01] MEDS: rifAXIMin 550 MG TAB (XIFAXAN) PO ×2 (08:55→19:59)
[2018-07-01] MEDS: MULTIVITAMINS/MINERALS THERAP 1 TAB PO (08:55)
[2018-07-01] MEDS: LACTOBACILLUS ACIDOPHILUS CAP (BACID) PO ×3 (08:55→19:58)
[2018-07-01] MEDS: SPIRONOLACTONE 25 MG TAB PO (08:55)
[2018-07-01] MEDS: LACTULOSE 20 GM/30 ML SYRUP UD PO ×3 (08:55→19:59)
[2018-07-01] MEDS: TAMSULOSIN 0.4 MG CAP PO (08:55)
[2018-07-01] MEDS: VITAMIN D 1,000 INTERNATIONAL UNITS TABLET PO (08:56)
[2018-07-01] MEDS: FAMOTIDINE 20 MG TAB PO (19:58)
[2018-07-01] MEDS: cefTRIAXone SOD 2 GM in D5W MINI-BAG PLUS 50 ML IV (19:58)
[2018-07-02] MEDS: SODIUM CHLORIDE 0.9% INJ 10 ML SYR IV ×2 (06:36→17:43)
[2018-07-02] MEDS: MULTIVITAMINS/MINERALS THERAP 1 TAB PO (08:17)
[2018-07-02] MEDS: LACTULOSE 20 GM/30 ML SYRUP UD PO ×3 (08:17→20:06)
[2018-07-02] MEDS: FINASTERIDE 5 MG TAB PO (08:17)
[2018-07-02] MEDS: TAMSULOSIN 0.4 MG CAP PO (08:17)
[2018-07-02] MEDS: VITAMIN D 1,000 INTERNATIONAL UNITS TABLET PO (08:17)
[2018-07-02] MEDS: AMITRIPTYLINE 50 MG TAB PO ×2 (08:17→20:06)
[2018-07-02] MEDS: SPIRONOLACTONE 25 MG TAB PO (08:17)
[2018-07-02] MEDS: PANTOPRAZOLE 40MG TAB (PROTONIX) PO (08:17)
[2018-07-02] MEDS: SUCRALFATE 1 GM TAB PO ×4 (08:17→20:05)
[2018-07-02] MEDS: LACTOBACILLUS ACIDOPHILUS CAP (BACID) PO ×3 (08:17→20:05)
[2018-07-02] MEDS: rifAXIMin 550 MG TAB (XIFAXAN) PO ×2 (08:17→20:06)
[2018-07-02] MEDS: CLOTRIMAZOLE 1% TOPICAL CREAM 30GM TOP ×2 (16:12→20:06)
[2018-07-02] MEDS: cefTRIAXone SOD 2 GM in D5W MINI-BAG PLUS 50 ML IV (20:05)
[2018-07-02] MEDS: FAMOTIDINE 20 MG TAB PO (20:06)
[2018-07-02] MEDS: traMADol 50 MG TAB PO (21:44)
[2018-07-03] MEDS: SUCRALFATE 1 GM TAB PO ×5 (07:02→20:03)
[2018-07-03] MEDS: SODIUM CHLORIDE 0.9% INJ 10 ML SYR IV ×2 (07:02→16:28)
[2018-07-03] MEDS: SPIRONOLACTONE 25 MG TAB PO (09:04)
[2018-07-03] MEDS: LACTULOSE 20 GM/30 ML SYRUP UD PO ×3 (09:04→20:02)
[2018-07-03] MEDS: LACTOBACILLUS ACIDOPHILUS CAP (BACID) PO ×3 (09:04→20:03)
[2018-07-03] MEDS: VITAMIN D 1,000 INTERNATIONAL UNITS TABLET PO (09:04)
[2018-07-03] MEDS: rifAXIMin 550 MG TAB (XIFAXAN) PO ×2 (09:05→20:03)
[2018-07-03] MEDS: AMITRIPTYLINE 50 MG TAB PO ×2 (09:05→20:03)
[2018-07-03] MEDS: CLOTRIMAZOLE 1% TOPICAL CREAM 30GM TOP ×2 (09:05→20:03)
[2018-07-03] MEDS: MULTIVITAMINS/MINERALS THERAP 1 TAB PO (09:05)
[2018-07-03] MEDS: FINASTERIDE 5 MG TAB PO (09:05)
[2018-07-03] MEDS: TAMSULOSIN 0.4 MG CAP PO (09:05)
[2018-07-03] MEDS: PANTOPRAZOLE 40MG TAB (PROTONIX) PO (09:05)
[2018-07-03] MEDS: cefTRIAXone SOD 2 GM in D5W MINI-BAG PLUS 50 ML IV (20:02)
[2018-07-03] MEDS: FAMOTIDINE 20 MG TAB PO (20:03)
[2018-07-04] MEDS: SUCRALFATE 1 GM TAB PO ×4 (06:30→20:05)
[2018-07-04] MEDS: SODIUM CHLORIDE 0.9% INJ 10 ML SYR IV ×3 (06:30→16:39)
[2018-07-04] MEDS: SPIRONOLACTONE 25 MG TAB PO (09:30)
[2018-07-04] MEDS: LACTULOSE 20 GM/30 ML SYRUP UD PO ×3 (09:30→20:05)
[2018-07-04] MEDS: MULTIVITAMINS/MINERALS THERAP 1 TAB PO (09:30)
[2018-07-04] MEDS: VITAMIN D 1,000 INTERNATIONAL UNITS TABLET PO (09:30)
[2018-07-04] MEDS: rifAXIMin 550 MG TAB (XIFAXAN) PO ×2 (09:30→20:05)
[2018-07-04] MEDS: LACTOBACILLUS ACIDOPHILUS CAP (BACID) PO ×3 (09:30→20:05)
[2018-07-04] MEDS: TAMSULOSIN 0.4 MG CAP PO (09:31)
[2018-07-04] MEDS: PANTOPRAZOLE 40MG TAB (PROTONIX) PO (09:31)
[2018-07-04] MEDS: CLOTRIMAZOLE 1% TOPICAL CREAM 30GM TOP ×2 (09:31→20:05)
[2018-07-04] MEDS: AMITRIPTYLINE 50 MG TAB PO ×2 (09:31→20:05)
[2018-07-04] MEDS: FINASTERIDE 5 MG TAB PO (09:31)
[2018-07-04 11:02] LABS: BASO % 0.4 % (0.0-1.0); EOS # 0.1 10^3/uL (0.0-0.50); EOS % 4.3 % (0.0-3.0); HEMATOCRIT 25.5 % (42.0-52.0); HEMOGLOBIN 8.5 g/dl (13.5-17.5); IMMATURE GRANULOCYTE % 0.4 % (0-3.0); LYMPH # 0.3 10^3/uL (1.5-4.5); LYMPH % 11.8 % (24.0-44.0); MEAN CORPUSCULAR HEMOGLOBIN 31.4 pg (27.0-33.0); MEAN CORPUSCULAR HGB CONC 33.3 g/dl (32.0-36.5); MEAN CORPUSCULAR VOLUME 94.1 fl (80.0-96.0); MONO # 0.3 10^3/uL (0.0-0.8); MONO % 10.2 % (0.0-5.0); NEUTROPHILS # 1.9 10^3/uL (1.8-7.7); NEUTROPHILS % 72.9 % (36.0-66.0); RED BLOOD COUNT 2.71 10^6/uL (4.30-6.10); RED CELL DISTRIBUTION WIDTH 16.5 % (11.5-14.5); WHITE BLOOD COUNT 2.5 10^3/uL (4.0-10.0)
[2018-07-04 11:10] LABS: PLATELET COUNT, AUTOMATED 62 10^3/uL (150-450)
[2018-07-04 11:12] LABS: IMMATURE PLATELET FRACTION % 0.4 % (0.0-10.9)
[2018-07-04 11:37] LABS: ALBUMIN 2.7 GM/DL (3.2-5.2); ALBUMIN/GLOBULIN RATIO 0.63 (1.00-1.93); ALKALINE PHOSPHATASE 738 U/L (45-117); ALT/SGPT 67 U/L (12-78); ANION GAP 8 MEQ/L (8-16); AST/SGOT 99 U/L (7-37); BILIRUBIN,TOTAL 0.6 MG/DL (0.2-1.0); BLOOD UREA NITROGEN 26 MG/DL (7-18); CALCIUM LEVEL 8.9 MG/DL (8.8-10.2); CARBON DIOXIDE LEVEL 27 MEQ/L (21-32); CHLORIDE LEVEL 102 MEQ/L (98-107); CREATININE FOR GFR 1.87 MG/DL (0.70-1.30); GLOMERULAR FILTRATION RATE 37.7 (>42); GLUCOSE, FASTING 117 MG/DL (70-100); POTASSIUM SERUM 4.2 MEQ/L (3.5-5.1); SODIUM LEVEL 137 MEQ/L (136-145)
[2018-07-04 16:34] LABS: C REACTIVE PROTEIN QUANTITATIV 1.99 MG/DL (0.00-0.30)
[2018-07-04] MEDS: FAMOTIDINE 20 MG TAB PO (20:05)
[2018-07-04] MEDS: cefTRIAXone SOD 2 GM in D5W MINI-BAG PLUS 50 ML IV (20:05)
[2018-07-04 21:20] LABS: AMMONIA 39 uMOL/L (<32)
[2018-07-05] MEDS: SODIUM CHLORIDE 0.9% INJ 10 ML SYR IV ×2 (05:20→17:00)
[2018-07-05] MEDS: VITAMIN D 1,000 INTERNATIONAL UNITS TABLET PO (08:17)
[2018-07-05] MEDS: MULTIVITAMINS/MINERALS THERAP 1 TAB PO (08:17)
[2018-07-05] MEDS: SPIRONOLACTONE 25 MG TAB PO (08:17)
[2018-07-05] MEDS: LACTULOSE 20 GM/30 ML SYRUP UD PO ×3 (08:17→21:28)
[2018-07-05] MEDS: PANTOPRAZOLE 40MG TAB (PROTONIX) PO (08:17)
[2018-07-05] MEDS: rifAXIMin 550 MG TAB (XIFAXAN) PO ×2 (08:17→21:29)
[2018-07-05] MEDS: AMITRIPTYLINE 50 MG TAB PO ×2 (08:18→21:29)
[2018-07-05] MEDS: CLOTRIMAZOLE 1% TOPICAL CREAM 30GM TOP ×2 (08:18→21:29)
[2018-07-05] MEDS: LACTOBACILLUS ACIDOPHILUS CAP (BACID) PO ×3 (08:18→21:28)
[2018-07-05] MEDS: FINASTERIDE 5 MG TAB PO (08:18)
[2018-07-05] MEDS: SUCRALFATE 1 GM TAB PO ×4 (08:18→21:29)
[2018-07-05] MEDS: TAMSULOSIN 0.4 MG CAP PO (08:18)
[2018-07-05] MEDS: FAMOTIDINE 20 MG TAB PO (21:28)
[2018-07-05] MEDS: cefTRIAXone SOD 2 GM in D5W MINI-BAG PLUS 50 ML IV (21:29)
[2018-07-06] MEDS: SUCRALFATE 1 GM TAB PO ×4 (07:30→20:05)
[2018-07-06] MEDS: SODIUM CHLORIDE 0.9% INJ 10 ML SYR IV ×2 (07:50→18:19)
[2018-07-06] MEDS: CLOTRIMAZOLE 1% TOPICAL CREAM 30GM TOP ×2 (10:00→20:06)
[2018-07-06] MEDS: PANTOPRAZOLE 40MG TAB (PROTONIX) PO (10:23)
[2018-07-06] MEDS: SPIRONOLACTONE 25 MG TAB PO (10:23)
[2018-07-06] MEDS: AMITRIPTYLINE 50 MG TAB PO ×2 (10:23→20:05)
[2018-07-06] MEDS: FINASTERIDE 5 MG TAB PO (10:23)
[2018-07-06] MEDS: rifAXIMin 550 MG TAB (XIFAXAN) PO ×2 (10:23→20:05)
[2018-07-06] MEDS: TAMSULOSIN 0.4 MG CAP PO (10:23)
[2018-07-06] MEDS: LACTULOSE 20 GM/30 ML SYRUP UD PO ×3 (10:23→20:05)
[2018-07-06] MEDS: LACTOBACILLUS ACIDOPHILUS CAP (BACID) PO ×3 (10:23→20:05)
[2018-07-06] MEDS: VITAMIN D 1,000 INTERNATIONAL UNITS TABLET PO (10:23)
[2018-07-06] MEDS: MULTIVITAMINS/MINERALS THERAP 1 TAB PO (10:24)
[2018-07-06] MEDS: cefTRIAXone SOD 2 GM in D5W MINI-BAG PLUS 50 ML IV (20:04)
[2018-07-06] MEDS: ACETAMINOPHEN TAB 650MG DOSE (2X325MG) PO (20:05)
[2018-07-06] MEDS: FAMOTIDINE 20 MG TAB PO (20:05)
[2018-07-07] MEDS: SODIUM CHLORIDE 0.9% INJ 10 ML SYR IV ×2 (05:51→17:52)
[2018-07-07] MEDS: SUCRALFATE 1 GM TAB PO ×4 (05:51→20:42)
[2018-07-07] MEDS: LACTULOSE 20 GM/30 ML SYRUP UD PO ×3 (09:41→20:43)
[2018-07-07] MEDS: MULTIVITAMINS/MINERALS THERAP 1 TAB PO (09:42)
[2018-07-07] MEDS: rifAXIMin 550 MG TAB (XIFAXAN) PO ×2 (09:42→20:42)
[2018-07-07] MEDS: VITAMIN D 1,000 INTERNATIONAL UNITS TABLET PO (09:42)
[2018-07-07] MEDS: PANTOPRAZOLE 40MG TAB (PROTONIX) PO (09:42)
[2018-07-07] MEDS: FINASTERIDE 5 MG TAB PO (09:42)
[2018-07-07] MEDS: TAMSULOSIN 0.4 MG CAP PO (09:42)
[2018-07-07] MEDS: AMITRIPTYLINE 50 MG TAB PO ×2 (09:42→20:42)
[2018-07-07] MEDS: LACTOBACILLUS ACIDOPHILUS CAP (BACID) PO ×3 (09:42→20:42)
[2018-07-07] MEDS: SPIRONOLACTONE 25 MG TAB PO (09:42)
[2018-07-07] MEDS: CLOTRIMAZOLE 1% TOPICAL CREAM 30GM TOP ×2 (09:42→20:43)
[2018-07-07] MEDS: FAMOTIDINE 20 MG TAB PO (20:42)
[2018-07-07] MEDS: cefTRIAXone SOD 2 GM in D5W MINI-BAG PLUS 50 ML IV (20:43)
[2018-07-08] MEDS: LORazepam 2 MG/ML VIAL (J2060) IV (03:19)
[2018-07-08] MEDS: SODIUM CHLORIDE 0.9% INJ 10 ML SYR IV ×3 (03:19→18:00)
[2018-07-08] MEDS: SUCRALFATE 1 GM TAB PO ×4 (06:20→20:20)
[2018-07-08] MEDS: SPIRONOLACTONE 25 MG TAB PO ×2 (09:00→10:04)
[2018-07-08] MEDS: TAMSULOSIN 0.4 MG CAP PO ×2 (09:00→10:04)
[2018-07-08] MEDS: FINASTERIDE 5 MG TAB PO ×2 (09:00→10:04)
[2018-07-08] MEDS: LACTOBACILLUS ACIDOPHILUS CAP (BACID) PO ×4 (10:00→20:20)
[2018-07-08] MEDS: VITAMIN D 1,000 INTERNATIONAL UNITS TABLET PO ×2 (10:00→10:03)
[2018-07-08] MEDS: AMITRIPTYLINE 50 MG TAB PO ×3 (10:00→20:20)
[2018-07-08] MEDS: MULTIVITAMINS/MINERALS THERAP 1 TAB PO (10:00)
[2018-07-08] MEDS: PANTOPRAZOLE 40MG TAB (PROTONIX) PO ×2 (10:00→10:03)
[2018-07-08] MEDS: LACTULOSE 20 GM/30 ML SYRUP UD PO ×4 (10:00→20:20)
[2018-07-08] MEDS: CLOTRIMAZOLE 1% TOPICAL CREAM 30GM TOP ×2 (10:04→20:21)
[2018-07-08] MEDS: rifAXIMin 550 MG TAB (XIFAXAN) PO ×2 (10:04→20:20)
[2018-07-08 15:40] LABS: KETONE, URINE AUTO RFX NEGATIVE (NEGATIVE); NITRITE, URINE AUTO RFX NEGATIVE (NEGATIVE); RBC, URINE AUTO RFX 5 /HPF (0-3); SQUAM EPITHELIAL CELL UR AURFX 0 /HPF (0-6); YEAST LIKE CELL URINE AUTO RFX SMALL
[2018-07-08 15:43] LABS: LEUKOCYTE ESTERASE UR AUTO RFX 1+ (NEGATIVE); WBC, URINE AUTO RFX 34 /HPF (0-3)
[2018-07-08] MEDS: cefTRIAXone SOD 2 GM in D5W MINI-BAG PLUS 50 ML IV (20:20)
[2018-07-08] MEDS: FAMOTIDINE 20 MG TAB PO (20:20)
[2018-07-08] MEDS: diphenhydrAMINE INJ 50MG/ML VIAL (J1200) IV (21:53)
[2018-07-09] MEDS: SODIUM CHLORIDE 0.9% INJ 10 ML SYR IV ×2 (06:24→18:00)
[2018-07-09] MEDS: SUCRALFATE 1 GM TAB PO ×4 (07:30→20:05)
[2018-07-09] MEDS: LACTULOSE 20 GM/30 ML SYRUP UD PO ×3 (09:00→20:06)
[2018-07-09] MEDS: TAMSULOSIN 0.4 MG CAP PO (09:38)
[2018-07-09] MEDS: LACTOBACILLUS ACIDOPHILUS CAP (BACID) PO ×3 (09:38→20:05)
[2018-07-09] MEDS: FINASTERIDE 5 MG TAB PO (09:38)
[2018-07-09] MEDS: VITAMIN D 1,000 INTERNATIONAL UNITS TABLET PO (09:38)
[2018-07-09] MEDS: MULTIVITAMINS/MINERALS THERAP 1 TAB PO (09:38)
[2018-07-09] MEDS: rifAXIMin 550 MG TAB (XIFAXAN) PO ×2 (09:38→20:05)
[2018-07-09] MEDS: PANTOPRAZOLE 40MG TAB (PROTONIX) PO (09:39)
[2018-07-09] MEDS: AMITRIPTYLINE 50 MG TAB PO ×2 (09:39→20:05)
[2018-07-09] MEDS: SPIRONOLACTONE 25 MG TAB PO (09:39)
[2018-07-09] MEDS: ACETAMINOPHEN TAB 650MG DOSE (2X325MG) PO (09:39)
[2018-07-09] MEDS: CLOTRIMAZOLE 1% TOPICAL CREAM 30GM TOP ×2 (09:40→20:06)
[2018-07-09] MEDS: cefTRIAXone SOD 2 GM in D5W MINI-BAG PLUS 50 ML IV (20:05)
[2018-07-09] MEDS: FAMOTIDINE 20 MG TAB PO (20:05)
[2018-07-09] MEDS: traMADol 50 MG TAB PO (20:08)
[2018-07-10] MEDS: SODIUM CHLORIDE 0.9% INJ 10 ML SYR IV ×3 (05:21→21:53)
[2018-07-10 05:36] LABS: BASO % 0.4 % (0.0-1.0); EOS # 0.1 10^3/uL (0.0-0.50); EOS % 2.7 % (0.0-3.0); HEMATOCRIT 24.6 % (42.0-52.0); HEMOGLOBIN 8.2 g/dl (13.5-17.5); IMMATURE GRANULOCYTE % 0.4 % (0-3.0); LYMPH # 0.4 10^3/uL (1.5-4.5); LYMPH % 13.7 % (24.0-44.0); MEAN CORPUSCULAR HEMOGLOBIN 31.3 pg (27.0-33.0); MEAN CORPUSCULAR HGB CONC 33.3 g/dl (32.0-36.5); MEAN CORPUSCULAR VOLUME 93.9 fl (80.0-96.0); MONO # 0.3 10^3/uL (0.0-0.8); MONO % 12.9 % (0.0-5.0); NEUTROPHILS # 1.8 10^3/uL (1.8-7.7); NEUTROPHILS % 69.9 % (36.0-66.0); RED BLOOD COUNT 2.62 10^6/uL (4.30-6.10); RED CELL DISTRIBUTION WIDTH 16.1 % (11.5-14.5); WHITE BLOOD COUNT 2.6 10^3/uL (4.0-10.0)
[2018-07-10 05:42] LABS: PLATELET COUNT, AUTOMATED 59 10^3/uL (150-450)
[2018-07-10 05:43] LABS: IMMATURE PLATELET FRACTION % 1.2 % (0.0-10.9)
[2018-07-10 05:57] LABS: ALBUMIN 2.9 GM/DL (3.2-5.2); ALBUMIN/GLOBULIN RATIO 0.73 (1.00-1.93); ALKALINE PHOSPHATASE 710 U/L (45-117); ALT/SGPT 63 U/L (12-78); ANION GAP 9 MEQ/L (8-16); AST/SGOT 90 U/L (7-37); BILIRUBIN,TOTAL 0.6 MG/DL (0.2-1.0); BLOOD UREA NITROGEN 31 MG/DL (7-18); C REACTIVE PROTEIN QUANTITATIV 1.53 MG/DL (0.00-0.30); CALCIUM LEVEL 8.9 MG/DL (8.8-10.2); CARBON DIOXIDE LEVEL 22 MEQ/L (21-32); CHLORIDE LEVEL 107 MEQ/L (98-107); CREATININE FOR GFR 1.83 MG/DL (0.70-1.30); GLOMERULAR FILTRATION RATE 38.6 (>42); GLUCOSE, FASTING 77 MG/DL (70-100); POTASSIUM SERUM 4.4 MEQ/L (3.5-5.1); SODIUM LEVEL 138 MEQ/L (136-145); TOTAL PROTEIN 6.9 GM/DL (6.4-8.2)
[2018-07-10 06:01] LABS: ERYTHROCYTE SEDIMENTATION RATE 43 mm/hr (0-20)
[2018-07-10] MEDS: MULTIVITAMINS/MINERALS THERAP 1 TAB PO (07:54)
[2018-07-10] MEDS: rifAXIMin 550 MG TAB (XIFAXAN) PO ×2 (07:54→21:52)
[2018-07-10] MEDS: AMITRIPTYLINE 50 MG TAB PO ×2 (07:54→21:52)
[2018-07-10] MEDS: FINASTERIDE 5 MG TAB PO (07:54)
[2018-07-10] MEDS: SUCRALFATE 1 GM TAB PO ×4 (07:54→21:52)
[2018-07-10] MEDS: SPIRONOLACTONE 25 MG TAB PO (07:54)
[2018-07-10] MEDS: LACTOBACILLUS ACIDOPHILUS CAP (BACID) PO ×3 (07:54→21:52)
[2018-07-10] MEDS: TAMSULOSIN 0.4 MG CAP PO (07:54)
[2018-07-10] MEDS: PANTOPRAZOLE 40MG TAB (PROTONIX) PO (07:54)
[2018-07-10] MEDS: VITAMIN D 1,000 INTERNATIONAL UNITS TABLET PO (07:54)
[2018-07-10] MEDS: CLOTRIMAZOLE 1% TOPICAL CREAM 30GM TOP ×2 (07:55→21:53)
[2018-07-10] MEDS: LACTULOSE 20 GM/30 ML SYRUP UD PO ×3 (07:55→21:52)
[2018-07-10] MEDS: cefTRIAXone SOD 2 GM in D5W MINI-BAG PLUS 50 ML IV (20:55)
[2018-07-10] MEDS: FAMOTIDINE 20 MG TAB PO (21:52)
[2018-07-11] MEDS: SODIUM CHLORIDE 0.9% INJ 10 ML SYR IV ×3 (05:32→20:26)
[2018-07-11] MEDS: SUCRALFATE 1 GM TAB PO ×4 (07:30→20:25)
[2018-07-11] MEDS: LACTULOSE 20 GM/30 ML SYRUP UD PO ×3 (10:54→20:26)
[2018-07-11] MEDS: SPIRONOLACTONE 25 MG TAB PO (10:54)
[2018-07-11] MEDS: FINASTERIDE 5 MG TAB PO (10:54)
[2018-07-11] MEDS: LACTOBACILLUS ACIDOPHILUS CAP (BACID) PO ×3 (10:55→20:25)
[2018-07-11] MEDS: MULTIVITAMINS/MINERALS THERAP 1 TAB PO (10:55)
[2018-07-11] MEDS: AMITRIPTYLINE 50 MG TAB PO ×2 (10:55→20:25)
[2018-07-11] MEDS: TAMSULOSIN 0.4 MG CAP PO (10:55)
[2018-07-11] MEDS: rifAXIMin 550 MG TAB (XIFAXAN) PO ×2 (10:55→20:25)
[2018-07-11] MEDS: PANTOPRAZOLE 40MG TAB (PROTONIX) PO (10:55)
[2018-07-11] MEDS: VITAMIN D 1,000 INTERNATIONAL UNITS TABLET PO (10:55)
[2018-07-11] MEDS: CLOTRIMAZOLE 1% TOPICAL CREAM 30GM TOP ×2 (10:56→20:26)
[2018-07-11] MEDS: FAMOTIDINE 20 MG TAB PO (20:25)
[2018-07-11] MEDS: cefTRIAXone SOD 2 GM in D5W MINI-BAG PLUS 50 ML IV (20:26)
[2018-07-11] MEDS: ACETAMINOPHEN TAB 650MG DOSE (2X325MG) PO (22:36)
[2018-07-12] MEDS: SODIUM CHLORIDE 0.9% INJ 10 ML SYR IV ×2 (05:14→17:29)
[2018-07-12] MEDS: SUCRALFATE 1 GM TAB PO ×4 (07:30→20:25)
[2018-07-12] MEDS: CLOTRIMAZOLE 1% TOPICAL CREAM 30GM TOP ×2 (08:30→21:00)
[2018-07-12] MEDS: rifAXIMin 550 MG TAB (XIFAXAN) PO ×2 (09:44→20:25)
[2018-07-12] MEDS: VITAMIN D 1,000 INTERNATIONAL UNITS TABLET PO (09:44)
[2018-07-12] MEDS: AMITRIPTYLINE 50 MG TAB PO ×2 (09:44→20:25)
[2018-07-12] MEDS: SPIRONOLACTONE 25 MG TAB PO (09:44)
[2018-07-12] MEDS: PANTOPRAZOLE 40MG TAB (PROTONIX) PO (09:44)
[2018-07-12] MEDS: TAMSULOSIN 0.4 MG CAP PO (09:44)
[2018-07-12] MEDS: FINASTERIDE 5 MG TAB PO (09:44)
[2018-07-12] MEDS: LACTOBACILLUS ACIDOPHILUS CAP (BACID) PO ×3 (09:44→20:25)
[2018-07-12] MEDS: LACTULOSE 20 GM/30 ML SYRUP UD PO ×3 (09:45→20:25)
[2018-07-12] MEDS: MULTIVITAMINS/MINERALS THERAP 1 TAB PO (09:45)
[2018-07-12] MEDS: cefTRIAXone SOD 2 GM in D5W MINI-BAG PLUS 50 ML IV (20:25)
[2018-07-12] MEDS: FAMOTIDINE 20 MG TAB PO (20:25)
[2018-07-13] MEDS: SODIUM CHLORIDE 0.9% INJ 10 ML SYR IV ×2 (05:09→16:14)
[2018-07-13] MEDS: SPIRONOLACTONE 25 MG TAB PO ×2 (09:00→09:41)
[2018-07-13] MEDS: LACTULOSE 20 GM/30 ML SYRUP UD PO ×4 (09:00→20:35)
[2018-07-13] MEDS: PANTOPRAZOLE 40MG TAB (PROTONIX) PO ×2 (09:00→09:41)
[2018-07-13] MEDS: AMITRIPTYLINE 50 MG TAB PO ×3 (09:00→20:36)
[2018-07-13] MEDS: CLOTRIMAZOLE 1% TOPICAL CREAM 30GM TOP ×2 (09:00→20:36)
[2018-07-13] MEDS: rifAXIMin 550 MG TAB (XIFAXAN) PO ×3 (09:00→20:35)
[2018-07-13] MEDS: TAMSULOSIN 0.4 MG CAP PO ×2 (09:00→09:41)
[2018-07-13] MEDS: LACTOBACILLUS ACIDOPHILUS CAP (BACID) PO ×4 (09:00→20:35)
[2018-07-13] MEDS: VITAMIN D 1,000 INTERNATIONAL UNITS TABLET PO ×2 (09:00→09:41)
[2018-07-13] MEDS: FINASTERIDE 5 MG TAB PO ×2 (09:00→09:41)
[2018-07-13] MEDS: MULTIVITAMINS/MINERALS THERAP 1 TAB PO ×2 (09:00→09:45)
[2018-07-13] MEDS: SUCRALFATE 1 GM TAB PO ×4 (09:41→20:36)
[2018-07-13 10:44] LABS: AMMONIA 35 uMOL/L (<32)
[2018-07-13 11:23] LABS: AMMONIA 50 uMOL/L (<32)
[2018-07-13] MEDS: FAMOTIDINE 20 MG TAB PO (20:35)
[2018-07-13] MEDS: cefTRIAXone SOD 2 GM in D5W MINI-BAG PLUS 50 ML IV (20:35)
[2018-07-14] MEDS: SODIUM CHLORIDE 0.9% INJ 10 ML SYR IV (05:00)
[2018-07-14] MEDS: MULTIVITAMINS/MINERALS THERAP 1 TAB PO (08:26)
[2018-07-14] MEDS: SUCRALFATE 1 GM TAB PO ×2 (08:26→12:00)
[2018-07-14] MEDS: SPIRONOLACTONE 25 MG TAB PO (08:26)
[2018-07-14] MEDS: LACTULOSE 20 GM/30 ML SYRUP UD PO ×2 (08:26→16:00)
[2018-07-14] MEDS: VITAMIN D 1,000 INTERNATIONAL UNITS TABLET PO (08:26)
[2018-07-14] MEDS: FINASTERIDE 5 MG TAB PO (08:26)
[2018-07-14] MEDS: TAMSULOSIN 0.4 MG CAP PO (08:26)
[2018-07-14] MEDS: CLOTRIMAZOLE 1% TOPICAL CREAM 30GM TOP (08:27)
[2018-07-14] MEDS: PANTOPRAZOLE 40MG TAB (PROTONIX) PO (08:27)
[2018-07-14] MEDS: LACTOBACILLUS ACIDOPHILUS CAP (BACID) PO ×2 (08:27→16:00)
[2018-07-14] MEDS: AMITRIPTYLINE 50 MG TAB PO (08:27)
[2018-07-14] MEDS: rifAXIMin 550 MG TAB (XIFAXAN) PO (08:27)
[2018-07-14] MEDS: INFLUENZA VIRUS VACCINE HIGH DOSE 0.5 ML SYRINGE (90662) IM (16:36)
== END 2018-07-14 18:02 | disposition home health service (06) | DRG 466 ==
LOC: M MSPAV 06-20 08:49 → M ED 22:08 → M MSPAV 06-20 09:02 → M ED INP 05-25 00:47 → M MSPAV 05-25 02:00
PROC: 0SPC0JZ Removal of Synthetic Substitute from Right Knee Joint, Open Approach (ICD-10-PCS; principal; 2018-06-01 12:47)
PROC: 0SRC0J9 Replacement of Right Knee Joint with Synthetic Substitute, Cemented, Open Approach (ICD-10-PCS; 2018-06-01 12:47)
PROC: 3E0U029 Introduction of Other Anti-infective into Joints, Open Approach (ICD-10-PCS; 2018-06-01 12:47)
PROC: 02PY33Z Removal of Infusion Device from Great Vessel, Percutaneous Approach (ICD-10-PCS; 2018-06-01 12:47)
PROC: 0JPT3XZ Removal of Tunneled Vascular Access Device from Trunk Subcutaneous Tissue and Fascia, Percutaneous Approach (ICD-10-PCS; 2018-06-01 12:47)
PROC: 02HV33Z Insertion of Infusion Device into Superior Vena Cava, Percutaneous Approach (ICD-10-PCS; 2018-06-01 12:47)
PROC: 30233N1 Transfusion of Nonautologous Red Blood Cells into Peripheral Vein, Percutaneous Approach (ICD-10-PCS; 2018-06-01 12:47)
DX: T84.53XA Infection and inflammatory reaction due to internal right knee prosthesis, initial encounter (principal); A41.51 Sepsis due to Escherichia coli [E. coli]; I81 Portal vein thrombosis; M00.861 Arthritis due to other bacteria, right knee; R18.8 Other ascites; N17.9 Acute kidney failure, unspecified; D61.818 Other pancytopenia; K83.0 Cholangitis; F02.81 Dementia in other diseases classified elsewhere, unspecified severity, with behavioral disturbance; E46 Unspecified protein-calorie malnutrition; Z66 Do not resuscitate; K72.90 Hepatic failure, unspecified without coma; M97.11XA Periprosthetic fracture around internal prosthetic right knee joint, initial encounter; G20 Parkinson's disease; K74.60 Unspecified cirrhosis of liver; B96.20 Unspecified Escherichia coli [E. coli] as the cause of diseases classified elsewhere; Z96.651 Presence of right artificial knee joint; Z85.09 Personal history of malignant neoplasm of other digestive organs; Z88.1 Allergy status to other antibiotic agents; Z88.8 Allergy status to other drugs, medicaments and biological substances; Z88.6 Allergy status to analgesic agent; Z92.21 Personal history of antineoplastic chemotherapy; Z90.49 Acquired absence of other specified parts of digestive tract; Y82.9 Unspecified medical devices associated with adverse incidents